=== PATIENT | male | born 1965 | race African-American/Black ===

== ENCOUNTER 2016-03-06 18:35 | Emergency (ER) | payer MEDICAID, OTHER ==
[~2016-03-06] VITALS: Ht 180.3 cm; Wt 122.0 kg
[~2016-03-06 18:35] MED LIST: FAMO40TA52 PO; HYDR-3498 PO; LOSA50TA6 PO; MAG355OR15 PO; MED4DP PO; NAPR-688 PO; ONDA4TAB8 PO
[2016-03-06 18:38] VITALS: Ht 180.3 cm; Wt 122.0 kg
--- NOTE | 2016-03-06 19:12 | EN ---
Date/Time of Note Date/Time of Note DATE: 03/06/16 TIME: 19:10 ER Progress Note This is a 50 year old male presenting to ER with CC of carpal tunnel syndrome of left wrist and alcohol abuse and wants a refill of metronidazole/Antabuse. Patient states he is following up with specialist on March 10. He usually takes Darling, I have already discussed that we will not be giving him a prescription but he would like something for pain at this moment. Patient will be sent to ER 1 for medication treatment and wrist brace. Do not give him prescription for Darling DINO FOSTER PA-C Mar 06, 2016 19:12
[2016-03-06] MEDS ORDERED: ULT50 PO (19:48)
[2016-03-06] MEDS ORDERED: ACET500C5 PO (19:48)
--- NOTE | 2016-03-06 20:02 | ERD ---
ER Documentation Chief Complaint Date/Time DATE: 03/06/16 TIME: 19:54 Chief Complaint left wrist pain hx of carpal tunnel HPI 50-year-old male presents here in emergency department for complaints of left wrist pain, patient has had this chronically, history of carpal tunnel syndrome. Patient had history of severe shots injections on affected area. Patient did not take any medications of symptoms. Patient denies any injury. Patient described the pain as throbbing pain, 6/10 scale, is worse upon movement. Patient denies any redness or swelling. Patient denies any deformity. Patient denies any limitation of movement of the joint. Patient has been requesting for Antabuse and wants to know resources where he can get it. ROS All systems reviewed and are negative except as per history of present illness. Medications Home Meds Active Scripts Acetaminophen* (Tylophen*) 500 Mg Capsule, 1 CAP PO Q6H Y for PAIN AND OR ELEVATED TEMP, #20 CAP Prov:DANNI RAMON BUSINESS ETHICS PROFESSOR 03/06/16 Tramadol HCl (Tramadol HCl) 50 Mg Tablet, 50 MG PO Q6 Y for SEVERE PAIN LEVEL 7- 10, #20 TAB Prov:DANNI RAMON BUSINESS ETHICS PROFESSOR 03/06/16 Methylprednisolone* (Medrol* DOSE PACK) 4 Mg/Dose-Pack Tab.ds.pk, 4 MG PO . DIRECTED, #1 PACKET Prov:DIMA WALTER PA-C 09/15/15 Hydrocodone Bit-Acetaminophen* ([place]*) 5-325 Mg Tab, 1 TAB PO Q6 Y for PAIN, # 7 TAB Prov:DIMA WALTER PA-C 09/15/15 Ondansetron Hcl* (Zofran*) 4 Mg Tablet, 4 MG PO Q8 for NAUSEA AND/OR VOMITING, # 12 TAB Prov:PAKO STOCK MD 08/22/15 Naproxen* (Naproxen*) 500 Mg Tablet, 500 MG PO BID Y for PAIN, #30 TAB Prov:PAKO STOCK MD 08/22/15 Famotidine* (Famotidine*) 40 Mg Tablet, 40 MG PO HS, #30 TAB Prov:PAKO STOCK MD 08/22/15 Mag Hydrox/Al Hydrox/Simeth (Maalox Ms Liquid) 360 Ml Oral.susp, 2 TSP PO TID for PAIN, #24 OZ Prov:PAKO STOCK MD 08/22/15 Reported Medications Losartan Potassium* (Losartan Potassium*) 50 Mg Tablet, 50 MG PO DAILY, TAB 09/12/13 Allergies Allergies: Coded Allergies: ibuprofen (Verified Allergy, Intermediate, 03/06/16) PMhx/Soc History of Surgery: Yes (APPENDECTOMY 20 YRS AGO) Anesthesia Reaction: No Hx Neurological Disorder: No Hx Respiratory Disorders: No Hx Cardiac Disorders: Yes (HTN) Hx Psychiatric Problems: No Hx Alcohol Use: Yes (OCCASIONAL) Hx Substance Use: No Hx Tobacco Use: Yes (1/2 PACK DAILY) Smoking Status: Current every day smoker FmHx Family History: No coronary disease, No diabetes, No other Physical Exam Vitals Vital Signs Date Time Temp Pulse Resp B/P Pulse Ox O2 Delivery O2 Flow Rate FiO2 03/06/16 18:38 98.5 89 20 142/103 96 Physical Exam GENERAL: The patient is well developed and appropriate for usual state of health, in no apparent distress. CHEST: Clear to auscultation bilaterally. There are no rales, wheezes or rhonchi. HEART: Regular rate and rhythm. No murmurs, clicks, rubs or gallops. No S3 or S4. ABDOMEN: Soft, nontender and nondistended. Good bowel sounds. No rebound or guarding. No gross peritonitis. No gross organomegaly or masses. No Dawson sign or McBurney point tenderness. BACK: No midline or flank tenderness. EXTREMITIES: Patient is able to do full range of motion of the left wrist without any restriction. Equal pulses bilaterally. Range of motion of the other joints of the body. Grossly neurovascularly intact. NEURO: Alert and oriented. Cranial nerves 2-12 intact. Motor strength in all 4 extremities with 5/5 strength. Sensation grossly intact. Normal speech and gait. SKIN: There is no apparent rash or petechia. The skin is warm and dry. HEMATOLOGIC AND LYMPHATIC: There is no evidence of excessive bruising or lymphedema. No gross cervical, axillary, or inguinal lymphadenopathy. Procedures/MDM Medical Decision Making: Patient's pain is most likely consistent with a left wrist pain possibly from carpal tunnel, chronic pain. There is no suspicion for neurovascular compromise. Patient has intact sensation and circulation of the affected extremity. There is low suspicion for septic arthritis. Patient does not have any fever. Radiology exam is not indicated at this time. Disposition: Home. Patient is given prescription for Tylenol for pain, Tylenol for severe pain. Patient was advised to elevate the affected area and apply ice on affected area. Patient was advised that if symptoms are worse, numbness, tingling, high fever, unable to move joint, worsening symptoms, to return to emergency department immediately. Otherwise, patient is advised to follow up with the primary care doctor in 5-7 days for reevaluation of symptoms. Departure Diagnosis: Primary Impression: Wrist pain, left Condition: Stable Patient Instructions: Wrist Sprain DANNI RAMON NP Mar 06, 2016 20:02
== END 2016-03-06 20:16 | disposition home or self-care (01) ==
LOC: E/R 18:35 → FTE 20:16
DX: M25.532 Pain in left wrist (principal); F17.210 Nicotine dependence, cigarettes, uncomplicated
CPT/HCPCS: 29105; Z7610

== ENCOUNTER 2016-05-01 06:00 | Day surgery (SDC) | payer OTHER ==
[~2016-05-01] VITALS: Ht 177.8 cm; Wt 116.9 kg
[2016-05-01] VITALS (13 sets, daily range): BP systolic 114–152; BP diastolic 71–116; PULSE 88–104; RESP 15–26; Ht 177.8 cm; Wt 116.9 kg
[~2016-05-01 06:00] MED LIST changes: +ACET500C5 PO; +TRAM50TA2 PO
[2016-05-01] MEDS ORDERED: OMEP40CA6 PO (07:11)
[2016-05-01] MEDS ORDERED: FURO40TA4 PO (07:11)
[2016-05-01] MEDS ORDERED: CARI350T29 PO (07:12)
[2016-05-01] MEDS ORDERED: CEFAZOLIN 1 GM INJ ONE (07:46)
[2016-05-01] MEDS ORDERED: PROPOFOL 20 ML ONE ×2 (07:46→08:55)
[2016-05-01] MEDS ORDERED: LIDOCAINE 2% (SDV) 5 ML INJ ONE (07:46)
[2016-05-01] MEDS ORDERED: FENTAnyl 50 MCG/ML VIAL ONE (07:47)
[2016-05-01] MEDS ORDERED: MIDAZOLAM 1 MG/ML 2 ML INJ ONE (07:47)
[2016-05-01] MEDS ORDERED: LIDOCAINE 1%/EPI 30 ML INJ ONE (08:13)
--- NOTE | 2016-05-01 08:15 | HPN ---
Date/Time of Note Date/Time of Note DATE: 05/01/16 TIME: 08:15 Interval H&P Admission Note Pt. seen H&P reviewed: No system changes MADELEINE GANDARA MD May 01, 2016 08:15
--- NOTE | 2016-05-01 08:18 | OPPN ---
Date/Time of Note Date/Time of Note DATE: 05/01/16 TIME: 08:16 Operative/Procedure Note Pre-Operative Diagnosis 1 left carpal tunnel syndrone 2 left dequervains Post-Operative Diagnosis same Procedure lleft caprl tunnel relase left dequervains release Surgeon: MADELEINE GANDARA MD Anesthesiologist: CESILIA KHANNA MD Implants/Grafts: Not applicable Estimated blood loss: none Drains: Not applicable Specimens: Not Applicable Anesthesia type: MADELEINE GIBSON MD May 01, 2016 08:18
[2016-05-01] MEDS ORDERED: ONDANSETRON 4 MG INJ ONE (08:39)
[2016-05-01] MEDS ORDERED: METOCLOPRAMIDE 10 MG INJ ONE (08:39)
[2016-05-01] MEDS ORDERED: PHENYLephrine (100 MCG/ML) 5ML SYG ONE (08:43)
[2016-05-01] MEDS ORDERED: HYDROmorphONE 2 MG/ML SYG ONE (08:51)
[2016-05-01] MEDS ORDERED: HYDROmorphONE (0.2 MG/ML) 10ML SYG IV PRN ×2 (09:00)
[2016-05-01] MEDS ORDERED: MEPERIDINE 25 MG INJ IV PRN (09:00)
[2016-05-01] MEDS ORDERED: OXYCODONE/ACETAMINOPHEN (5/325) TAB PO PRN ×2 (09:00)
[2016-05-01] MEDS ORDERED: ONDANSETRON 4 MG INJ IV PRN (09:00)
[2016-05-01] MEDS ORDERED: PROCHLORPERAZINE 10 MG INJ IV PRN (09:00)
[2016-05-01] MEDS ORDERED: DIPHENHYDRAMINE 50 MG INJ IV PRN (09:00)
[2016-05-01] MEDS ORDERED: FENTAnyl 50 MCG/ML VIAL IV PRN (09:00)
[2016-05-01] MEDS ORDERED: LABETALOL HCL 20MG INJ IV PRN (09:00)
[2016-05-01] MEDS ORDERED: hydrALAzine 20 MG INJ IV PRN (09:00)
[2016-05-01] MEDS ORDERED: VASOPRESSIN 20 UNITS INJ ONE (09:03)
[2016-05-01] MEDS ORDERED: EPHEDrine SULFATE 50 MG/5 ML SYG ONE (09:04)
[2016-05-01] MEDS ORDERED: PROVENTIL HFA 6.7GM INHALER ONE (09:23)
[2016-05-01] MEDS ORDERED: ALBUTEROL 0.5% (NEB) 2.5 MG/0.5 ML AMP ONE (09:40)
[2016-05-01] MEDS ORDERED: ALBUTEROL 0.5% (NEB) 2.5 MG/0.5 ML AMP INH ONE (10:00)
[2016-05-01] MEDS ORDERED: IPRATROPIUM (NEB) 0.5 MG/2.5 ML AMP HHN ONE (10:00)
--- NOTE | 2016-05-01 11:21 | OPR ---
DATE OF OPERATION: PREOPERATIVE DIAGNOSIS: 1. Left hand carpal tunnel syndrome. 2. Left wrist de Quervain's tenosynovitis. POSTOPERATIVE DIAGNOSIS: 1. Left hand carpal tunnel syndrome. 2. Left wrist de Quervain's tenosynovitis. OPERATION PERFORMED: 1. Left wrist carpal tunnel syndrome release. 2. Left wrist de Quervain's tenosynovitis release. SURGEON: Madeleine Hanks MD [employer] ATTENDANT: Staff. STAFF DEVELOPMENT COORDINATOR RN: Torie Camargo MD ANESTHESIA TECHNIQUE: Sedation by the anesthesiologist, local anesthetic by the surgeon. SURGICAL PAUSE: In the preop holding area we interviewed the patient. I confirmed the operative pr ocedure and plan. I augustina in the 2 surgical incisions, left palm, left first dorsal compartment. I showed the drawn surgical incision to the patient. I confirmed the operative procedure plan with th e patient awake. INFORMED CONSENT: At the time we scheduled the operative procedure in the office, we discussed with the patient the risks and hazards of surgery. I mentioned operative mortality, infection, nerve in jury, good results, bad result, potential for complications. At the end of that conversation, I had the patient sign a note documenting the informed consent conversation. DESCRIPTION OF PROCEDURE: The patient was taken to surgery, anesthetized as above, sterile prep and drape performed. An oblique incision made at the first dorsal compartment of the radius superficial radial nerve was identified in place behind retractors atraumatically. The first dorsal compartment was identified, incised and decompressed along its length. A flap of retinaculum was created, based proximally, ref lected over the dorsum of the first dorsal compartment and tacked to the far side as loose reconstru cted annular escobar. The skin was closed using subcuticular Vicryl. Part Two. We turned our attention to the left carpal canal. A 2 cm longitudinal incision made longitudinally over the proximal palm. carried down to the transverse carpal ligament. A arnulfo was made in i t. A mosquito passed through the arnulfo elevating the ligament away from the deep structures. I divi ded the transverse carpal ligament proximally and distally under direct observation. I did not touc h and manipulate the median nerve. We did a simple transverse carpal ligament release. The wound w as closed using interrupted Vicryl Rapide, a bulky cotton dressing was applied. The operative proce dure was around a half hour. DISCHARGE MEDICATIONS 1. Hydrocodone with acetaminophen. 2. Keflex. FOLLOWUP: Will be in my office in 1 week. In 1 week, the dressing will be discontinued and active range of motion will be started. Dictated By: MADELEINE HERNÁNDEZ/MANI Conf#: [id number] DID#: [id number]
== END 2016-05-01 11:15 | disposition home or self-care (01) ==
LOC: SDS 06:00
PROVIDERS: ATTEND Orthopaedic Surgery Hand Surgery
DX: G56.02 Carpal tunnel syndrome, left upper limb (principal); M65.4 Radial styloid tenosynovitis [de Quervain]; I10 Essential (primary) hypertension; E66.01 Morbid (severe) obesity due to excess calories; Z68.37 Body mass index [BMI] 37.0-37.9, adult
CPT/HCPCS: 25000; 64721; 94664; J0690; J1170; J2250; J2370; J2405; J2765; J3010; Z7512; Z7610

== ENCOUNTER 2016-05-25 05:22 | Emergency (ER) | payer OTHER ==
[~2016-05-25] VITALS: Ht 177.8 cm; Wt 119.0 kg
[~2016-05-25 05:22] MED LIST changes: -ACET500C5 PO; +CARI350T29 PO; -FAMO40TA52 PO; +FURO40TA4 PO; -MAG355OR15 PO; -MED4DP PO; -NAPR-688 PO; +OMEP40CA6 PO; -ONDA4TAB8 PO; -TRAM50TA2 PO
[2016-05-25 05:28] VITALS: Ht 177.8 cm; Wt 119.0 kg
--- NOTE | 2016-05-25 06:51 | ERD ---
ER Documentation Chief Complaint Date/Time DATE: 05/25/16 TIME: 06:49 Chief Complaint R hand and wrist pain 2 weeks hurts worse tonight, hx carpel tunnel HPI 50-year-old male history of carpal tunnel to his right wrist comes in with 2 weeks of worsening pain in the right wrist. It is on the radial aspect and radiates to his fingertips on the second and third digits. Patient describes as achy, moderate pain, worse with movement, and he is taking [place] but he states it does not seem to be helping. He states the tramadol has helped his wrist pain in the past. He denies trauma, fevers or chills. ROS All systems reviewed and are negative except as per history of present illness. Medications Home Meds Active Scripts Tramadol HCl (Tramadol HCl) 50 Mg Tablet, 50 MG PO Q4 Y for PAIN, #20 TAB Prov:KATI RAMIREZ PA-C 05/25/16 Hydrocodone Bit-Acetaminophen* ([place]*) 5-325 Mg Tab, 1 TAB PO Q6 Y for PAIN, # 7 TAB Prov:DIMA WALTER PA-C 09/15/15 Reported Medications Carisoprodol* (Carisoprodol*) 350 Mg Tablet, 350 MG PO Q8 Y for MUSCLE SPASMS, TAB 05/01/16 Furosemide* (Furosemide*) 40 Mg Tablet, PO DAILY, TAB 05/01/16 Omeprazole* (Omeprazole*) 40 Mg Capsule.dr, 40 MG PO DAILY, #30 CAP 05/01/16 Losartan Potassium* (Losartan Potassium*) 50 Mg Tablet, 50 MG PO DAILY, TAB 09/12/13 Allergies Allergies: Coded Allergies: ibuprofen (Verified Allergy, Intermediate, 03/06/16) PMhx/Soc History of Surgery: Yes (carpel tunnel L wrist) Anesthesia Reaction: No Hx Neurological Disorder: No Hx Respiratory Disorders: No Hx Cardiac Disorders: Yes (HTN) Hx Psychiatric Problems: No Hx Miscellaneous Medical Probl: Yes (GERD) Hx Alcohol Use: No Hx Substance Use: No Hx Tobacco Use: Yes (03/08 ppd) Smoking Status: Current every day smoker Physical Exam Vitals Vital Signs Date Time Temp Pulse Resp B/P Pulse Ox O2 Delivery O2 Flow Rate FiO2 05/25/16 05:28 98.3 103 20 174/120 97 Physical Exam General: Well-developed, well-nourished. The patient appears in no acute distress. HEENT: Head is normocephalic, atraumatic. No scleral icterus. Neck: Supple. Nontender. Lungs: Clear to auscultation. Normal air movement. Heart: Regular rate and rhythm. S1 and S2 are normal. No murmurs, gallops, or rubs. Abdomen: Nondistended. Extremities: Radian, ulnar, median nerve intact, diffuse tenderness at the radial aspect of the wrist, there are no bony deformities, no erythema, warmth, no overlying lacerations or openings. Capillary refill less than 2 seconds. Radial pulse 2+ bilaterally. Neurologic: Alert and oriented 3. No focal deficits. Normal speech and gait. Skin: Normal turgor. No rash or lesions. Results 24 hrs PROCEDURE: Right hand x-ray CLINICAL INDICATION: pain x 2 weeks TECHNIQUE: AP, lateral and oblique views of the hand and wrist were obtained. COMPARISON: None FINDINGS: Well corticated bony density adjacent to the ulnar styloid suggests prior trauma. No acute fracture or dislocation is seen. Bone mineralization appears within normal limits. No significant degenerative change is seen. IMPRESSION: Old ulnar styloid fracture fragment. No definite acute abnormality. RPTAT: HLBE Physician Christoph Date Time Electronically viewed and signed by Physician Christoph on 05/25/2016 07 :06 LE/ Procedures/MDM ED course: X-rays of the right wrist obtained, and right wrist was placed in a Velcro wrist splint. Splint Assessment: Neurovascularly intact post splint placement with good fit. MDM: 50-year-old male comes in with carpal tunnel exacerbation of the right wrist, with carpal tunnel syndrome. There is no acute fracture, signs of dislocation or infectious process. Patient was placed in a wrist splint, he will be given a short course of tramadol, advised him to follow-up with his primary care physician for further medication refills. He is supposed to get a surgical evaluation for carpal tunnel syndrome, there are no signs of neuropraxia, weakness associated. Departure Diagnosis: Primary Impression: Pain in wrist Condition: Good KATI RAMIREZ PA-C May 25, 2016 06:51
--- NOTE | 2016-05-25 07:07 | RADRPT ---
PROCEDURE: Right hand x-ray CLINICAL INDICATION: pain x 2 weeks TECHNIQUE: AP, lateral and oblique views of the hand and wrist were obtained. COMPARISON: None FINDINGS: Well corticated bony density adjacent to the ulnar styloid suggests prior trauma. No acute fracture or dislocation is seen. Bone mineralization appears within normal limits. No significant degenera tive change is seen. IMPRESSION: Old ulnar styloid fracture fragment. No definite acute abnormality. RPTAT: HLBE Physician Christoph Date Time Electronically viewed and signed by Anastasiia Mix Physician on 05/25/2016 07:06 LE/
[2016-05-25] MEDS ORDERED: TRAM50TA2 PO (07:24)
== END 2016-05-25 07:45 | disposition home or self-care (01) ==
LOC: FTE 05:22
DX: M25.531 Pain in right wrist (principal); I10 Essential (primary) hypertension; F17.210 Nicotine dependence, cigarettes, uncomplicated
CPT/HCPCS: 29125; 73110; Z7502

== ENCOUNTER 2016-07-30 20:47 | Emergency (ER) | payer OTHER ==
[~2016-07-30] VITALS: Ht 177.8 cm; Wt 121.0 kg
[~2016-07-30 20:47] MED LIST changes: +TRAM50TA2 PO
[2016-07-30 20:52] VITALS: Ht 177.8 cm; Wt 121.0 kg
[2016-07-30] MEDS ORDERED: SOD CHLORIDE 0.9% 1,000 ML IV ONE (22:30)
[2016-07-30] MEDS ORDERED: CEFTRIAXONE 1 GM/50 ML (PMX) 50 ML IVPB ONE (22:30)
[2016-07-30] MEDS ORDERED: HYDROCODONE/APAP (5/325) TAB PO ONE (22:30)
--- NOTE | 2016-07-30 22:38 | ERD ---
ER Documentation Chief Complaint Date/Time DATE: 07/30/16 TIME: 22:24 Chief Complaint bilateral lower extremity redness and swelling for past 3 weeks -cp - sob HPI This 50-year-old male presents to the emergency department today with bilateral lower extremity redness, pain, swelling and burning. Symptoms have progressively worsened over the past 3 weeks. Patient reports that his feet feel numb and tingly while ambulating. Denies any prior history of lower extremity edema, denies any renal insufficiency or coronary artery disease. Patient reports history of hypertension, sleep apnea, GERD, arthritis, and,. Patient reports smoking a pack or so a week. Denies chest pain, shortness of breath, or palpitations. ROS All systems reviewed and are negative except as per history of present illness. Medications Home Meds Active Scripts Tramadol HCl (Tramadol HCl) 50 Mg Tablet, 50 MG PO Q4 Y for PAIN, #20 TAB Prov:KATI RAMIREZ PA-C 05/25/16 Hydrocodone Bit-Acetaminophen* ([place]*) 5-325 Mg Tab, 1 TAB PO Q6 Y for PAIN, # 7 TAB Prov:DIMA WALTER PA-C 09/15/15 Reported Medications Carisoprodol* (Carisoprodol*) 350 Mg Tablet, 350 MG PO Q8 Y for MUSCLE SPASMS, TAB 05/01/16 Furosemide* (Furosemide*) 40 Mg Tablet, PO DAILY, TAB 05/01/16 Omeprazole* (Omeprazole*) 40 Mg Capsule.dr, 40 MG PO DAILY, #30 CAP 05/01/16 Losartan Potassium* (Losartan Potassium*) 50 Mg Tablet, 50 MG PO DAILY, TAB 09/12/13 Allergies Allergies: Coded Allergies: ibuprofen (Verified Allergy, Intermediate, 03/06/16) PMhx/Soc History of Surgery: Yes (carpel tunnel L wrist) Anesthesia Reaction: No Hx Neurological Disorder: No Hx Respiratory Disorders: No Hx Cardiac Disorders: Yes (HTN) Hx Psychiatric Problems: No Hx Miscellaneous Medical Probl: Yes (GERD) Hx Alcohol Use: No Hx Substance Use: No Hx Tobacco Use: Yes (03/08 ppd) Smoking Status: Current every day smoker Physical Exam Vitals Vital Signs Date Time Temp Pulse Resp B/P Pulse Ox O2 Delivery O2 Flow Rate FiO2 07/30/16 20:52 97.8 120 18 142/86 97 Patient is tachycardic with normal temperature and respirations. Physical Exam Const: No acute distress Head: Atraumatic Eyes: Normal Conjunctiva, PERRLA, EOMI ENT: Normal External Ears, Nose and Mouth. Mucous membranes moist Neck: Resp: Chest rises and falls symmetrically, clear to auscultation bilaterally no respiratory distress Cardio: Sinus tachycardia at a ventricular rate of 120 , S1-S2, no S3-S4 Abd: Soft, non tender, non distended. Normal bowel sounds Skin: Bilateral lower extremity presents with tight skin, red macular erythema and warmth. Left lower extremity presents with a small scabbed lesion. Back: Ext: Lower Extremity - bilateral: Skin: Bilateral lower extremity presents with tight skin, red macular erythema and warmth. Left lower extremity presents with a small scabbed lesion +1 pitting edema Compartments: Soft Motor: Decreased range of motion secondary to edema Sensation: Hypersensitivity to touch on bright red erythematous skin, decreased sensitivity on lateral aspect of bilateral feet. Bones: Nontender knee/proximal tibia/ malleoli/foot Joints: No effusion or laxity Pulses/Perfusion: Trace DP, Capillary refill < 2 seconds Neur: Awake and alert Psych: Normal Mood and Affect Result Diagram: 07/30/16220407/30/162204 Results 24 hrs Laboratory Tests Test 07/30/16 22:00 07/30/16 22:05 Lactic Acid Level 1.4mmol/L White Blood Count 9.210^3/ul Red Blood Count 4.0710^6/ul Hemoglobin 12.8g/dl Hematocrit 38.1% Mean Corpuscular Volume 93.6fl Mean Corpuscular Hemoglobin 31.4pg Mean Corpuscular Hemoglobin Concent 33.6g/dl Red Cell Distribution Width 13.2% Platelet Count 57097^3/UL Mean Platelet Volume 11.6fl Neutrophils % 68.4% Lymphocytes % 16.0% Monocytes % 10.2% Eosinophils % 4.6% Basophils % 0.4% Nucleated Red Blood Cells % 0.0/100WBC Neutrophils # 6.310^3/ul Lymphocytes # 1.510^3/ul Monocytes # 0.910^3/ul Eosinophils # 0.410^3/ul Basophils # 0.010^3/ul Nucleated Red Blood Cells # 0.010^3/ul Prothrombin Time 13.9Sec Prothrombin Time Ratio 1.1 INR International Normalized Ratio 1.07 Activated Partial Thromboplast Time 27.0Sec Sodium Level 140mmol/L Potassium Level 3.7mmol/L Chloride Level 107mmol/L Carbon Dioxide Level 22mmol/L Anion Gap 15 Blood Urea Nitrogen 21mg/dl Creatinine 1.50mg/dl Glucose Level 108mg/dl Calcium Level 8.5mg/dl Total Bilirubin 0.2mg/dl Direct Bilirubin 0.00mg/dl Indirect Bilirubin 0.2mg/dl Aspartate Amino Transf (AST/SGOT) 42IU/L Alanine Aminotransferase (ALT/SGPT) 45IU/L Alkaline Phosphatase 149IU/L Total Protein 7.9g/dl Albumin 3.3g/dl Globulin 4.60g/dl Albumin/Globulin Ratio 0.71 Current Medications Medications (Trade) Dose Ordered Sig/Debora Route PRN Reason Start Time Stop Time Status Last Admin Dose Admin Sodium Chloride 1,000 ml @ 1,000 mls/hr Q1H ONCE IV 07/30/16 22:30 07/30/16 23:29 DC 07/30/16 22:50 Ceftriaxone Sodium (Rocephin) 50 ml @ 100 mls/hr ONCE ONCE IVPB 07/30/16 22:30 07/30/16 22:59 DC 07/30/16 22:51 Acetaminophen/ Hydrocodone Bitart ([place] (5/325)) 1 tab ONCE ONCE PO 07/30/16 22:30 07/30/16 22:31 DC 07/30/16 22:51 Interpretation text CBC shows no evidence of hemorrhage or infection Chemistry shows no evidence of significant electrolyte abnormalities or renal insufficiency Liver function tests shows no evidence of acute biliary or hepatic dysfunction Coagulation study showed no concerning coagulpathy Lactic acid less than 2 Procedures/MDM EKG: Rate/Rhythm: Sinus tachycardia at a ventricular rate of 106 bpm QRS, ST, T-waves: No changes consistent w/ acute ischemia Impression: No evidence of ischemia or arrhythmia This 50-year-old male patient presents to the emergency department with tachycardia, painful lower extremities with erythema and pitting edema. Patient has no prior history of lower extremity edema, denies any injury to the lower extremities, denies history of diabetes or coronary artery disease. Skin is painful to touch, with redness warmth and swelling. DVT, PVD, low probability, venous Doppler ordered regardless to rule out clot. Bilateral lower extremities patent without evidence of decrease perfusion. Renal insufficiency,, CHF, sepsis unlikely, lactic acid less than 2, WBCs without elevation, hemoglobin and hematocrit normal and stable. Electrolytes without evidence of renal insufficiency. Patient treated in the emergency department for pain and lower extremity cellulitis with a liter of fluids, and 1 g of Rocephin intravenous, Fence, patient reports improvement in leg pain but states extremities feel tight. Teaching provided to keep extremities elevated, he will be discharged home with Keflex 1 tab p.o. 4 times daily 10 days, follow -up in emergency department for reevaluation in 48 hours, make outpatient follow -up appointment with primary care physician in 10 days. Return to emergency department for fever not responding to treatment, increased pain, swelling, shortness of breath. I feel the patient is stable for discharge at this time with 48 hour follow-up, and posttreatment evaluation with primary care physician. I have discussed results, examination findings, the treatment plan with the patient and family present prior to discharge. Indications for emergent reevaluation, side effects of medication were also discussed. All questions were answered. Patient verbalizes understanding and agrees with plan of care. Departure Diagnosis: Primary Impression: Cellulitis Site of cellulitis: extremity Site of cellulitis of extremity: lower extremity Laterality: unspecified laterality Qualified Code: L03.119 - Cellulitis of lower extremity, unspecified laterality Condition: Good Patient Instructions: Cellulitis Additional Instructions: Thank you for for coming to [facility] for your care today. Please ask your nurse or provider if you have questions about your care today and do not leave until all your questions have been answered. Please use any medications given as directed and follow-up with your doctor (or the doctor you were referred to) in the next 2-3 days. If you do not have a primary care doctor you [place] [facility] [place] You may also use motrin and tylenol as needed for fever and/or pain unless instructed otherwise by your provider or nurse. Indications for more urgent follow-up have been discussed, but you may return to the Emergency Department at ANY time for any worrisome or worsening symptoms. If you have abdominal pain, please know that no test or exam you received is perfect and you should follow up within 8 hours for continued pain. If you had any imaging studies today, such as an X-Ray or CT Scan, these studies will be reviewed later by a radiologist. You will be called if there are important findings that were not identified today, so make sure the contact information you provided at registration is correct. If you received any narcotic pain control medicine today, such as Vicodin, Morphine or Dilaudid, your coordination and judgment may be affected for a number of hours. Please do not drive or operate heavy machinery, and you may want someone to assist you at home. If you were given a prescription for narcotic medication, be aware that it is very addictive- use sparingly and only if necessary. LAYLA GOODE July 30, 2016 22:36
[2016-07-30 22:52] LABS: ADD SCAN DIFF NO
[2016-07-30 22:54] LABS: BASOPHILS % 0.4 % (0.0-2.0); EOSINOPHILS # 0.4 10^3/ul (0.0-0.5); EOSINOPHILS % 4.6 % (0.0-7.0); HEMATOCRIT 38.1 % (42.0-52.0); HEMOGLOBIN 12.8 g/dl (14.0-18.0); LYMPHOCYTES # 1.5 10^3/ul (0.8-2.9); MEAN CORPUSCULAR HEMOGLOBIN 31.4 pg (29.0-33.0); MEAN CORPUSCULAR HGB CONC 33.6 g/dl (32.0-37.0); MEAN CORPUSCULAR VOLUME 93.6 fl (82.0-101.0); MEAN PLATELET VOLUME 11.6 fl (7.4-10.4); MONOCYTE # 0.9 10^3/ul (0.3-0.9); MONOCYTES % 10.2 % (0.0-11.0); NEUTROPHIL # 6.3 10^3/ul (1.6-7.5); NEUTROPHILS % 68.4 % (39.0-77.0); PLATELET COUNT 245 10^3/UL (140-415); RED BLOOD COUNT 4.07 10^6/ul (4.70-6.10); RED CELL DISTRIBUTION WIDTH 13.2 % (11.5-14.5); WHITE BLOOD COUNT 9.2 10^3/ul (4.8-10.8)
[2016-07-30 23:07] LABS: INR 1.07; PROTIME 13.9 Sec (12.2-14.2); PT RATIO 1.1
[2016-07-30 23:13] LABS: ALBUMIN 3.3 g/dl (3.3-4.9); ALBUMIN/GLOBULIN RATIO 0.71; BILIRUBIN,INDIRECT 0.2 mg/dl (0-1.1); BILIRUBIN,TOTAL 0.2 mg/dl (0.2-1.3); CALCIUM 8.5 mg/dl (8.4-10.2); CREATININE 1.5 mg/dl (0.61-1.24); POTASSIUM 3.7 mmol/L (3.5-5.1); TOTAL PROTEIN 7.9 g/dl (6.1-8.1)
--- NOTE | 2016-07-31 00:59 | RADRPT ---
PROCEDURE: Ultrasound of the bilateral lower extremity venous system. CLINICAL INDICATION: Bilateral leg pain and swelling, deep venous thrombosis TECHNIQUE: Adkins scale with and without compression, color doppler, spectral doppler of the venous system of the bilateral lower extremities was performed. Venous augmentation maneuvers were utilized . COMPARISON: 09/03/2013 FINDINGS: RIGHT: Common femoral vein: Patent. Femoral vein: Patent. Popliteal vein: Patent. Calf veins: Patent. No soft tissue abnormalities are identified. LEFT: Common femoral vein: Patent. Femoral vein: Patent. Popliteal vein: Patent. Calf veins: Patent. No soft tissue abnormalities are identified. IMPRESSION: No evidence of a deep vein thrombosis within the bilateral lower extremities. RPTAT: AADD .Ash Cantor MD, MD Date Time Electronically viewed and signed by .Ash Cantor MD, on 07/31/2016 00:58 .B/
[2016-07-31] MEDS ORDERED: HYDR-906 PO (01:55)
[2016-07-31] MEDS ORDERED: CEPH-443 PO (01:55)
[2016-07-31 01:58] LABS: ADD UMIC YES; URINE BILIRUBIN (Dip) NEGATIVE (NEGATIVE); URINE BLOOD (Dip) 3+ (NEGATIVE); URINE COLOR LT. YELLOW (YELLOW); URINE GLUCOSE (Dip) NEGATIVE (NEGATIVE); URINE KETONES (Dip) NEGATIVE (NEGATIVE); URINE LEUKOCYTE ESTERASE (Dip) 1+ (NEGATIVE); URINE NITRITE (Dip) NEGATIVE (NEGATIVE); URINE TOTAL PROTEIN (Dip) 2+ (NEGATIVE); URINE UROBILINOGEN (Dip) 0.2 E.U./dL (0.1-1.0)
[2016-07-31 02:12] LABS: SQUAMOUS EPITHELIAL CELL,UR MODERATE; URINE RBCS 25-50 /HPF (0)
[2016-07-31 02:13] LABS: BACTERIA,URINE OCCASIONAL
[2016-07-31 02:28] VITALS: BP 148/99; PULSE 98; RESP 16
== END 2016-07-31 02:29 | disposition home or self-care (01) ==
LOC: FTE 20:47
DX: L03.116 Cellulitis of left lower limb (principal); I10 Essential (primary) hypertension; F17.210 Nicotine dependence, cigarettes, uncomplicated; R07.9 Chest pain, unspecified
CPT/HCPCS: 80053; 81001; 83605; 85025; 85610; 85730; 87040; 87086; 93970; J0696; J7030; Z7610; 36415; 93005; 96374

== ENCOUNTER 2016-09-15 20:54 | Inpatient (IN) | payer OTHER ==
[~2016-09-15] VITALS: Ht 177.8 cm; Wt 123.5 kg
[~2016-09-15 20:54] MED LIST changes: +CEPH-443 PO; +HYDR-906 PO
--- NOTE | 2016-09-15 22:24 | ERA ---
ER Documentation Chief Complaint Date/Time DATE: 09/15/16 TIME: 22:24 Chief Complaint Bilateral LE cellulitis for 3 months abx not effective HPI The patient is a 51-year-old male, presenting to the ER because of persistent infection of bilateral lower extremity for more than 3 months. He already took 2 regimen of antibiotics without relief. He denies fever, chills, neck pain, chest pain, dyspnea, abdominal pain, vomiting, dysuria, diarrhea. He does not smoke nor drink Past medical history: Hypertension, GERD, rheumatoid arthritis, glaucoma Past surgical history: Left carpal tunnel's surgery ROS All systems reviewed and are negative except as per history of present illness. Medications Home Meds Active Scripts Tramadol HCl (Tramadol HCl) 50 Mg Tablet, 50 MG PO Q4 Y for PAIN, #20 TAB Prov:KATI RAMIREZ PA-C 05/25/16 Reported Medications Albuterol Sulfate* (Ventolin HFA*) 18 Gm Hfa.aer.ad, 2 PUFF INHALATION Q4H, #1 INHALER 09/15/16 Brimonidine Tartrate* (Brimonidine Tartrate*) 0.2%-15ML Drop Opht, 1 DROP BOTH EYES Q8, #1 EA 09/15/16 Latanoprost (Latanoprost) 2.5 Ml Drops, 1 DROP BOTH EYES QHS, #1 BOTTLE 09/15/16 Timolol Maleate* (Timolol Maleate* Ophth) 0.25%-15ml Opht, 1 DROP BOTH EYES BID , #1 EA 09/15/16 Cephalexin* (Cephalexin*) 500 Mg Capsule, 500 MG PO Q6, #28 CAP 09/15/16 Hydrochlorothiazide* (Hydrochlorothiazide*) 25 Mg Tab, 25 MG PO DAILY, #30 TAB 09/15/16 Atenolol* (Atenolol*) 100 Mg Tablet, 100 MG PO DAILY, #30 TAB 09/15/16 Alprazolam* (Alprazolam*) 0.25 Mg Tablet, 0.25 MG PO TID Y for ANXIETY, TAB 09/15/16 Hydrocodone/Acetaminophen ([place] 10-325 Tablet) 1 Each Tablet, 1 EACH PO, TAB 09/15/16 Carisoprodol* (Carisoprodol*) 350 Mg Tablet, 350 MG PO Q8 Y for MUSCLE SPASMS, TAB 05/01/16 Furosemide* (Furosemide*) 40 Mg Tablet, PO DAILY, TAB 05/01/16 Omeprazole* (Omeprazole*) 40 Mg Capsule.dr, 40 MG PO DAILY, #30 CAP 05/01/16 Losartan Potassium* (Losartan Potassium*) 50 Mg Tablet, 50 MG PO DAILY, TAB 09/12/13 Discontinued Reported Medications Hydrocodone/Acetaminophen ([place] 10-325 Tablet) 1 Each Tablet, 1 EACH PO, TAB 09/15/16 Discontinued Scripts Hydrocodone/Acetaminophen ([place] 5-325 Tablet) 1 Each Tablet, 1 TAB PO Q6H Y for PAIN, #7 TAB Prov:RUPA,LAYLA 07/31/16 Cephalexin* (Keflex*) 500 Mg Capsule, 500 MG PO QID for 10 Days, CAP Prov:RUPA,LAYLA 07/31/16 Hydrocodone Bit-Acetaminophen* ([place]*) 5-325 Mg Tab, 1 TAB PO Q6 Y for PAIN, # 7 TAB Prov:DIMA WALTER PA-C 09/15/15 Allergies Allergies: Coded Allergies: ibuprofen (Unverified Allergy, Intermediate, 09/15/16) PMhx/Soc History of Surgery: Yes (carpel tunnel L wrist) Anesthesia Reaction: No Hx Neurological Disorder: No Hx Respiratory Disorders: No Hx Cardiac Disorders: Yes (HTN) Hx Psychiatric Problems: No Hx Miscellaneous Medical Probl: Yes (GERD) Hx Alcohol Use: No Hx Substance Use: No Hx Tobacco Use: Yes (03/08 ppd) Physical Exam Vitals Vital Signs Date Time Temp Pulse Resp B/P Pulse Ox O2 Delivery O2 Flow Rate FiO2 09/15/16 21:16 99.2 102 18 181/97 99 Physical Exam Const: No acute distress. Head: Atraumatic. Eyes: Normal Conjunctiva. ENT: Normal External Ears, Nose and Mouth. Neck: Full range of motion. No meningismus. Resp: Clear to auscultation bilaterally. Cardio: Regular rate and rhythm. Abd: Soft, non distended, normal bowel sounds, non tender. Skin: No petechiae or rashes. Back: No midline or flank tenderness. Ext: Bilateral lower extremity edema with mild calf tenderness, warm to touch Neur: Awake and alert. No focal deficit Psych: Normal Mood and Affect. Result Diagram: 09/15/16224909/15/162249 Results 24 hrs Laboratory Tests Test 09/15/16 22:50 09/15/16 23:35 White Blood Count 9.510^3/ul Red Blood Count 3.8910^6/ul Hemoglobin 12.2g/dl Hematocrit 35.9% Mean Corpuscular Volume 92.3fl Mean Corpuscular Hemoglobin 31.4pg Mean Corpuscular Hemoglobin Concent 34.0g/dl Red Cell Distribution Width 14.0% Platelet Count 70927^3/UL Mean Platelet Volume 12.0fl Neutrophils % 60.4% Lymphocytes % 22.0% Monocytes % 12.5% Eosinophils % 4.1% Basophils % 0.5% Nucleated Red Blood Cells % 0.0/100WBC Neutrophils # 5.810^3/ul Lymphocytes # 2.110^3/ul Monocytes # 1.210^3/ul Eosinophils # 0.410^3/ul Basophils # 0.110^3/ul Nucleated Red Blood Cells # 0.010^3/ul Prothrombin Time 12.8Sec Prothrombin Time Ratio 1.0 INR International Normalized Ratio 0.96 Activated Partial Thromboplast Time 28.1Sec Sodium Level 141mmol/L Potassium Level 3.6mmol/L Chloride Level 106mmol/L Carbon Dioxide Level 21mmol/L Anion Gap 18 Blood Urea Nitrogen 19mg/dl Creatinine 2.09mg/dl Glucose Level 105mg/dl Calcium Level 8.5mg/dl Total Bilirubin 0.0mg/dl Direct Bilirubin 0.00mg/dl Indirect Bilirubin 0.0mg/dl Aspartate Amino Transf (AST/SGOT) 40IU/L Alanine Aminotransferase (ALT/SGPT) 40IU/L Alkaline Phosphatase 122IU/L Total Protein 7.8g/dl Albumin 4.0g/dl Globulin 3.80g/dl Albumin/Globulin Ratio 1.05 Lactic Acid Level 1.0mmol/L Current Medications Medications (Trade) Dose Ordered Sig/Debora Route PRN Reason Start Time Stop Time Status Last Admin Dose Admin Vancomycin HCl 250 ml @ 125 mls/hr ONCE IVPB 09/15/16 23:30 09/16/16 01:29 DC 09/16/16 01:37 Levofloxacin/ Dextrose 150 ml @ 100 mls/hr ONCE ONCE IVPB 09/15/16 23:30 09/16/16 00:59 DC 09/15/16 23:45 Sodium Chloride (NS) 1,000 ml @ 80 mls/hr [id number] IV 09/16/16 00:45 Procedures/MDM EKG: Read by emergency physician Rate/Rhythm: Normal Sinus Rhythm 95 beats/min QRS, ST, T-waves: No ST elevation, no T inversion, prolonged QT Impression: Abnormal EKG [place] [id number] Radiology Main Line: [phone] DIAGNOSTIC IMAGING REPORT Patient: MAREK HENDRICKSON : 1965 Age: 51 Sex: M MR #: [id number] DOS: 09/16/16 0022 Ordering MD: NATALY MCKEON MD Location: E/R Room/Bed: PROCEDURE: US bilateral lower extremity venous Doppler CLINICAL INDICATION: Bilateral swelling TECHNIQUE: Multiple sonographic images of the bilateral lower extremity deep venous system was obtained utilizing grayscale, color-flow, compressive sonography and Doppler imaging with augmentation. COMPARISON: There are no similar studies submitted for comparison. FINDINGS: There is normal compressibility and flow within the left common femoral, superficial femoral, popliteal, and calf veins. There is normal compressibility and flow within the right common femoral, superficial femoral, popliteal, and calf veins. IMPRESSION: No evidence of DVT within the lower extremities. RPTAT: HIKT .Kevon Mccarty MD, MD Date Time Electronically viewed and signed by .Kevon Mccarty MD, MD on 09/16/2016 01:32 .T/ CC: NATALY MCKEON MD [place] [id number] Radiology Main Line: [phone] DIAGNOSTIC IMAGING REPORT Patient: MAREK HENDRICKSON : 1965 Age: 51 Sex: M MR #: [id number] DOS: 09/15/16 2320 Ordering MD: NATALY MCKEON MD Location: E/R Room/Bed: PROCEDURE: Portable chest x-ray. CLINICAL INDICATION: Chest pain. TECHNIQUE: Portable AP view of the chest. COMPARISON: 08/22/2015. FINDINGS: There are low lung volumes, limiting evaluation of the pulmonary vessels and the heart size. No pulmonary edema or conolidation is identified. The cardiac silhouette is magnified. No pleural effusion is seen. There is no pneumothorax. IMPRESSION: 1. Low lung volumes. RPTAT: HTAR .Fuad Triplett MD, MD Date Time Electronically viewed and signed by .Fuad Triplett MD, MD on 09/16/2016 00:10 .R/ CC: NATALY MCKEON MD MEDICAL MAKING DECISION: The patient is a 51-year-old male, presenting with acute bilateral leg cellulitis, failed outpatient therapy. He was treated with Levaquin IV and vancomycin IV The differential diagnoses considered include but are not limited to cellulitis , DVT, necrotizing fasciitis Departure Diagnosis: Primary Impression: Bilateral lower leg cellulitis Condition: Stable Comments I discussed the findings with the patient. I discussed the patient with the on- call hospitalist Dr. Miller who was made aware of the lab, the treatment, the patient condition. The patient is admitted to medical surgery bed at 12:40 AM NATALY MCKEON MD Sep 15, 2016 22:24
[2016-09-15] MEDS ORDERED: CEPH500C PO (23:27)
[2016-09-15] MEDS ORDERED: BRIM15DR7 BOTH EYES (23:27)
[2016-09-15] MEDS ORDERED: LATA2.5D2 BOTH EYES (23:27)
[2016-09-15] MEDS ORDERED: TIMO15DR15 BOTH EYES (23:27)
[2016-09-15] MEDS ORDERED: HYDR-902 PO ×2 (23:27→23:28)
[2016-09-15] MEDS ORDERED: HYD25 PO (23:27)
[2016-09-15] MEDS ORDERED: ALBU18HF INHALATION (23:27)
[2016-09-15] MEDS ORDERED: ATEN100T PO (23:27)
[2016-09-15] MEDS ORDERED: ALPR0.254 PO (23:27)
[2016-09-15] MEDS ORDERED: VANCOMYCIN 1 GM (PMX) 250 ML IVPB SCH (23:30)
[2016-09-15] MEDS ORDERED: LEVOFLOXACIN 750MG/D5W (PMX) 150 ML IVPB ONE (23:30)
--- NOTE | 2016-09-16 00:10 | RADRPT ---
PROCEDURE: Portable chest x-ray. CLINICAL INDICATION: Chest pain. TECHNIQUE: Portable AP view of the chest. COMPARISON: 08/22/2015. FINDINGS: There are low lung volumes, limiting evaluation of the pulmonary vessels and the heart size. No pulm onary edema or conolidation is identified. The cardiac silhouette is magnified. No pleural effusio n is seen. There is no pneumothorax. IMPRESSION: 1. Low lung volumes. RPTAT: HTAR .Fuad Triplett MD, Date Time Electronically viewed and signed by .Fuad Triplett MD, on 09/16/2016 00:10 .R/
[2016-09-16 00:17] LABS: ADD SCAN DIFF NO
[2016-09-16 00:19] LABS: BASOPHIL # 0.1 10^3/ul (0.0-0.1); BASOPHILS % 0.5 % (0.0-2.0); EOSINOPHILS # 0.4 10^3/ul (0.0-0.5); EOSINOPHILS % 4.1 % (0.0-7.0); HEMATOCRIT 35.9 % (42.0-52.0); HEMOGLOBIN 12.2 g/dl (14.0-18.0); LYMPHOCYTES # 2.1 10^3/ul (0.8-2.9); MEAN CORPUSCULAR HEMOGLOBIN 31.4 pg (29.0-33.0); MEAN CORPUSCULAR VOLUME 92.3 fl (82.0-101.0); MONOCYTE # 1.2 10^3/ul (0.3-0.9); MONOCYTES % 12.5 % (0.0-11.0); NEUTROPHIL # 5.8 10^3/ul (1.6-7.5); NEUTROPHILS % 60.4 % (39.0-77.0); PLATELET COUNT 293 10^3/UL (140-415); RED BLOOD COUNT 3.89 10^6/ul (4.70-6.10); WHITE BLOOD COUNT 9.5 10^3/ul (4.8-10.8)
[2016-09-16 00:23] LABS: PARTIAL THROMBOPLASTIN TIME 28.1 Sec (25.0-35.0)
[2016-09-16 00:27] LABS: ALBUMIN/GLOBULIN RATIO 1.05; CALCIUM 8.5 mg/dl (8.4-10.2); CREATININE 2.09 mg/dl (0.61-1.24); POTASSIUM 3.6 mmol/L (3.5-5.1); TOTAL PROTEIN 7.8 g/dl (6.1-8.1)
[2016-09-16 00:39] LABS: INR 0.96; PROTIME 12.8 Sec (12.2-14.2)
[2016-09-16] MEDS ORDERED: ALPRAZOLAM 0.25 MG TAB PO PRN (01:00)
[2016-09-16] MEDS ORDERED: DOCUSATE SODIUM 100 MG CAP PO PRN (01:00)
[2016-09-16] MEDS ORDERED: CARISOPRODOL 350 MG TAB PO PRN (01:00)
[2016-09-16] MEDS ORDERED: BISACODYL (EC) 5 MG TAB PO PRN (01:00)
[2016-09-16] MEDS ORDERED: ACETAMINOPHEN 325 MG TAB PO PRN (01:00)
[2016-09-16] MEDS ORDERED: ALBUTEROL 18 GM INHALER INH PRN (01:00)
[2016-09-16] MEDS ORDERED: ONDANSETRON 4 MG INJ IV PRN (01:00)
[2016-09-16] MEDS ORDERED: NACL 0.9% 3 ML SYG IV SCH (01:00)
--- NOTE | 2016-09-16 01:32 | RADRPT ---
PROCEDURE: US bilateral lower extremity venous Doppler CLINICAL INDICATION: Bilateral swelling TECHNIQUE: Multiple sonographic images of the bilateral lower extremity deep venous system was obt ained utilizing grayscale, color-flow, compressive sonography and Doppler imaging with augmentation. COMPARISON: There are no similar studies submitted for comparison. FINDINGS: There is normal compressibility and flow within the left common femoral, superficial femoral, poplit eal, and calf veins. There is normal compressibility and flow within the right common femoral, superficial femoral, popli teal, and calf veins. IMPRESSION: No evidence of DVT within the lower extremities. RPTAT: HIKT .Kevon Mccarty MD, MD Date Time Electronically viewed and signed by .Kevon Mccarty MD, MD on 09/16/2016 01:32 .T/
[2016-09-16 01:38] VITALS: PULSE 95; TEMP 98.6
[2016-09-16 02:19] VITALS: Ht 177.8 cm; Wt 123.5 kg
[2016-09-16] MEDS: morphine 2 MG INJ IV PRN ×2 (02:57→09:39)
[2016-09-16] MEDS ORDERED: VANCOMYCIN IV PER PHARMACY XX SCH (03:30)
[2016-09-16] MEDS: SOD CHLORIDE 0.9% 1,000 ML IV SCH ×3 (04:05→20:09)
[2016-09-16] MEDS ORDERED: VANCOMYCIN 1 GM in NS 250 ML IVPB ONE (04:30)
[2016-09-16] MEDS: BRIMONIDINE 0.2% 5 ML BTL BOTH EYES SCH ×3 (05:49→21:10)
[2016-09-16] MEDS: PANTOPRAZOLE 40 MG INJ IV SCH (05:49)
--- NOTE | 2016-09-16 06:12 | HP ---
Date/Time of Note Date/Time of Note DATE: 09/16/16 TIME: 06:05 Assessment/Plan VTE Prophylaxis VTE Prophylaxis Intervention: heparin Lines/Catheters IV [facility]from [facility] Peripheral IV Urinary Cath still in place: No Assessment/Plan Chief Complaint/Hosp Course This is a 51-year-old male being admitted to the [facility] floor for: #1 bilateral lower extremity cellulitis: Patient failed multiple outpatient courses of antibiotics. At the current time we will continue patient on vancomycin IV. Patient was also given a dose of Levaquin in the ER, will DC Levaquin at this time. Discontinue the vancomycin. Consider infectious disease consultation if no improvement. Bilateral lower extremity Dopplers were negative for DVT. #2 Acute on chronic kidney disease: Patient's previous creatinine was 1.5 and July. This is likely secondary to patient's hypertension as well as possible rheumatoid arthritis. At the current time will order bilateral renal ultrasound , urine microscopic, and urine sodium. Renally dose antibiotics. Avoid NSAIDs. Will consult nephrology. #3: Rheumatoid arthritis: Hold any NSAIDs at this time secondary to #2 #4 hypertension: At the current time will hold home antihypertensive secondary to #2. Will put as needed hydralazine. Will consult nephrology. #5 hyperlipidemia: We will check cholesterol labs. #6 Morbid obesity: We will also check hemoglobin A1c #7 DVT and GI prophylaxis: Heparin subcu, Protonix Further treatment strategy will be implemented for the clinical course Problems: HPI/ROS Admit Date/Time Admit Date/Time Sep 16, 2016 at 00:45 Hx of Present Illness Chief complaint: Bilateral cellulitis This is a 51-year-old male, presenting to the ER because of persistent infection of bilateral lower extremites for more than 3 months. He already took 2 regimen of antibiotics without relief. He denies fever, chills, neck pain, chest pain, dyspnea, abdominal pain, vomiting, dysuria, diarrhea. He states that he has noticed his lower extremities being swollen. He denies any shortness of breath or chest pain. He does notice that his lower extremities are warm to touch. Allergies: Ibuprofen Medications: See BHARATI NASH Const: As per HPI Eyes : No pain discharge or redness or change in visual acuity ENT: No pain, sore throat, congestion, congestion, dysphagia or discharge Respiratory: No shortness of breath, cough, sputum, wheezing, or pleuritic pain Cardiovascular: No chest pain, palpitation, PND, or edema GI : no change in appetite, abdominal pain, nausea, vomiting, diarrhea, constipation, or change in the color his stool Genitourinary: No dysuria, hematuria, flank pain , discharge or CVA tenderness Musculoskeletal: As per HPI Skin: As per HPI Neuro: No headache, dizziness, syncope, seizure, focal weakness Endocrine: No polyuria, polydipsia, temperature intolerance Psych: No hallucination, depression, anxiety or suicidal ideation PMH/Family/Social Past Medical History Hypertension, GERD, rheumatoid arthritis, glaucoma, hyperlipidemia Past Surgical History Appendectomy, left carpal tunnel's surgery Family History Significant Family History: diabetes (Mom) Social History Alcohol Use: occasionally Smoking Status: Current every day smoker (Half pack per day 30 years) Drug Use: none Exam/Review of Systems Vital Signs Vitals Vital Signs Date Time Temp Pulse Resp B/P Pulse Ox O2 Delivery O2 Flow Rate FiO2 09/16/16 01:38 98.6 95 16 153/95 98 Room Air Intake and Output 09/15/16 09/15/16 09/16/16 15:00 23:00 07:00 Intake Total 450 ml Balance 450 ml Exam Exam General: Patient is a obese male lying in bed in no acute distress. HEENT: Atraumatic, normocephalic. The pupils are equal, round and reactive. Extraocular motor are intact Neck: Supple with full range of motion. No rigidity or meningismus Chest: Nontender Lungs: Clear to auscultation bilaterally no crackles rales or wheezing Heart: Normal S1-S2, Regular rhythm and rate. No murmur, S3, or S4 Abdomen: Soft , nontender, nondistended , bowel sounds are present. No guarding no rebound tenderness , No masses or organomegaly. No costovertebral temporal angle mass Extremities: Swelling noted of the bilateral lower extremities at the foot and ankle level, normal pulses Neurologic: Normal mental status, speech normal, cranial nerves II through XII are intact, motor and sensory are intact, no focal weakness Skin: Warm and mild redness noted bilateral lower extremities of the feet up to the midshin, mild swelling noted of the ankles, Additional Comments PROCEDURE: US bilateral lower extremity venous Doppler CLINICAL INDICATION: Bilateral swelling TECHNIQUE: Multiple sonographic images of the bilateral lower extremity deep venous system was obtained utilizing grayscale, color-flow, compressive sonography and Doppler imaging with augmentation. COMPARISON: There are no similar studies submitted for comparison. FINDINGS: There is normal compressibility and flow within the left common femoral, superficial femoral, popliteal, and calf veins. There is normal compressibility and flow within the right common femoral, superficial femoral, popliteal, and calf veins. IMPRESSION: No evidence of DVT within the lower extremities. RPTAT: HIKT .Kevon Mccarty MD, Date Time Electronically viewed and signed by .Kevon Mccarty MD, on 09/16/2016 01:32 PROCEDURE: Portable chest x-ray. CLINICAL INDICATION: Chest pain. TECHNIQUE: Portable AP view of the chest. COMPARISON: 08/22/2015. FINDINGS: There are low lung volumes, limiting evaluation of the pulmonary vessels and the heart size. No pulmonary edema or conolidation is identified. The cardiac silhouette is magnified. No pleural effusion is seen. There is no pneumothorax. IMPRESSION: 1. Low lung volumes. RPTAT: HTAR .Fuad Triplett MD, Date Time Electronically viewed and signed by .Fuad Triplett MD, MD on 09/16/2016 00:10 Labs Result Diagram: 09/15/16 22509/15/16 225 Medications Medications Current Medications Sodium Chloride (NS) 1,000 ml @ 80 mls/hr [id number] IV Last administered on 09/16t 04:05; Admin Dose 80 MLS/HR; Start 09/16/16 at 00:45 Ondansetron HCl (Zofran Inj) 4 mg Q6H PRN IV NAUSEA AND/OR VOMITING; Start at 01:00 Acetaminophen (Tylenol Tab) 650 mg Q6H PRN PO PAIN LEVEL 1-3 OR FEVER; Start at 01:00 Morphine Sulfate (morphine) 2 mg Q4H PRN IV SEVERE PAIN LEVEL 7-10 Last administered on 09/16/16 02:57; Admin Dose 2 MG; Start 09/16/16 at 01:00 Docusate Sodium (Colace) 100 mg Q12H PRN PO CONSTIPATION; Start 09/16/16 at 01: 00 Bisacodyl (Dulcolax) 5 mg DAILY PRN PO CONSTIPATION; Start 09/16/16 at 01:00 Pantoprazole (Protonix Iv) 40 mg DAILY@06 IV Last administered on 09/16/16 05: 49; Admin Dose 40 MG; Start 09/16/16 at 06:00 Alprazolam (Xanax) 0.25 mg TID PRN PO ANXIETY; Start 09/16/16 at 01:00 Atenolol (Tenormin) 100 mg DAILY PO ; Start 09/16/16 at 09:00 Brimonidine Tartrate (Alphagan 0.2%) 1 drop Q8 BOTH EYES Last administered on 05:49; Admin Dose 1 DROP; Start 09/16/16 at 06:00 Carisoprodol (Soma) 350 mg Q8H PRN PO MUSCLE SPASMS; Start 09/16/16 at 01:00 Latanoprost (Xalatan) 1 drop QHS BOTH EYES ; Start 09/16/16 at 21:00 Timolol Maleate 1 drop 1 drop BID BOTH EYES ; Start 09/16/16 at 09:00 Vancomycin HCl 250 ml @ 125 mls/hr ONCE ONCE IVPB Last administered on 04:39; Admin Dose 125 MLS/HR; Start 09/16/16 at 04:30; Stop 09/16/16 at 06: 29 Vancomycin HCl/ Sodium Chloride (Vancocin/NS) 250 ml @ 83.333 mls/ hr Q24H IVPB ; Start 09/17/16 at 01:30 GABRIEL DOMINGUEZ Sep 16, 2016 06:12
[2016-09-16] MEDS: HEPARIN 5,000 UNIT/0.5 ML VIAL SC SCH ×3 (06:41→21:10)
[2016-09-16 07:30] VITALS: BP 141/87; RESP 18
[2016-09-16] MEDS: ATENOLOL 100 MG TAB PO SCH (09:34)
[2016-09-16] MEDS: TIMOLOL 0.25% 5 ML OPH BOTH EYES SCH ×2 (09:34→20:10)
--- NOTE | 2016-09-16 10:30 | PN ---
Date/Time of Note Date/Time of Note DATE: 09/16/16 TIME: 10:22 Assessment/Plan Lines/Catheters IV Catheter Type (from Nrsg): Peripheral IV Urinary Cath still in place: No Assessment/Plan Assessment/Plan cELLULITIS PERIPHERAL NEUROPATHY OBESITY TOBACCO ABUSE cassandra + LIKELY UNDERLYING ckd Subjective 24 Hr Interval Summary Free Text/Dictation shooting pain in leg and feet, with crawling sensation under the skin. Also feels some squeezing in arevalo Exam/Review of Systems Vital Signs Vitals Vital Signs Date Time Temp Pulse Resp B/P Pulse Ox O2 Delivery O2 Flow Rate FiO2 09/16/16 07:30 98.6 82 18 141/87 98 09/16/16 01:38 Room Air Intake and Output 09/15/16 09/15/16 09/16/16 15:00 23:00 07:00 Intake Total 530 ml Balance 530 ml Results Result Diagram: 09/15/16 2250 09/15/16 2250 Results 24 hrs Laboratory Tests Test 09/15/16 22:50 09/15/16 23:35 09/16/16 07:22 White Blood Count 9.5 Red Blood Count 3.89 L Hemoglobin 12.2 L Hematocrit 35.9 L Mean Corpuscular Volume 92.3 Mean Corpuscular Hemoglobin 31.4 Mean Corpuscular Hemoglobin Concent 34.0 Red Cell Distribution Width 14.0 Platelet Count 293 Mean Platelet Volume 12.0 H Neutrophils % 60.4 Lymphocytes % 22.0 Monocytes % 12.5 H Eosinophils % 4.1 Basophils % 0.5 Nucleated Red Blood Cells % 0.0 Neutrophils # 5.8 Lymphocytes # 2.1 Monocytes # 1.2 H Eosinophils # 0.4 Basophils # 0.1 Nucleated Red Blood Cells # 0.0 Prothrombin Time 12.8 Prothrombin Time Ratio 1.0 INR International Normalized Ratio 0.96 Activated Partial Thromboplast Time 28.1 Sodium Level 141 Potassium Level 3.6 Chloride Level 106 Carbon Dioxide Level 21 Anion Gap 18 H Blood Urea Nitrogen 19 Creatinine 2.09 H Glucose Level 105 Calcium Level 8.5 Total Bilirubin 0.0 L Direct Bilirubin 0.00 Indirect Bilirubin 0.0 Aspartate Amino Transf (AST/SGOT) 40 Alanine Aminotransferase (ALT/SGPT) 40 Alkaline Phosphatase 122 H Total Protein 7.8 Albumin 4.0 Globulin 3.80 H Albumin/Globulin Ratio 1.05 Lactic Acid Level 1.0 1.1 Medications Medications Current Medications Sodium Chloride (NS) 1,000 ml @ 80 mls/hr [id number] IV Last administered on 09/16 04:05; Admin Dose 80 MLS/HR; Start 09/16/16 at 00:45 Ondansetron HCl (Zofran Inj) 4 mg Q6H PRN IV NAUSEA AND/OR VOMITING; Start at 01:00 Acetaminophen (Tylenol Tab) 650 mg Q6H PRN PO PAIN LEVEL 1-3 OR FEVER; Start at 01:00 Morphine Sulfate (morphine) 2 mg Q4H PRN IV SEVERE PAIN LEVEL 7-10 Last administered on 09/16/16 09:39; Admin Dose 2 MG; Start 09/16/16 at 01:00 Docusate Sodium (Colace) 100 mg Q12H PRN PO CONSTIPATION; Start 09/16/16 at 01: 00 Bisacodyl (Dulcolax) 5 mg DAILY PRN PO CONSTIPATION; Start 09/16/16 at 01:00 Pantoprazole (Protonix Iv) 40 mg DAILY@06 IV Last administered on 09/16/16 05: 49; Admin Dose 40 MG; Start 09/16/16 at 06:00 Alprazolam (Xanax) 0.25 mg TID PRN PO ANXIETY; Start 09/16/16 at 01:00 Atenolol (Tenormin) 100 mg DAILY PO Last administered on 09/16/16 09:34; Admin Dose 100 MG; Start 09/16/16 at 09:00 Brimonidine Tartrate (Alphagan 0.2%) 1 drop Q8 BOTH EYES Last administered on 05:49; Admin Dose 1 DROP; Start 09/16/16 at 06:00 Carisoprodol (Soma) 350 mg Q8H PRN PO MUSCLE SPASMS; Start 09/16/16 at 01:00 Latanoprost (Xalatan) 1 drop QHS BOTH EYES ; Start 09/16/16 at 21:00 Timolol Maleate (Timoptic 0.25%) 1 drop BID BOTH EYES Last administered on 09/16 09:34; Admin Dose 1 DROP; Start 09/16/16 at 09:00 Heparin Sodium (Porcine) (Heparin (5000 Units/0.5 ml)) 5,000 unit Q8 SC Last administered on 09/16/16t 06:41; Admin Dose 5,000 UNIT; Start 09/16/16 at 06:30 Hydralazine HCl 25 mg 25 mg TID PRN PO ELEVATED BLOOD PRESSURE; Start 09/16/16 at 06:30 Vancomycin HCl 1.5 gm/Sodium Chloride 250 ml @ 83.333 mls/ hr Q36H IVPB ; Start 09/17/16 at 16:00 Levofloxacin/ Dextrose (Levaquin 750 Mg/ D5W 150 ml (Pmx)) 150 ml @ 100 mls/hr Q48H IVPB ; Start 09/17/16 at 23:00 SHELIA MONTEJO Sep 16, 2016 10:30
[2016-09-16] MEDS: FAMOTIDINE 20 MG TAB PO SCH (11:33)
[2016-09-16] MEDS: PREGABALIN 75 MG CAP PO SCH ×2 (11:33→20:10)
--- NOTE | 2016-09-16 12:36 | CONS ---
Date/Time of Note Date/Time of Note DATE: 09/16/16 TIME: 12:28 Assessment/Plan Assessment/Plan Chief Complaint/Hosp Course #1 Acute on chronic kidney disease: Patient's previous creatinine was 1.5 and July. Probable underlying nephrosclerosis. nonoliguric. 2+ proteinuria but complicated by pyuria so difficult to interpret High spec grav suggestive of renal hypoperfusion. acute component likely vasomotor nephropath/prerenal azotemia. At the current time will order bilateral renal ultrasound, urine microscopic, and urine sodium. Renally dose antibiotics. Avoid NSAIDs and other nephrotoxins. no indication for hd. #2 bilateral lower extremity cellulitis: Patient failed multiple outpatient courses of antibiotics. At the current time we will continue patient on vancomycin IV. Patient was also given a dose of Levaquin in the ER. Bilateral lower extremity Dopplers were negative for DVT. #3: Rheumatoid arthritis: Hold any NSAIDs at this time secondary to ibuprofen allergy and ckd. #4 hypertension: At the current time will hold home antihypertensive secondary to #2. Will put as needed hydralazine. Will consult nephrology. #5 hyperlipidemia: We will check cholesterol labs. #6 Morbid obesity: We will also check hemoglobin A1c #7 DVT and GI prophylaxis: Heparin subcu, Protonix #8 pyuria- fu cultures. Problems: Consultation Date/Type/Reason Admit Date/Time Sep 16, 2016 at 00:45 Hx of Present Illness Chief complaint: Bilateral cellulitis This is a 51-year-old male, presenting to the ER because of persistent infection of bilateral lower extremites for more than 3 months. He already took 2 regimen of antibiotics without relief. He denies fever, chills, neck pain, chest pain, dyspnea, abdominal pain, vomiting, dysuria, diarrhea. He states that he has noticed his lower extremities being swollen. He denies any shortness of breath or chest pain. He does notice that his lower extremities are warm to touch. noted to have acute on chronic renal failure. denies nsaid use. Allergies: Ibuprofen Medications: See MAR ROS Const: As per HPI Eyes : No pain discharge or redness or change in visual acuity ENT: No pain, sore throat, congestion, congestion, dysphagia or discharge Respiratory: No shortness of breath, cough, sputum, wheezing, or pleuritic pain Cardiovascular: No chest pain, palpitation, PND, or edema GI : no change in appetite, abdominal pain, nausea, vomiting, diarrhea, constipation, or change in the color his stool Genitourinary: No dysuria, hematuria, flank pain , discharge or CVA tenderness Musculoskeletal: As per HPI Skin: As per HPI Neuro: No headache, dizziness, syncope, seizure, focal weakness Endocrine: No polyuria, polydipsia, temperature intolerance Psych: No hallucination, depression, anxiety or suicidal ideation PMH/Family/Social Past Medical History Hypertension, GERD, rheumatoid arthritis, glaucoma, hyperlipidemia Past Surgical History Appendectomy, left carpal tunnel's surgery Family History Significant Family History: diabetes (Mom) Social History Alcohol Use: occasionally Smoking Status: Current every day smoker (Half pack per day 30 years) Drug Use: none Social History Alcohol Use: occasionally Smoking Status: Current every day smoker (Half pack per day 30 years) Drug Use: none Exam/Review of Systems Vital Signs Vitals Vital Signs Date Time Temp Pulse Resp B/P Pulse Ox O2 Delivery O2 Flow Rate FiO2 09/16/16 07:30 98.6 82 18 141/87 98 09/16/16 01:38 Room Air Intake and Output 09/15/16 09/15/16 09/16/16 15:00 23:00 07:00 Intake Total 530 ml Balance 530 ml Exam General: Patient is a obese male lying in bed in no acute distress. HEENT: Atraumatic, normocephalic. The pupils are equal, round and reactive. Extraocular motor are intact Neck: Supple with full range of motion. No rigidity or meningismus Chest: Nontender Lungs: Clear to auscultation bilaterally no crackles rales or wheezing Heart: Normal S1-S2, Regular rhythm and rate. No murmur, S3, or S4 Abdomen: Soft , nontender, nondistended , bowel sounds are present. No guarding no rebound tenderness , No masses or organomegaly. No costovertebral temporal angle mass Extremities: Swelling noted of the bilateral lower extremities at the foot and ankle level, normal pulses Neurologic: Normal mental status, speech normal, cranial nerves II through XII are intact, motor and sensory are intact, no focal weakness Skin: Warm and mild redness noted bilateral lower extremities of the feet up to the midshin, mild swelling noted of the ankles, Results Result Diagram: 09/15/16224909/15/16 225 Results 24 hrs Laboratory Tests Test 09/15/16 22:50 09/15/16 23:35 09/16/16 07:22 White Blood Count 9.5 Red Blood Count 3.89 L Hemoglobin 12.2 L Hematocrit 35.9 L Mean Corpuscular Volume 92.3 Mean Corpuscular Hemoglobin 31.4 Mean Corpuscular Hemoglobin Concent 34.0 Red Cell Distribution Width 14.0 Platelet Count 293 Mean Platelet Volume 12.0 H Neutrophils % 60.4 Lymphocytes % 22.0 Monocytes % 12.5 H Eosinophils % 4.1 Basophils % 0.5 Nucleated Red Blood Cells % 0.0 Neutrophils # 5.8 Lymphocytes # 2.1 Monocytes # 1.2 H Eosinophils # 0.4 Basophils # 0.1 Nucleated Red Blood Cells # 0.0 Prothrombin Time 12.8 Prothrombin Time Ratio 1.0 INR International Normalized Ratio 0.96 Activated Partial Thromboplast Time 28.1 Sodium Level 141 Potassium Level 3.6 Chloride Level 106 Carbon Dioxide Level 21 Anion Gap 18 H Blood Urea Nitrogen 19 Creatinine 2.09 H Glucose Level 105 Calcium Level 8.5 Total Bilirubin 0.0 L Direct Bilirubin 0.00 Indirect Bilirubin 0.0 Aspartate Amino Transf (AST/SGOT) 40 Alanine Aminotransferase (ALT/SGPT) 40 Alkaline Phosphatase 122 H Total Protein 7.8 Albumin 4.0 Globulin 3.80 H Albumin/Globulin Ratio 1.05 Lactic Acid Level 1.0 1.1 Medications Medications Current Medications Sodium Chloride (NS) 1,000 ml @ 80 mls/hr [id number] IV Last administered on 09/16 04:05; Admin Dose 80 MLS/HR; Start 09/16/16 at 00:45 Ondansetron HCl (Zofran Inj) 4 mg Q6H PRN IV NAUSEA AND/OR VOMITING; Start at 01:00 Acetaminophen (Tylenol Tab) 650 mg Q6H PRN PO PAIN LEVEL 1-3 OR FEVER; Start at 01:00 Morphine Sulfate (morphine) 2 mg Q4H PRN IV SEVERE PAIN LEVEL 7-10 Last administered on 09/16/16 09:39; Admin Dose 2 MG; Start 09/16/16 at 01:00 Docusate Sodium (Colace) 100 mg Q12H PRN PO CONSTIPATION; Start 09/16/16 at 01: 00 Bisacodyl (Dulcolax) 5 mg DAILY PRN PO CONSTIPATION; Start 09/16/16 at 01:00 Pantoprazole (Protonix Iv) 40 mg DAILY@06 IV Last administered on 09/16/16 05: 49; Admin Dose 40 MG; Start 09/16/16 at 06:00 Alprazolam (Xanax) 0.25 mg TID PRN PO ANXIETY; Start 09/16/16 at 01:00 Atenolol (Tenormin) 100 mg DAILY PO Last administered on 09/16/16 09:34; Admin Dose 100 MG; Start 09/16/16 at 09:00 Brimonidine Tartrate (Alphagan 0.2%) 1 drop Q8 BOTH EYES Last administered on 05:49; Admin Dose 1 DROP; Start 09/16/16 at 06:00 Carisoprodol (Soma) 350 mg Q8H PRN PO MUSCLE SPASMS; Start 09/16/16 at 01:00 Latanoprost (Xalatan) 1 drop QHS BOTH EYES ; Start 09/16/16 at 21:00 Timolol Maleate (Timoptic 0.25%) 1 drop BID BOTH EYES Last administered on 09/16 09:34; Admin Dose 1 DROP; Start 09/16/16 at 09:00 Heparin Sodium (Porcine) (Heparin (5000 Units/0.5 ml)) 5,000 unit Q8 SC Last administered on 09/16/16 06:41; Admin Dose 5,000 UNIT; Start 09/16/16 at 06:30 Hydralazine HCl 25 mg 25 mg TID PRN PO ELEVATED BLOOD PRESSURE; Start 09/16/16 at 06:30 Vancomycin HCl 1.5 gm/Sodium Chloride 250 ml @ 83.333 mls/ hr Q36H IVPB ; Start 09/17/16 at 16:00 Levofloxacin/ Dextrose (Levaquin 750 Mg/ D5W 150 ml (Pmx)) 150 ml @ 100 mls/hr Q48H IVPB ; Start 09/17/16 at 23:00 Pregabalin (Lyrica) 75 mg BID PO Last administered on 09/16/16 11:33; Admin Dose 75 MG; Start 09/16/16 at 10:30 Famotidine (Pepcid) 20 mg DAILY PO Last administered on 7/15/17at 11:33; Admin Dose 20 MG; Start 09/16/16 at 11:00 JASSI SIMS MD Sep 16, 2016 12:35
[2016-09-16 14:30] VITALS: BP 136/69; RESP 18
--- NOTE | 2016-09-16 19:14 | RADRPT ---
PROCEDURE: Renal US. CLINICAL INDICATION: Renal dysfunction. TECHNIQUE: Multiple sonographic images of the kidneys and urinary bladder were obtained. The imag es were reviewed on a PACS workstation. COMPARISON: No prior studies are available for comparison. FINDINGS: The right kidney measures 11.7 x 6.0 x 6.9 cm. The left kidney measures 11.3 x 6.4 x 6.5 cm. There is no renal mass. There is no hydronephrosis. There is no renal calculus. Renal parenchymal thickness is normal bilaterally. Echogenicity is normal bilaterally. The perirenal regions are normal with no fluid collection or mass. The urinary bladder is unremarkable. IMPRESSION: 1. Unremarkable renal ultrasound. RPTAT: QQ .Luis Antonio Mathis MD, Date Time Electronically viewed and signed by .Luis Antonio Mathis MD, MD on 09/16/2016 19:14 .R/
--- NOTE | 2016-09-16 19:20 | RADRPT ---
PROCEDURE: US bilateral lower extremity arteries. CLINICAL INDICATION: Bilateral leg pain and swelling. TECHNIQUE: Multiple longitudinal and transverse images of the bilateral lower extremity arteries w ere obtained with adamson scale, pulsed Doppler, and color Doppler imaging. COMPARISON: No prior studies are available for comparison. FINDINGS: Right CLAIM INSPECTOR:83 cm/sec PSFA:86 cm/sec MSFA:99 cm/sec DSFA:80 cm/sec POP:76 cm/sec TROUBLE SHOOTER:91 cm/sec DPA:106 cm/sec Left CLAIM INSPECTOR:101 cm/sec PSFA:78 cm/sec MSFA:101 cm/sec DSFA:98 cm/sec POP:64 cm/sec TROUBLE SHOOTER:99 cm/sec DPA:73 cm/sec The ankle brachial indices could not be obtained due to patient pain with cuff inflation. There is normal triphasic flow throughout bilaterally. There is no plaque, stenosis, or occlusion. IMPRESSION: 1. Normal bilateral lower extremity arterial Doppler. RPTAT: QQ .Luis Antonio Mathis MD, MD Date Time Electronically viewed and signed by .Luis Antonio Mathis MD, on 09/16/2016 19:19 .R/
[2016-09-16 20:47] VITALS: BP 145/93; RESP 20
[2016-09-16] MEDS ORDERED: LATANOPROST 0.005% 2.5 ML OPH BOTH EYES SCH (21:00)
[2016-09-17] MEDS ORDERED: VANCOMYCIN 1.5 GM in SOD CHLORIDE 0.9% 250 ML IVPB SCH ×2 (01:30→16:00)
[2016-09-17 02:00] VITALS: BP 127/66; RESP 20
[2016-09-17] MEDS: BRIMONIDINE 0.2% 5 ML BTL BOTH EYES SCH ×2 (05:28→15:20)
[2016-09-17] MEDS: HEPARIN 5,000 UNIT/0.5 ML VIAL SC SCH ×2 (05:29→14:00)
[2016-09-17] MEDS: PANTOPRAZOLE 40 MG INJ IV SCH (05:29)
[2016-09-17 06:24] LABS: ADD SCAN DIFF NO
[2016-09-17 06:30] LABS: BASOPHIL # 0.1 10^3/ul (0.0-0.1); BASOPHILS % 0.8 % (0.0-2.0); EOSINOPHILS # 0.4 10^3/ul (0.0-0.5); EOSINOPHILS % 4.8 % (0.0-7.0); HEMATOCRIT 35.5 % (42.0-52.0); HEMOGLOBIN 11.6 g/dl (14.0-18.0); LYMPHOCYTES # 1.9 10^3/ul (0.8-2.9); MEAN CORPUSCULAR HEMOGLOBIN 30.7 pg (29.0-33.0); MEAN CORPUSCULAR HGB CONC 32.7 g/dl (32.0-37.0); MEAN CORPUSCULAR VOLUME 93.9 fl (82.0-101.0); MEAN PLATELET VOLUME 11.6 fl (7.4-10.4); MONOCYTES % 11.4 % (0.0-11.0); NEUTROPHIL # 5.3 10^3/ul (1.6-7.5); NEUTROPHILS % 60.7 % (39.0-77.0); PLATELET COUNT 261 10^3/UL (140-415); RED BLOOD COUNT 3.78 10^6/ul (4.70-6.10); RED CELL DISTRIBUTION WIDTH 14.2 % (11.5-14.5); WHITE BLOOD COUNT 8.8 10^3/ul (4.8-10.8)
[2016-09-17 06:33] LABS: ALBUMIN 3.4 g/dl (3.3-4.9); ALBUMIN/GLOBULIN RATIO 0.91; BILIRUBIN,INDIRECT 0.1 mg/dl (0-1.1); BILIRUBIN,TOTAL 0.1 mg/dl (0.2-1.3); CALCIUM 8.6 mg/dl (8.4-10.2); CHOL/HDL RATIO 4.2 RATIO; CREATININE 1.97 mg/dl (0.61-1.24); MAGNESIUM 1.7 mg/dl (1.7-2.5); POTASSIUM 4.1 mmol/L (3.5-5.1); TOTAL PROTEIN 7.1 g/dl (6.1-8.1)
[2016-09-17 07:02] LABS: THYROID STIMULATING HORMONE 1.82 MIU/L (0.465-4.680)
[2016-09-17 08:22] VITALS: BP 151/91; RESP 20
[2016-09-17] MEDS: TIMOLOL 0.25% 5 ML OPH BOTH EYES SCH (08:56)
[2016-09-17] MEDS: ATENOLOL 100 MG TAB PO SCH (08:56)
[2016-09-17] MEDS: FAMOTIDINE 20 MG TAB PO SCH (08:56)
[2016-09-17] MEDS: PREGABALIN 75 MG CAP PO SCH (08:56)
[2016-09-17] MEDS: morphine 2 MG INJ IV PRN (08:59)
[2016-09-17] MEDS: SOD CHLORIDE 0.9% 1,000 ML IV SCH (09:00)
--- NOTE | 2016-09-17 10:08 | CONS ---
Date/Time of Note Date/Time of Note DATE: 09/17/16 TIME: 09:56 Consult Date/Type/Reason Admit Date/Time Sep 16, 2016 at 00:45 Initial Consult Date Subjective This is a 51-year-old male, presenting to the ER because of persistent infection of bilateral lower extremites for more than 3 months. He already took 2 regimen of antibiotics without relief. He denies fever, chills, neck pain, chest pain, dyspnea, abdominal pain, vomiting, dysuria, diarrhea. He states that he has noticed his lower extremities being swollen. He denies any shortness of breath or chest pain. He does notice that his lower extremities are warm to touch. noted to have acute on chronic renal failure. denies nsaid use. Medications: reviewed ROS Const: As per HPI Eyes : No pain discharge or redness or change in visual acuity ENT: No pain, sore throat, congestion, congestion, dysphagia or discharge Respiratory: No shortness of breath, cough, sputum, wheezing, or pleuritic pain Cardiovascular: No chest pain, palpitation, PND, or edema GI : no change in appetite, abdominal pain, nausea, vomiting, diarrhea, constipation, or change in the color his stool Genitourinary: No dysuria, hematuria, flank pain , discharge or CVA tenderness Musculoskeletal: As per HPI Skin: As per HPI Neuro: No headache, dizziness, syncope, seizure, focal weakness Endocrine: No polyuria, polydipsia, temperature intolerance Psych: No hallucination, depression, anxiety or suicidal ideation Exam General: Patient is a obese male lying in bed in no acute distress. HEENT: Atraumatic, normocephalic. The pupils are equal, round and reactive. Extraocular motor are intact Neck: Supple with full range of motion. No rigidity or meningismus Chest: Nontender Lungs: Clear to auscultation bilaterally no crackles rales or wheezing Heart: Normal S1-S2, Regular rhythm and rate. No murmur, S3, or S4 Abdomen: Soft , nontender, nondistended , bowel sounds are present. No guarding no rebound tenderness , No masses or organomegaly. No costovertebral temporal angle mass Extremities: Swelling noted of the bilateral lower extremities at the foot and ankle level, normal pulses Neurologic: Normal mental status, speech normal, cranial nerves II through XII are intact, motor and sensory are intact, no focal weakness Skin: Warm and mild redness noted bilateral lower extremities of the feet up to the midshin, mild swelling noted of the ankles, Objective Vital Signs Date Time Temp Pulse Resp B/P Pulse Ox O2 Delivery O2 Flow Rate FiO2 09/17/16 08:22 98.5 74 20 151/91 92 09/16/16 01:38 Room Air Intake and Output 09/16/16 09/16/16 09/17/16 15:00 23:00 07:00 Intake Total 2020 ml 1560 ml Output Total 1350 ml 1300 ml Balance 670 ml 260 ml Results/Medications Result Diagram: 09/17/16 0556 09/17/16 0554 Results 24 hrs Laboratory Tests Test 09/17/16 05:54 09/17/16 05:56 Sodium Level 141 Potassium Level 4.1 Chloride Level 106 Carbon Dioxide Level 24 Anion Gap 15 Blood Urea Nitrogen 19 Creatinine 1.97 H Glucose Level 124 Calcium Level 8.6 Magnesium Level 1.7 Total Bilirubin 0.1 L Direct Bilirubin 0.00 Indirect Bilirubin 0.1 Aspartate Amino Transf (AST/SGOT) 37 Alanine Aminotransferase (ALT/SGPT) 33 Alkaline Phosphatase 134 H Total Protein 7.1 Albumin 3.4 Globulin 3.70 H Albumin/Globulin Ratio 0.91 Triglycerides Level 265 H Cholesterol Level 162 LDL Cholesterol, Calculated 71 HDL Cholesterol 38 Cholesterol/HDL Ratio 4.2 Thyroid Stimulating Hormone (TSH) 1.820 White Blood Count 8.8 Red Blood Count 3.78 L Hemoglobin 11.6 L Hematocrit 35.5 L Mean Corpuscular Volume 93.9 Mean Corpuscular Hemoglobin 30.7 Mean Corpuscular Hemoglobin Concent 32.7 Red Cell Distribution Width 14.2 Platelet Count 261 Mean Platelet Volume 11.6 H Neutrophils % 60.7 Lymphocytes % 22.0 Monocytes % 11.4 H Eosinophils % 4.8 Basophils % 0.8 Nucleated Red Blood Cells % 0.0 Neutrophils # 5.3 Lymphocytes # 1.9 Monocytes # 1.0 H Eosinophils # 0.4 Basophils # 0.1 Nucleated Red Blood Cells # 0.0 Hemoglobin A1c 6.4 H Medications Current Medications Sodium Chloride (NS) 1,000 ml @ 80 mls/hr [id number] IV Last administered on 09/17t 09:00; Admin Dose 80 MLS/HR; Start 09/16/16 at 00:45 Ondansetron HCl (Zofran Inj) 4 mg Q6H PRN IV NAUSEA AND/OR VOMITING; Start at 01:00 Acetaminophen (Tylenol Tab) 650 mg Q6H PRN PO PAIN LEVEL 1-3 OR FEVER; Start at 01:00 Morphine Sulfate (morphine) 2 mg Q4H PRN IV SEVERE PAIN LEVEL 7-10 Last administered on 09/17/16 08:59; Admin Dose 2 MG; Start 09/16/16 at 01:00 Docusate Sodium (Colace) 100 mg Q12H PRN PO CONSTIPATION; Start 09/16/16 at 01: 00 Bisacodyl (Dulcolax) 5 mg DAILY PRN PO CONSTIPATION; Start 09/16/16 at 01:00 Pantoprazole (Protonix Iv) 40 mg DAILY@06 IV Last administered on 09/17/16 05: 29; Admin Dose 40 MG; Start 09/16/16 at 06:00 Alprazolam (Xanax) 0.25 mg TID PRN PO ANXIETY; Start 09/16/16 at 01:00 Atenolol (Tenormin) 100 mg DAILY PO Last administered on 09/17/16 08:56; Admin Dose 100 MG; Start 09/16/16 at 09:00 Brimonidine Tartrate (Alphagan 0.2%) 1 drop Q8 BOTH EYES Last administered on 05:28; Admin Dose 1 DROP; Start 09/16/16 at 06:00 Carisoprodol (Soma) 350 mg Q8H PRN PO MUSCLE SPASMS; Start 09/16/16 at 01:00 Latanoprost (Xalatan) 1 drop QHS BOTH EYES Last administered on 09/16/16 20:10 ; Admin Dose 1 DROP; Start 09/16/16 at 21:00 Timolol Maleate (Timoptic 0.25%) 1 drop BID BOTH EYES Last administered on 09/17 08:56; Admin Dose 1 DROP; Start 09/16/16 at 09:00 Heparin Sodium (Porcine) (Heparin (5000 Units/0.5 ml)) 5,000 unit Q8 SC Last administered on 09/17/16 05:29; Admin Dose 5,000 UNIT; Start 09/16/16 at 06:30 Hydralazine HCl 25 mg 25 mg TID PRN PO ELEVATED BLOOD PRESSURE; Start 09/16/16 at 06:30 Vancomycin HCl 1.5 gm/Sodium Chloride 250 ml @ 83.333 mls/ hr Q36H IVPB ; Start 09/17/16 at 16:00 Levofloxacin/ Dextrose (Levaquin 750 Mg/ D5W 150 ml (Pmx)) 150 ml @ 100 mls/hr Q48H IVPB ; Start 09/17/16 at 23:00 Pregabalin (Lyrica) 75 mg BID PO Last administered on 09/17/16 08:56; Admin Dose 75 MG; Start 09/16/16 at 10:30 Famotidine (Pepcid) 20 mg DAILY PO Last administered on 09/17/16 08:56; Admin Dose 20 MG; Start 09/16/16 at 11:00 Assessment/Plan Chief Complaint/Hosp Course #1 Acute on chronic kidney disease: Patient's previous creatinine was 1.5 and May. Probable underlying nephrosclerosis. nonoliguric. 2+ proteinuria but complicated by pyuria so difficult to interpret High spec grav suggestive of renal hypoperfusion. acute component likely vasomotor nephropath/prerenal azotemia. normal renal ultrasound. Renally dose antibiotics. Avoid NSAIDs and other nephrotoxins. no indication for hd. #2 bilateral lower extremity cellulitis: Patient failed multiple outpatient courses of antibiotics. At the current time we will continue patient on vancomycin IV. Patient was also given a dose of Levaquin in the ER. Bilateral lower extremity Dopplers were negative for DVT. #3: Rheumatoid arthritis: Hold any NSAIDs at this time secondary to ibuprofen allergy and ckd. #4 hypertension: At the current time will hold home antihypertensive secondary to #2. Will put as needed hydralazine. Will consult nephrology. #5 hyperlipidemia: We will check cholesterol labs. #6 Morbid obesity: We will also check hemoglobin A1c #7 DVT and GI prophylaxis: Heparin subcu, Protonix #8 pyuria- fu cultures. Problems: JASSI SIMS MD Sep 17, 2016 10:07
[2016-09-17] MEDS ORDERED: DOCU-216 PO (13:30)
[2016-09-17] MEDS ORDERED: NIFEdipine (XL) 30 MG TAB PO SCH (13:30)
[2016-09-17] MEDS ORDERED: NIFE30TA60 PO (13:30)
[2016-09-17] MEDS ORDERED: LYR75 PO (13:30)
[2016-09-17] MEDS ORDERED: LOSA50TA6 PO (13:30)
--- NOTE | 2016-09-17 13:33 | PDOCDIS ---
Discharge Instructions DIAGNOSIS Discharge Diagnosis L lower extremity cellulitis and peripheral neuropathy chronic kidney disease CONDITION Patient Condition: Stable HOME CARE INSTRUCTIONS: Special Diet: carb controlled ACTIVITY: Activity Restrictions: No Restrictions Slowly Increase Activity OTHER ORDERS: Other Orders: AVOID NSAIDS Followup with your primary doctor within the next 1-2 wks to ensure continued resolution of symptoms. If you don't have one please let someone know, we can give you resources that may help you pick one. You may call Dr Bj Mcmillan's office. he's accepting new patients Name, Degree: Bj Mcmillan MD Specialty: Internal Medicine Comments: Office Address: [address] [facility] [address] [place] [id number] Office Office You may also call your insurance company to assign one to you. Review your medication list with your nurse before leaving and if you need new prescriptions please let your nurse know. I may have made changes to your home medications or given you new prescriptions, please let your primary doctor know as well. Stay compliant with your medications and report any side effects to your PCP or pharmacist. Return to the ER if you have any concerns and cannot reach your doctors or call your insurance company, they usually have a nurse that can help you. Keep extremities elevated for most of the day. SHELIA MONTEJO Sep 17, 2016 13:33
[2016-09-17] MEDS ORDERED: AMOX1TAB10 PO (13:35)
[2016-09-17] MEDS ORDERED: LACT1TAB11 PO (13:35)
[2016-09-17] MEDS ORDERED: LEVO750T8 PO (13:35)
[2016-09-17 14:33] VITALS: BP 156/92; RESP 18
--- NOTE | 2016-09-17 15:54 | DS ---
Date/Time of Note Date/Time of Note DATE: 09/17/16 TIME: 15:46 Discharge Summary Admission/Discharge Info Admit Date/Time Sep 16, 2016 at 00:45 Discharge Date/Time September 17, 2016 Discharge Diagnosis L lower extremity cellulitis and peripheral neuropathy Acute on chronic kidney disease Prediabetes with hemoglobin A1c of 6.5 Dyslipidemia Normocytic normochromic anemia likely secondary to chronic kidney disease Obesity Tobacco abuse status post cessation counseling History of rheumatoid arthritis recently started on methotrexate therapy . Patient Condition: Stable Consults Nephrology: Mary Procedures See hospital course . Hx of Present Illness Chief complaint: Bilateral cellulitis This is a 51-year-old male, presenting to the ER because of persistent infection of bilateral lower extremites for more than 3 months. He already took 2 regimen of antibiotics without relief. He denies fever, chills, neck pain, chest pain, dyspnea, abdominal pain, vomiting, dysuria, diarrhea. He states that he has noticed his lower extremities being swollen. He denies any shortness of breath or chest pain. He does notice that his lower extremities are warm to touch. Allergies: Ibuprofen Medications: See [facility] Hospital Course 51-year-old male who had come into the emergency room with left lower extremity pain and swelling and was found to have a mild cellulitis for which she has been taking antibiotics outpatient without significant improvement. However the main indication for his admission was an acute renal failure on his previous chronic kidney disease, and this has improved with nephrology assistance in house. The patient was diagnosed with severe peripheral neuropathy per his description of sharp shooting pain, intermittent crawling sensation. The cellulitis improved in-house with heme reporting less swelling as well as less tightness in his extremities. At this time he has done quite well and is stable for discharge and continued outpatient follow-up. Hemoglobin A1c came back mildly elevated at 6.5, was placed on carb controlled diet and underwent serial insulin monitoring while in- house. He was counseled extensively on the need to quit smoking tobacco or marijuana and the dangers that these could pose for him. He underwent lower extremity arterial as well as venous assessment and no significant abnormalities were found. No further inpatient intervention is required at this time patient is stable for discharge for continued follow-up with his primary care physician and his outpatient crude oil driver. Of note is that patient told me on the day of discharge that he was recently started on methotrexate for his rheumatoid arthritis. He was being counseled about the need to stay away from nephrotoxic drugs like NSAIDs. Hence he was not given his methotrexate well in the hospital but he is encouraged to resume it as and as he gets home. . Home Meds Active Scripts Lactobacillus Acidophilus (ACIDOPHILUS) 1 Each Tablet, 1 EACH PO BID WITH MEALS , #14 TAB Prov:SHELIA MONTEJO . 09/17/16 Levofloxacin* (Levofloxacin*) 750 Mg Tablet, 750 MG PO Q48H, #3 TAB [facility]. 09/17/16 Amoxicillin/Potassium Clav (Amox-Clav 875-125 mg Tablet) 875-125 mg Tab, 1 TAB PO BID, #14 TAB Prov:[facility]. 09/17/16 Nifedipine* (Nifedipine ER*) 30 Mg Tablet.sa, 30 MG PO BID, #60 TAB.SA Prov:SHELIA MONTEJO . 09/17/16 Docusate Sodium (Dok) 100 Mg Capsule, 250 MG PO DAILY, #30 CAP Prov[facility]. 09/17/16 Pregabalin* (Lyrica*) 75 Mg Capsule, 75 MG PO BID for 30 Days, CAP 2 Refills Prov:SHELIA MONTEJO . 09/17/16 Losartan Potassium* (Losartan Potassium*) 50 Mg Tablet, 50 MG PO DAILY for 30 Days, TAB resume 09/22/16 Prov:SHELIA MONTEJO. 09/17/16 Tramadol HCl (Tramadol HCl) 50 Mg Tablet, 50 MG PO Q4 Y for PAIN, #20 TAB Prov:KATI RAMIREZ PA-C 05/25/16 Reported Medications Albuterol Sulfate* (Ventolin HFA*) 18 Gm Hfa.aer.ad, 2 PUFF INHALATION Q4H, #1 INHALER 09/15/16 Brimonidine Tartrate* (Brimonidine Tartrate*) 0.2%-15ML Drop Opht, 1 DROP BOTH EYES Q8, #1 EA 09/15/16 Latanoprost (Latanoprost) 2.5 Ml Drops, 1 DROP BOTH EYES QHS, #1 BOTTLE 09/15/16 Timolol Maleate* (Timolol Maleate* Ophth) 0.25%-15ml Opht, 1 DROP BOTH EYES BID , #1 EA 09/15/16 Cephalexin* (Cephalexin*) 500 Mg Capsule, 500 MG PO Q6, #28 CAP 09/15/16 Hydrochlorothiazide* (Hydrochlorothiazide*) 25 Mg Tab, 25 MG PO DAILY, #30 TAB 09/15/16 Atenolol* (Atenolol*) 100 Mg Tablet, 100 MG PO DAILY, #30 TAB 09/15/16 Alprazolam* (Alprazolam*) 0.25 Mg Tablet, 0.25 MG PO TID Y for ANXIETY, TAB 09/15/16 Hydrocodone/Acetaminophen ([place] 10-325 Tablet) 1 Each Tablet, 1 EACH PO, TAB 09/15/16 Carisoprodol* (Carisoprodol*) 350 Mg Tablet, 350 MG PO Q8 Y for MUSCLE SPASMS, TAB 05/01/16 Furosemide* (Furosemide*) 40 Mg Tablet, PO DAILY, TAB 05/01/16 Omeprazole* (Omeprazole*) 40 Mg Capsule.dr, 40 MG PO DAILY, #30 CAP 05/01/16 Discontinued Reported Medications Hydrocodone/Acetaminophen ([place] 10-325 Tablet) 1 Each Tablet, 1 EACH PO, TAB 09/15/16 Discontinued Scripts Hydrocodone/Acetaminophen ([place] 5-325 Tablet) 1 Each Tablet, 1 TAB PO Q6H Y for PAIN, #7 TAB Prov:RUPA,LAYLA 07/31/16 Cephalexin* (Keflex*) 500 Mg Capsule, 500 MG PO QID for 10 Days, CAP Prov:RUPA,LAYLA 07/31/16 Hydrocodone Bit-Acetaminophen* ([place]*) 5-325 Mg Tab, 1 TAB PO Q6 Y for PAIN, # 7 TAB Prov:DIMA WALTER PA-C 09/15/15 Follow-up Plan See hospital course . Primary Care Provider Robert Diamond Time spent on discharge: > 30 minutes Pending Labs Laboratory Tests Test 09/17/16 05:54 09/17/16 05:56 Sodium Level 141mmol/L (135-144) Potassium Level 4.1mmol/L (3.5-5.1) Chloride Level 106mmol/L (97-110) Carbon Dioxide Level 24mmol/L (21-31) Anion Gap 15 (8-16) Blood Urea Nitrogen 19mg/dl (7-20) Creatinine 1.97mg/dl (0.61-1.24) Glucose Level 124mg/dl (70-220) Calcium Level 8.6mg/dl (8.4-10.2) Magnesium Level 1.7mg/dl (1.7-2.5) Total Bilirubin 0.1mg/dl (0.2-1.3) Direct Bilirubin 0.00mg/dl (0.00-0.20) Indirect Bilirubin 0.1mg/dl (0-1.1) Aspartate Amino Transf (AST/SGOT) 37IU/L (15-46) Alanine Aminotransferase (ALT/SGPT) 33IU/L (13-69) Alkaline Phosphatase 134IU/L (42-121) Total Protein 7.1g/dl (6.1-8.1) Albumin 3.4g/dl (3.3-4.9) Globulin 3.70g/dl (1.3-3.2) Albumin/Globulin Ratio 0.91 Triglycerides Level 265mg/dl (0-149) Cholesterol Level 162mg/dl (100-200) LDL Cholesterol, Calculated 71mg/dl HDL Cholesterol 38mg/dl (28-71) Cholesterol/HDL Ratio 4.2RATIO Thyroid Stimulating Hormone (TSH) 1.820MIU/L (0.465-4.680) White Blood Count 8.810^3/ul (4.8-10.8) Red Blood Count 3.7810^6/ul (4.70-6.10) Hemoglobin 11.6g/dl (14.0-18.0) Hematocrit 35.5% (42.0-52.0) Mean Corpuscular Volume 93.9fl (82.0-101.0) Mean Corpuscular Hemoglobin 30.7pg (29.0-33.0) Mean Corpuscular Hemoglobin Concent 32.7g/dl (32.0-37.0) Red Cell Distribution Width 14.2% (11.5-14.5) Platelet Count 85549^3/UL (140-415) Mean Platelet Volume 11.6fl (7.4-10.4) Neutrophils % 60.7% (39.0-77.0) Lymphocytes % 22.0% (15.0-51.0) Monocytes % 11.4% (0.0-11.0) Eosinophils % 4.8% (0.0-7.0) Basophils % 0.8% (0.0-2.0) Nucleated Red Blood Cells % 0.0/100WBC (0.0-0.0) Neutrophils # 5.310^3/ul (1.6-7.5) Lymphocytes # 1.910^3/ul (0.8-2.9) Monocytes # 1.010^3/ul (0.3-0.9) Eosinophils # 0.410^3/ul (0.0-0.5) Basophils # 0.110^3/ul (0.0-0.1) Nucleated Red Blood Cells # 0.010^3/ul (0.0-0.0) Hemoglobin A1c 6.4% (0-5.9) SHELIA MONTEJO. Sep 17, 2016 15:54
[2016-09-17] MEDS ORDERED: LEVOFLOXACIN 750MG/D5W (PMX) 150 ML IVPB SCH (23:00)
== END 2016-09-17 18:21 | disposition home or self-care (01) | DRG 603 ==
LOC: E/R 20:54 → PP2 09-16 00:45
PROVIDERS: ADMIT Family Medicine; ATTEND Family Medicine
DX: L03.116 Cellulitis of left lower limb (principal); N17.9 Acute kidney failure, unspecified; G62.9 Polyneuropathy, unspecified; E66.01 Morbid (severe) obesity due to excess calories; E78.5 Hyperlipidemia, unspecified; F17.200 Nicotine dependence, unspecified, uncomplicated; K21.9 Gastro-esophageal reflux disease without esophagitis; L03.115 Cellulitis of right lower limb; I12.9 Hypertensive chronic kidney disease with stage 1 through stage 4 chronic kidney disease, or unspecified chronic kidney disease; N18.9 Chronic kidney disease, unspecified; M06.9 Rheumatoid arthritis, unspecified; D63.1 Anemia in chronic kidney disease; R73.03 Prediabetes; Z68.39 Body mass index [BMI] 39.0-39.9, adult; Z79.1 Long term (current) use of non-steroidal anti-inflammatories (NSAID); Z88.6 Allergy status to analgesic agent
CPT/HCPCS: 36415; 71010; 76775; 80053; 80061; 83036; 83605; 83735; 84443; 85025; 85610; 85730; 87040; 87045; 93005; 93922; 93970; 96374; 96375; C9113; J1644; J1956; J2270; J3370; J7030; J7050

== ENCOUNTER 2016-10-23 22:49 | Emergency (ER) | payer OTHER ==
[~2016-10-23] VITALS: Ht 180.3 cm; Wt 119.1 kg
[~2016-10-23 22:49] MED LIST changes: +ALBU18HF INHALATION; +ALPR0.254 PO; +AMOX1TAB10 PO; +ATEN100T PO; +BRIM15DR7 BOTH EYES; -CEPH-443 PO; +DOCU-216 PO; -FURO40TA4 PO; -HYDR-3498 PO; +HYDR-902 PO; -HYDR-906 PO; +LACT1TAB11 PO; +LATA2.5D2 BOTH EYES; +LEVO750T8 PO; +LYR75 PO; +NIFE30TA60 PO; +TIMO15DR15 BOTH EYES; -TRAM50TA2 PO
[2016-10-23 22:56] VITALS: Ht 180.3 cm; Wt 119.1 kg
[2016-10-23] MEDS ORDERED: OXYCODONE/ACETAMINOPHEN (10/325) TAB PO ONE (23:30)
[2016-10-23 23:59] LABS: BASOPHIL # 0.1 10^3/ul (0.0-0.1); BASOPHILS % 0.7 % (0.0-2.0); EOSINOPHILS # 0.5 10^3/ul (0.0-0.5); EOSINOPHILS % 5.5 % (0.0-7.0); HEMATOCRIT 35.6 % (42.0-52.0); HEMOGLOBIN 11.6 g/dl (14.0-18.0); MEAN CORPUSCULAR HEMOGLOBIN 29.6 pg (29.0-33.0); MEAN CORPUSCULAR HGB CONC 32.6 g/dl (32.0-37.0); MEAN CORPUSCULAR VOLUME 90.8 fl (82.0-101.0); MEAN PLATELET VOLUME 11.2 fl (7.4-10.4); MONOCYTES % 11.7 % (0.0-11.0); NEUTROPHILS % 59.8 % (39.0-77.0); PLATELET COUNT 262 10^3/UL (140-415); RED BLOOD COUNT 3.92 10^6/ul (4.70-6.10); RED CELL DISTRIBUTION WIDTH 13.9 % (11.5-14.5); WHITE BLOOD COUNT 8.9 10^3/ul (4.8-10.8)
--- NOTE | 2016-10-24 00:09 | ERD ---
ER Documentation Chief Complaint Date/Time DATE: 10/24/16 TIME: 00:05 Chief Complaint EV LEG/FOOT SWELLING INCREASED LAST FEW DAYS. HPI 51-year-old male presents here in emergency department for complaints of bilateral lower leg swelling for the last 2 days. Patient was recently diagnosed to have renal disease, has been treated before for cellulitis, the swelling and the redness has definitely improved. Patient denies any trauma in the lower extremities. Patient denies any fever or chills. Patient complains of some pain, throbbing pain, 6/10 scale, not better or worse with anything. Patient is complaining of bilateral leg pressure type of pain because of the swelling. ROS All systems reviewed and are negative except as per history of present illness. Medications Home Meds Active Scripts Lactobacillus Acidophilus (ACIDOPHILUS) 1 Each Tablet, 1 EACH PO BID WITH MEALS , #14 TAB Prov:SCOTTY MONTEJOEmma . 09/17/16 Levofloxacin* (Levofloxacin*) 750 Mg Tablet, 750 MG PO Q48H, #3 TAB Prov:GUSTABOSCOTTYEmma . 09/17/16 Amoxicillin/Potassium Clav (Amox-Clav 875-125 mg Tablet) 875-125 mg Tab, 1 TAB PO BID, #14 TAB Prov:[facility]. 09/17/16 Nifedipine* (Nifedipine ER*) 30 Mg Tablet.sa, 30 MG PO BID, #60 TAB.SA Prov:SCOTTY MONTEJOEmma . 09/17/16 Docusate Sodium (Dok) 100 Mg Capsule, 250 MG PO DAILY, #30 CAP Prov:SCOTTY MONTEJOEmma . 09/17/16 Pregabalin* (Lyrica*) 75 Mg Capsule, 75 MG PO BID for 30 Days, CAP 2 Refills Prov:SCOTTY MONTEJOEmma . 09/17/16 Losartan Potassium* (Losartan Potassium*) 50 Mg Tablet, 50 MG PO DAILY for 30 Days, TAB resume 09/22/16 Prov:SCOTTY MONTEJOEmma Candy 09/17/16 Reported Medications Albuterol Sulfate* (Ventolin HFA*) 18 Gm Hfa.aer.ad, 2 PUFF INHALATION Q4H, #1 INHALER 09/15/16 Brimonidine Tartrate* (Brimonidine Tartrate*) 0.2%-15ML Drop Opht, 1 DROP BOTH EYES Q8, #1 EA 09/15/16 Latanoprost (Latanoprost) 2.5 Ml Drops, 1 DROP BOTH EYES QHS, #1 BOTTLE 09/15/16 Timolol Maleate* (Timolol Maleate* Ophth) 0.25%-15ml Opht, 1 DROP BOTH EYES BID , #1 EA 09/15/16 Atenolol* (Atenolol*) 100 Mg Tablet, 100 MG PO DAILY, #30 TAB 09/15/16 Alprazolam* (Alprazolam*) 0.25 Mg Tablet, 0.25 MG PO TID Y for ANXIETY, TAB 09/15/16 Hydrocodone/Acetaminophen ([place] 10-325 Tablet) 1 Each Tablet, 1 EACH PO, TAB 09/15/16 Carisoprodol* (Carisoprodol*) 350 Mg Tablet, 350 MG PO Q8 Y for MUSCLE SPASMS, TAB 05/01/16 Omeprazole* (Omeprazole*) 40 Mg Capsule.dr, 40 MG PO DAILY, #30 CAP 05/01/16 Allergies Allergies: Coded Allergies: ibuprofen (Unverified Allergy, Intermediate, 10/23/16) PMhx/Soc History of Surgery: Yes (left carpal tunnel sx) Anesthesia Reaction: No Hx Neurological Disorder: No Hx Respiratory Disorders: No Hx Cardiac Disorders: Yes (HTN) Hx Psychiatric Problems: No Hx Alcohol Use: No Hx Substance Use: No Hx Tobacco Use: Yes Smoking Status: Current every day smoker FmHx Family History: No coronary disease, No diabetes, No other Physical Exam Vitals Vital Signs Date Time Temp Pulse Resp B/P Pulse Ox O2 Delivery O2 Flow Rate FiO2 10/23/16 22:56 98.2 96 18 141/98 97 Physical Exam GENERAL: The patient is well developed and appropriate for usual state of health, in no apparent distress. CHEST: Clear to auscultation bilaterally. There are no rales, wheezes or rhonchi. HEART: Regular rate and rhythm. No murmurs, clicks, rubs or gallops. No S3 or S4. ABDOMEN: Soft, nontender and nondistended. Good bowel sounds. No rebound or guarding. No gross peritonitis. No gross organomegaly or masses. No Dawson sign or McBurney point tenderness. BACK: No midline or flank tenderness. EXTREMITIES: Noted bilateral lower leg swelling, +1 edema. No redness noted. Negative Homans sign. Equal pulses bilaterally. Full range of motion of other drugs. Grossly neurovascularly intact. NEURO: Alert and oriented. Cranial nerves 2-12 intact. Motor strength in all 4 extremities with 5/5 strength. Sensation grossly intact. Normal speech and gait. SKIN: There is no apparent rash or petechia. The skin is warm and dry. HEMATOLOGIC AND LYMPHATIC: There is no evidence of excessive bruising or lymphedema. No gross cervical, axillary, or inguinal lymphadenopathy. Result Diagram: 10/23/16233610/23/162336 Results 24 hrs Laboratory Tests Test 10/23/16 23:37 10/24/16 00:10 White Blood Count 8.910^3/ul Red Blood Count 3.9210^6/ul Hemoglobin 11.6g/dl Hematocrit 35.6% Mean Corpuscular Volume 90.8fl Mean Corpuscular Hemoglobin 29.6pg Mean Corpuscular Hemoglobin Concent 32.6g/dl Red Cell Distribution Width 13.9% Platelet Count 36662^3/UL Mean Platelet Volume 11.2fl Neutrophils % 59.8% Lymphocytes % 22.0% Monocytes % 11.7% Eosinophils % 5.5% Basophils % 0.7% Nucleated Red Blood Cells % 0.0/100WBC Neutrophils # (Manual) 510^3/ul Lymphocytes # 2.010^3/ul Monocytes # 1.010^3/ul Eosinophils # 0.510^3/ul Basophils # 0.110^3/ul Nucleated Red Blood Cells # 0.010^3/ul Sodium Level 140mmol/L Potassium Level 3.9mmol/L Chloride Level 99mmol/L Carbon Dioxide Level 21mmol/L Anion Gap 24 Blood Urea Nitrogen 48mg/dl Creatinine 4.40mg/dl Glucose Level 122mg/dl Calcium Level 8.9mg/dl Total Bilirubin 0.0mg/dl Direct Bilirubin 0.00mg/dl Indirect Bilirubin 0.0mg/dl Aspartate Amino Transf (AST/SGOT) 35IU/L Alanine Aminotransferase (ALT/SGPT) 29IU/L Alkaline Phosphatase 170IU/L Total Protein 8.1g/dl Albumin 3.8g/dl Globulin 4.30g/dl Albumin/Globulin Ratio 0.88 Lactic Acid Level 1.0mmol/L Current Medications Medications (Trade) Dose Ordered Sig/Debora Route PRN Reason Start Time Stop Time Status Last Admin Dose Admin Oxycodone/ Acetaminophen (Endocet (10)) 1 tab ONCE ONCE PO 10/23/16 23:30 10/23/16 23:31 DC 10/23/16 23:40 Patient was given medication for pain here in emergency department, after treatment, patient verbalized feeling much better. Patient's pain is improved. PROCEDURE: ULTRASOUND OF THE BILATERAL LOWER EXTREMITY VENOUS SYSTEMS WITH DOPPLER CLINICAL INDICATION: 51 years of age, male. Evaluate for DVT. COMPARISON: None available. TECHNIQUE: Real-time longitudinal and transverse sonographic adamson scale imaging with and without compression, as well as color and duplex Doppler imaging before and after augmentation, was obtained of the deep system of the bilateral lower extremities, including the common femoral, femoral, popliteal, posterior tibial, and peroneal veins. FINDINGS: Right common femoral vein: No evidence of thrombus. Right femoral vein: No evidence of thrombus. Right popliteal vein: No evidence of thrombus. Right calf veins: Patent where visualized. Left common femoral vein: No evidence of thrombus. Left femoral vein: No evidence of thrombus. Left popliteal vein: No evidence of thrombus. Left calf veins: Patent where visualized. Additional comment: None. IMPRESSION: Negative for ultrasound evidence of deep venous thrombosis in the right or left lower extremity. RPTAT: HCTS Physician Serjio Date Time Electronically viewed and signed by Physician Serjio on 10/24/2016 00: 19 CS/ Procedures/MDM Medical Decision Making: Patient's swelling in the bilateral lower extremities most likely is from the high globulin in the blood, most likely is causing some third spacing. At this time, patient's creatinine is elevated but patient is being followed by a renal specialist, was already diagnosed with acute renal failure, patient potassium is stable at this time. I discussed this case with my attending physician, Dr. Swann, at this time he states that patient needs to follow up with the outpatient renal specialist. Admission not necessary at this time. No symptoms of respiratory distress. No symptoms of any fluid overload.. There is no suspicion for neurovascular compromise. Patient has intact sensation and circulation of the affected extremity. There is low suspicion for septic arthritis. Patient does not have any fever. Ultrasound does not show any DVT. Low suspicion for any cellulitis, no redness noted. Is likely dependent edema or third spacing. No ascites noted. Lungs are clear, no symptoms of any CHF.. Disposition: Home. Patient is given prescription for Percocet for severe pain. Patient was advised to elevate the affected area, see renal specialist for further management of his kidney failure. Patient was advised that if symptoms are worse, numbness, tingling, high fever, unable to move joint, worsening symptoms, to return to emergency department immediately. Otherwise, patient is advised to follow up with the primary care doctor in 5-7 days for reevaluation of symptoms. Departure Diagnosis: Primary Impression: Leg swelling Additional Impression: Renal disease Condition: Stable Patient Instructions: Peripheral Edema, Bilateral Additional Instructions: Patient is given prescription for [place] for severe pain. Patient was advised to elevate the affected area, see renal specialist for further management of his kidney failure. Patient was advised that if symptoms are worse, numbness, tingling, high fever, unable to move joint, worsening symptoms, to return to emergency department immediately. Otherwise, patient is advised to follow up with the primary care doctor in 5-7 days for reevaluation of symptoms. DANNI RAMON NP Oct 24, 2016 00:08
--- NOTE | 2016-10-24 00:19 | RADRPT ---
PROCEDURE: ULTRASOUND OF THE BILATERAL LOWER EXTREMITY VENOUS SYSTEMS WITH DOPPLER CLINICAL INDICATION: 51 years of age, male. Evaluate for DVT. COMPARISON: None available. TECHNIQUE: Real-time longitudinal and transverse sonographic adamsno scale imaging with and without com pression, as well as color and duplex Doppler imaging before and after augmentation, was obtained of the deep system of the bilateral lower extremities, including the common femoral, femoral, poplitea l, posterior tibial, and peroneal veins. FINDINGS: Right common femoral vein: No evidence of thrombus. Right femoral vein: No evidence of thrombus. Right popliteal vein: No evidence of thrombus. Right calf veins: Patent where visualized. Left common femoral vein: No evidence of thrombus. Left femoral vein: No evidence of thrombus. Left popliteal vein: No evidence of thrombus. Left calf veins: Patent where visualized. Additional comment: None. IMPRESSION: Negative for ultrasound evidence of deep venous thrombosis in the right or left lower extremity. RPTAT: HCTS Physician Serjio Date Time Electronically viewed and signed by Physician Serjio on 10/24/2016 00:19 /
[2016-10-24 00:46] LABS: ALBUMIN 3.8 g/dl (3.3-4.9); ALBUMIN/GLOBULIN RATIO 0.88; CALCIUM 8.9 mg/dl (8.4-10.2); CREATININE 4.4 mg/dl (0.61-1.24); POTASSIUM 3.9 mmol/L (3.5-5.1); TOTAL PROTEIN 8.1 g/dl (6.1-8.1)
[2016-10-24] MEDS ORDERED: OXYC-209 PO (01:41)
== END 2016-10-24 01:55 | disposition home or self-care (01) ==
LOC: FTE 22:49
DX: M79.89 Other specified soft tissue disorders (principal); N28.9 Disorder of kidney and ureter, unspecified; I10 Essential (primary) hypertension; F17.210 Nicotine dependence, cigarettes, uncomplicated
CPT/HCPCS: 80053; 83605; 85025; 93970; Z7502; Z7610

== ENCOUNTER 2016-11-02 18:53 | Inpatient (IN) | payer OTHER ==
[~2016-11-02] VITALS: Ht 177.8 cm; Wt 117.0 kg
[~2016-11-02 18:53] MED LIST changes: -AMOX1TAB10 PO; -LEVO750T8 PO
[2016-11-02] MEDS ORDERED: FAMOTIDINE 20 MG TAB PO STA (20:43)
[2016-11-02] MEDS ORDERED: SOD CHLORIDE 0.9% 1,000 ML IV STA (20:43)
[2016-11-02] MEDS ORDERED: SOD CHLORIDE 0.9% 1,000 ML IV ONE (21:00)
[2016-11-02 21:07] LABS: BASOPHIL # 0.1 10^3/ul (0.0-0.1); BASOPHILS % 0.5 % (0.0-2.0); EOSINOPHILS # 0.4 10^3/ul (0.0-0.5); EOSINOPHILS % 4.4 % (0.0-7.0); HEMOGLOBIN 13.5 g/dl (14.0-18.0); LYMPHOCYTES # 1.8 10^3/ul (0.8-2.9); LYMPHOCYTES % 17.4 % (15.0-51.0); MEAN CORPUSCULAR HEMOGLOBIN 30.7 pg (29.0-33.0); MEAN CORPUSCULAR HGB CONC 33.8 g/dl (32.0-37.0); MEAN CORPUSCULAR VOLUME 90.9 fl (82.0-101.0); MEAN PLATELET VOLUME 10.7 fl (7.4-10.4); MONOCYTE # 0.8 10^3/ul (0.3-0.9); MONOCYTES % 8.1 % (0.0-11.0); NEUTROPHILS % 69.1 % (39.0-77.0); PLATELET COUNT 401 10^3/UL (140-415); RED CELL DISTRIBUTION WIDTH 13.6 % (11.5-14.5); WHITE BLOOD COUNT 10.1 10^3/ul (4.8-10.8)
--- NOTE | 2016-11-02 21:14 | ERA ---
ER Documentation Chief Complaint Date/Time DATE: 11/02/16 TIME: 21:04 Chief Complaint sent by PMD for abnormal labs HPI This 51-year-old male presents emergency room for admission as his primary Head injury care doctor was alarmed that his renal function had gone from normal to very poor in a short period of time. Patient has rheumatoid arthritis and therefore rheumatologic workup was performed elevated CRP. However the patient had a creatinine of 3.7 with a previously normal creatinine. Recently was diagnosed with lupus as well. He denies any pain for substernal burning pain that he says is acid reflux. He has no shortness of breath. ROS All systems reviewed and are negative except as per history of present illness. Medications Home Meds Active Scripts Losartan Potassium* (Losartan Potassium*) 50 Mg Tablet, 50 MG PO DAILY for 30 Days, TAB resume 09/22/16 Prov:GUSTABOSHELIA Russell 09/17/16 Reported Medications Hydrochlorothiazide* (Hydrochlorothiazide*) 25 Mg Tab, 25 MG PO DAILY, #30 TAB 11/02/16 Methylprednisolone* (Medrol*) 4 Mg Tab, 4 MG PO TID, TAB 11/02/16 Albuterol Sulfate* (Ventolin HFA*) 18 Gm Hfa.aer.ad, 2 PUFF INHALATION Q4H, #1 INHALER 09/15/16 Brimonidine Tartrate* (Brimonidine Tartrate*) 0.2%-15ML Drop Opht, 1 DROP BOTH EYES Q8, #1 EA 09/15/16 Latanoprost (Latanoprost) 2.5 Ml Drops, 1 DROP BOTH EYES QHS, #1 BOTTLE 09/15/16 Timolol Maleate* (Timolol Maleate* Ophth) 0.25%-15ml Opht, 1 DROP BOTH EYES BID , #1 EA 09/15/16 Atenolol* (Atenolol*) 100 Mg Tablet, 100 MG PO DAILY, #30 TAB 09/15/16 Alprazolam* (Alprazolam*) 0.25 Mg Tablet, 0.25 MG PO TID Y for ANXIETY, TAB 09/15/16 Hydrocodone/Acetaminophen ([place] 10-325 Tablet) 1 Each Tablet, 1 EACH PO, TAB 09/15/16 Carisoprodol* (Carisoprodol*) 350 Mg Tablet, 350 MG PO Q8 Y for MUSCLE SPASMS, TAB 05/01/16 Omeprazole* (Omeprazole*) 40 Mg Capsule.dr, 40 MG PO DAILY, #30 CAP 05/01/16 Discontinued Scripts Lactobacillus Acidophilus (ACIDOPHILUS) 1 Each Tablet, 1 EACH PO BID WITH MEALS , #14 TAB Prov:SHELIA MONTEJO M. 09/17/16 Nifedipine* (Nifedipine ER*) 30 Mg Tablet.sa, 30 MG PO BID, #60 TAB.SA Prov:SHELIA MONTEJO M. 09/17/16 Docusate Sodium (Dok) 100 Mg Capsule, 250 MG PO DAILY, #30 CAP Prov:SCOTTY MONTEJOO M. 09/17/16 Pregabalin* (Lyrica*) 75 Mg Capsule, 75 MG PO BID for 30 Days, CAP 2 Refills Prov:SHELIA MONTEJO. 09/17/16 Allergies Allergies: Coded Allergies: ibuprofen (Unverified Allergy, Intermediate, 11/02/16) PMhx/Soc History of Surgery: Yes (left carpal tunnel sx) Anesthesia Reaction: No Hx Neurological Disorder: No Hx Respiratory Disorders: No Hx Cardiac Disorders: Yes (HTN) Hx Psychiatric Problems: No Hx Alcohol Use: No Hx Substance Use: No Hx Tobacco Use: Yes Physical Exam Vitals Vital Signs Date Time Temp Pulse Resp B/P Pulse Ox O2 Delivery O2 Flow Rate FiO2 11/02/16 20:35 98.3 108 20 144/107 98 Room Air 11/02/16 19:03 98.2 119 20 171/104 97 Physical Exam Const: [] No distress Head: Atraumatic Eyes: Normal Conjunctiva ENT: Normal External Ears, Nose and Mouth. Neck: Full range of motion..~ No meningismus. Resp: Clear to auscultation bilaterally Cardio: Regular rate and rhythm, no murmurs Abd: Soft, non tender, non distended. Normal bowel sounds Skin: No petechiae or rashes Back: No midline or flank tenderness Ext: No cyanosis, or edema Neur: Awake and alertAnd oriented 3, no focal deficits Psych: Normal Mood and Affect Result Diagram: 11/02/16 2100 11/02/16 2100 Results 24 hrs Laboratory Tests Test 11/02/16 20:55 11/02/16 21:00 Lactic Acid Level 2.5mmol/L White Blood Count 10.110^3/ul Red Blood Count 4.4010^6/ul Hemoglobin 13.5g/dl Hematocrit 40.0% Mean Corpuscular Volume 90.9fl Mean Corpuscular Hemoglobin 30.7pg Mean Corpuscular Hemoglobin Concent 33.8g/dl Red Cell Distribution Width 13.6% Platelet Count 91541^3/UL Mean Platelet Volume 10.7fl Neutrophils % 69.1% Lymphocytes % 17.4% Monocytes % 8.1% Eosinophils % 4.4% Basophils % 0.5% Nucleated Red Blood Cells % 0.0/100WBC Neutrophils # (Manual) 7.010^3/ul Lymphocytes # 1.810^3/ul Monocytes # 0.810^3/ul Eosinophils # 0.410^3/ul Basophils # 0.110^3/ul Nucleated Red Blood Cells # 0.010^3/ul Sodium Level 144mmol/L Potassium Level 4.2mmol/L Chloride Level 103mmol/L Carbon Dioxide Level 26mmol/L Anion Gap 19 Blood Urea Nitrogen 32mg/dl Creatinine 3.61mg/dl Glucose Level 150mg/dl Calcium Level 9.0mg/dl Total Bilirubin 0.0mg/dl Direct Bilirubin 0.00mg/dl Indirect Bilirubin 0.0mg/dl Aspartate Amino Transf (AST/SGOT) 35IU/L Alanine Aminotransferase (ALT/SGPT) 33IU/L Alkaline Phosphatase 142IU/L Troponin I Pending Total Protein 8.7g/dl Albumin 3.6g/dl Globulin 5.10g/dl Albumin/Globulin Ratio 0.70 Lipase 223U/L Current Medications Medications (Trade) Dose Ordered Sig/Debora Route PRN Reason Start Time Stop Time Status Last Admin Dose Admin Sodium Chloride (NS) 1,000 ml @ 1,000 mls/hr Q1H STAT IV 11/02/16 20:43 11/02/16 21:42 DC 11/02/16 21:03 Famotidine 20 mg 20 mg ONCE STAT PO 11/02/16 20:43 11/02/16 20:45 DC 11/02/16 21:04 Sodium Chloride (NS) 1,000 ml @ 1,000 mls/hr Q1H ONCE IV 11/02/16 21:00 11/02/16 21:59 DC 11/02/16 21:03 Procedures/MDM Acute renal dysfunction. He was hydrated 2 L of normal saline emergency room. Also had elevated lactic acid. Lupus hypertension and possible etiologies patient did have high blood pressure initially but it decreased with no specific treatment making it too low for reduction with IV medication. Patient be admitted for further renal workup in attempts to prevent further damage to his kidneys and progression to dialysis. Patient had chest discomfort compatible with his acid reflux. He was given Pepcid. Cardiac workup was performed which shows no acute ischemia. Dr. Knight is admitting. EKG interpretation:: Sinus tachycardia rate 106, normal axis, no ST or T-wave changes concerning for acute ischemia, normal intervals, nonspecific T-wave normality Departure Diagnosis: Primary Impression: Acute kidney injury Additional Impression: Elevated lactic acid level Condition: Serious SARAHMAGALY Nov 02, 2016 21:13
[2016-11-02] MEDS ORDERED: METH4TAB PO (21:22)
[2016-11-02] MEDS ORDERED: HYD25 PO (21:23)
[2016-11-02 22:05] LABS: ALBUMIN 3.6 g/dl (3.3-4.9); ALBUMIN/GLOBULIN RATIO 0.7; CREATININE 3.61 mg/dl (0.61-1.24); POTASSIUM 4.2 mmol/L (3.5-5.1); TOTAL PROTEIN 8.7 g/dl (6.1-8.1)
[2016-11-02 22:38] LABS: TROPONIN-I 0.012 ng/ml (0.00-0.12)
[2016-11-02] MEDS ORDERED: ACETAMINOPHEN 325 MG TAB PO PRN (23:00)
[2016-11-02] MEDS ORDERED: ONDANSETRON 4 MG INJ IV PRN (23:00)
--- NOTE | 2016-11-02 23:16 | RADRPT ---
PROCEDURE: Renal US. CLINICAL INDICATION: Acute kidney insufficiency TECHNIQUE: Multiple sonographic images of the kidneys were obtained. The images were reviewed on a PACS workstation. COMPARISON: 09/16/2016 FINDINGS: Right kidney: Normal in size, contour and echogenicity. No mass, calculus or hydronephrosis is pre sent. Renal length is estimated at 11 cm. Left kidney: Normal in size, contour and echogenicity. No mass, calculus or hydronephrosis is pres ent. Renal length is estimated at 11.3 cm. Urinary bladder: No abnormality is demonstrated. RPTAT:HJJR IMPRESSION: 1. Unremarkable renal and urinary bladder ultrasound without interval change from 09/16/2016. Physician Joshua Date Time Electronically viewed and signed by Physician Joshua on 11/02/2016 23:16 /
[2016-11-02 23:30] VITALS: TEMP 98.8
[2016-11-03 01:00] VITALS: BP 163/107; PULSE 107; RESP 20
[2016-11-03 01:01] VITALS: Ht 177.8 cm; Wt 117.0 kg
[2016-11-03] MEDS ORDERED: ALPRAZOLAM 0.25 MG TAB PO PRN (01:30)
[2016-11-03] MEDS ORDERED: ACETAMINOPHEN 325 MG TAB PO PRN (01:30)
[2016-11-03] MEDS ORDERED: CARISOPRODOL 350 MG TAB PO PRN (01:30)
[2016-11-03] MEDS: BRIMONIDINE 0.2% 5 ML BTL BOTH EYES SCH ×4 (01:30→21:43)
[2016-11-03] MEDS ORDERED: HYDROCODONE/APAP (10/325) TAB PO PRN (01:30)
[2016-11-03] MEDS ORDERED: ALBUTEROL 18 GM INHALER INH PRN (01:30)
[2016-11-03 01:34] LABS: ADD UMIC YES; UR ASCORBIC ACID NEGATIVE (NEGATIVE); UR BILIRUBIN (Dip) NEGATIVE (NEGATIVE); UR BLOOD (Dip) 3+ mg/dL (NEGATIVE); UR CLARITY SLIGHTLY CLOUDY (CLEAR); UR COLOR YELLOW (YELLOW); UR GLUCOSE (Dip) NEGATIVE (NEGATIVE); UR KETONES (Dip) NEGATIVE (NEGATIVE); UR LEUKOCYTE ESTERASE (Dip) 2+ Leu/ul (NEGATIVE); UR NITRITE (Dip) NEGATIVE (NEGATIVE); UR RBC 81 /HPF (0-5); UR SPECIFIC GRAVITY (Dip) 1.013 (1.003-1.030); UR SQUAMOUS EPITHELIAL CELL FEW /HPF (FEW); UR TOTAL PROTEIN (Dip) 3+ mg/dl (NEGATIVE); UR UROBILINOGEN (Dip) NEGATIVE (NEGATIVE)
[2016-11-03] MEDS: LATANOPROST 0.005% 2.5 ML OPH BOTH EYES SCH ×2 (02:03→21:43)
[2016-11-03] MEDS: TIMOLOL 0.25% 5 ML OPH BOTH EYES SCH ×3 (02:04→21:43)
[2016-11-03] MEDS: FAMOTIDINE 20 MG TAB PO SCH ×2 (02:04→08:40)
[2016-11-03 03:00] VITALS: BP 148/79; PULSE 86; RESP 20
--- NOTE | 2016-11-03 05:24 | HP ---
Date/Time of Note Date/Time of Note DATE: 11/03/16 TIME: 05:14 Assessment/Plan VTE Prophylaxis VTE Prophylaxis Intervention: heparin Lines/Catheters [facility] Saline Lock Assessment/Plan Assessment/Plan 1. Acute on chronic kidney disease -Renal ultrasound is unremarkable -will check urine electrolytes -Nephrology consult -Patient reported recently diagnosed lupus lupus nephritis is a possible etiology of his kidney disease. Will check MYRNA and dsDNA 2. Hypertension: BP not at goal -Adjust antihypertensives as needed 3. History of rheumatoid arthritis -We will provide pain medication as needed 4. Probable lupus -Patient reported recent diagnosis of lupus and that he is being worked-up as outpatient -We will check MYRNA and dsDNA 5. UTI -Antibiotic -Follow-up culture results HPI/ROS Admit Date/Time Admit Date/Time Nov 02, 2016 at 22:42 Hx of Present Illness This is a 51-year-old male with a history of hypertension, GERD, rheumatoid arthritis and a probable lupus who presented to the emergency department after he was told by PCP about worsening kidney function. Patient was admitted here about 10 days ago for lower extremity edema but unfortunately he eloped after a day of hospitalization. He complains of still having lower extremity swelling. Denied any difficulty with urination. He said that he was recently diagnosed with lupus. When he presented to the ER blood pressure was 171/104 with a heart rate of 119. His creatinine is 3.61. During his recent hospitalization about 10 days ago, his creatinine was 4.4 but at the time that he eloped he was 3.2. 3 months ago his creatinine here was 1.5. Renal ultrasound in the ER today was unremarkable. . PMH/Family/Social Past Medical History Medical History: GERD, hypertension, other (Rheumatoid arthritis, lower extremity cellulitis and probable lupus) Social History Alcohol Use: none Smoking Status: Unknown if ever smoked Drug Use: none Exam/Review of Systems Vital Signs Vitals Vital Signs Date Time Temp Pulse Resp B/P Pulse Ox O2 Delivery O2 Flow Rate FiO2 11/03/16 03:00 98.2 86 20 148/79 98 Room Air Exam Constitutional: alert, oriented, well developed Head: atraumatic, normocephalic Eyes: EOMI, PERRL Respiratory: clear to auscultation, normal air movement Cardiovascular: other (Tachycardic with regular rhythm) Gastrointestinal: non-tender, soft Extremities: edema Labs Result Diagram: 11/02/16 2100 11/02/16 2100 Medications Medications Current Medications Alprazolam (Xanax) 0.25 mg TID PRN PO ANXIETY; Start 11/03/16 at 01:30 Atenolol (Tenormin) 100 mg DAILY PO ; Start 11/03/16 at 09:00 Brimonidine Tartrate (Alphagan 0.2%) 1 drop Q8 BOTH EYES ; Start 11/03/16 at 01: 30 Carisoprodol (Soma) 350 mg Q8H PRN PO MUSCLE SPASMS Last administered on 02:04; Admin Dose 350 MG; Start 11/03/16 at 01:30 Latanoprost (Xalatan) 1 drop QHS BOTH EYES Last administered on 11/03/16 02:03 ; Admin Dose 1 DROP; Start 11/03/16 at 02:00 Timolol Maleate (Timoptic 0.25%) 1 drop BID BOTH EYES Last administered on 02:04; Admin Dose 1 DROP; Start 11/03/16 at 01:30 Amlodipine Besylate (Norvasc) 10 mg DAILY PO ; Start 11/03/16 at 09:00 Clonidine (Catapres) 0.1 mg Q6H PRN PO SBP > 160 Last administered on 11/03/16 02:04; Admin Dose 0.1 MG; Start 11/03/16 at 01:30 Acetaminophen (Tylenol Tab) 650 mg Q6H PRN PO PAIN AND OR ELEVATED TEMP; Start 11/03/16 at 01:30 Famotidine 20 mg 20 mg DAILY PO Last administered on 11/03/16 02:04; Admin Dose 20 MG; Start 11/03/16 at 02:00 Ceftriaxone Sodium (Rocephin) 50 ml @ 100 mls/hr Q24H IVPB ; Start 11/03/16 at 05:30 MACKENZIE LAYTON MD Nov 03, 2016 05:24
[2016-11-03] MEDS: CEFTRIAXONE 1 GM/50 ML (PMX) 50 ML IVPB SCH (05:46)
[2016-11-03 07:22] LABS: BASOPHIL # 0.1 10^3/ul (0.0-0.1); BASOPHILS % 0.8 % (0.0-2.0); EOSINOPHILS # 0.4 10^3/ul (0.0-0.5); EOSINOPHILS % 5.5 % (0.0-7.0); HEMATOCRIT 33.1 % (42.0-52.0); HEMOGLOBIN 11.2 g/dl (14.0-18.0); LYMPHOCYTES # 1.9 10^3/ul (0.8-2.9); LYMPHOCYTES % 24.4 % (15.0-51.0); MEAN CORPUSCULAR HEMOGLOBIN 31.2 pg (29.0-33.0); MEAN CORPUSCULAR HGB CONC 33.8 g/dl (32.0-37.0); MEAN CORPUSCULAR VOLUME 92.2 fl (82.0-101.0); MONOCYTE # 0.8 10^3/ul (0.3-0.9); MONOCYTES % 10.5 % (0.0-11.0); NEUTROPHILS % 58.4 % (39.0-77.0); PLATELET COUNT 356 10^3/UL (140-415); RED BLOOD COUNT 3.59 10^6/ul (4.70-6.10); RED CELL DISTRIBUTION WIDTH 13.7 % (11.5-14.5); WHITE BLOOD COUNT 7.9 10^3/ul (4.8-10.8)
[2016-11-03 07:25] VITALS: BP 131/84; RESP 18
[2016-11-03 07:36] LABS: CREATININE 3.21 mg/dl (0.61-1.24); MAGNESIUM 1.7 mg/dl (1.7-2.5); PHOSPHORUS 4.2 mg/dl (2.5-4.9); POTASSIUM 4.2 mmol/L (3.5-5.1)
[2016-11-03] MEDS: AMLODIPINE 10 MG TAB PO SCH (08:40)
[2016-11-03] MEDS: ATENOLOL 100 MG TAB PO SCH (08:40)
--- NOTE | 2016-11-03 12:38 | PN ---
Date/Time of Note Date/Time of Note DATE: 11/03/16 TIME: 12:32 Assessment/Plan VTE Prophylaxis VTE Prophylaxis Intervention: SCD's Lines/Catheters IV Catheter Type (from Nrs): Saline Lock Assessment/Plan Chief Complaint/Hosp Course 1. Acute kidney injury on likely chronic kidney disease -Nephrology consult with was called -Monitor renal fxn closley, void nephrotoxins 2. Hypertension -Continue current antihypertensives 3. History of rheumatoid arthritis -Continue pain meds 4. Probable lupus per patient report -f/u lupus panel ordered 5. Presumptive UTI -Continue Antibiotic -Follow-up culture results 6.Lactic acidosis, likely concurrent vs infectious etiology -F/u culture.Repeat level. 7.Obesity -Weight reduction advised PLAN:F/u with nephrology recs. F/u cultures.Watch renal fxn closely. Case discussed with Problems: Subjective 24 Hr Interval Summary Free Text/Dictation No dysuria.hematuria,fever,chills Exam/Review of Systems Vital Signs Vitals Vital Signs Date Time Temp Pulse Resp B/P Pulse Ox O2 Delivery O2 Flow Rate FiO2 11/03/16 07:25 98.4 92 18 131/84 99 11/03/16 03:00 Room Air Intake and Output 11/02/16 11/02/16 11/03/16 15:00 23:00 07:00 Intake Total 290 ml Balance 290 ml Exam General: Obese AA male, not in any acute distress . HEENT: Normocephalic, Atraumatic, No laceration or hematoma; Eyes: PEERL, Conjunctiva clear, Anicteric sclera Neck: Supple without any lymphadenopathy, nontender, no JVD, no carotid bruits, trachea midline, no thyromegaly Cardiac: S1, S2 auscultated, regular rhythm and rate, no mumurs or gallop Pulmonary: Normal respiratory effort. Chest clear to auscultation bilaterally, no adventitious breath sounds GI: Abdomen obese to inspection. Soft, non- distended, no masses, no rebound tenderness or guarding. Bowel sounds active on all four quadrants Genitourinary: Deferred Extremities: No cyanosis, clubbing, or edema. Pulses [2+] bilaterally. Full ROM on all four extremities. No focal weakness appreciated. Neurologic: Alert to person, place, time, and situation. Affect appropriate, intact sensation. Skin: Clean,dry, and intact. No ecchymosis, no rashes, or lesions Results Result Diagram: 11/03/16 0607 11/03/16 0607 Results 24 hrs Laboratory Tests Test 11/02/16 20:55 11/02/16 21:00 11/03/16 00:30 11/03/16 06:07 Lactic Acid Level 2.5 *H White Blood Count 10.1 7.9 # Red Blood Count 4.40 L 3.59 L Hemoglobin 13.5 L 11.2 L Hematocrit 40.0 L 33.1 L Mean Corpuscular Volume 90.9 92.2 Mean Corpuscular Hemoglobin 30.7 31.2 Mean Corpuscular Hemoglobin Concent 33.8 33.8 Red Cell Distribution Width 13.6 13.7 Platelet Count 401 # 356 Mean Platelet Volume 10.7 H 11.0 H Neutrophils % 69.1 58.4 Lymphocytes % 17.4 24.4 Monocytes % 8.1 10.5 Eosinophils % 4.4 5.5 Basophils % 0.5 0.8 Nucleated Red Blood Cells % 0.0 0.0 Neutrophils # (Manual) 7.0 4.6 Lymphocytes # 1.8 1.9 Monocytes # 0.8 0.8 Eosinophils # 0.4 0.4 Basophils # 0.1 0.1 Nucleated Red Blood Cells # 0.0 0.0 Sodium Level 144 139 Potassium Level 4.2 4.2 Chloride Level 103 106 Carbon Dioxide Level 26 26 Anion Gap 19 H 11 # Blood Urea Nitrogen 32 H 31 H Creatinine 3.61 H 3.21 H Glucose Level 150 113 Calcium Level 9.0 8.0 L Total Bilirubin 0.0 L Direct Bilirubin 0.00 Indirect Bilirubin 0.0 Aspartate Amino Transf (AST/SGOT) 35 Alanine Aminotransferase (ALT/SGPT) 33 Alkaline Phosphatase 142 H Troponin I 0.012 Total Protein 8.7 H Albumin 3.6 Globulin 5.10 H Albumin/Globulin Ratio 0.70 Lipase 223 Urine Color YELLOW Urine Clarity SLIGHTLY CLOUDY A Urine pH 5.0 Urine Specific Brandon 1.013 Urine Ketones NEGATIVE Urine Nitrite NEGATIVE Urine Bilirubin NEGATIVE Urine Urobilinogen NEGATIVE Urine Leukocyte Esterase 2+ H Urine Microscopic RBC 81 H Urine Microscopic WBC 41 H Urine Squamous Epithelial Cells FEW Urine Hyaline Casts FEW A Urine Hemoglobin 3+ H Urine Glucose NEGATIVE Urine Total Protein 3+ H Phosphorus Level 4.2 Magnesium Level 1.7 Medications Medications Current Medications Alprazolam (Xanax) 0.25 mg TID PRN PO ANXIETY; Start 11/03/16 at 01:30 Atenolol (Tenormin) 100 mg DAILY PO Last administered on 11/03/16 08:40; Admin Dose 100 MG; Start 11/03/16 at 09:00 Brimonidine Tartrate (Alphagan 0.2%) 1 drop Q8 BOTH EYES ; Start 11/03/16 at 01: 30 Carisoprodol (Soma) 350 mg Q8H PRN PO MUSCLE SPASMS Last administered on 02:04; Admin Dose 350 MG; Start 11/03/16 at 01:30 Latanoprost (Xalatan) 1 drop QHS BOTH EYES Last administered on 11/03/16 02:03 ; Admin Dose 1 DROP; Start 11/03/16 at 02:00 Timolol Maleate (Timoptic 0.25%) 1 drop BID BOTH EYES Last administered on 08:41; Admin Dose 1 DROP; Start 11/03/16 at 01:30 Amlodipine Besylate (Norvasc) 10 mg DAILY PO Last administered on 11/03/16 08: 40; Admin Dose 10 MG; Start 11/03/16 at 09:00 Clonidine (Catapres) 0.1 mg Q6H PRN PO SBP > 160 Last administered on 11/03/16 02:04; Admin Dose 0.1 MG; Start 11/03/16 at 01:30 Acetaminophen (Tylenol Tab) 650 mg Q6H PRN PO PAIN AND OR ELEVATED TEMP; Start 11/03/16 at 01:30 Famotidine 20 mg 20 mg DAILY PO Last administered on 11/03/16 08:40; Admin Dose 20 MG; Start 11/03/16 at 02:00 Ceftriaxone Sodium (Rocephin) 50 ml @ 100 mls/hr Q24H IVPB Last administered on 11/03/16 05:46; Admin Dose 100 MLS/HR; Start 11/03/16 at 05:30 MARY JO BUNCH NP Nov 03, 2016 12:38
[2016-11-03 12:40] LABS: POTASSIUM,URINE RANDOM 17.8 mmol/L (25-125)
[2016-11-03 14:08] VITALS: BP 118/60; RESP 16
[2016-11-03 20:05] VITALS: BP 148/79; RESP 18
[2016-11-03] MEDS ORDERED: FAMOTIDINE 20 MG TAB ONE (22:09)
[2016-11-03] MEDS ORDERED: FAMOTIDINE 20 MG TAB PO SCH (22:10)
[2016-11-04 02:13] VITALS: BP 129/84; RESP 16
[2016-11-04] MEDS: CEFTRIAXONE 1 GM/50 ML (PMX) 50 ML IVPB SCH (05:30)
[2016-11-04] MEDS: BRIMONIDINE 0.2% 5 ML BTL BOTH EYES SCH ×3 (05:44→21:23)
[2016-11-04 06:54] LABS: BASOPHILS % 0.5 % (0.0-2.0); EOSINOPHILS # 0.4 10^3/ul (0.0-0.5); EOSINOPHILS % 5.1 % (0.0-7.0); HEMATOCRIT 32.9 % (42.0-52.0); HEMOGLOBIN 10.7 g/dl (14.0-18.0); LYMPHOCYTES # 2.2 10^3/ul (0.8-2.9); LYMPHOCYTES % 28.9 % (15.0-51.0); MEAN CORPUSCULAR HEMOGLOBIN 29.7 pg (29.0-33.0); MEAN CORPUSCULAR HGB CONC 32.5 g/dl (32.0-37.0); MEAN CORPUSCULAR VOLUME 91.4 fl (82.0-101.0); MEAN PLATELET VOLUME 11.1 fl (7.4-10.4); MONOCYTE # 0.9 10^3/ul (0.3-0.9); MONOCYTES % 11.4 % (0.0-11.0); NEUTROPHILS % 53.4 % (39.0-77.0); PLATELET COUNT 349 10^3/UL (140-415); RED CELL DISTRIBUTION WIDTH 13.8 % (11.5-14.5); WHITE BLOOD COUNT 7.7 10^3/ul (4.8-10.8)
[2016-11-04 07:12] LABS: CALCIUM 8.4 mg/dl (8.4-10.2); CREATININE 2.65 mg/dl (0.61-1.24); POTASSIUM 4.6 mmol/L (3.5-5.1)
[2016-11-04 08:07] VITALS: BP 124/73; RESP 19
[2016-11-04] MEDS: TIMOLOL 0.25% 5 ML OPH BOTH EYES SCH ×2 (09:20→21:23)
[2016-11-04] MEDS: ATENOLOL 100 MG TAB PO SCH (09:20)
[2016-11-04] MEDS: AMLODIPINE 10 MG TAB PO SCH (09:20)
[2016-11-04 09:25] VITALS: BP 142/87; PULSE 61
[2016-11-04] MEDS ORDERED: LACTINEX PO (12:34)
[2016-11-04] MEDS ORDERED: DOCU-159 PO (12:34)
[2016-11-04] MEDS ORDERED: LYR75 PO (12:34)
[2016-11-04] MEDS ORDERED: OMEP40CA6 PO (12:34)
[2016-11-04 13:00] LABS: ANA SCREEN NEGATIVE (NEGATIVE)
--- NOTE | 2016-11-04 13:03 | PN ---
Date/Time of Note Date/Time of Note DATE: 11/04/16 TIME: 13:00 Assessment/Plan VTE Prophylaxis VTE Prophylaxis Intervention: heparin Lines/Catheters IV [facility] (from [facility] Saline Lock Assessment/Plan Problems: (1) SLE (systemic lupus erythematosus) Status: Chronic Comment: His armored car guard is Dr. Aiken who noted the rise in serum creatinine from his baseline in the high ones. He has been admitted to the hospital. Notably he has been on vancomycin for cellulitis in September of this year. Qualifiers: Systemic lupus erythematosus type: unspecified Systemic lupus erythematosus organ involvement: unspecified Qualified Code: M32.9 - Systemic lupus erythematosus, unspecified SLE type, unspecified organ involvement status (2) Acute kidney injury Status: Acute Comment: Pending nephrology consultation. As above note that he had recently had vancomycin September of this year. I am not certain that the vancomycin was the culprit as he had relatively okay blood tests in between that timeframe and this admission. (3) Hypertension Status: Acute Comment: Adequate control Qualifiers: Hypertension type: essential hypertension Qualified Code: I10 - Essential hypertension (4) GERD (gastroesophageal reflux disease) Status: Acute Comment: Continue with prophylactic therapy Qualifiers: Esophagitis presence: with esophagitis Qualified Code: K21.0 - Gastroesophageal reflux disease with esophagitis Subjective 24 Hr Interval Summary Free Text/Dictation Pleasant and animated gentleman who wants to know more details about the status of his kidneys Constitutional: no complaints (Eyes fever chills or sweats) Respiratory: no complaints Cardiovascular: no complaints Gastrointestinal: no complaints Exam/Review of Systems Vital Signs Vitals Vital Signs Date Time Temp Pulse Resp B/P Pulse Ox O2 Delivery O2 Flow Rate FiO2 11/04/16 09:25 61 142/87 11/04/16 08:07 98.1 19 98 11/03/16 03:00 Room Air Intake and Output 11/03/16 11/03/16 11/04/16 15:00 23:00 07:00 Intake Total 800 ml 1230 ml Balance 800 ml 1230 ml Exam Constitutional: alert, oriented Respiratory: clear to auscultation, normal air movement Cardiovascular: nl pulses, regular rate and rhythm Results Result Diagram: 11/04/16 0538 11/04/16 0538 Results 24 hrs Laboratory Tests Test 11/03/16 13:24 11/04/16 05:38 Lactic Acid Level 1.7 1.1 White Blood Count 7.7 Red Blood Count 3.60 L Hemoglobin 10.7 L Hematocrit 32.9 L Mean Corpuscular Volume 91.4 Mean Corpuscular Hemoglobin 29.7 Mean Corpuscular Hemoglobin Concent 32.5 Red Cell Distribution Width 13.8 Platelet Count 349 Mean Platelet Volume 11.1 H Neutrophils % 53.4 Lymphocytes % 28.9 Monocytes % 11.4 H Eosinophils % 5.1 Basophils % 0.5 Nucleated Red Blood Cells % 0.0 Neutrophils # (Manual) 4.1 Lymphocytes # 2.2 Monocytes # 0.9 Eosinophils # 0.4 Basophils # 0.0 Nucleated Red Blood Cells # 0.0 Sodium Level 141 Potassium Level 4.6 Chloride Level 108 Carbon Dioxide Level 24 Anion Gap 14 Blood Urea Nitrogen 31 H Creatinine 2.65 H Glucose Level 99 Calcium Level 8.4 Medications Medications Current Medications Alprazolam (Xanax) 0.25 mg TID PRN PO ANXIETY; Start 11/03/16 at 01:30 Atenolol (Tenormin) 100 mg DAILY PO Last administered on 11/04/16 09:20; Admin Dose 100 MG; Start 11/03/16 at 09:00 Brimonidine Tartrate (Alphagan 0.2%) 1 drop Q8 BOTH EYES Last administered on 21:43; Admin Dose 1 DROP; Start 11/03/16 at 01:30 Carisoprodol (Soma) 350 mg Q8H PRN PO MUSCLE SPASMS Last administered on 02:04; Admin Dose 350 MG; Start 11/03/16 at 01:30 Latanoprost (Xalatan) 1 drop QHS BOTH EYES Last administered on 11/03/16 21:43 ; Admin Dose 1 DROP; Start 11/03/16 at 02:00 Timolol Maleate (Timoptic 0.25%) 1 drop BID BOTH EYES Last administered on 09:20; Admin Dose 1 DROP; Start 11/03/16 at 01:30 Amlodipine Besylate (Norvasc) 10 mg DAILY PO Last administered on 11/04/16 09: 20; Admin Dose 10 MG; Start 11/03/16 at 09:00 Clonidine (Catapres) 0.1 mg Q6H PRN PO SBP > 160 Last administered on 11/03/16 02:04; Admin Dose 0.1 MG; Start 11/03/16 at 01:30 Acetaminophen 650 mg 650 mg Q6H PRN PO PAIN AND OR ELEVATED TEMP; Start at 01:30 Ceftriaxone Sodium (Rocephin) 50 ml @ 100 mls/hr Q24H IVPB Last administered on 11/04/16 05:30; Admin Dose 100 MLS/HR; Start 11/03/16 at 05:30 Famotidine (Pepcid) 40 mg BID PO ; Start 11/04/16 at 21:00; Status UNV Pregabalin (Lyrica) 75 mg BID PO ; Start 11/04/16 at 13:00; Status UNV Lactobacillus Acidophilus/ Rhamnosus (Culturelle) 1 cap BID PO ; Start 11/04/16 at 21:00; Status UNV MAGALY SMITH MD Nov 04, 2016 13:03
[2016-11-04] MEDS: PREGABALIN 75 MG CAP PO SCH ×2 (13:15→21:21)
--- NOTE | 2016-11-04 13:57 | CONS ---
Date/Time of Note Date/Time of Note DATE: 11/04/16 TIME: 13:51 Consultation Date/Type/Reason Admit Date/Time Nov 02, 2016 at 22:42 Type of Consultation: nephrology Hx of Present Illness This is a 51-year-old male with a history of hypertension, GERD, rheumatoid arthritis and a probable lupus who presented to the emergency department after he was told by PCP about worsening kidney function. Patient was admitted here about 10 days ago for lower extremity edema but unfortunately he eloped after a day of hospitalization. He complains of still having lower extremity swelling. Denied any difficulty with urination. He said that he was recently diagnosed with lupus. When he presented to the ER blood pressure was 171/104 with a heart rate of 119. His creatinine is 3.61. During his recent hospitalization about 10 days ago, his creatinine was 4.4 but at the time that he eloped he was 3.2. 3 months ago his creatinine here was 1.5. R fortunately his renal function is improving He states that he was recently diagnosed with Lupus and has not been on any treatment yet He was on keflex for a while . PMH/Family/Social Past Medical History Medical History: GERD, hypertension, other (Rheumatoid arthritis, lower extremity cellulitis and probable lupus) Social History Alcohol Use: none Smoking Status: Unknown if ever smoked Drug Use: none Exam/Review of Systems Exam Constitutional: alert, oriented, well developed Head: atraumatic, normocephalic Eyes: EOMI, PERRL Respiratory: clear to auscultation, normal air movement Cardiovascular: other (Tachycardic with regular rhythm) Gastrointestinal: non-tender, soft Extremities: edema 1. Acute on chronic kidney disease. baseline creatinine is between 1.5-1.85. Etiology of acute failue is unknown however AIN and ATN due to abx use is among differential diagnosis. will check urine studies. will check complements. no indication for HD. 2. Hypertension: meds were reviewed 3. History of rheumatoid arthritis -We will provide pain medication as needed 4. Probable lupus -Patient reported recent diagnosis of lupus and that he is being worked-up as outpatient MYRNA and dsDNA are pending 5. UTI -Antibiotic -Follow-up culture results Constitutional: no complaints (Eyes fever chills or sweats) Respiratory: no complaints Cardiovascular: no complaints Gastrointestinal: no complaints Past Medical History Medical History: GERD, hypertension, other (Rheumatoid arthritis, lower extremity cellulitis and probable lupus) Social History Alcohol Use: none Smoking Status: Unknown if ever smoked Drug Use: none Exam/Review of Systems Vital Signs Vitals Vital Signs Date Time Temp Pulse Resp B/P Pulse Ox O2 Delivery O2 Flow Rate FiO2 11/04/16 09:25 61 142/87 11/04/16 08:07 98.1 19 98 11/03/16 03:00 Room Air Intake and Output 11/03/16 11/03/16 11/04/16 15:00 23:00 07:00 Intake Total 800 ml 1230 ml Balance 800 ml 1230 ml Results Result Diagram: 11/04/16 0538 11/04/16 0538 Results 24 hrs Laboratory Tests Test 11/04/16 05:38 White Blood Count 7.7 Red Blood Count 3.60 L Hemoglobin 10.7 L Hematocrit 32.9 L Mean Corpuscular Volume 91.4 Mean Corpuscular Hemoglobin 29.7 Mean Corpuscular Hemoglobin Concent 32.5 Red Cell Distribution Width 13.8 Platelet Count 349 Mean Platelet Volume 11.1 H Neutrophils % 53.4 Lymphocytes % 28.9 Monocytes % 11.4 H Eosinophils % 5.1 Basophils % 0.5 Nucleated Red Blood Cells % 0.0 Neutrophils # (Manual) 4.1 Lymphocytes # 2.2 Monocytes # 0.9 Eosinophils # 0.4 Basophils # 0.0 Nucleated Red Blood Cells # 0.0 Sodium Level 141 Potassium Level 4.6 Chloride Level 108 Carbon Dioxide Level 24 Anion Gap 14 Blood Urea Nitrogen 31 H Creatinine 2.65 H Glucose Level 99 Lactic Acid Level 1.1 Calcium Level 8.4 Medications Medications Current Medications Alprazolam (Xanax) 0.25 mg TID PRN PO ANXIETY; Start 11/03/16 at 01:30 Atenolol (Tenormin) 100 mg DAILY PO Last administered on 11/04/16 09:20; Admin Dose 100 MG; Start 11/03/16 at 09:00 Brimonidine Tartrate (Alphagan 0.2%) 1 drop Q8 BOTH EYES Last administered on 13:15; Admin Dose 1 DROP; Start 11/03/16 at 01:30 Carisoprodol (Soma) 350 mg Q8H PRN PO MUSCLE SPASMS Last administered on 02:04; Admin Dose 350 MG; Start 11/03/16 at 01:30 Latanoprost (Xalatan) 1 drop QHS BOTH EYES Last administered on 11/03/16 21:43 ; Admin Dose 1 DROP; Start 11/03/16 at 02:00 Timolol Maleate (Timoptic 0.25%) 1 drop BID BOTH EYES Last administered on 09:20; Admin Dose 1 DROP; Start 11/03/16 at 01:30 Amlodipine Besylate (Norvasc) 10 mg DAILY PO Last administered on 11/04/16 09: 20; Admin Dose 10 MG; Start 11/03/16 at 09:00 Clonidine (Catapres) 0.1 mg Q6H PRN PO SBP > 160 Last administered on 11/03/16 02:04; Admin Dose 0.1 MG; Start 11/03/16 at 01:30 Acetaminophen 650 mg 650 mg Q6H PRN PO PAIN AND OR ELEVATED TEMP; Start at 01:30 Ceftriaxone Sodium (Rocephin) 50 ml @ 100 mls/hr Q24H IVPB Last administered on 11/04/16 05:30; Admin Dose 100 MLS/HR; Start 11/03/16 at 05:30 Famotidine (Pepcid) 40 mg BID PO ; Start 11/04/16 at 21:00 Pregabalin (Lyrica) 75 mg BID PO Last administered on 11/04/16 13:15; Admin Dose 75 MG; Start 11/04/16 at 13:00 Lactobacillus Acidophilus/ Rhamnosus (Culturelle) 1 cap BID PO ; Start 11/04/16 at 21:00 ELIU PAREDES DO Nov 04, 2016 13:57
[2016-11-04 14:43] VITALS: BP 134/85; RESP 18
[2016-11-04 21:04] VITALS: BP 132/87; RESP 19
[2016-11-04] MEDS: LACTOBACILLUS RHAMNOSUS CAP PO SCH (21:21)
[2016-11-04] MEDS: FAMOTIDINE 20 MG TAB PO SCH (21:21)
[2016-11-04] MEDS: LATANOPROST 0.005% 2.5 ML OPH BOTH EYES SCH (21:23)
[2016-11-05 02:42] VITALS: BP 148/76; RESP 19
[2016-11-05] MEDS: BRIMONIDINE 0.2% 5 ML BTL BOTH EYES SCH ×2 (05:14→14:42)
[2016-11-05] MEDS: CEFTRIAXONE 1 GM/50 ML (PMX) 50 ML IVPB SCH (05:14)
[2016-11-05 07:13] LABS: COMPLEMENT C3 132 mg/dl (88-165); COMPLEMENT C4 42 mg/dl (14-44)
[2016-11-05 07:35] VITALS: BP 125/86; RESP 16
[2016-11-05] MEDS: AMLODIPINE 10 MG TAB PO SCH (08:37)
[2016-11-05] MEDS: FAMOTIDINE 20 MG TAB PO SCH (08:37)
[2016-11-05] MEDS: ATENOLOL 100 MG TAB PO SCH (08:38)
[2016-11-05] MEDS: LACTOBACILLUS RHAMNOSUS CAP PO SCH (08:38)
[2016-11-05] MEDS: TIMOLOL 0.25% 5 ML OPH BOTH EYES SCH (08:38)
[2016-11-05] MEDS: PREGABALIN 75 MG CAP PO SCH (08:38)
[2016-11-05] MEDS ORDERED: ERGOCALCIFEROL 50,000 UNIT CAP PO SCH (11:30)
[2016-11-05 11:41] LABS: CALCIUM 8.6 mg/dl (8.4-10.2); CREATININE 2.69 mg/dl (0.61-1.24); POTASSIUM 4.3 mmol/L (3.5-5.1)
[2016-11-05 14:06] VITALS: BP 122/64; RESP 16
--- NOTE | 2016-11-05 15:40 | DS ---
Date/Time of Note Date/Time of Note DATE: 11/05/16 TIME: 15:36 Discharge Summary Admission/Discharge Info Admit Date/Time Nov 02, 2016 at 22:42 Discharge Date/Time November 05, 2016 Discharge Diagnosis Acute kidney injury on chronic kidney disease with proteinuria; rheumatoid arthritis; possible SLE; hypertension; obesity gastroesophageal reflux disease Patient Condition: Fair Consults Nephrology-Dr. Dalton Kelley Procedures Renal ultrasound Hx of Present Illness This is a 51-year-old male with a history of hypertension, GERD, rheumatoid arthritis and a probable lupus who presented to the emergency department after he was told by PCP about worsening kidney function. Patient was admitted here about 10 days ago for lower extremity edema but unfortunately he eloped after a day of hospitalization. He complains of still having lower extremity swelling. Denied any difficulty with urination. He said that he was recently diagnosed with lupus. When he presented to the ER blood pressure was 171/104 with a heart rate of 119. His creatinine is 3.61. During his recent hospitalization about 10 days ago, his creatinine was 4.4 but at the time that he eloped he was 3.2. 3 months ago his creatinine here was 1.5. Renal ultrasound in the ER today was unremarkable. . Hospital Course This is a 51-year-old male with a history of hypertension, GERD, rheumatoid arthritis and a probable lupus who presented to the emergency department after he was told by PCP about worsening kidney function. Patient was admitted here about 10 days ago for lower extremity edema but unfortunately he eloped after a day of hospitalization. He complains of still having lower extremity swelling. Denied any difficulty with urination. He said that he was recently diagnosed with lupus. When he presented to the ER blood pressure was 171/104 with a heart rate of 119. His creatinine is 3.61. During his recent hospitalization about 10 days ago, his creatinine was 4.4 but at the time that he eloped he was 3.2. 3 months ago his creatinine here was 1.5. R fortunately his renal function is improving He states that he was recently diagnosed with Lupus and has not been on any treatment yet He was on keflex for a while . PMH/Family/Social Past Medical History Medical History: GERD, hypertension, other (Rheumatoid arthritis, lower extremity cellulitis and probable lupus) Social History Alcohol Use: none Smoking Status: Unknown if ever smoked Drug Use: none Exam/Review of Systems Exam Constitutional: alert, oriented, well developed Head: atraumatic, normocephalic Eyes: EOMI, PERRL Respiratory: clear to auscultation, normal air movement Cardiovascular: other (Tachycardic with regular rhythm) Gastrointestinal: non-tender, soft Extremities: edema 1. Acute on chronic kidney disease. baseline creatinine is between 1.5-1.85. Etiology of acute failue is unknown however AIN and ATN due to abx use is among differential diagnosis. will check urine studies. will check complements. no indication for HD. 2. Hypertension: meds were reviewed 3. History of rheumatoid arthritis -We will provide pain medication as needed 4. Probable lupus -Patient reported recent diagnosis of lupus and that he is being worked-up as outpatient MYRNA and dsDNA are pending 5. UTI -Antibiotic -Follow-up culture results 51-year-old -[place] gentleman sent in by his nonprofit director Dr. Aiken for abrupt rise in serum creatinine. He had serum creatinine of 1-1/2 early in the year and 2.0 roughly a month ago. He had been treated with a brief course of vancomycin for cellulitis. His creatinine lindsay and he has proteinuria on the UA. Is been seen in renal consultation and his serum creatinine has improved. The consulting contingents supervisor Dr. Babita Kelley has advised that the patient should be followed up as an outpatient. He will need to see a contingents supervisor and has an appointment with Dr. Terrence Jason, is in the group with Dr. Elie Jules. He may end up needing a renal biopsy but that is to be determined. The meantime we will follow-up with his primary physician Dr. Eym Diamond, and nonprofit director Dr. Aiken Home Meds Active Scripts Losartan Potassium* (Losartan Potassium*) 50 Mg Tablet, 50 MG PO DAILY for 30 Days, TAB resume 09/22/16 Prov:GUSTABOSHELIA 09/17/16 Reported Medications Omeprazole* (Omeprazole*) 40 Mg Capsule., 40 MG PO BID WITH MEALS, #30 CAP 11/04/16 Pregabalin* (Lyrica*) 75 Mg Capsule, 75 MG PO BID, CAP 11/04/16 Docusate Sodium* (Docusate Sodium*) 100 Mg Capsule, 100 MG PO DAILY, #60 CAP 11/04/16 Lactobacillus Acidophilus* (Lactinex*) 1 Tab Chew, 1 TAB PO BID, TAB 11/04/16 Hydrochlorothiazide* (Hydrochlorothiazide*) 25 Mg Tab, 25 MG PO DAILY, #30 TAB 11/02/16 Methylprednisolone* (Medrol*) 4 Mg Tab, 4 MG PO TID, TAB 11/02/16 Albuterol Sulfate* (Ventolin HFA*) 18 Gm Hfa.aer.ad, 2 PUFF INHALATION Q4H Y for SHORTNESS OF BREATH, #1 INHALER 09/15/16 Brimonidine Tartrate* (Brimonidine Tartrate*) 0.2%-15ML Drop Opht, 1 DROP BOTH EYES Q8, #1 EA 09/15/16 Latanoprost (Latanoprost) 2.5 Ml Drops, 1 DROP BOTH EYES QHS, #1 BOTTLE 09/15/16 Timolol Maleate* (Timolol Maleate* Ophth) 0.25%-15ml Opht, 1 DROP BOTH EYES BID , #1 EA 09/15/16 Atenolol* (Atenolol*) 100 Mg Tablet, 100 MG PO DAILY, #30 TAB 09/15/16 Alprazolam* (Alprazolam*) 0.25 Mg Tablet, 0.25 MG PO TID Y for ANXIETY, TAB 09/15/16 Hydrocodone/Acetaminophen ([place] 10-325 Tablet) 1 Each Tablet, 1 EACH PO Q4H WHILE AWAKE Y for PAIN, TAB 09/15/16 Carisoprodol* (Carisoprodol*) 350 Mg Tablet, 350 MG PO Q8 Y for MUSCLE SPASMS, TAB 05/01/16 Omeprazole* (Omeprazole*) 40 Mg Capsule.dr, 40 MG PO DAILY, #30 CAP 05/01/16 Discontinued Scripts Lactobacillus Acidophilus (ACIDOPHILUS) 1 Each Tablet, 1 EACH PO BID WITH MEALS , #14 TAB Prov:SHELIA MONTEJO. 09/17/16 Nifedipine* (Nifedipine ER*) 30 Mg Tablet.sa, 30 MG PO BID, #60 TAB.SA Prov:SHELIA MONTEJO. 09/17/16 Docusate Sodium (Dok) 100 Mg Capsule, 250 MG PO DAILY, #30 CAP Prov:GUSTABOSHELIA M. 09/17/16 Pregabalin* (Lyrica*) 75 Mg Capsule, 75 MG PO BID for 30 Days, CAP 2 Refills Prov:SHELIA MONTEJO. 09/17/16 Follow-up Plan Primary care physician Dr.Tuan Diamond, Dr. Aiken, and Dr. Jason Primary Care Provider Robert Diamond Time spent on discharge: > 30 minutes Pending Labs Laboratory Tests Test 11/05/16 05:26 11/05/16 05:27 Sodium Level 140mmol/L (135-144) Potassium Level 4.3mmol/L (3.5-5.1) Chloride Level 108mmol/L (97-110) Carbon Dioxide Level 25mmol/L (21-31) Anion Gap 11 (8-16) Blood Urea Nitrogen 30mg/dl (7-20) Creatinine 2.69mg/dl (0.61-1.24) Glucose Level 110mg/dl (70-220) Calcium Level 8.6mg/dl (8.4-10.2) Parathyroid Hormone (Intact) pg/ml (7.5-53.5) Complement C3 132mg/dl (88-165) Complement C4 42mg/dl (14-44) Vitamin D 1,25-Dihydroxy < 12.8ng/ml (30-100) MAGALY SMITH MD Nov 05, 2016 15:40
--- NOTE | 2016-11-05 15:41 | PDOCDIS ---
Discharge Instructions DIAGNOSIS Discharge Diagnosis Acute kidney injury on chronic kidney disease with proteinuria; rheumatoid arthritis; possible SLE; hypertension; obesity gastroesophageal reflux disease CONDITION Patient Condition: Fair HOME CARE INSTRUCTIONS: Diet Instructions: Reduced Calorie ACTIVITY: Activity Restrictions: Avoid heavy lifting FOLLOW UP/APPOINTMENTS Follow-up Plan Community Health Counselor, Dr. Meade, primary care physician Dr. Diamond, and MAGALY Washington MD Nov 05, 2016 15:41
[2016-11-05] MEDS ORDERED: AMLO-147 PO (15:42)
[2016-11-05 15:48] VITALS: BP 159/74; PULSE 84
[2016-11-07 14:26] LABS: CREATININE, RANDOM URINE 84 mg/dL (20-370); PROTEIN/CREATININE RATIO 2179 mg/g creat (22-128)
== END 2016-11-05 16:11 | disposition home or self-care (01) | DRG 683 ==
LOC: E/R 18:53 → PP2 22:42
PROVIDERS: ADMIT Internal Medicine; ATTEND Internal Medicine
DX: N17.9 Acute kidney failure, unspecified (principal); N39.0 Urinary tract infection, site not specified; E87.2 Acidosis; M32.9 Systemic lupus erythematosus, unspecified; I12.9 Hypertensive chronic kidney disease with stage 1 through stage 4 chronic kidney disease, or unspecified chronic kidney disease; N18.9 Chronic kidney disease, unspecified; M06.9 Rheumatoid arthritis, unspecified; E66.9 Obesity, unspecified; Z68.37 Body mass index [BMI] 37.0-37.9, adult; K21.0 Gastro-esophageal reflux disease with esophagitis
CPT/HCPCS: 36415; 76775; 80048; 80053; 81001; 81003; 82306; 82436; 82570; 82652; 83605; 83690; 83735; 83970; 84100; 84133; 84155; 84156; 84166; 84300; 84484; 85025; 86038; 86160; 86226; 87086; 89190; 93005; J0696; J7030

== ENCOUNTER 2016-12-13 07:06 | Day surgery (SDC) | payer OTHER ==
[2016-12-13] VITALS (9 sets, daily range): BP systolic 118–178; BP diastolic 58–99; PULSE 60–88; RESP 18–25; Ht 177.8 cm; Wt 121.0 kg
[~2016-12-13] VITALS: Ht 177.8 cm; Wt 121.0 kg
[~2016-12-13 07:06] MED LIST changes: +AMLO-147 PO; +DOCU-159 PO; -DOCU-216 PO; -LACT1TAB11 PO; +LACTINEX PO; -LOSA50TA6 PO; +METH4TAB PO; -NIFE30TA60 PO
[2016-12-13] MEDS ORDERED: HYDR200T39 PO (07:48)
[2016-12-13] MEDS ORDERED: SOD CHLORIDE 0.9% 1,000 ML IV SCH (08:00)
[2016-12-13] MEDS ORDERED: AMLO-147 PO (08:01)
[2016-12-13] MEDS ORDERED: LIDOCAINE 1% (MDV) 20 ML INJ ONE (10:22)
[2016-12-13] MEDS ORDERED: FENTAnyl 50 MCG/ML VIAL ONE (10:22)
[2016-12-13] MEDS ORDERED: GELATIN 12MM X 7 MM SPONGE ONE (10:22)
[2016-12-13] MEDS ORDERED: DIPHENHYDRAMINE 50 MG INJ ONE (10:23)
--- NOTE | 2016-12-13 12:12 | RADRPT ---
PROCEDURE: CT guided left renal biopsy. CLINICAL INDICATION: Medical renal disease. TECHNIQUE: Informed consent was obtained. The procedure, risks, benefits, complications and alternatives were explained to the patient. Risks including bleeding and infection were explained. The patient unders tood and was willing to proceed. A procedural pause was performed. The patient's name, date of juan jose h, and procedure to be performed were verified. One or more of the following dose reduction techni ques were used: Automated exposure control, adjustment of the mA and/or kV according to patient size , use of iterative reconstruction technique. Using local anesthetic, sterile technique and CT guidance, an 18-gauge automated core biopsy needle was used to biopsy the lower pole of the left kidney. Multiple passes were made. Adequate tissue w as obtained according to the pathologist present during the procedure. Multiple Gelfoam pledgets mi xed with normal saline were then embolized through the outer cannula of the biopsy needle into the b iopsy tract while the needle was removed. A postprocedural scan was performed. A dressing was applied. The patient tolerated procedure well. COMPARISON: None. FINDINGS: Initial images demonstrate the tip of the needle at the posterior margin of the lower pole of the le ft kidney. Post biopsy images demonstrate no immediate complication. The Gelfoam is noted in the biopsy tract. IMPRESSION: 1. Successful CT guided biopsy of the left kidney for medical renal disease. RPTAT: QQ .Luis Antonio Mathis MD, MD Date Time Electronically viewed and signed by .Luis Antonio Mathis MD, on 12/13/2016 12:11 .R/
== END 2016-12-13 14:00 | disposition home or self-care (01) ==
LOC: SDS 07:06
PROVIDERS: ATTEND Internal Medicine Nephrology
DX: N03.9 Chronic nephritic syndrome with unspecified morphologic changes (principal); R31.9 Hematuria, unspecified
CPT/HCPCS: 50200; 77012; 88305; 88313; 88346; 88348; 88350; J3010; Z7610; C1785; C1898; J1200

== ENCOUNTER 2016-12-18 13:28 | Inpatient (IN) | payer OTHER ==
[~2016-12-18] VITALS: Ht 177.8 cm; Wt 121.2 kg
[~2016-12-18 13:28] MED LIST changes: -ALBU18HF INHALATION; -ALPR0.254 PO; -CARI350T29 PO; -DOCU-159 PO; -HYDR-902 PO; +HYDR200T39 PO; -LACTINEX PO; -LYR75 PO; -METH4TAB PO
--- NOTE | 2016-12-18 15:36 | ERA ---
ER Documentation Chief Complaint Date/Time DATE: 12/18/16 TIME: 15:36 Chief Complaint send by pmd due renal failure? HPI The patient is a 51-year-old male, presenting to the ER because of abnormal renal biopsy. She was sent to the ER by her clinical quality assurance specialist Dr. Hagan because the left renal biopsy show glomerulonephritis. He denies any symptoms, denies headache, neck pain, chest pain, abdominal pain, vomiting, dysuria, hematuria. He smokes and drinks Past medical history: Systemic lupus erythematosus, hypertension, chronic kidney disease, rheumatoid arthritis, GERD, glaucoma, chronic neck pain Past Surgical history: Appendectomy, back surgery ROS All systems reviewed and are negative except as per history of present illness. Medications Home Meds Reported Medications Tramadol Hcl* (Ultram*) 50 Mg Tablet, 50 MG PO BID Y for PAIN, TAB 12/18/16 Carisoprodol* (Carisoprodol*) 350 Mg Tablet, 350 MG PO BID Y for MUSCLE SPASMS, TAB 12/18/16 Alprazolam* (Alprazolam*) 0.5 Mg Tablet, 0.5 MG PO BID Y for ANXIETY, TAB 12/18/16 Triamcinolone Acetonide* (Kenalog*) 0.1%-15GM Cr, 1 APPLIC TOP BID, #1 TUB 12/18/16 Amlodipine Besylate* (Amlodipine Besylate*) 10 Mg Tablet, 10 MG PO DAILY, #30 TAB 12/13/16 Hydroxychloroquine Sulfate* (Hydroxychloroquine Sulfate*) 200 Mg Tablet, 200 MG PO DAILY, TAB 12/13/16 Omeprazole* (Omeprazole*) 40 Mg Capsule.dr, 40 MG PO BID WITH MEALS, #30 CAP 11/04/16 Brimonidine Tartrate* (Brimonidine Tartrate*) 0.2%-15ML Drop Opht, 1 DROP BOTH EYES Q8, #1 EA 09/15/16 Latanoprost (Latanoprost) 2.5 Ml Drops, 1 DROP BOTH EYES QHS, #1 BOTTLE 09/15/16 Timolol Maleate* (Timolol Maleate* Ophth) 0.25%-15ml Opht, 1 DROP BOTH EYES BID , #1 EA 09/15/16 Atenolol* (Atenolol*) 100 Mg Tablet, 100 MG PO DAILY, #30 TAB 7/14/17 Discontinued Reported Medications Pregabalin* (Lyrica*) 75 Mg Capsule, 75 MG PO BID, CAP 11/04/16 Docusate Sodium* (Docusate Sodium*) 100 Mg Capsule, 100 MG PO DAILY, #60 CAP 11/04/16 Lactobacillus Acidophilus* (Lactinex*) 1 Tab Chew, 1 TAB PO BID, TAB 11/04/16 Methylprednisolone* (Medrol*) 4 Mg Tab, 4 MG PO TID, TAB 11/02/16 Albuterol Sulfate* (Ventolin HFA*) 18 Gm Hfa.aer.ad, 2 PUFF INHALATION Q4H Y for SHORTNESS OF BREATH, #1 INHALER 09/15/16 Alprazolam* (Alprazolam*) 0.25 Mg Tablet, 0.25 MG PO TID Y for ANXIETY, TAB 09/15/16 Hydrocodone/Acetaminophen ([place] 10-325 Tablet) 1 Each Tablet, 1 EACH PO Q4H WHILE AWAKE Y for PAIN, TAB 09/15/16 Carisoprodol* (Carisoprodol*) 350 Mg Tablet, 350 MG PO Q8 Y for MUSCLE SPASMS, TAB 05/01/16 Discontinued Scripts Amlodipine Besylate* (Amlodipine Besylate*) 10 Mg Tablet, 10 MG PO DAILY for 30 Days, TAB Prov:MAGALY SMITH MD 11/05/16 Allergies Allergies: Coded Allergies: ibuprofen (Unverified Allergy, Intermediate, 12/18/16) PMhx/Soc History of Surgery: Yes (CARPAL TUNNEL L HAND, APPENDECTOMY) Anesthesia Reaction: No Hx Neurological Disorder: No Hx Respiratory Disorders: No Hx Cardiac Disorders: Yes (HTN) Hx Psychiatric Problems: No Hx Miscellaneous Medical Probl: Yes (LUPUS) Hx Alcohol Use: No Hx Substance Use: No Hx Tobacco Use: Yes (12/13 0600) Physical Exam Vitals Vital Signs Date Time Temp Pulse Resp B/P Pulse Ox O2 Delivery O2 Flow Rate FiO2 12/18/16 15:47 Nasal Cannula 2 12/18/16 13:33 98.2 78 18 131/67 99 Physical Exam Const: No acute distress. Head: Atraumatic. Eyes: Normal Conjunctiva. ENT: Normal External Ears, Nose and Mouth. Neck: Full range of motion. No meningismus. Resp: Clear to auscultation bilaterally. Cardio: Regular rate and rhythm. Abd: Soft, non distended, normal bowel sounds, non tender. Skin: No petechiae or rashes. Back: No midline or flank tenderness. Ext: No cyanosis, or edema. Neur: Awake and alert. No focal deficit Psych: Normal Mood and Affect. Result Diagram: 12/18/16 1540 12/18/16 1540 Results 24 hrs Laboratory Tests Test 12/18/16 15:40 White Blood Count 11.210^3/ul Red Blood Count 3.9010^6/ul Hemoglobin 12.1g/dl Hematocrit 36.7% Mean Corpuscular Volume 94.1fl Mean Corpuscular Hemoglobin 31.0pg Mean Corpuscular Hemoglobin Concent 33.0g/dl Red Cell Distribution Width 13.7% Platelet Count 73585^3/UL Mean Platelet Volume 10.9fl Neutrophils % 66.5% Lymphocytes % 19.3% Monocytes % 9.7% Eosinophils % 3.2% Basophils % 1.0% Nucleated Red Blood Cells % 0.0/100WBC Neutrophils # 7.410^3/ul Lymphocytes # 2.210^3/ul Monocytes # 1.110^3/ul Eosinophils # 0.410^3/ul Basophils # 0.110^3/ul Nucleated Red Blood Cells # 0.010^3/ul Prothrombin Time 13.7Sec Prothrombin Time Ratio 1.1 INR International Normalized Ratio 1.05 Activated Partial Thromboplast Time 29.1Sec Sodium Level 140mmol/L Potassium Level 4.4mmol/L Chloride Level 106mmol/L Carbon Dioxide Level 20mmol/L Anion Gap 18 Blood Urea Nitrogen 36mg/dl Creatinine 5.47mg/dl Glucose Level 115mg/dl Lactic Acid Level 1.6mmol/L Calcium Level 8.9mg/dl Total Bilirubin 0.3mg/dl Direct Bilirubin 0.00mg/dl Indirect Bilirubin 0.3mg/dl Aspartate Amino Transf (AST/SGOT) 33IU/L Alanine Aminotransferase (ALT/SGPT) 35IU/L Alkaline Phosphatase 109IU/L Troponin I < 0.012ng/ml Total Protein 8.5g/dl Albumin 3.8g/dl Globulin 4.70g/dl Albumin/Globulin Ratio 0.80 [facility] [place] [address] Radiology Main Line: [phone] DIAGNOSTIC IMAGING REPORT Patient: MAREK HENDRICKSON : 1965 Age: 51 Sex: M MR #: [id number] DOS: 12/18/16 1536 Ordering MD: NATALY MCKEON MD Location: E/R Room/Bed: PROCEDURE: Chest x-ray CLINICAL INDICATION: Shortness of breath TECHNIQUE: Chest single view COMPARISON: 10/25/2016 FINDINGS: The heart is normal in size. The pulmonary vessels are normal in caliber. The lungs are clear. The costophrenic angles are sharp. The visualized bony thorax is unremarkable. IMPRESSION: No acute cardiopulmonary disease. RPTAT: HH .Gomez Fuentes MD, MD Date Time Electronically viewed and signed by .Gomez Fuentes MD, on 12/18/2016 16:18 .W/ CC: NATALY MCKEON MD UA is pending EKG: Read by emergency physician Rate/Rhythm: Normal Sinus Rhythm 69 beats/min QRS, ST, T-waves: No ST elevation, no T inversion Impression: Normal EKG .MEDICAL MAKING DECISION: The patient is a 51-year-old male, presenting with acute glomerulonephritis, acute on chronic kidney disease He will require admission for further evaluation Departure Diagnosis: Primary Impression: Glomerulonephritis Additional Impressions: Acute kidney injury superimposed on chronic kidney disease Anemia Condition: Stable Comments I discussed the findings with the patient. I discussed the patient with the on- call hospitalist Dr. Wayne who was made aware of the lab, the treatment, the patient condition. The patient is admitted to NATALY MCKEON MD Dec 18, 2016 15:36
[2016-12-18 15:55] LABS: BASOPHIL # 0.1 10^3/ul (0.0-0.1); EOSINOPHILS # 0.4 10^3/ul (0.0-0.5); EOSINOPHILS % 3.2 % (0.0-7.0); HEMATOCRIT 36.7 % (42.0-52.0); HEMOGLOBIN 12.1 g/dl (14.0-18.0); LYMPHOCYTES # 2.2 10^3/ul (0.8-2.9); LYMPHOCYTES % 19.3 % (15.0-51.0); MEAN CORPUSCULAR VOLUME 94.1 fl (82.0-101.0); MEAN PLATELET VOLUME 10.9 fl (7.4-10.4); MONOCYTE # 1.1 10^3/ul (0.3-0.9); MONOCYTES % 9.7 % (0.0-11.0); NEUTROPHIL # 7.4 10^3/ul (1.6-7.5); NEUTROPHILS % 66.5 % (39.0-77.0); PLATELET COUNT 322 10^3/UL (140-415); RED CELL DISTRIBUTION WIDTH 13.7 % (11.5-14.5); WHITE BLOOD COUNT 11.2 10^3/ul (4.8-10.8)
[2016-12-18 16:11] LABS: INR 1.05; PROTIME 13.7 Sec (12.2-14.2); PT RATIO 1.1
[2016-12-18 16:12] LABS: PARTIAL THROMBOPLASTIN TIME 29.1 Sec (25.0-35.0)
[2016-12-18 16:16] LABS: ALANINE AMINOTRANSFERASE 35 IU/L (13-69); ALBUMIN 3.8 g/dl (3.3-4.9); ALKALINE PHOSPHATASE 109 IU/L (42-121); ANION GAP 18 (8-16); ASPARTATE AMINO TRANSFERASE 33 IU/L (15-46); BILIRUBIN,INDIRECT 0.3 mg/dl (0-1.1); BILIRUBIN,TOTAL 0.3 mg/dl (0.2-1.3); BLOOD UREA NITROGEN 36 mg/dl (7-20); CALCIUM 8.9 mg/dl (8.4-10.2); CARBON DIOXIDE 20 mmol/L (21-31); CHLORIDE 106 mmol/L (97-110); CREATININE 5.47 mg/dl (0.61-1.24); GLUCOSE 115 mg/dl (70-220); POTASSIUM 4.4 mmol/L (3.5-5.1); SODIUM 140 mmol/L (135-144); TOTAL PROTEIN 8.5 g/dl (6.1-8.1)
--- NOTE | 2016-12-18 16:19 | RADRPT ---
PROCEDURE: Chest x-ray CLINICAL INDICATION: Shortness of breath TECHNIQUE: Chest single view COMPARISON: 10/25/2016 FINDINGS: The heart is normal in size. The pulmonary vessels are normal in caliber. The lungs are clear. Th e costophrenic angles are sharp. The visualized bony thorax is unremarkable. IMPRESSION: No acute cardiopulmonary disease. RPTAT: HH .Gomez Fuentes MD, Date Time Electronically viewed and signed by .Gomez Fuentes MD, MD on 12/18/2016 16:18 .W/
[2016-12-18 16:28] LABS: TROPONIN-I < 0.012 ng/ml (0.00-0.12)
[2016-12-18] MEDS ORDERED: TRIA15CR55 TOP (16:36)
[2016-12-18] MEDS ORDERED: ALPR0.5T6 PO (16:36)
[2016-12-18] MEDS ORDERED: TRAM-40 PO (16:40)
[2016-12-18] MEDS ORDERED: CARI350T29 PO (16:40)
[2016-12-18 18:09] VITALS: BP 124/76; RESP 22
[2016-12-18 18:30] VITALS: BMI 45.4
[2016-12-18] MEDS ORDERED: DOCUSATE SODIUM 100 MG CAP PO PRN (20:30)
[2016-12-18] MEDS ORDERED: BISACODYL (EC) 5 MG TAB PO PRN (20:30)
[2016-12-18] MEDS ORDERED: ONDANSETRON 4 MG INJ IV PRN (20:30)
[2016-12-18] MEDS ORDERED: ACETAMINOPHEN 325 MG TAB PO PRN (20:30)
[2016-12-18 20:36] VITALS: BP 100/59; RESP 18
[2016-12-18] MEDS ORDERED: morphine 2 MG INJ IV ONE (21:00)
[2016-12-18] MEDS ORDERED: METHYLPRED. NA SUCC 1,000 MG in DEXTROSE 5% 50 ML IVPB SCH (21:00)
[2016-12-18] MEDS ORDERED: FAMOTIDINE 20 MG TAB PO SCH (21:00)
[2016-12-18] MEDS ORDERED: NICO1PAT6 TD (22:38)
[2016-12-19 00:45] LABS: ADD UMIC YES; UR ASCORBIC ACID NEGATIVE (NEGATIVE); UR BACTERIA FEW /HPF (NONE SEEN); UR BILIRUBIN (Dip) NEGATIVE (NEGATIVE); UR BLOOD (Dip) 3+ mg/dL (NEGATIVE); UR CLARITY SLIGHTLY CLOUDY (CLEAR); UR COLOR YELLOW (YELLOW); UR GLUCOSE (Dip) NEGATIVE (NEGATIVE); UR KETONES (Dip) NEGATIVE (NEGATIVE); UR LEUKOCYTE ESTERASE (Dip) 1+ Leu/ul (NEGATIVE); UR NITRITE (Dip) NEGATIVE (NEGATIVE); UR RBC 94 /HPF (0-5); UR SPECIFIC GRAVITY (Dip) 1.013 (1.003-1.030); UR SQUAMOUS EPITHELIAL CELL FEW /HPF (FEW); UR TOTAL PROTEIN (Dip) 2+ mg/dl (NEGATIVE); UR UROBILINOGEN (Dip) NEGATIVE (NEGATIVE)
--- NOTE | 2016-12-19 00:47 | HP ---
Date/Time of Note Date/Time of Note DATE: 12/19/16 TIME: 00:34 Assessment/Plan VTE Prophylaxis VTE Prophylaxis Intervention: SCD's Lines/Catheters IV [facility]ter [facility]from [facility] Urinary Cath still in place: No Assessment/Plan Chief Complaint/Hosp Course This is a 51-year-old male being admitted to the [facility] floor for: #1 glomerulonephritis: Creatinine today is 5.47 with a previous one of 2.67 from approximately 1 month ago. Patient has history of lupus with recent positive double-stranded DNA. The MYRNA titer was negative. Will check a ANCA level. Will check complement levels. Will treat at the current time with 1 g Solu-Medrol every 24 hours 3 days. Will consult nephrology for further assistance. Patient also likely will benefit from rheumatology, we will see if one can be made available as we do not have one on panel. Patient does have an outpatient research epidemiologist as well. Patient states he also has an outpatient director trade Dr. Jules, his phone number is [phone]. 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 -- Mild IgM mesangial glomerulonephritis. -- Secondary focal and segmental glomerulosclerosis. -- Acute tubular injury and interstitial nephritis, related to #1. -- Arterial and arteriolar nephrosclerosis. #2 acute on chronic kidney disease: Again patient's creatinine is significantly elevated at a level of 5.47 from her previous one approximately 1 month ago of 2.67. Patient remains nonoliguric. Again will consult nephrology. Please see #1 for further details. Will avoid nephrotoxic agents. #3 hypertension: Resume home medications. #4 history of rheumatoid arthritis: We will resume home medications. Patient would likely benefit from rheumatologic evaluation as well however we will see if this is possible since we do not have a research epidemiologist on panel. #5. Lupus: Patient was positive for double-stranded DNA. Patient again is following up with rheumatology as an outpatient. Continue home medications. Again patient may benefit from a rheumatologic evaluation as well we will see if this can be possible. #6 glaucoma: We will continue patient's home medications #7 DVT GI prophylaxis: SCDs, acid moise Further treatment strategy will be implemented as per the clinical course Problems: HPI/ROS Admit Date/Time Admit Date/Time Dec 18, 2016 at 17:10 Hx of Present Illness The patient is a 51-year-old male, presenting to the ER because of an abnormal renal biopsy. She was sent to the ER by his director trade Dr. Jules because the left renal biopsy showed glomerulonephritis. He denies any symptoms, denies headache, neck pain, chest pain, abdominal pain, vomiting, dysuria, hematuria. He states that he still urinates without any difficulty. Does not report any lower extremity edema at this time. Allergies: Ibuprofen Medications: See MAR ROS Const: Negative for fever, chills, weight gain or weight loss, fatigue, or diaphoresis Eyes : No pain discharge or redness or change in visual acuity ENT: No pain, sore throat, congestion, congestion, dysphagia or discharge Respiratory: No shortness of breath, cough, sputum, wheezing, or pleuritic pain Cardiovascular: No chest pain, palpitation, PND, or edema GI : no change in appetite, abdominal pain, nausea, vomiting, diarrhea, constipation, or change in the color his stool Genitourinary: No dysuria, hematuria, flank pain , discharge or CVA tenderness Musculoskeletal: No joint pain, back pain, neck pain, restricted range of motion in neck or joints Skin: No rash, bruising or hives Neuro: No headache, dizziness, syncope, seizure, focal weakness Endocrine: No polyuria, polydipsia, temperature intolerance Psych: No hallucination, depression, anxiety or suicidal ideation PMH/Family/Social Past Medical History Systemic lupus erythematosus, hypertension, chronic kidney disease, rheumatoid arthritis, GERD, glaucoma, chronic neck pain Past Surgical History Appendectomy, back surgery Family History Significant Family History: no pertinent family hx Social History Alcohol Use: none Smoking Status: Current every day smoker Drug Use: none Exam/Review of Systems Vital Signs Vitals Vital Signs Date Time Temp Pulse Resp B/P Pulse Ox O2 Delivery O2 Flow Rate FiO2 12/18/16 20:36 98.1 74 18 100/59 97 12/18/16 15:47 Nasal Cannula 2 Exam Exam General: This is a morbidly obese male lying in bed in no acute distress HEENT: Atraumatic, normocephalic. The pupils are equal, round and reactive. Extraocular motor are intact Neck: Supple with full range of motion. No rigidity or meningismus Chest: Nontender Lungs: Clear to auscultation bilaterally no crackles rales or wheezing Heart: Normal S1-S2, Regular rhythm and rate. Abdomen: Soft , nontender, nondistended , bowel sounds are present. No guarding no rebound tenderness , No masses or organomegaly. No costovertebral temporal angle mass Extremities: Normal to inspection, no edema no cyanosis Neurologic: Normal mental status, speech normal, cranial nerves II through XII are intact, motor and sensory are intact, no focal weakness Additional Comments PROCEDURE: Chest x-ray CLINICAL INDICATION: Shortness of breath TECHNIQUE: Chest single view COMPARISON: 10/25/2016 FINDINGS: The heart is normal in size. The pulmonary vessels are normal in caliber. The lungs are clear. The costophrenic angles are sharp. The visualized bony thorax is unremarkable. IMPRESSION: No acute cardiopulmonary disease. RPTAT: HH .Gomez Fuentes MD, Date Time Electronically viewed and signed by .Gomez Fuentes MD, on 12/18/2016 16:18 .W/ CC: NATALY MCKEON MD [facility] [place] [address] ; Lab No: [id number] Date: 12/13/2016 INTRAOPERATIVE GROSS EXAMINATION: - Adequate specimen/CH (12/13/16; 11:50 a.m.) SPECIMEN: Left renal biopsy CLINICAL: Hematuria GROSS EXAMINATION: Received are four cores of renal tissue ranging from 0.6 cm to 1.3 cm in length with a diameter of 0.1 cm. The specimen is into alcoholic Bouin's, Glutaraldehyde and Connor fixatives and was forwarded to [facility] for a renal pathology consultation. 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 -- Mild IgM mesangial glomerulonephritis. -- Secondary focal and segmental glomerulosclerosis. -- Acute tubular injury and interstitial nephritis, related to #1. -- Arterial and arteriolar nephrosclerosis. COMMENT: There are approximately 30% active (necrotizing/cellular) crescents, 5 % subacute (fibrocellular) crescents, and 10% remote (fibrous) crescents. Taken together with the clinical history, this is consistent with a c-ANCA associated glomerulonephritis. This is a concomitant mild IgM mesangial glomerulonephritis which most likely reflects an extra- articular manifestation of rheumatoid arthritis (Ref. [place] Journal of Rheumatology 1997;36:1189). There are no diagnostic features of lupus nephritis. There are approximately 20% global glomerulosclerosis, 10% segmental glomerulosclerosis, and moderate tubulointerstitial scarring. Clinical correlation is recommended. This case was forwarded to [facility] for a renal pathology consultation. The diagnosis and the above comment reflects their opinion. CH/tm Date of Service/Date Received: 12/15/16; Dictated/Transcribed/Sent by Fax: Marco Gaming M.D. Pathologist Electronically Signed 12/18/2016 KVNG CASTRO M.D. [facility] Result Diagram: 12/18/16 1540 12/18/16 1540 Medications Medications Current Medications Influenza Virus Vaccine (Fluzone) 0.5 ml ONCE ONCE IM* ; Start 12/20/16 at 09: 00; Stop 12/20/16 at 09:01 Ondansetron HCl (Zofran Inj) 4 mg Q6H PRN IV NAUSEA AND/OR VOMITING; Start at 20:30 Acetaminophen (Tylenol Tab) 650 mg Q6H PRN PO PAIN LEVEL 1-3 OR FEVER; Start 12/18/16 at 20:30 Docusate Sodium (Colace) 100 mg Q12H PRN PO CONSTIPATION; Start 12/18/16 at 20 :30 Bisacodyl (Dulcolax) 5 mg DAILY PRN PO CONSTIPATION; Start 12/18/16 at 20:30 Famotidine 10 mg 10 mg Q24H PO Last administered on 12/18/16t 21:30; Admin Dose 10 MG; Start 12/18/16 at 21:00 Methylprednisolone Sodium Succinate/ Dextrose (Solu-Medrol/D5W) 50 ml @ 100 mls /hr DAILY IVPB Last administered on 12/18/16 21:30; Admin Dose 100 MLS/HR; Start 12/18/16 at 21:00; Stop 12/21/16 at 20:59 Nicotine (Nicoderm 21 Mg/ 24hr) 1 patch DAILY TRANSDERM ; Start 12/19/16 at 09: 00 Morphine Sulfate (morphine) 2 mg Q4H PRN IV PAIN LEVEL 6-10; Start 12/19/16 at 00:00 GABRIEL DOMINGUEZ Dec 19, 2016 00:47
[2016-12-19] MEDS ORDERED: CARISOPRODOL 350 MG TAB PO PRN (01:00)
[2016-12-19] MEDS ORDERED: traMADol 50 MG TAB PO PRN (01:00)
[2016-12-19 02:17] VITALS: BP 149/70; RESP 16
[2016-12-19] MEDS ORDERED: BRIMONIDINE 0.2% 5 ML BTL BOTH EYES SCH (06:00)
[2016-12-19 06:40] LABS: BASOPHILS % 0.3 % (0.0-2.0); HEMATOCRIT 36.7 % (42.0-52.0); LYMPHOCYTES # 0.8 10^3/ul (0.8-2.9); LYMPHOCYTES % 11.7 % (15.0-51.0); MEAN CORPUSCULAR HEMOGLOBIN 30.5 pg (29.0-33.0); MEAN CORPUSCULAR HGB CONC 32.7 g/dl (32.0-37.0); MEAN CORPUSCULAR VOLUME 93.1 fl (82.0-101.0); MEAN PLATELET VOLUME 11.2 fl (7.4-10.4); MONOCYTE # 0.1 10^3/ul (0.3-0.9); MONOCYTES % 1.2 % (0.0-11.0); NEUTROPHIL # 5.7 10^3/ul (1.6-7.5); NEUTROPHILS % 86.2 % (39.0-77.0); PLATELET COUNT 318 10^3/UL (140-415); RED BLOOD COUNT 3.94 10^6/ul (4.70-6.10); RED CELL DISTRIBUTION WIDTH 13.4 % (11.5-14.5); WHITE BLOOD COUNT 6.6 10^3/ul (4.8-10.8)
[2016-12-19 07:09] LABS: ALBUMIN 3.6 g/dl (3.3-4.9); ALBUMIN/GLOBULIN RATIO 0.7; BILIRUBIN,INDIRECT 0.2 mg/dl (0-1.1); BILIRUBIN,TOTAL 0.2 mg/dl (0.2-1.3); CALCIUM 8.9 mg/dl (8.4-10.2); CREATININE 5.09 mg/dl (0.61-1.24); MAGNESIUM 1.9 mg/dl (1.7-2.5); POTASSIUM 4.6 mmol/L (3.5-5.1); TOTAL PROTEIN 8.7 g/dl (6.1-8.1)
[2016-12-19 07:14] LABS: C-REACTIVE PROTEIN 2.1 mg/dl (0.0-0.9)
[2016-12-19 07:35] LABS: THYROID STIMULATING HORMONE 0.825 MIU/L (0.465-4.680)
[2016-12-19 07:46] VITALS: BP 129/83; RESP 18
[2016-12-19] MEDS: TIMOLOL 0.25% 5 ML OPH BOTH EYES SCH ×2 (09:45→20:28)
[2016-12-19] MEDS: BRIMONIDINE 0.2% 5 ML BTL BOTH EYES SCH ×2 (09:45→20:28)
[2016-12-19] MEDS: LATANOPROST 0.005% 2.5 ML OPH BOTH EYES SCH ×2 (09:45→20:28)
[2016-12-19] MEDS: TRIAMCINOLONE ACET 0.1% 15 GM CR TOP SCH ×2 (09:46→20:28)
[2016-12-19] MEDS: AMLODIPINE 10 MG TAB PO SCH (09:47)
[2016-12-19] MEDS: HYDROXYCHLOROQUINE 200 MG TAB PO SCH (09:47)
[2016-12-19] MEDS: ATENOLOL 100 MG TAB PO SCH (09:48)
[2016-12-19] MEDS: NICOTINE (21 MG/24 HR) PATCH TRANSDERM SCH (09:49)
[2016-12-19] MEDS: ALPRAZOLAM 0.5 MG TAB PO PRN (09:57)
[2016-12-19 11:15] VITALS: Ht 177.8 cm; Wt 121.2 kg
[2016-12-19 12:45] LABS: HAAIG REFLEX REFLEX FILED
[2016-12-19 14:05] VITALS: BP 116/61; RESP 22
[2016-12-19] MEDS ORDERED: PANTOPRAZOLE (EC) 40 MG TAB PO ONE (14:30)
[2016-12-19 14:53] LABS: HEPATITIS B CORE ANTIBODY NEGATIVE (NEGATIVE)
--- NOTE | 2016-12-19 14:58 | CONS ---
DATE OF ADMISSION: 12/18/2016 DATE OF CONSULTATION: RHEUMATOLOGY CONSULTATION HISTORY OF PRESENT ILLNESS: The patient is a 51-year-old -[place]ian man with renal insufficie ncy. The patient has had chronic renal insufficiency, but earlier this year was noted to have a cre atinine of around 3 and in October it had increased to 3.6. The patient was diagnosed earlier this y ear with rheumatoid arthritis when he developed multiple arthralgias and joint swellings and was noe efly on methotrexate for about a month and then he was told that he may have lupus. Unclear what me dication he was given at that point. He was also noted in November to have a positive C-ANCA and n ormal C3 and C4 complement. He had 3+ hematuria and 3+ proteinuria as well as increased edema. At one point, he was told he had cellulitis in the legs with significant edema. The patient underwent a kidney biopsy 12/13/2016, which is consistent with C-ANCA associated vasculi tis with 30% active crescents, 5% subacute, 10% remote, fibrous crescents, 20% glomerulosclerosis, 1 0% segmental sclerosis, felt not to have features of lupus nephritis. He did have mild IgM mesangia l glomerulonephritis, which may be associated with rheumatoid arthritis. In regard to these symptom s, he describes fatigue and arthralgias. He had a transient rash at the chin about 6 months ago. Dalton steward may have some photosensitivity leading to fatigue but denies other rashes. He also has about 9 mo nths of decreased sensation of the feet, although unclear if this was due to edema. He has had occa sional fevers. He denies Raynaud's phenomenon. He denies prominent headaches. Has had intermitten t shortness of breath with question of congestive heart failure. Denies much cough. Denies palpita tions. Denies abdominal pain or nausea or vomiting. PAST MEDICAL HISTORY: Positive for possible rheumatoid arthritis, unclear if lupus, positive for hy pertension, the renal insufficiency, there is a history of alcohol use in the past, a history of non steroidal anti-inflammatory agent use a history of glaucoma. MEDICATIONS: See chart. Patient unclear as to what medications he had prior to admission. ALLERGIES: QUESTIONABLE ALLERGY TO IBUPROFEN. PAST SURGICAL HISTORY: Back surgery and appendectomy. FAMILY HISTORY: Negative for lupus or other connective tissue disease as per patient. SOCIAL HISTORY: Alcohol use none at present, although has history. Smoking history, the patient is a current smoker. Denies illicit drug use. PHYSICAL EXAMINATION: GENERAL: Morbidly obese -[place]ian man, in no acute distress, alert, oriented x3. SKIN: With mild hypopigmented area in the chin. No acute rashes. HEENT: No evidence of sclerodactyly or telangiectasias. NECK: Supple. No thyromegaly noted or lymphadenopathy. CHEST: Clear to auscultation. HEART: Regular rate and rhythm without gallops or murmurs noted. ABDOMEN: Soft without masses or tenderness. EXTREMITIES: No edema or cyanosis or clubbing. MUSCULOSKELETAL: Mild tenderness in multiple joints but no evidence of synovitis at present. Chart reviewed. ASSESSMENT: 1. Renal insufficiency, creatinine has gone up to 5. Kidney biopsy noted. 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 Per biopsy, there is no clear evidence of lupus nephritis and C3 and C4 have been normal and double stranded DNA may have borderline at one point, although appar ently MYRNA has been negative. 2. Rheumatoid arthritis, possibly. 3. Hypertension. 4. Glaucoma. PLAN: 1. The patient has been started on Solu-Medrol boluses of 1 gram for 3 consecutive days. This was started yesterday. 2. I will discuss further with nephrology regarding advisability of adding Cytoxan versus Rituxan. 3. There is a question of adding plasmapheresis and I am unclear at this point of the etiology, but will discuss further with nephrology. Thank you for having me see the patient rheumatologically. Dictated By: MAREK FUENTES/MANI Conf#: [id number] DID#: [id number]
[2016-12-19 19:02] LABS: ADD UMIC YES; UR ASCORBIC ACID NEGATIVE (NEGATIVE); UR BILIRUBIN (Dip) NEGATIVE (NEGATIVE); UR BLOOD (Dip) 2+ mg/dL (NEGATIVE); UR CLARITY SLIGHTLY CLOUDY (CLEAR); UR COLOR YELLOW (YELLOW); UR GLUCOSE (Dip) NEGATIVE (NEGATIVE); UR KETONES (Dip) NEGATIVE (NEGATIVE); UR LEUKOCYTE ESTERASE (Dip) NEGATIVE Leu/ul (NEGATIVE); UR NITRITE (Dip) NEGATIVE (NEGATIVE); UR RBC 44 /HPF (0-5); UR SPECIFIC GRAVITY (Dip) 1.012 (1.003-1.030); UR TOTAL PROTEIN (Dip) 2+ mg/dl (NEGATIVE); UR UROBILINOGEN (Dip) NEGATIVE (NEGATIVE)
[2016-12-19] MEDS ORDERED: AL HYDROX/MG HYDROX/SIMETH 30 ML CUP PO ONE (20:30)
--- NOTE | 2016-12-19 20:37 | QN ---
Documentation Comment pt was seen in [facility]ILLY Mcdonald MD Dec 19, 2016 20:37
[2016-12-19 20:52] VITALS: BP 133/89; RESP 16
[2016-12-19] MEDS ORDERED: LATANOPROST 0.005% 2.5 ML OPH BOTH EYES SCH (21:00)
[2016-12-19] MEDS: METHYLPRED. NA SUCC 1,000 MG in DEXTROSE 5% 50 ML IVPB SCH (21:25)
[2016-12-19] MEDS: FAMOTIDINE 20 MG TAB PO SCH (23:17)
[2016-12-20 02:41] VITALS: BP 119/68; RESP 16
--- NOTE | 2016-12-20 06:10 | CONS ---
DATE OF ADMISSION: 12/18/2016 DATE OF CONSULTATION: 12/19/2016 REASON FOR ADMISSION: Glomerulonephritis. HISTORY OF PRESENT ILLNESS: This is a 51-year-old male, past medical history of hypertension, rheum atoid arthritis, questionable SLE, CHF, YAEL, subdural hematoma, polyarthropathy, EtOH, gastritis, pr ediabetes and custodial NSAID use, was being referred to us by Dr. Elie Jules for glomerulonephritis . On 11/02/2016, the patient was sent to the ER with the help of primary care physician for increas ing creatinine level of 3.61 and elevated CRP of 61. The patient's baseline creatinine level per [facility] raised; was from 1.5 to 1.8, on 04/25 the patient's creatinine level wa s 3.08. EGFR was 26 at that time. Also has 1+ hematuria, 2+ proteinuria. On 10/29, the patient wa s again sent to [place] with lower extremity edema. At that time, his creatinine increased to 3.79, EGFR of 20. The patient left AMA with a final creatinine of 3.2. During his most recent hospitaliz ation on 11/02, the patient's creatinine improved to 3.61 to 2.69. However, the patient was found d uring the hospitalization to be positive for C-ANCA normal C3 and C4 levels. As the patient's creat inine had been increasing from 1.5 to 1.85 to 3.61 again to 2.69 with hematuria and positive ANCA an d was requested renal consultation with Dr. Elie Jules. The patient was seen in consultation on 04/2016. At that time, the patient had worsening hematuria, proteinuria. Given the decreasing robert l function with the hematuria, proteinuria, positive ANCA and the patient was referred for renal bio psy. The patient had a renal biopsy done on 12/13/2016 on left kidney that showed an acute on chron ic necrotizing crescentic glomerulonephritis, mild IgA and mesangial glomerulonephritis nephritis se condary to focal and segmental glomerulosclerosis, ATN and interstitial nephritis, arteriosclerosis and nephrosclerosis. The patient was sent in to the hospital for further treatment. According to t he patient, was sent initially to [facility], but according to the patient, he was in the E R for a long time. He could not wait. He left AMA and came to the [facility]. Ryan Stahl, who does not come to [facility], requested us to see the patient. On admission, patient was found to have a creatinine of 5.09, BUN of 47. Patient complains of recur rent nosebleeds, joint pains. According to the patient, he has been urinating a lot at night. The patient also complained of bilateral tingling, numbness of the lower extremities for past few months . PAST MEDICAL HISTORY: 1. Hypertension. 2. Rheumatoid arthritis. 3. Probable lupus. 4. Congestive heart failure. 5. YAEL. 6. Subdural hematoma. 7. Polyarthropathy. 8. EtOH. 9. Gastritis. 10. GERD. 11. Hyperlipidemia. 12. Prediabetic. 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 MEDICATIONS: Taking at home: 1. Amlodipine 10. 2. Albuterol. 3. Alprax. 4. Atenolol 100. 5. Hydrocodone. 6. According to the records, he is taking methylprednisolone 4 mg 3 times a day, but currently elidia ent is not taking. 7. Prilosec 40. On 11/02, hydrochlorothiazide, losartan, nifedipine, , Prilosec were all discontinued. ALLERGIES: IBUPROFEN. FAMILY HISTORY: Significant for coronary artery disease in the mother. Breast cancer in mother. T he patient denied family history of any lupus, kidney failure. SOCIAL HISTORY: The patient has a -year tobacco smoking history. However, he is currently on nicotine patch. He also has history of cocaine use. No history of IV drug use. REVIEW OF SYSTEMS: The patient denies any chest pain, any shortness of breath, no hemoptysis. Occa sional epistaxis. No anorexia, nausea, vomiting, unintentional weight loss. The patient complained of generalized weakness, fatigue. No frequency, no dysuria or hematuria. According to him, he uri nates a lot. No current NSAID use. The patient also has noticed some changes on the face and some photosensitivity. PHYSICAL EXAMINATION: VITAL SIGNS: Temperature 98.4, heart rate 71, respirations 18, blood pressure 129/83. GENERAL: Patient is awake, alert, middle-aged [place] male, no acute distress. HEENT: Normocephalic, atraumatic. No pallor. No scleral icterus. NECK: Supple, no JVD. HEART: Regular rate and rhythm. LUNGS: Clear to auscultate bilaterally. ABDOMEN: Soft, nontender, nondistended, positive normoactive bowel sounds. EXTREMITIES: Trace edema. SKIN: The patient has some changes on the cheek. NEUROLOGIC: Awake, alert, oriented x3. The patient has decreased sensation on bilateral lower extr emities. The patient also has some synovitis of the bilateral wrist joints. LABORATORY DATA: Sodium 140, potassium 4.6, chloride 107, bicarbonate 23, BUN of 47, creatinine 5.0 9. LFTs within normal limit except alkaline phosphatase 150, total protein 8.7, albumin 3.6. Total cholesterol 210, LDL 139. White count 6.6, hemoglobin 12.0, platelet count 318. ESR 89. UA showe d 1+ leukocyte esterase, 94 RBCs, 23 WBCs, 3+ hemoglobin, 2+ protein. C3 is 143, C4 is 48. Patient had MYRNA that was negative 11/03/2016, double stranded positive 558. Creatinine trend was 04/25 to 3.08, October was 4.4, 10/24 it was 3.79 then 3.32. On 11/02 was 3.61, then 11/03 at 1.75 and 11/05 is 2.69, 3+ hematuria at that time and 3+ proteinuria. IMAGING: The patient on had 11/02 a renal ultrasound, right kidney 11 cm, left kidney 11.3 cm. ASSESSMENT AND PLAN: This is a 51-year-old -[place] male, presented with past medical histo ry for acute kidney injury, hypertension, rheumatoid arthritis, possible lupus, congestive heart peter lure, subdural hematoma, polyarthropathy, EtOH, prediabetes, rat exterminator NSAID use. 1. Acute on chronic renal failure plus the patient has 3+ hematuria and proteinuria. His baseline creatinine is 1.5 to 1.85 range. At last hospitalization, creatinine was 3.61 and upon discharge wa s 2.69, however, currently is 5.09. Patient is positive for C-ANCA. CRP was 61. Status post renal biopsy that showed acute on chronic necrotizing crescentic glomerulonephritis, mild IgM mesangial gl omerulonephritis secondary to focal and segmental glomerulosclerosis, acute tubular necrosis and int erstitial nephritis and renal arterial nephrosclerosis. 2. Hematuria secondary to #1. 3. Proteinuria secondary to #1. 4. Hypertension. 5. Rheumatoid arthritis. 6. Possible lupus. 7. Prediabetes. 8. 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 9. Possible lupus. PLAN: At this period of time, the patient is admitted to med/surg unit. The patient has already be en started on Solu-Medrol 1 gram for 3 days. We will check for hepatitis panel, HIV, QuantiFERON Go ld since patient was also incarcerated. Chest x-ray was done that was negative. I spoke to the pat raymond in great detail about the diagnosis. 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 This patient will get high-dose steroids for 3 days. The patient will also require IV Cytoxan/Rituxan. We will repeat MYRNA, C-ANCA and anti-double stranded antibodies. Rheumatology c onsultation with ____ has already been requested. I also called the patient's recreation teacher Daphne Aiken DO, and unable to reach him by phone. Since the creatinine is less than 5.61, we will hold off on plasmapheresis. At this point, the rest of the treatment will depend on the patient's h ospitalization course. Dictated By: LILLY LIEBERMAN/MANI Conf#: [id number] DID#: [id number]
[2016-12-20] MEDS ORDERED: INFLUENZA VIRUS VACCINE 0.5 ML (DISPENSING) IM* ONE (09:00)
[2016-12-20] MEDS: TIMOLOL 0.25% 5 ML OPH BOTH EYES SCH ×2 (09:26→21:51)
[2016-12-20 09:28] VITALS: BP 154/92; RESP 18
[2016-12-20] MEDS: BRIMONIDINE 0.2% 5 ML BTL BOTH EYES SCH ×2 (09:28→21:51)
[2016-12-20] MEDS: TRIAMCINOLONE ACET 0.1% 15 GM CR TOP SCH ×2 (09:28→21:53)
[2016-12-20] MEDS: LATANOPROST 0.005% 2.5 ML OPH BOTH EYES SCH ×2 (09:30→21:54)
[2016-12-20] MEDS: HYDROXYCHLOROQUINE 200 MG TAB PO SCH (09:32)
[2016-12-20] MEDS: AMLODIPINE 10 MG TAB PO SCH (09:33)
[2016-12-20] MEDS: ATENOLOL 100 MG TAB PO SCH (09:33)
[2016-12-20] MEDS: NICOTINE (21 MG/24 HR) PATCH TRANSDERM SCH (09:34)
[2016-12-20] MEDS: AL HYDROX/MG HYDROX/SIMETH 30 ML CUP PO SCH (09:47)
[2016-12-20] MEDS ORDERED: BISMUTH SUBSALICYLATE 120 ML BTL PO PRN (11:00)
--- NOTE | 2016-12-20 13:19 | CONS ---
Date/Time of Note Date/Time of Note DATE: 12/20/16 TIME: 13:09 Consult Date/Type/Reason Admit Date/Time Dec 18, 2016 at 17:10 Initial Consult Date Type of Consultation: Rheum Subjective Feels well. No new complaints. Patient refused labs earlier today so at present no lab results from today available. Objective Vital Signs Date Time Temp Pulse Resp B/P Pulse Ox O2 Delivery O2 Flow Rate FiO2 12/20/16 09:28 98.0 69 18 154/92 94 12/18/16 15:47 Nasal Cannula 2 Intake and Output 12/19/16 12/19/16 12/20/16 15:00 23:00 07:00 Intake Total 2700 ml 930 ml Balance 2700 ml 930 ml Exam GENERAL: N acute distress, alert, oriented x3. SKIN: With mild hypopigmented area in the chin. No acute rashes. HEENT: No evidence of sclerodactyly or telangiectasias. NECK: Supple. No thyromegaly noted or lymphadenopathy. CHEST: Clear to auscultation. HEART: Regular rate and rhythm without gallops or murmurs noted. ABDOMEN: Soft without masses or tenderness. EXTREMITIES: No edema or cyanosis. MUSCULOSKELETAL: No joint tenderness. No synovitis. Results/Medications Result Diagram: 12/19/16 0554 12/19/16 0554 Results 24 hrs Laboratory Tests Test 12/19/16 18:30 Urine Color YELLOW Urine Clarity SLIGHTLY CLOUDY A Urine pH 5.0 Urine Specific [place] 1.012 Urine Ketones NEGATIVE Urine Nitrite NEGATIVE Urine Bilirubin NEGATIVE Urine Urobilinogen NEGATIVE Urine Leukocyte Esterase NEGATIVE Urine Microscopic RBC 44 H Urine Microscopic WBC 7 H Urine Hemoglobin 2+ H Urine Glucose NEGATIVE Urine Total Protein 2+ H Medications Current Medications Ondansetron HCl (Zofran Inj) 4 mg Q6H PRN IV NAUSEA AND/OR VOMITING; Start at 20:30 Acetaminophen (Tylenol Tab) 650 mg Q6H PRN PO PAIN LEVEL 1-3 OR FEVER; Start 12/18/16 at 20:30 Docusate Sodium (Colace) 100 mg Q12H PRN PO CONSTIPATION; Start 12/18/16 at 20 :30 Bisacodyl (Dulcolax) 5 mg DAILY PRN PO CONSTIPATION; Start 12/18/16 at 20:30 Nicotine (Nicoderm 21 Mg/ 24hr) 1 patch DAILY TRANSDERM Last administered on 09:34; Admin Dose 1 PATCH; Start 12/19/16 at 09:00 Morphine Sulfate (morphine) 2 mg Q4H PRN IV PAIN LEVEL 6-10; Start 12/19/16 at 00:00 Alprazolam (Xanax) 0.5 mg BID PRN PO ANXIETY Last administered on 12/19/16 09 :57; Admin Dose 0.5 MG; Start 12/19/16 at 01:00 Amlodipine Besylate (Norvasc) 10 mg DAILY PO Last administered on 12/20/16 09 :33; Admin Dose 10 MG; Start 12/19/16 at 09:00 Atenolol (Tenormin) 100 mg DAILY PO Last administered on 12/20/16 09:33; Admin Dose 100 MG; Start 12/19/16 at 09:00 Carisoprodol (Soma) 350 mg BID PRN PO MUSCLE SPASMS; Start 12/19/16 at 01:00 Hydroxychloroquine Sulfate (Plaquenil) 200 mg DAILY PO Last administered on 09:32; Admin Dose 200 MG; Start 12/19/16 at 09:00 Timolol Maleate (Timoptic 0.25%) 1 drop BID BOTH EYES Last administered on 09:26; Admin Dose 1 DROP; Start 12/19/16 at 09:00 Tramadol HCl (Ultram) 50 mg BID PRN PO PAIN; Start 12/19/16 at 01:00 Triamcinolone Acetonide (Kenalog 0.1% Cr) 1 applic BID TOP Last administered on 12/20/16 09:28; Admin Dose 1 APPLIC; Start 12/19/16 at 09:00 Brimonidine Tartrate (Alphagan 0.2%) 1 drop BID BOTH EYES Last administered on 12/20/16 09:28; Admin Dose 1 DROP; Start 12/19/16 at 09:00 Latanoprost 1 drop 1 drop BID BOTH EYES Last administered on 12/20/16 09:30; Admin Dose 1 DROP; Start 12/19/16 at 09:00 Methylprednisolone Sodium Succinate/ Dextrose (Solu-Medrol/D5W) 50 ml @ 100 mls /hr DAILY@21 IVPB Last administered on 10/17/17at 21:25; Admin Dose 100 MLS/HR ; Start 12/19/16 at 21:00; Stop 12/21/16 at 20:59 Famotidine (Pepcid) 20 mg Q24H PO ; Start 12/19/16 at 21:00 Bismuth Subsalicylate (Pepto-Bismol) 15 ml Q3H PRN PO GASTROINTESTINAL UPSET; Start 12/20/16 at 11:00 Mupirocin (Bactroban) 1 applic BID TOP ; Start 12/20/16 at 21:00 Influenza Virus Vaccine (Fluzone) 0.5 ml ONCE ONCE IM* ; Start 12/21/16 at 12: 00; Stop 12/21/16 at 12:01 Assessment/Plan Chief Complaint/Hosp Course ASSESSMENT: 1. Renal insufficiency, creatinine has gone up to 5. Kidney biopsy noted. 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 Per biopsy, there is no clear evidence of lupus nephritis and C3 and C4 have been normal and double stranded DNA is likely artifact as MYRNA has been negative. 2. Hepatitis C. Unclear how active. 3. Rheumatoid arthritis, possibly. Rheumatoid factor positivity may be due to Hepatitis C 4. Glaucoma. 5, Hypertension. PLAN: 1. The patient has been started on Solu-Medrol boluses of 1 gram for 3 consecutive days. 2. I would prefer Rituxan for C-ANCA vasculitis/ GN. It is not fully clear at this point if Cytoxan is safer than Rituxan in the presence of Hepatitis C. 3. Will check viral load and cryoglobulins. 4. Would hold off starting Rituxan or Cytoxan today. Awaiting various lab results. Problems: MAREK DENNEY MD Dec 20, 2016 13:19
[2016-12-20 14:06] LABS: MYELOPEROXIDASE ANTIBODY 1.4 AI; PROTEINASE-3 ANTIBODY <1.0 AI
[2016-12-20 14:31] VITALS: BP 131/77; RESP 18
[2016-12-20 14:51] LABS: ANA SCREEN NEGATIVE (NEGATIVE)
[2016-12-20 15:09] LABS: BASOPHILS % 0.1 % (0.0-2.0); HEMATOCRIT 33.6 % (42.0-52.0); HEMOGLOBIN 11.1 g/dl (14.0-18.0); LYMPHOCYTES # 0.7 10^3/ul (0.8-2.9); LYMPHOCYTES % 4.1 % (15.0-51.0); MEAN CORPUSCULAR HEMOGLOBIN 30.9 pg (29.0-33.0); MEAN CORPUSCULAR VOLUME 93.6 fl (82.0-101.0); MEAN PLATELET VOLUME 11.6 fl (7.4-10.4); MONOCYTE # 0.8 10^3/ul (0.3-0.9); MONOCYTES % 4.8 % (0.0-11.0); NEUTROPHIL # 14.5 10^3/ul (1.6-7.5); NEUTROPHILS % 90.3 % (39.0-77.0); PLATELET COUNT 319 10^3/UL (140-415); RED BLOOD COUNT 3.59 10^6/ul (4.70-6.10); RED CELL DISTRIBUTION WIDTH 13.6 % (11.5-14.5)
--- NOTE | 2016-12-20 15:26 | CONS ---
Date/Time of Note Date/Time of Note DATE: 12/20/16 TIME: 15:04 Assessment/Plan Assessment/Plan Chief Complaint/Hosp Course : Assessment: Hep C antibody reactive Glomerulonephritis. Plan: We will check HCV RNA quantitative for further evaluation of Hep c Continue current treatment plan Patient seen in collaboration with Dr. 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 HCV RNA quantitative lab has been ordered for further evaluation. LFTs are within normal limits bilirubin normal limits, patient denies any abdominal pain, nausea, vomiting, change in bowel habits or rectal bleeding. There is no family history of colon cancer and he has never had an endoscopy. In view of current findings further workup needs to be completed for diagnosis of active hepatitis C. From GI point of view the treatment for vasculitis/glomerulonephritis should take precedence and very likely would not altered by positive active hepatitis infection Past Medical History: Hypertension. Rheumatoid arthritis. Probable lupus. Congestive heart failure. YAEL. Subdural hematoma. Polyarthropathy. Gastritis. GERD Hyperlipidemia. Prediabetic. History of NSAID use. Allergies: Ibuprofen Family History: Breast ca i.e. mother Dm i.e. mother Social History: Denies current EtOH use Denies current or past IV drug use Currently smokes Problems: Consultation Date/Type/Reason Admit Date/Time Dec 18, 2016 at 17:10 Date of Consultation: Dec 20, 2016 Type of Consultation: GI Reason for Consultation Hep C antibody reactive Constitutional: no complaints Eyes: no complaints ENT: no complaints Respiratory: no complaints Cardiovascular: no complaints Gastrointestinal: no complaints Musculoskeletal: no complaints Skin: no complaints Endocrine: no complaints Psychological: no complaints Social History Alcohol Use: none Smoking Status: Current every day smoker Drug Use: none Exam/Review of Systems Vital Signs Vitals Vital Signs Date Time Temp Pulse Resp B/P Pulse Ox O2 Delivery O2 Flow Rate FiO2 12/20/16 14:31 98.0 71 18 131/77 96 12/18/16 15:47 Nasal Cannula 2 Intake and Output 12/19/16 12/19/16 12/20/16 15:00 23:00 07:00 Intake Total 2700 ml 930 ml Balance 2700 ml 930 ml Exam Constitutional: alert, obese, oriented Psych: no complaints Head: atraumatic, normocephalic ENMT: nl external ears & nose Neck: supple Respiratory: clear to auscultation Cardiovascular: regular rate and rhythm Gastrointestinal: bowel sounds, nl liver, spleen, non-tender, soft, surgical scars, No ascites, No distended, No firm, No hepatomegaly, No mass, No rebound or guarding, No splenomegaly, No tender Genitourinary - Male: nl penis Musculoskeletal: nl extremities to inspection Extremities: normal pulses Skin: nl turgor Results Result Diagram: 12/19/1655312/19/1654 Results 24 hrs Laboratory Tests Test 12/19/16 18:30 Urine Color YELLOW Urine Clarity SLIGHTLY CLOUDY A Urine pH 5.0 Urine Specific [place] 1.012 Urine Ketones NEGATIVE Urine Nitrite NEGATIVE Urine Bilirubin NEGATIVE Urine Urobilinogen NEGATIVE Urine Leukocyte Esterase NEGATIVE Urine Microscopic RBC 44 H Urine Microscopic WBC 7 H Urine Hemoglobin 2+ H Urine Glucose NEGATIVE Urine Total Protein 2+ H Medications Medications Current Medications Ondansetron HCl (Zofran Inj) 4 mg Q6H PRN IV NAUSEA AND/OR VOMITING; Start at 20:30 Acetaminophen (Tylenol Tab) 650 mg Q6H PRN PO PAIN LEVEL 1-3 OR FEVER; Start 12/18/16 at 20:30 Docusate Sodium (Colace) 100 mg Q12H PRN PO CONSTIPATION; Start 12/18/16 at 20 :30 Bisacodyl (Dulcolax) 5 mg DAILY PRN PO CONSTIPATION; Start 12/18/16 at 20:30 Nicotine (Nicoderm 21 Mg/ 24hr) 1 patch DAILY TRANSDERM Last administered on 09:34; Admin Dose 1 PATCH; Start 12/19/16 at 09:00 Morphine Sulfate (morphine) 2 mg Q4H PRN IV PAIN LEVEL 6-10; Start 12/19/16 at 00:00 Alprazolam (Xanax) 0.5 mg BID PRN PO ANXIETY Last administered on 12/19/16 09 :57; Admin Dose 0.5 MG; Start 12/19/16 at 01:00 Amlodipine Besylate (Norvasc) 10 mg DAILY PO Last administered on 12/20/16 09 :33; Admin Dose 10 MG; Start 12/19/16 at 09:00 Atenolol (Tenormin) 100 mg DAILY PO Last administered on 12/20/16 09:33; Admin Dose 100 MG; Start 12/19/16 at 09:00 Carisoprodol (Soma) 350 mg BID PRN PO MUSCLE SPASMS; Start 12/19/16 at 01:00 Hydroxychloroquine Sulfate (Plaquenil) 200 mg DAILY PO Last administered on 09:32; Admin Dose 200 MG; Start 12/19/16 at 09:00 Timolol Maleate (Timoptic 0.25%) 1 drop BID BOTH EYES Last administered on 09:26; Admin Dose 1 DROP; Start 12/19/16 at 09:00 Tramadol HCl (Ultram) 50 mg BID PRN PO PAIN; Start 12/19/16 at 01:00 Triamcinolone Acetonide (Kenalog 0.1% Cr) 1 applic BID TOP Last administered on 12/20/16 09:28; Admin Dose 1 APPLIC; Start 12/19/16 at 09:00 Brimonidine Tartrate (Alphagan 0.2%) 1 drop BID BOTH EYES Last administered on 12/20/16 09:28; Admin Dose 1 DROP; Start 12/19/16 at 09:00 Latanoprost 1 drop 1 drop BID BOTH EYES Last administered on 12/20/16 09:30; Admin Dose 1 DROP; Start 12/19/16 at 09:00 Methylprednisolone Sodium Succinate/ Dextrose (Solu-Medrol/D5W) 50 ml @ 100 mls /hr DAILY@21 IVPB Last administered on 12/19/16 21:25; Admin Dose 100 MLS/HR ; Start 12/19/16 at 21:00; Stop 12/21/16 at 20:59 Famotidine (Pepcid) 20 mg Q24H PO ; Start 12/19/16 at 21:00 Bismuth Subsalicylate (Pepto-Bismol) 15 ml Q3H PRN PO GASTROINTESTINAL UPSET; Start 12/20/16 at 11:00 Mupirocin (Bactroban) 1 applic BID TOP ; Start 12/20/16 at 21:00 Influenza Virus Vaccine (Fluzone) 0.5 ml ONCE ONCE IM* ; Start 12/21/16 at 12: 00; Stop 12/21/16 at 12:01 Copies To: CC: JO POTTS MD, VICTORIA Dec 20, 2016 15:17
[2016-12-20 15:32] LABS: ALBUMIN 3.3 g/dl (3.3-4.9); ALBUMIN/GLOBULIN RATIO 0.68; BILIRUBIN,INDIRECT 0.1 mg/dl (0-1.1); BILIRUBIN,TOTAL 0.1 mg/dl (0.2-1.3); CALCIUM 8.8 mg/dl (8.4-10.2); CREATININE 4.64 mg/dl (0.61-1.24); POTASSIUM 4.7 mmol/L (3.5-5.1); TOTAL PROTEIN 8.1 g/dl (6.1-8.1)
--- NOTE | 2016-12-20 16:36 | PN ---
Date/Time of Note Date/Time of Note DATE: 12/20/16 TIME: 16:33 Assessment/Plan VTE Prophylaxis VTE Prophylaxis Intervention: heparin Lines/Catheters IV [facility]ter [facility]from [facility] Urinary Cath still in place: No Assessment/Plan Chief Complaint/Hosp Course 51 yo male wiht newly diagnosed c-ANCA vasculitis/glomerulonephritis c-ANCA vasculitis - Solumedrol pulse dose x 3 days - Cytoxan vs rituxan per renal YAEL on CKD III: - Management per renal, creatinine improving w steroids HCV Ab+ - Send PCR/genotype Hypertension: - Amlodipine, atenolol Problems: Subjective 24 Hr Interval Summary Free Text/Dictation A bit ornery today, but seems to feel well physically, no complaints Exam/Review of Systems Vital Signs Vitals Vital Signs Date Time Temp Pulse Resp B/P Pulse Ox O2 Delivery O2 Flow Rate FiO2 12/20/16 14:31 98.0 71 18 131/77 96 12/18/16 15:47 Nasal Cannula 2 Intake and Output 12/19/16 12/19/16 12/20/16 15:00 23:00 07:00 Intake Total 2700 ml 930 ml Balance 2700 ml 930 ml Exam Constitutional: alert, oriented, well developed Psych: nl mood/affect, no complaints Head: atraumatic, normocephalic Eyes: EOMI, PERRL, nl conjunctiva, nl lids, nl sclera ENMT: nl external ears & nose, nl lips & teeth, nl nasal mucosa & septum Neck: non-tender, supple Respiratory: clear to auscultation, normal air movement Cardiovascular: nl pulses, regular rate and rhythm Gastrointestinal: nl liver, spleen, non-tender, soft Musculoskeletal: nl extremities to inspection, nl gait and stance Extremities: normal pulses Neurological: [employer] AD[employer] II-XII intact, nl mental status, nl speech, nl strength Skin: nl turgor, No rash or lesions Lymph: nl lymph nodes Results Result Diagram: 12/20/16 1447 12/20/16 1447 Results 24 hrs Laboratory Tests Test 12/19/16 18:30 12/20/16 14:47 Urine Color YELLOW Urine Clarity SLIGHTLY CLOUDY A Urine pH 5.0 Urine Specific [place] 1.012 Urine Ketones NEGATIVE Urine Nitrite NEGATIVE Urine Bilirubin NEGATIVE Urine Urobilinogen NEGATIVE Urine Leukocyte Esterase NEGATIVE Urine Microscopic RBC 44 H Urine Microscopic WBC 7 H Urine Hemoglobin 2+ H Urine Glucose NEGATIVE Urine Total Protein 2+ H White Blood Count 16.0 #H Red Blood Count 3.59 L Hemoglobin 11.1 L Hematocrit 33.6 L Mean Corpuscular Volume 93.6 Mean Corpuscular Hemoglobin 30.9 Mean Corpuscular Hemoglobin Concent 33.0 Red Cell Distribution Width 13.6 Platelet Count 319 Mean Platelet Volume 11.6 H Neutrophils % 90.3 H Lymphocytes % 4.1 L Monocytes % 4.8 Eosinophils % 0.0 Basophils % 0.1 Nucleated Red Blood Cells % 0.0 Neutrophils # 14.5 H Lymphocytes # 0.7 L Monocytes # 0.8 Eosinophils # 0.0 Basophils # 0.0 Nucleated Red Blood Cells # 0.0 Sodium Level 138 Potassium Level 4.7 Chloride Level 108 Carbon Dioxide Level 20 L Anion Gap 15 Blood Urea Nitrogen 61 H Creatinine 4.64 H Glucose Level 204 Calcium Level 8.8 Total Bilirubin 0.1 L Direct Bilirubin 0.00 Indirect Bilirubin 0.1 Aspartate Amino Transf (AST/SGOT) 20 Alanine Aminotransferase (ALT/SGPT) 25 Alkaline Phosphatase 135 H Total Protein 8.1 Albumin 3.3 Globulin 4.80 H Albumin/Globulin Ratio 0.68 Medications Medications Current Medications Ondansetron HCl (Zofran Inj) 4 mg Q6H PRN IV NAUSEA AND/OR VOMITING; Start at 20:30 Acetaminophen (Tylenol Tab) 650 mg Q6H PRN PO PAIN LEVEL 1-3 OR FEVER; Start 12/18/16 at 20:30 Docusate Sodium (Colace) 100 mg Q12H PRN PO CONSTIPATION; Start 12/18/16 at 20 :30 Bisacodyl (Dulcolax) 5 mg DAILY PRN PO CONSTIPATION; Start 12/18/16 at 20:30 Nicotine (Nicoderm 21 Mg/ 24hr) 1 patch DAILY TRANSDERM Last administered on 09:34; Admin Dose 1 PATCH; Start 12/19/16 at 09:00 Morphine Sulfate (morphine) 2 mg Q4H PRN IV PAIN LEVEL 6-10; Start 12/19/16 at 00:00 Alprazolam (Xanax) 0.5 mg BID PRN PO ANXIETY Last administered on 12/19/16 09 :57; Admin Dose 0.5 MG; Start 12/19/16 at 01:00 Amlodipine Besylate (Norvasc) 10 mg DAILY PO Last administered on 12/20/16 09 :33; Admin Dose 10 MG; Start 12/19/16 at 09:00 Atenolol (Tenormin) 100 mg DAILY PO Last administered on 12/20/16 09:33; Admin Dose 100 MG; Start 12/19/16 at 09:00 Carisoprodol (Soma) 350 mg BID PRN PO MUSCLE SPASMS; Start 12/19/16 at 01:00 Hydroxychloroquine Sulfate (Plaquenil) 200 mg DAILY PO Last administered on 09:32; Admin Dose 200 MG; Start 12/19/16 at 09:00 Timolol Maleate (Timoptic 0.25%) 1 drop BID BOTH EYES Last administered on 09:26; Admin Dose 1 DROP; Start 12/19/16 at 09:00 Tramadol HCl (Ultram) 50 mg BID PRN PO PAIN; Start 12/19/16 at 01:00 Triamcinolone Acetonide (Kenalog 0.1% Cr) 1 applic BID TOP Last administered on 12/20/16 09:28; Admin Dose 1 APPLIC; Start 12/19/16 at 09:00 Brimonidine Tartrate (Alphagan 0.2%) 1 drop BID BOTH EYES Last administered on 12/20/16 09:28; Admin Dose 1 DROP; Start 12/19/16 at 09:00 Latanoprost 1 drop 1 drop BID BOTH EYES Last administered on 12/20/16 09:30; Admin Dose 1 DROP; Start 12/19/16 at 09:00 Methylprednisolone Sodium Succinate/ Dextrose (Solu-Medrol/D5W) 50 ml @ 100 mls /hr DAILY@21 IVPB Last administered on 12/19/16 21:25; Admin Dose 100 MLS/HR ; Start 12/19/16 at 21:00; Stop 12/21/16 at 20:59 Famotidine (Pepcid) 20 mg Q24H PO ; Start 12/19/16 at 21:00 Bismuth Subsalicylate (Pepto-Bismol) 15 ml Q3H PRN PO GASTROINTESTINAL UPSET; Start 12/20/16 at 11:00 Mupirocin (Bactroban) 1 applic BID TOP ; Start 12/20/16 at 21:00 Influenza Virus Vaccine (Fluzone) 0.5 ml ONCE ONCE IM* ; Start 12/21/16 at 12: 00; Stop 12/21/16 at 12:01 TRINITY DICKENS MD Dec 20, 2016 16:36
--- NOTE | 2016-12-20 17:57 | CONS ---
Date/Time of Note Date/Time of Note DATE: 12/20/16 TIME: 17:49 Assessment/Plan Assessment/Plan Chief Complaint/Hosp Course 1. Acute on chronic renal failure plus the patient has 3+ hematuria and proteinuria. His baseline creatinine is 1.5 to 1.85 range. At last hospitalization, creatinine was 3.61 and upon discharge was 2.69, however, currently is 5.09. Patient is positive for C-ANCA. CRP was 61. 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 Cr improved to 4.64 today s/p solumedrol dose #1 yesterday 2. Hematuria secondary to #1. 3. Proteinuria secondary to #1. 4. Hypertension. 5. Rheumatoid arthritis. 6. Possible lupus. 7. Prediabetes. 8. 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 9. Possible lupus. however unlikely per Rheuamtology and no evidence of lupus nephritis on renal biopsy Recs - Pending HCV viral load, Cryo - Pending Qunatiferon gold TB tests - Spoke to rheumatology, will decide abt cytoxan or rituxan based on lab results - c/w solumedrol 1 g day 2 today - PPI and Insulin sliding scale while on PPI - Strict I and O - C/W Amlodipine and Atenolol Problems: Consultation Date/Type/Reason Admit Date/Time Dec 18, 2016 at 17:10 Initial Consult Date 12/20/16 Type of Consultation: GI 24 HR Interval Summary Free Text/Dictation Denies any complains today Hep C + Quantiferon gold pending Exam/Review of Systems Vital Signs Vitals Vital Signs Date Time Temp Pulse Resp B/P Pulse Ox O2 Delivery O2 Flow Rate FiO2 12/20/16 14:31 98.0 71 18 131/77 96 12/18/16 15:47 Nasal Cannula 2 Intake and Output 12/19/16 12/19/16 12/20/16 15:00 23:00 07:00 Intake Total 2700 ml 930 ml Balance 2700 ml 930 ml Exam GENERAL: Patient is awake, alert, middle-aged [place]ian male, no acute distress. HEENT: Normocephalic, atraumatic. No pallor. No scleral icterus. NECK: Supple, no JVD. HEART: Regular rate and rhythm. LUNGS: Clear to auscultate bilaterally. ABDOMEN: Soft, nontender, nondistended, positive normoactive bowel sounds. EXTREMITIES: Trace edema. SKIN: The patient has some changes on the cheek. NEUROLOGIC: Awake, alert, oriented x3. The patient has decreased sensation on bilateral lower extremities. Results Result Diagram: 12/20/16 1447 12/20/16 1447 Results 24 hrs Laboratory Tests Test 12/19/16 18:30 12/20/16 14:47 Urine Color YELLOW Urine Clarity SLIGHTLY CLOUDY A Urine pH 5.0 Urine Specific [place] 1.012 Urine Ketones NEGATIVE Urine Nitrite NEGATIVE Urine Bilirubin NEGATIVE Urine Urobilinogen NEGATIVE Urine Leukocyte Esterase NEGATIVE Urine Microscopic RBC 44 H Urine Microscopic WBC 7 H Urine Hemoglobin 2+ H Urine Glucose NEGATIVE Urine Total Protein 2+ H White Blood Count 16.0 #H Red Blood Count 3.59 L Hemoglobin 11.1 L Hematocrit 33.6 L Mean Corpuscular Volume 93.6 Mean Corpuscular Hemoglobin 30.9 Mean Corpuscular Hemoglobin Concent 33.0 Red Cell Distribution Width 13.6 Platelet Count 319 Mean Platelet Volume 11.6 H Neutrophils % 90.3 H Lymphocytes % 4.1 L Monocytes % 4.8 Eosinophils % 0.0 Basophils % 0.1 Nucleated Red Blood Cells % 0.0 Neutrophils # 14.5 H Lymphocytes # 0.7 L Monocytes # 0.8 Eosinophils # 0.0 Basophils # 0.0 Nucleated Red Blood Cells # 0.0 Sodium Level 138 Potassium Level 4.7 Chloride Level 108 Carbon Dioxide Level 20 L Anion Gap 15 Blood Urea Nitrogen 61 H Creatinine 4.64 H Glucose Level 204 Calcium Level 8.8 Total Bilirubin 0.1 L Direct Bilirubin 0.00 Indirect Bilirubin 0.1 Aspartate Amino Transf (AST/SGOT) 20 Alanine Aminotransferase (ALT/SGPT) 25 Alkaline Phosphatase 135 H Total Protein 8.1 Albumin 3.3 Globulin 4.80 H Albumin/Globulin Ratio 0.68 Medications Medications Current Medications Ondansetron HCl (Zofran Inj) 4 mg Q6H PRN IV NAUSEA AND/OR VOMITING; Start at 20:30 Acetaminophen (Tylenol Tab) 650 mg Q6H PRN PO PAIN LEVEL 1-3 OR FEVER; Start 12/18/16 at 20:30 Docusate Sodium (Colace) 100 mg Q12H PRN PO CONSTIPATION; Start 12/18/16 at 20 :30 Bisacodyl (Dulcolax) 5 mg DAILY PRN PO CONSTIPATION; Start 12/18/16 at 20:30 Nicotine (Nicoderm 21 Mg/ 24hr) 1 patch DAILY TRANSDERM Last administered on 09:34; Admin Dose 1 PATCH; Start 12/19/16 at 09:00 Morphine Sulfate (morphine) 2 mg Q4H PRN IV PAIN LEVEL 6-10; Start 12/19/16 at 00:00 Alprazolam (Xanax) 0.5 mg BID PRN PO ANXIETY Last administered on 12/19/16 09 :57; Admin Dose 0.5 MG; Start 12/19/16 at 01:00 Amlodipine Besylate (Norvasc) 10 mg DAILY PO Last administered on 12/20/16 09 :33; Admin Dose 10 MG; Start 12/19/16 at 09:00 Atenolol (Tenormin) 100 mg DAILY PO Last administered on 12/20/16 09:33; Admin Dose 100 MG; Start 12/19/16 at 09:00 Carisoprodol (Soma) 350 mg BID PRN PO MUSCLE SPASMS; Start 12/19/16 at 01:00 Hydroxychloroquine Sulfate (Plaquenil) 200 mg DAILY PO Last administered on 09:32; Admin Dose 200 MG; Start 12/19/16 at 09:00 Timolol Maleate (Timoptic 0.25%) 1 drop BID BOTH EYES Last administered on 09:26; Admin Dose 1 DROP; Start 12/19/16 at 09:00 Tramadol HCl (Ultram) 50 mg BID PRN PO PAIN; Start 12/19/16 at 01:00 Triamcinolone Acetonide (Kenalog 0.1% Cr) 1 applic BID TOP Last administered on 12/20/16 09:28; Admin Dose 1 APPLIC; Start 12/19/16 at 09:00 Brimonidine Tartrate (Alphagan 0.2%) 1 drop BID BOTH EYES Last administered on 12/20/16 09:28; Admin Dose 1 DROP; Start 12/19/16 at 09:00 Latanoprost 1 drop 1 drop BID BOTH EYES Last administered on 12/20/16 09:30; Admin Dose 1 DROP; Start 12/19/16 at 09:00 Methylprednisolone Sodium Succinate/ Dextrose (Solu-Medrol/D5W) 50 ml @ 100 mls /hr DAILY@21 IVPB Last administered on 12/19/16 21:25; Admin Dose 100 MLS/HR ; Start 12/19/16 at 21:00; Stop 12/21/16 at 20:59 Famotidine (Pepcid) 20 mg Q24H PO ; Start 12/19/16 at 21:00 Bismuth Subsalicylate (Pepto-Bismol) 15 ml Q3H PRN PO GASTROINTESTINAL UPSET; Start 12/20/16 at 11:00 Mupirocin (Bactroban) 1 applic BID TOP ; Start 12/20/16 at 21:00 Influenza Virus Vaccine (Fluzone) 0.5 ml ONCE ONCE IM* ; Start 12/21/16 at 12: 00; Stop 12/21/16 at 12:01 LILLY MACDONALD MD Dec 20, 2016 17:57
[2016-12-20 20:13] VITALS: BP 125/61; RESP 16
[2016-12-20] MEDS: METHYLPRED. NA SUCC 1,000 MG in DEXTROSE 5% 50 ML IVPB SCH (21:00)
[2016-12-20] MEDS: FAMOTIDINE 20 MG TAB PO SCH (21:51)
[2016-12-20] MEDS: MUPIROCIN 2% 22 GM OINT TOP SCH (21:54)
[2016-12-21 03:00] VITALS: BP 119/59; PULSE 77; RESP 18
[2016-12-21 03:01] VITALS: BP 119/59; RESP 18
[2016-12-21] MEDS: MUPIROCIN 2% 22 GM OINT TOP SCH ×2 (08:45→21:04)
[2016-12-21] MEDS: TIMOLOL 0.25% 5 ML OPH BOTH EYES SCH ×2 (08:48→21:04)
[2016-12-21] MEDS: BRIMONIDINE 0.2% 5 ML BTL BOTH EYES SCH ×2 (08:48→21:04)
[2016-12-21] MEDS: AL HYDROX/MG HYDROX/SIMETH 30 ML CUP PO SCH (08:48)
[2016-12-21] MEDS: HYDROXYCHLOROQUINE 200 MG TAB PO SCH (08:48)
[2016-12-21] MEDS: TRIAMCINOLONE ACET 0.1% 15 GM CR TOP SCH ×2 (08:49→21:04)
[2016-12-21] MEDS: AMLODIPINE 10 MG TAB PO SCH (08:49)
[2016-12-21] MEDS: ATENOLOL 100 MG TAB PO SCH (08:49)
[2016-12-21] MEDS: LATANOPROST 0.005% 2.5 ML OPH BOTH EYES SCH ×3 (08:49→21:03)
[2016-12-21] MEDS: NICOTINE (21 MG/24 HR) PATCH TRANSDERM SCH (08:50)
[2016-12-21 08:59] VITALS: BP 149/92; PULSE 69; RESP 18
[2016-12-21 10:03] LABS: CALCIUM 8.3 mg/dl (8.4-10.2); CREATININE 3.77 mg/dl (0.61-1.24); POTASSIUM 4.8 mmol/L (3.5-5.1)
[2016-12-21] MEDS ORDERED: INFLUENZA VIRUS VACCINE 0.5 ML SYG IM* ONE (12:00)
--- NOTE | 2016-12-21 13:23 | CONS ---
Date/Time of Note Date/Time of Note DATE: 12/21/16 TIME: 13:00 Consult Date/Type/Reason Admit Date/Time Dec 18, 2016 at 17:10 Type of Consultation: Rheum Subjective No complaints. Apparently , for unclear reason, did not receive Solu-medrol yesterday, possibly due to patient refusing IV, although rani says it was a misunderstanding. Objective Vital Signs Date Time Temp Pulse Resp B/P Pulse Ox O2 Delivery O2 Flow Rate FiO2 12/21/16 08:59 97.9 69 18 149/92 100 Room Air 12/18/16 15:47 2 Intake and Output 12/20/16 12/20/16 12/21/16 15:00 23:00 07:00 Intake Total 2860 ml 1000 ml Balance 2860 ml 1000 ml Exam GENERAL: N acute distress, alert, oriented x3. SKIN: With mild hypopigmented area in the chin. No acute rashes. HEENT: No evidence of sclerodactyly or telangiectasias. NECK: Supple. No thyromegaly noted or lymphadenopathy. CHEST: Clear to auscultation. HEART: Regular rate and rhythm without gallops or murmurs noted. ABDOMEN: Soft without masses or tenderness. EXTREMITIES: No edema or cyanosis. MUSCULOSKELETAL: No joint tenderness. No synovitis. Results/Medications Result Diagram: 12/20/16 1447 12/21/16 0927 Results 24 hrs Laboratory Tests Test 12/20/16 14:47 12/21/16 09:27 White Blood Count 16.0 #H Red Blood Count 3.59 L Hemoglobin 11.1 L Hematocrit 33.6 L Mean Corpuscular Volume 93.6 Mean Corpuscular Hemoglobin 30.9 Mean Corpuscular Hemoglobin Concent 33.0 Red Cell Distribution Width 13.6 Platelet Count 319 Mean Platelet Volume 11.6 H Neutrophils % 90.3 H Lymphocytes % 4.1 L Monocytes % 4.8 Eosinophils % 0.0 Basophils % 0.1 Nucleated Red Blood Cells % 0.0 Neutrophils # 14.5 H Lymphocytes # 0.7 L Monocytes # 0.8 Eosinophils # 0.0 Basophils # 0.0 Nucleated Red Blood Cells # 0.0 Sodium Level 138 143 Potassium Level 4.7 4.8 Chloride Level 108 112 H Carbon Dioxide Level 20 L 20 L Anion Gap 15 16 Blood Urea Nitrogen 61 H 59 H Creatinine 4.64 H 3.77 H Glucose Level 204 267 H Calcium Level 8.8 8.3 L Total Bilirubin 0.1 L Direct Bilirubin 0.00 Indirect Bilirubin 0.1 Aspartate Amino Transf (AST/SGOT) 20 Alanine Aminotransferase (ALT/SGPT) 25 Alkaline Phosphatase 135 H Total Protein 8.1 Albumin 3.3 Globulin 4.80 H Albumin/Globulin Ratio 0.68 Medications Current Medications Ondansetron HCl (Zofran Inj) 4 mg Q6H PRN IV NAUSEA AND/OR VOMITING; Start at 20:30 Acetaminophen (Tylenol Tab) 650 mg Q6H PRN PO PAIN LEVEL 1-3 OR FEVER; Start 12/18/16 at 20:30 Docusate Sodium (Colace) 100 mg Q12H PRN PO CONSTIPATION; Start 12/18/16 at 20 :30 Bisacodyl (Dulcolax) 5 mg DAILY PRN PO CONSTIPATION; Start 12/18/16 at 20:30 Nicotine (Nicoderm 21 Mg/ 24hr) 1 patch DAILY TRANSDERM Last administered on 08:50; Admin Dose 1 PATCH; Start 12/19/16 at 09:00 Morphine Sulfate (morphine) 2 mg Q4H PRN IV PAIN LEVEL 6-10; Start 12/19/16 at 00:00 Alprazolam (Xanax) 0.5 mg BID PRN PO ANXIETY Last administered on 12/19/16 09 :57; Admin Dose 0.5 MG; Start 12/19/16 at 01:00 Amlodipine Besylate (Norvasc) 10 mg DAILY PO Last administered on 12/21/16 08 :49; Admin Dose 10 MG; Start 12/19/16 at 09:00 Atenolol (Tenormin) 100 mg DAILY PO Last administered on 12/21/16 08:49; Admin Dose 100 MG; Start 12/19/16 at 09:00 Carisoprodol (Soma) 350 mg BID PRN PO MUSCLE SPASMS; Start 12/19/16 at 01:00 Hydroxychloroquine Sulfate (Plaquenil) 200 mg DAILY PO Last administered on 08:48; Admin Dose 200 MG; Start 12/19/16 at 09:00 Timolol Maleate (Timoptic 0.25%) 1 drop BID BOTH EYES Last administered on 08:48; Admin Dose 1 DROP; Start 12/19/16 at 09:00 Tramadol HCl (Ultram) 50 mg BID PRN PO PAIN; Start 12/19/16 at 01:00 Triamcinolone Acetonide (Kenalog 0.1% Cr) 1 applic BID TOP Last administered on 12/21/16 08:49; Admin Dose 1 APPLIC; Start 12/19/16 at 09:00 Brimonidine Tartrate (Alphagan 0.2%) 1 drop BID BOTH EYES Last administered on 12/21/16 08:48; Admin Dose 1 DROP; Start 12/19/16 at 09:00 Latanoprost 1 drop 1 drop BID BOTH EYES Last administered on 12/21/16 09:58; Admin Dose 1 DROP; Start 12/19/16 at 09:00 Methylprednisolone Sodium Succinate/ Dextrose (Solu-Medrol/D5W) 50 ml @ 100 mls /hr DAILY@21 IVPB Last administered on 12/19/16 21:25; Admin Dose 100 MLS/HR ; Start 12/19/16 at 21:00; Stop 12/21/16 at 20:59 Famotidine (Pepcid) 20 mg Q24H PO Last administered on 12/20/16 21:51; Admin Dose 20 MG; Start 12/19/16 at 21:00 Bismuth Subsalicylate (Pepto-Bismol) 15 ml Q3H PRN PO GASTROINTESTINAL UPSET; Start 12/20/16 at 11:00 Mupirocin (Bactroban) 1 applic BID TOP Last administered on 12/21/16 08:45; Admin Dose 1 APPLIC; Start 12/20/16 at 21:00 Assessment/Plan Chief Complaint/Hosp Course ASSESSMENT: 1. Renal insufficiency, creatinine improving. Kidney biopsy noted. 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 Per biopsy, there is no clear evidence of lupus nephritis and C3 and C4 have been normal and double stranded DNA is likely artifact as MYRNA has been, and is, negative. 2. Hepatitis C. Unclear how active. 3. Rheumatoid arthritis, possibly. Rheumatoid factor positivity may be due to Hepatitis C 4. Glaucoma. 5, Hypertension. PLAN: 1. The patient has been started on Solu-Medrol boluses of 1 gram for 3 consecutive days. Last dose was not administered, Will give 1 gram today. 2. Will decrease Solumedrol to 125 mg tid for next several days and consider changing to prednisone. 3. Awaiting viral load results and cryoglobulins. 4. I would prefer Rituxan for C-ANCA vasculitis/ GN. It is not fully clear at this point if Cytoxan is safer than Rituxan in the presence of Hepatitis C. Problems: MAREK DENNEY MD Dec 21, 2016 13:10
[2016-12-21] MEDS ORDERED: METHYLPRED. NA SUCC 1,000 MG in DEXTROSE 5% 50 ML IVPB ONE (13:30)
--- NOTE | 2016-12-21 13:35 | PN ---
Date/Time of Note Date/Time of Note DATE: 12/21/16 TIME: 13:32 Assessment/Plan VTE Prophylaxis VTE Prophylaxis Intervention: ambulation Lines/Catheters IV C[facility]ter Type (from [facility]): NO IV ACCESS Urinary Cath still in place: No Assessment/Plan Chief Complaint/Hosp Course Assessment: Hep C antibody reactive Glomerulonephritis. Plan: HCV viral load pending Continue current treatment plan Patient seen in collaboration with Dr. Potts Subjective: Course reviewed with nursing staff Patient interviewed and examined All labs, imaging and other results reviewed The patient feeling well No complaints at this time Discussed with patient need for colonoscopy as an outpatient : Problems: Exam/Review of Systems Vital Signs Vitals Vital Signs Date Time Temp Pulse Resp B/P Pulse Ox O2 Delivery O2 Flow Rate FiO2 12/21/16 08:59 97.9 69 18 149/92 100 Room Air 12/18/16 15:47 2 Intake and Output 12/20/16 12/20/16 12/21/16 15:00 23:00 07:00 Intake Total 2860 ml 1000 ml Balance 2860 ml 1000 ml Exam Constitutional: alert, obese, oriented Head: atraumatic, normocephalic Eyes: nl conjunctiva Neck: supple Respiratory: clear to auscultation Cardiovascular: regular rate and rhythm Gastrointestinal: bowel sounds, non-tender, other (scars ), soft, No distended, No firm, No mass, No rebound or guarding, No splenomegaly, No tender Results Result Diagram: 12/20/16 1447 12/21/16 0927 Results 24 hrs Laboratory Tests Test 12/20/16 14:47 12/21/16 09:27 White Blood Count 16.0 #H Red Blood Count 3.59 L Hemoglobin 11.1 L Hematocrit 33.6 L Mean Corpuscular Volume 93.6 Mean Corpuscular Hemoglobin 30.9 Mean Corpuscular Hemoglobin Concent 33.0 Red Cell Distribution Width 13.6 Platelet Count 319 Mean Platelet Volume 11.6 H Neutrophils % 90.3 H Lymphocytes % 4.1 L Monocytes % 4.8 Eosinophils % 0.0 Basophils % 0.1 Nucleated Red Blood Cells % 0.0 Neutrophils # 14.5 H Lymphocytes # 0.7 L Monocytes # 0.8 Eosinophils # 0.0 Basophils # 0.0 Nucleated Red Blood Cells # 0.0 Sodium Level 138 143 Potassium Level 4.7 4.8 Chloride Level 108 112 H Carbon Dioxide Level 20 L 20 L Anion Gap 15 16 Blood Urea Nitrogen 61 H 59 H Creatinine 4.64 H 3.77 H Glucose Level 204 267 H Calcium Level 8.8 8.3 L Total Bilirubin 0.1 L Direct Bilirubin 0.00 Indirect Bilirubin 0.1 Aspartate Amino Transf (AST/SGOT) 20 Alanine Aminotransferase (ALT/SGPT) 25 Alkaline Phosphatase 135 H Total Protein 8.1 Albumin 3.3 Globulin 4.80 H Albumin/Globulin Ratio 0.68 Medications Medications Current Medications Ondansetron HCl (Zofran Inj) 4 mg Q6H PRN IV NAUSEA AND/OR VOMITING; Start at 20:30 Acetaminophen (Tylenol Tab) 650 mg Q6H PRN PO PAIN LEVEL 1-3 OR FEVER; Start 12/18/16 at 20:30 Docusate Sodium (Colace) 100 mg Q12H PRN PO CONSTIPATION; Start 12/18/16 at 20 :30 Bisacodyl (Dulcolax) 5 mg DAILY PRN PO CONSTIPATION; Start 12/18/16 at 20:30 Nicotine (Nicoderm 21 Mg/ 24hr) 1 patch DAILY TRANSDERM Last administered on 08:50; Admin Dose 1 PATCH; Start 12/19/16 at 09:00 Morphine Sulfate (morphine) 2 mg Q4H PRN IV PAIN LEVEL 6-10; Start 12/19/16 at 00:00 Alprazolam (Xanax) 0.5 mg BID PRN PO ANXIETY Last administered on 12/19/16 09 :57; Admin Dose 0.5 MG; Start 12/19/16 at 01:00 Amlodipine Besylate (Norvasc) 10 mg DAILY PO Last administered on 12/21/16 08 :49; Admin Dose 10 MG; Start 12/19/16 at 09:00 Atenolol (Tenormin) 100 mg DAILY PO Last administered on 12/21/16 08:49; Admin Dose 100 MG; Start 12/19/16 at 09:00 Carisoprodol (Soma) 350 mg BID PRN PO MUSCLE SPASMS; Start 12/19/16 at 01:00 Hydroxychloroquine Sulfate (Plaquenil) 200 mg DAILY PO Last administered on 08:48; Admin Dose 200 MG; Start 12/19/16 at 09:00 Timolol Maleate (Timoptic 0.25%) 1 drop BID BOTH EYES Last administered on 08:48; Admin Dose 1 DROP; Start 12/19/16 at 09:00 Tramadol HCl (Ultram) 50 mg BID PRN PO PAIN; Start 12/19/16 at 01:00 Triamcinolone Acetonide (Kenalog 0.1% Cr) 1 applic BID TOP Last administered on 12/21/16 08:49; Admin Dose 1 APPLIC; Start 12/19/16 at 09:00 Brimonidine Tartrate (Alphagan 0.2%) 1 drop BID BOTH EYES Last administered on 12/21/16 08:48; Admin Dose 1 DROP; Start 12/19/16 at 09:00 Latanoprost 1 drop 1 drop BID BOTH EYES Last administered on 12/21/16 09:58; Admin Dose 1 DROP; Start 12/19/16 at 09:00 Methylprednisolone Sodium Succinate/ Dextrose (Solu-Medrol/D5W) 50 ml @ 100 mls /hr DAILY@21 IVPB Last administered on 12/19/16 21:25; Admin Dose 100 MLS/HR ; Start 12/19/16 at 21:00; Stop 12/21/16 at 20:59 Famotidine (Pepcid) 20 mg Q24H PO Last administered on 12/20/16 21:51; Admin Dose 20 MG; Start 12/19/16 at 21:00 Bismuth Subsalicylate (Pepto-Bismol) 15 ml Q3H PRN PO GASTROINTESTINAL UPSET; Start 12/20/16 at 11:00 Mupirocin 1 applic 1 applic BID TOP Last administered on 12/21/16 08:45; Admin Dose 1 APPLIC; Start 12/20/16 at 21:00 Methylprednisolone Sodium Succinate/ Dextrose (Solu-Medrol/D5W) 50 ml @ 100 mls /hr ONCE ONCE IVPB ; Start 12/21/16 at 13:30; Stop 12/21/16 at 13:59; Status UNV Methylprednisolone Sodium Succinate (Solu-Medrol) 125 mg Q8 IV ; Start at 14:00; Status UNV TOM SORTO Dec 21, 2016 13:35
[2016-12-21 14:00] VITALS: BP 136/68; RESP 18
--- NOTE | 2016-12-21 14:09 | PN ---
Date/Time of Note Date/Time of Note DATE: 12/21/16 TIME: 14:05 Assessment/Plan VTE Prophylaxis VTE Prophylaxis Intervention: LMWH Lines/Catheters IV C[facility]ter Type (from [facility]): NO IV ACCESS Urinary Cath still in place: No Assessment/Plan Chief Complaint/Hosp Course 1. Acute on chronic renal failure plus the patient has 3+ hematuria and proteinuria. His baseline creatinine is 1.5 to 1.85 range. At last hospitalization, creatinine was 3.61 and upon discharge was 2.69, however, currently is 5.09. Patient is positive for C-ANCA. CRP was 61. 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 Cr improved to 4.64 > 3.77 today s /p solumedrol dose #1 on 12/19/09, dose missed on 12/20/16. Now on labs P ANCA + 2. Hematuria secondary to #1. 3. Proteinuria secondary to #1. 4. Hypertension. 5. Rheumatoid arthritis? with Hep c positvity 6. Possible lupus. unlikely 7. Prediabetes. 8. 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 9. Possible lupus. however unlikely per Rheuamtology and no evidence of lupus nephritis on renal biopsy Recs - Pending HCV viral load, Cryo - Pending Qunatiferon gold TB tests spoke to lab can take 1 week as it is send out - Will get PPD skin test - Spoke to rheumatology, will give Rituaxan likely tmw if TB test negative - c/w solumedrol 1 g day extra dose +3rd dose today - PPI and Insulin sliding scale while on PPI - Strict I and O - Add bictra - C/W Amlodipine and Atenolol Problems: Subjective 24 Hr Interval Summary Free Text/Dictation Apparently patient iv access came out and solumedrol was not given Pt denies any complains Exam/Review of Systems Vital Signs Vitals Vital Signs Date Time Temp Pulse Resp B/P Pulse Ox O2 Delivery O2 Flow Rate FiO2 12/21/16 08:59 97.9 69 18 149/92 100 Room Air 12/18/16 15:47 2 Intake and Output 12/20/16 12/20/16 12/21/16 15:00 23:00 07:00 Intake Total 2860 ml 1000 ml Balance 2860 ml 1000 ml Exam GENERAL: Patient is awake, alert, middle-aged [place] male, no acute distress. HEENT: Normocephalic, atraumatic. No pallor. No scleral icterus. NECK: Supple, no JVD. HEART: Regular rate and rhythm. LUNGS: Clear to auscultate bilaterally. ABDOMEN: Soft, nontender, nondistended, positive normoactive bowel sounds. EXTREMITIES: Trace edema. SKIN: The patient has some changes on the cheek. NEUROLOGIC: Awake, alert, oriented x3. The patient has decreased sensation on bilateral lower extremities. Results Result Diagram: 12/20/16 1447 12/21/16 0927 Results 24 hrs Laboratory Tests Test 12/20/16 14:47 12/21/16 09:27 White Blood Count 16.0 #H Red Blood Count 3.59 L Hemoglobin 11.1 L Hematocrit 33.6 L Mean Corpuscular Volume 93.6 Mean Corpuscular Hemoglobin 30.9 Mean Corpuscular Hemoglobin Concent 33.0 Red Cell Distribution Width 13.6 Platelet Count 319 Mean Platelet Volume 11.6 H Neutrophils % 90.3 H Lymphocytes % 4.1 L Monocytes % 4.8 Eosinophils % 0.0 Basophils % 0.1 Nucleated Red Blood Cells % 0.0 Neutrophils # 14.5 H Lymphocytes # 0.7 L Monocytes # 0.8 Eosinophils # 0.0 Basophils # 0.0 Nucleated Red Blood Cells # 0.0 Sodium Level 138 143 Potassium Level 4.7 4.8 Chloride Level 108 112 H Carbon Dioxide Level 20 L 20 L Anion Gap 15 16 Blood Urea Nitrogen 61 H 59 H Creatinine 4.64 H 3.77 H Glucose Level 204 267 H Calcium Level 8.8 8.3 L Total Bilirubin 0.1 L Direct Bilirubin 0.00 Indirect Bilirubin 0.1 Aspartate Amino Transf (AST/SGOT) 20 Alanine Aminotransferase (ALT/SGPT) 25 Alkaline Phosphatase 135 H Total Protein 8.1 Albumin 3.3 Globulin 4.80 H Albumin/Globulin Ratio 0.68 Medications Medications Current Medications Ondansetron HCl (Zofran Inj) 4 mg Q6H PRN IV NAUSEA AND/OR VOMITING; Start at 20:30 Acetaminophen (Tylenol Tab) 650 mg Q6H PRN PO PAIN LEVEL 1-3 OR FEVER; Start 12/18/16 at 20:30 Docusate Sodium (Colace) 100 mg Q12H PRN PO CONSTIPATION; Start 12/18/16 at 20 :30 Bisacodyl (Dulcolax) 5 mg DAILY PRN PO CONSTIPATION; Start 12/18/16 at 20:30 Nicotine (Nicoderm 21 Mg/ 24hr) 1 patch DAILY TRANSDERM Last administered on 08:50; Admin Dose 1 PATCH; Start 12/19/16 at 09:00 Morphine Sulfate (morphine) 2 mg Q4H PRN IV PAIN LEVEL 6-10; Start 12/19/16 at 00:00 Alprazolam (Xanax) 0.5 mg BID PRN PO ANXIETY Last administered on 12/19/16 09 :57; Admin Dose 0.5 MG; Start 12/19/16 at 01:00 Amlodipine Besylate (Norvasc) 10 mg DAILY PO Last administered on 12/21/16 08 :49; Admin Dose 10 MG; Start 12/19/16 at 09:00 Atenolol (Tenormin) 100 mg DAILY PO Last administered on 12/21/16 08:49; Admin Dose 100 MG; Start 12/19/16 at 09:00 Carisoprodol (Soma) 350 mg BID PRN PO MUSCLE SPASMS; Start 12/19/16 at 01:00 Hydroxychloroquine Sulfate (Plaquenil) 200 mg DAILY PO Last administered on 08:48; Admin Dose 200 MG; Start 12/19/16 at 09:00 Timolol Maleate (Timoptic 0.25%) 1 drop BID BOTH EYES Last administered on 08:48; Admin Dose 1 DROP; Start 12/19/16 at 09:00 Tramadol HCl (Ultram) 50 mg BID PRN PO PAIN; Start 12/19/16 at 01:00 Triamcinolone Acetonide (Kenalog 0.1% Cr) 1 applic BID TOP Last administered on 12/21/16 08:49; Admin Dose 1 APPLIC; Start 12/19/16 at 09:00 Brimonidine Tartrate (Alphagan 0.2%) 1 drop BID BOTH EYES Last administered on 12/21/16 08:48; Admin Dose 1 DROP; Start 12/19/16 at 09:00 Latanoprost 1 drop 1 drop BID BOTH EYES Last administered on 12/21/16 09:58; Admin Dose 1 DROP; Start 12/19/16 at 09:00 Methylprednisolone Sodium Succinate/ Dextrose (Solu-Medrol/D5W) 50 ml @ 100 mls /hr DAILY@21 IVPB Last administered on 12/19/16 21:25; Admin Dose 100 MLS/HR ; Start 12/19/16 at 21:00; Stop 12/21/16 at 20:59 Famotidine (Pepcid) 20 mg Q24H PO Last administered on 12/20/16 21:51; Admin Dose 20 MG; Start 12/19/16 at 21:00 Bismuth Subsalicylate (Pepto-Bismol) 15 ml Q3H PRN PO GASTROINTESTINAL UPSET; Start 12/20/16 at 11:00 Mupirocin (Bactroban) 1 applic BID TOP Last administered on 12/21/16 08:45; Admin Dose 1 APPLIC; Start 12/20/16 at 21:00 Methylprednisolone Sodium Succinate (Solu-Medrol) 125 mg Q8 IV ; Start at 14:00 LILLY MACDONALD MD Dec 21, 2016 14:09
[2016-12-21] MEDS: CITRIC ACID/NA CITRATE 30 ML CUP PO SCH ×2 (15:03→21:03)
--- NOTE | 2016-12-21 15:15 | PN ---
Date/Time of Note Date/Time of Note DATE: 12/21/16 TIME: 15:13 Assessment/Plan VTE Prophylaxis VTE Prophylaxis Intervention: heparin Lines/Catheters IV [facility] [place] Urinary Cath still in place: No Assessment/Plan Chief Complaint/Hosp Course 51 yo male with CKD III and hematuria with workup showing newly diagnosed c- ANCA vasculitis/glomerulonephritis, HCV who was admitted for management of c- ANCA vasculitis c-ANCA vasculitis - Solumedrol pulse dose x 3 days - Cytoxan vs rituxan per renal - Plaquenil daily - HCV Ab+ so await cryoglobulins YAEL on CKD III: - Management per renal, creatinine improving w steroids HCV Ab+ - Await PCR/genotype Hypertension: - Continue amlodipine, atenolol Discharge home when stable Problems: Subjective 24 Hr Interval Summary Free Text/Dictation No compliants Creatinine comign down nicely Exam/Review of Systems Vital Signs Vitals Vital Signs Date Time Temp Pulse Resp B/P Pulse Ox O2 Delivery O2 Flow Rate FiO2 12/21/16 14:00 97.6 75 18 136/68 97 12/21/16 08:59 Room Air 12/18/16 15:47 2 Intake and Output 12/20/16 12/20/16 12/21/16 15:00 23:00 07:00 Intake Total 2860 ml 1000 ml Balance 2860 ml 1000 ml Exam Constitutional: alert, oriented, well developed Psych: nl mood/affect, no complaints Head: atraumatic, normocephalic Eyes: EOMI, PERRL, nl conjunctiva, nl lids, nl sclera ENMT: nl external ears & nose, nl lips & teeth, nl nasal mucosa & septum Neck: non-tender, supple Respiratory: clear to auscultation, normal air movement Cardiovascular: nl pulses, regular rate and rhythm Gastrointestinal: nl liver, spleen, non-tender, soft Musculoskeletal: nl extremities to inspection, nl gait and stance Extremities: normal pulses 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, nl mental status, nl speech, nl strength Skin: nl turgor, No rash or lesions Lymph: nl lymph nodes Results Result Diagram: 12/20/16 1447 12/21/16 0927 Results 24 hrs Laboratory Tests Test 12/21/16 09:27 Sodium Level 143 Potassium Level 4.8 Chloride Level 112 H Carbon Dioxide Level 20 L Anion Gap 16 Blood Urea Nitrogen 59 H Creatinine 3.77 H Glucose Level 267 H Calcium Level 8.3 L Medications Medications Current Medications Ondansetron HCl (Zofran Inj) 4 mg Q6H PRN IV NAUSEA AND/OR VOMITING; Start at 20:30 Acetaminophen (Tylenol Tab) 650 mg Q6H PRN PO PAIN LEVEL 1-3 OR FEVER; Start 12/18/16 at 20:30 Docusate Sodium (Colace) 100 mg Q12H PRN PO CONSTIPATION; Start 12/18/16 at 20 :30 Bisacodyl (Dulcolax) 5 mg DAILY PRN PO CONSTIPATION; Start 12/18/16 at 20:30 Nicotine (Nicoderm 21 Mg/ 24hr) 1 patch DAILY TRANSDERM Last administered on 08:50; Admin Dose 1 PATCH; Start 12/19/16 at 09:00 Morphine Sulfate (morphine) 2 mg Q4H PRN IV PAIN LEVEL 6-10; Start 12/19/16 at 00:00 Alprazolam (Xanax) 0.5 mg BID PRN PO ANXIETY Last administered on 12/19/16 09 :57; Admin Dose 0.5 MG; Start 12/19/16 at 01:00 Amlodipine Besylate (Norvasc) 10 mg DAILY PO Last administered on 12/21/16 08 :49; Admin Dose 10 MG; Start 12/19/16 at 09:00 Atenolol (Tenormin) 100 mg DAILY PO Last administered on 12/21/16 08:49; Admin Dose 100 MG; Start 12/19/16 at 09:00 Carisoprodol (Soma) 350 mg BID PRN PO MUSCLE SPASMS; Start 12/19/16 at 01:00 Hydroxychloroquine Sulfate (Plaquenil) 200 mg DAILY PO Last administered on 08:48; Admin Dose 200 MG; Start 12/19/16 at 09:00 Timolol Maleate (Timoptic 0.25%) 1 drop BID BOTH EYES Last administered on 08:48; Admin Dose 1 DROP; Start 12/19/16 at 09:00 Tramadol HCl (Ultram) 50 mg BID PRN PO PAIN; Start 12/19/16 at 01:00 Triamcinolone Acetonide (Kenalog 0.1% Cr) 1 applic BID TOP Last administered on 12/21/16 08:49; Admin Dose 1 APPLIC; Start 12/19/16 at 09:00 Brimonidine Tartrate (Alphagan 0.2%) 1 drop BID BOTH EYES Last administered on 12/21/16 08:48; Admin Dose 1 DROP; Start 12/19/16 at 09:00 Latanoprost 1 drop 1 drop BID BOTH EYES Last administered on 12/21/16 09:58; Admin Dose 1 DROP; Start 12/19/16 at 09:00 Methylprednisolone Sodium Succinate/ Dextrose (Solu-Medrol/D5W) 50 ml @ 100 mls /hr DAILY@21 IVPB Last administered on 12/19/16 21:25; Admin Dose 100 MLS/HR ; Start 12/19/16 at 21:00; Stop 12/21/16 at 20:59 Famotidine (Pepcid) 20 mg Q24H PO Last administered on 12/20/16 21:51; Admin Dose 20 MG; Start 12/19/16 at 21:00 Bismuth Subsalicylate (Pepto-Bismol) 15 ml Q3H PRN PO GASTROINTESTINAL UPSET; Start 12/20/16 at 11:00 Mupirocin (Bactroban) 1 applic BID TOP Last administered on 12/21/16 08:45; Admin Dose 1 APPLIC; Start 12/20/16 at 21:00 Methylprednisolone Sodium Succinate (Solu-Medrol) 125 mg Q8 IV ; Start at 14:00 Citric Acid/ Sodium Citrate (Bicitra) 30 ml BID PO Last administered on 15:03; Admin Dose 30 ML; Start 12/21/16 at 14:30 TRINITY DICKENS MD Dec 21, 2016 15:15
[2016-12-21 20:23] VITALS: BP 112/79; RESP 20
[2016-12-21 20:46] LABS: TIME 2035
[2016-12-21] MEDS ORDERED: FAMOTIDINE 20 MG TAB PO SCH (21:00)
[2016-12-21] MEDS: morphine 2 MG INJ IV PRN (22:08)
[2016-12-22 03:04] VITALS: BP 164/86; RESP 19
[2016-12-22 04:30] VITALS: BP 140/78
[2016-12-22 06:23] LABS: BASOPHILS % 0.1 % (0.0-2.0); HEMATOCRIT 33.3 % (42.0-52.0); HEMOGLOBIN 10.8 g/dl (14.0-18.0); LYMPHOCYTES # 0.6 10^3/ul (0.8-2.9); LYMPHOCYTES % 4.5 % (15.0-51.0); MEAN CORPUSCULAR HEMOGLOBIN 29.9 pg (29.0-33.0); MEAN CORPUSCULAR HGB CONC 32.4 g/dl (32.0-37.0); MEAN CORPUSCULAR VOLUME 92.2 fl (82.0-101.0); MEAN PLATELET VOLUME 11.9 fl (7.4-10.4); MONOCYTE # 0.5 10^3/ul (0.3-0.9); MONOCYTES % 3.3 % (0.0-11.0); NEUTROPHIL # 12.4 10^3/ul (1.6-7.5); NEUTROPHILS % 90.6 % (39.0-77.0); PLATELET COUNT 323 10^3/UL (140-415); RED BLOOD COUNT 3.61 10^6/ul (4.70-6.10); RED CELL DISTRIBUTION WIDTH 13.9 % (11.5-14.5); WHITE BLOOD COUNT 13.7 10^3/ul (4.8-10.8)
[2016-12-22 07:21] LABS: ALBUMIN 3.2 g/dl (3.3-4.9); ALBUMIN/GLOBULIN RATIO 0.84; CALCIUM 8.2 mg/dl (8.4-10.2); CREATININE 3.46 mg/dl (0.61-1.24); POTASSIUM 5.1 mmol/L (3.5-5.1)
--- NOTE | 2016-12-22 07:44 | CONS ---
Date/Time of Note Date/Time of Note DATE: 12/22/16 TIME: 07:40 Consult Date/Type/Reason Admit Date/Time Dec 18, 2016 at 17:10 Type of Consultation: Rheum Reason for Consultation No new complaints Objective Vital Signs Date Time Temp Pulse Resp B/P Pulse Ox O2 Delivery O2 Flow Rate FiO2 12/22/16 04:30 140/78 12/22/16 03:04 97.4 66 19 97 12/21/16 08:59 Room Air 12/18/16 15:47 2 Intake and Output 12/21/16 12/21/16 12/22/16 15:00 23:00 07:00 Intake Total 1830 ml 1640 ml Balance 1830 ml 1640 ml Exam GENERAL: No acute distress, alert, oriented x3. SKIN: With mild hypopigmented area in the chin. No acute rashes. HEENT: No evidence of sclerodactyly or telangiectasias. NECK: Supple. No thyromegaly noted or lymphadenopathy. CHEST: Clear to auscultation. HEART: Regular rate and rhythm without gallops or murmurs noted. ABDOMEN: Soft without masses or tenderness. EXTREMITIES: No edema or cyanosis. MUSCULOSKELETAL: No joint tenderness. No synovitis. Results/Medications Result Diagram: 12/22/16 0552 12/22/16 0552 Results 24 hrs Laboratory Tests Test 12/21/16 09:27 12/21/16 14:22 12/22/16 05:52 Sodium Level 143 137 Potassium Level 4.8 5.1 Chloride Level 112 H 106 Carbon Dioxide Level 20 L 23 Anion Gap 16 13 Blood Urea Nitrogen 59 H 59 H Creatinine 3.77 H 3.46 H Glucose Level 267 H 516 #*H Calcium Level 8.3 L 8.2 L TB Skin Test Induration Pending TB Skin Test Administer Date 10180311 TB Skin Test Administer Time 2034 TB Skin Test Injection Site Right Upper Forearm White Blood Count 13.7 H Red Blood Count 3.61 L Hemoglobin 10.8 L Hematocrit 33.3 L Mean Corpuscular Volume 92.2 Mean Corpuscular Hemoglobin 29.9 Mean Corpuscular Hemoglobin Concent 32.4 Red Cell Distribution Width 13.9 Platelet Count 323 Mean Platelet Volume 11.9 H Neutrophils % 90.6 H Lymphocytes % 4.5 L Monocytes % 3.3 Eosinophils % 0.0 Basophils % 0.1 Nucleated Red Blood Cells % 0.0 Neutrophils # 12.4 H Lymphocytes # 0.6 L Monocytes # 0.5 Eosinophils # 0.0 Basophils # 0.0 Nucleated Red Blood Cells # 0.0 Total Bilirubin 0.0 L Direct Bilirubin 0.00 Indirect Bilirubin 0.0 Aspartate Amino Transf (AST/SGOT) 17 Alanine Aminotransferase (ALT/SGPT) 32 Alkaline Phosphatase 205 #H Total Protein 7.0 # Albumin 3.2 L Globulin 3.80 H Albumin/Globulin Ratio 0.84 Medications Current Medications Ondansetron HCl (Zofran Inj) 4 mg Q6H PRN IV NAUSEA AND/OR VOMITING; Start at 20:30 Acetaminophen (Tylenol Tab) 650 mg Q6H PRN PO PAIN LEVEL 1-3 OR FEVER; Start 12/18/16 at 20:30 Docusate Sodium (Colace) 100 mg Q12H PRN PO CONSTIPATION; Start 12/18/16 at 20 :30 Bisacodyl (Dulcolax) 5 mg DAILY PRN PO CONSTIPATION; Start 12/18/16 at 20:30 Nicotine (Nicoderm 21 Mg/ 24hr) 1 patch DAILY TRANSDERM Last administered on 08:50; Admin Dose 1 PATCH; Start 12/19/16 at 09:00 Morphine Sulfate (morphine) 2 mg Q4H PRN IV PAIN LEVEL 6-10 Last administered on 12/21/16 22:08; Admin Dose 2 MG; Start 12/19/16 at 00:00 Alprazolam (Xanax) 0.5 mg BID PRN PO ANXIETY Last administered on 12/19/16 09 :57; Admin Dose 0.5 MG; Start 12/19/16 at 01:00 Amlodipine Besylate (Norvasc) 10 mg DAILY PO Last administered on 12/21/16 08 :49; Admin Dose 10 MG; Start 12/19/16 at 09:00 Atenolol (Tenormin) 100 mg DAILY PO Last administered on 12/21/16 08:49; Admin Dose 100 MG; Start 12/19/16 at 09:00 Carisoprodol (Soma) 350 mg BID PRN PO MUSCLE SPASMS; Start 12/19/16 at 01:00 Hydroxychloroquine Sulfate (Plaquenil) 200 mg DAILY PO Last administered on 08:48; Admin Dose 200 MG; Start 12/19/16 at 09:00 Timolol Maleate (Timoptic 0.25%) 1 drop BID BOTH EYES Last administered on 21:04; Admin Dose 1 DROP; Start 12/19/16 at 09:00 Tramadol HCl (Ultram) 50 mg BID PRN PO PAIN; Start 12/19/16 at 01:00 Triamcinolone Acetonide (Kenalog 0.1% Cr) 1 applic BID TOP Last administered on 12/21/16 21:04; Admin Dose 1 APPLIC; Start 12/19/16 at 09:00 Brimonidine Tartrate (Alphagan 0.2%) 1 drop BID BOTH EYES Last administered on 12/21/16 21:04; Admin Dose 1 DROP; Start 12/19/16 at 09:00 Latanoprost (Xalatan) 1 drop BID BOTH EYES Last administered on 12/21/16 21: 03; Admin Dose 1 DROP; Start 12/19/16 at 09:00 Bismuth Subsalicylate (Pepto-Bismol) 15 ml Q3H PRN PO GASTROINTESTINAL UPSET; Start 12/20/16 at 11:00 Mupirocin (Bactroban) 1 applic BID TOP Last administered on 12/21/16 21:04; Admin Dose 1 APPLIC; Start 12/20/16 at 21:00 Methylprednisolone Sodium Succinate (Solu-Medrol) 125 mg Q8 IV ; Start at 14:00 Citric Acid/ Sodium Citrate (Bicitra) 30 ml BID PO Last administered on 21:03; Admin Dose 30 ML; Start 12/21/16 at 14:30 Famotidine (Pepcid) 20 mg Q24H PO Last administered on 12/21/16 21:26; Admin Dose 20 MG; Start 12/21/16 at 21:00 Assessment/Plan Chief Complaint/Hosp Course ASSESSMENT: 1. Renal insufficiency, creatinine improving. Kidney biopsy noted. 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 Per biopsy, there is no clear evidence of lupus nephritis and C3 and C4 have been normal and double stranded DNA is likely artifact as MYRNA has been, and is, negative. Renal insuff. improving on steroids. 2. Hepatitis C. Unclear how active. 3. Rheumatoid arthritis, possibly. Rheumatoid factor positivity may be due to Hepatitis C 4. Glaucoma. 5, Hypertension. 6. Leukocytosis due to steroids 7. Hyperglycemia due to steroids 8. MRSA Nares PLAN: 1. Patient has received a total of three 1 gram Solumedrol IV boluses. Now on 125 mg q 8 hour. Will plan on adding Rituximab once results of Quantiferon Gold or PPD is back and negative. Rituximab to be administered at 375 mg/m2 ( 940 mg according to my calculation) once, to be subsequently infused three additional times once a week. 2. I discussed in detail with patient steroids and Rituxan. 3. Awaiting viral load results and cryoglobulins Problems: MAREK DENNEY MD Dec 22, 2016 07:44
[2016-12-22 07:56] VITALS: BP 146/70; RESP 20
[2016-12-22] MEDS: NICOTINE (21 MG/24 HR) PATCH TRANSDERM SCH (08:29)
[2016-12-22] MEDS: CITRIC ACID/NA CITRATE 30 ML CUP PO SCH ×2 (08:30→20:36)
[2016-12-22] MEDS: ATENOLOL 100 MG TAB PO SCH (08:30)
[2016-12-22] MEDS: BRIMONIDINE 0.2% 5 ML BTL BOTH EYES SCH ×2 (08:31→20:37)
[2016-12-22] MEDS: HYDROXYCHLOROQUINE 200 MG TAB PO SCH (08:31)
[2016-12-22] MEDS: AL HYDROX/MG HYDROX/SIMETH 30 ML CUP PO SCH (08:31)
[2016-12-22] MEDS: MUPIROCIN 2% 22 GM OINT TOP SCH ×2 (08:31→20:37)
[2016-12-22] MEDS: TIMOLOL 0.25% 5 ML OPH BOTH EYES SCH ×2 (08:31→20:36)
[2016-12-22] MEDS: TRIAMCINOLONE ACET 0.1% 15 GM CR TOP SCH ×2 (08:31→20:37)
[2016-12-22] MEDS: AMLODIPINE 10 MG TAB PO SCH (08:32)
[2016-12-22] MEDS: LATANOPROST 0.005% 2.5 ML OPH BOTH EYES SCH ×2 (08:34→20:37)
[2016-12-22] MEDS ORDERED: FAMOTIDINE 20 MG TAB PO SCH (09:00)
[2016-12-22 09:19] LABS: MYELOPEROXIDASE ANTIBODY 1.2 AI; PROTEINASE-3 ANTIBODY <1.0 AI; TB-NIL <0.00 IU/mL
[2016-12-22] MEDS: FAMOTIDINE 20 MG TAB PO SCH (09:40)
[2016-12-22] MEDS ORDERED: INFLUENZA VIRUS VACCINE 0.5 ML SYG IM* ONE (10:00)
--- NOTE | 2016-12-22 13:22 | PN ---
Date/Time of Note Date/Time of Note DATE: 12/22/16 TIME: 13:19 Assessment/Plan VTE Prophylaxis VTE Prophylaxis Intervention: heparin Lines/Catheters IV Catheter Type (from [facility]): [facility] Urinary Cath still in place: No Assessment/Plan Chief Complaint/Hosp Course 51 yo male with CKD III and hematuria with workup showing newly diagnosed ANCA vasculitis/glomerulonephritis who was admitted for management of ANCA vasculitis ANCA vasculitis - Solumedrol pulse dose x 3 days - rituxan per rheumatology - Plaquenil daily - HCV Ab+ so await cryoglobulins, HCV PCR negative DMII w hyperglycemia: - Significant steroid induced hyperglycemia, start insulin YAEL on CKD III: - Management per renal, creatinine improving w steroids Hypertension: - Continue amlodipine, atenolol Discharge home when stable Problems: Subjective 24 Hr Interval Summary Free Text/Dictation HCV PCR is negative, clinically does not have chronic hepatitits C Patient very ornery, requetign pepcid QAC Not wanting to talk to me much more Exam/Review of Systems Vital Signs Vitals Vital Signs Date Time Temp Pulse Resp B/P Pulse Ox O2 Delivery O2 Flow Rate FiO2 12/22/16 07:56 98.5 66 20 146/70 96 12/21/16 08:59 Room Air 12/18/16 15:47 2 Intake and Output 12/21/16 12/21/16 12/22/16 15:00 23:00 07:00 Intake Total 1830 ml 1640 ml Balance 1830 ml 1640 ml Exam Constitutional: alert, oriented, well developed Psych: nl mood/affect, no complaints Head: atraumatic, normocephalic Eyes: EOMI, PERRL, nl conjunctiva, nl lids, nl sclera ENMT: nl external ears & nose, nl lips & teeth, nl nasal mucosa & septum Neck: non-tender, supple Respiratory: clear to auscultation, normal air movement Cardiovascular: nl pulses, regular rate and rhythm Gastrointestinal: nl liver, spleen, non-tender, soft Musculoskeletal: nl extremities to inspection, nl gait and stance Extremities: normal pulses Neurological: CASUALTY UNDERWRITER II-XII intact, nl mental status, nl speech, nl strength Skin: nl turgor, No rash or lesions Lymph: nl lymph nodes Results Result Diagram: 12/22/16 0552 12/22/16 0552 Results 24 hrs Laboratory Tests Test 12/21/16 14:22 12/22/16 05:52 12/22/16 07:47 TB Skin Test Induration Pending TB Skin Test Administer Date [id number] TB Skin Test Administer Time 2034 TB Skin Test Injection Site Right Upper Forearm White Blood Count 13.7 H Red Blood Count 3.61 L Hemoglobin 10.8 L Hematocrit 33.3 L Mean Corpuscular Volume 92.2 Mean Corpuscular Hemoglobin 29.9 Mean Corpuscular Hemoglobin Concent 32.4 Red Cell Distribution Width 13.9 Platelet Count 323 Mean Platelet Volume 11.9 H Neutrophils % 90.6 H Lymphocytes % 4.5 L Monocytes % 3.3 Eosinophils % 0.0 Basophils % 0.1 Nucleated Red Blood Cells % 0.0 Neutrophils # 12.4 H Lymphocytes # 0.6 L Monocytes # 0.5 Eosinophils # 0.0 Basophils # 0.0 Nucleated Red Blood Cells # 0.0 Sodium Level 137 Potassium Level 5.1 Chloride Level 106 Carbon Dioxide Level 23 Anion Gap 13 Blood Urea Nitrogen 59 H Creatinine 3.46 H Glucose Level 516 #*H Calcium Level 8.2 L Total Bilirubin 0.0 L Direct Bilirubin 0.00 Indirect Bilirubin 0.0 Aspartate Amino Transf (AST/SGOT) 17 Alanine Aminotransferase (ALT/SGPT) 32 Alkaline Phosphatase 205 #H Total Protein 7.0 # Albumin 3.2 L Globulin 3.80 H Albumin/Globulin Ratio 0.84 Bedside Glucose 420 *H Medications Medications Current Medications Ondansetron HCl (Zofran Inj) 4 mg Q6H PRN IV NAUSEA AND/OR VOMITING; Start at 20:30 Acetaminophen (Tylenol Tab) 650 mg Q6H PRN PO PAIN LEVEL 1-3 OR FEVER; Start 12/18/16 at 20:30 Docusate Sodium (Colace) 100 mg Q12H PRN PO CONSTIPATION; Start 12/18/16 at 20 :30 Bisacodyl (Dulcolax) 5 mg DAILY PRN PO CONSTIPATION; Start 12/18/16 at 20:30 Nicotine (Nicoderm 21 Mg/ 24hr) 1 patch DAILY TRANSDERM Last administered on 08:29; Admin Dose 1 PATCH; Start 12/19/16 at 09:00 Morphine Sulfate (morphine) 2 mg Q4H PRN IV PAIN LEVEL 6-10 Last administered on 12/21/16 22:08; Admin Dose 2 MG; Start 12/19/16 at 00:00 Alprazolam (Xanax) 0.5 mg BID PRN PO ANXIETY Last administered on 12/19/16 09 :57; Admin Dose 0.5 MG; Start 12/19/16 at 01:00 Amlodipine Besylate (Norvasc) 10 mg DAILY PO Last administered on 12/22/16 08 :32; Admin Dose 10 MG; Start 12/19/16 at 09:00 Atenolol (Tenormin) 100 mg DAILY PO Last administered on 12/22/16 08:30; Admin Dose 100 MG; Start 12/19/16 at 09:00 Carisoprodol (Soma) 350 mg BID PRN PO MUSCLE SPASMS; Start 12/19/16 at 01:00 Hydroxychloroquine Sulfate (Plaquenil) 200 mg DAILY PO Last administered on 08:31; Admin Dose 200 MG; Start 12/19/16 at 09:00 Timolol Maleate (Timoptic 0.25%) 1 drop BID BOTH EYES Last administered on 08:31; Admin Dose 1 DROP; Start 12/19/16 at 09:00 Tramadol HCl (Ultram) 50 mg BID PRN PO PAIN; Start 12/19/16 at 01:00 Triamcinolone Acetonide (Kenalog 0.1% Cr) 1 applic BID TOP Last administered on 12/22/16 08:31; Admin Dose 1 APPLIC; Start 12/19/16 at 09:00 Brimonidine Tartrate (Alphagan 0.2%) 1 drop BID BOTH EYES Last administered on 12/22/16 08:31; Admin Dose 1 DROP; Start 12/19/16 at 09:00 Latanoprost (Xalatan) 1 drop BID BOTH EYES Last administered on 12/22/16 08: 34; Admin Dose 1 DROP; Start 12/19/16 at 09:00 Bismuth Subsalicylate (Pepto-Bismol) 15 ml Q3H PRN PO GASTROINTESTINAL UPSET; Start 12/20/16 at 11:00 Mupirocin (Bactroban) 1 applic BID TOP Last administered on 12/22/16 08:31; Admin Dose 1 APPLIC; Start 12/20/16 at 21:00 Methylprednisolone Sodium Succinate (Solu-Medrol) 125 mg Q8 IV ; Start at 14:00 Citric Acid/ Sodium Citrate (Bicitra) 30 ml BID PO Last administered on 08:30; Admin Dose 30 ML; Start 12/21/16 at 14:30 Famotidine (Pepcid) 20 mg DAILY PO Last administered on 12/22/16 09:40; Admin Dose 20 MG; Start 12/22/16 at 09:00 TRINITY DICKENS MD Dec 22, 2016 13:22
[2016-12-22] MEDS ORDERED: GLUCOSE GEL 15 GRAM TUBE PO PRN ×2 (13:30)
[2016-12-22] MEDS ORDERED: GLUCOSE GEL 15 GRAM TUBE BUCCAL PRN (13:30)
[2016-12-22] MEDS ORDERED: DEXTROSE 50% 50 ML SYRINGE IV PRN ×2 (13:30)
[2016-12-22] MEDS ORDERED: GLUCAGON 1 MG INJ IM PRN (13:30)
[2016-12-22] MEDS ORDERED: INSULIN GLARGINE [LANtus] 3 ML PEN SC ONE (14:00)
[2016-12-22 14:13] VITALS: BP 134/91; RESP 20
[2016-12-22] MEDS: METHYLPREDNISOLONE 125 MG INJ IV SCH ×2 (14:27→23:55)
--- NOTE | 2016-12-22 15:11 | CONS ---
Date/Time of Note Date/Time of Note DATE: 12/22/16 TIME: 15:09 Assessment/Plan Assessment/Plan Chief Complaint/Hosp Course Assessment: Hep C antibody reactive but PCR negative, likely cleared HCV so no active HCV and no need for treatment Glomerulonephritis. ANCA vasculitis Plan: await cryoglobulin but likely also negative as HCV pcr negative and pt cleared HCV further management per primary and other consultants. Problems: Consultation Date/Type/Reason Admit Date/Time Dec 18, 2016 at 17:10 Initial Consult Date 12/20/16 Type of Consultation: GI 24 HR Interval Summary Free Text/Dictation no abdominal pain, no n/v, tolerates po Exam/Review of Systems Vital Signs Vitals Vital Signs Date Time Temp Pulse Resp B/P Pulse Ox O2 Delivery O2 Flow Rate FiO2 12/22/16 14:13 98.0 76 20 134/91 94 12/21/16 08:59 Room Air 12/18/16 15:47 2 Intake and Output 12/21/16 12/21/16 12/22/16 15:00 23:00 07:00 Intake Total 1830 ml 1640 ml Balance 1830 ml 1640 ml Exam Constitutional: alert, oriented, well developed Psych: nl mood/affect, no complaints Head: atraumatic, normocephalic Eyes: EOMI, nl conjunctiva, nl lids, nl sclera ENMT: mucosa pink and moist, nl external ears & nose, nl lips & teeth, nl nasal mucosa & septum Neck: non-tender, supple Respiratory: clear to auscultation, normal air movement Cardiovascular: nl pulses, regular rate and rhythm Gastrointestinal: bowel sounds, non-tender, soft Results Result Diagram: 12/22/16 0552 12/22/16 0552 Results 24 hrs Laboratory Tests Test 12/22/16 05:52 12/22/16 07:47 White Blood Count 13.7 H Red Blood Count 3.61 L Hemoglobin 10.8 L Hematocrit 33.3 L Mean Corpuscular Volume 92.2 Mean Corpuscular Hemoglobin 29.9 Mean Corpuscular Hemoglobin Concent 32.4 Red Cell Distribution Width 13.9 Platelet Count 323 Mean Platelet Volume 11.9 H Neutrophils % 90.6 H Lymphocytes % 4.5 L Monocytes % 3.3 Eosinophils % 0.0 Basophils % 0.1 Nucleated Red Blood Cells % 0.0 Neutrophils # 12.4 H Lymphocytes # 0.6 L Monocytes # 0.5 Eosinophils # 0.0 Basophils # 0.0 Nucleated Red Blood Cells # 0.0 Sodium Level 137 Potassium Level 5.1 Chloride Level 106 Carbon Dioxide Level 23 Anion Gap 13 Blood Urea Nitrogen 59 H Creatinine 3.46 H Glucose Level 516 #*H Calcium Level 8.2 L Total Bilirubin 0.0 L Direct Bilirubin 0.00 Indirect Bilirubin 0.0 Aspartate Amino Transf (AST/SGOT) 17 Alanine Aminotransferase (ALT/SGPT) 32 Alkaline Phosphatase 205 #H Total Protein 7.0 # Albumin 3.2 L Globulin 3.80 H Albumin/Globulin Ratio 0.84 Bedside Glucose 420 *H Medications Medications Current Medications Ondansetron HCl (Zofran Inj) 4 mg Q6H PRN IV NAUSEA AND/OR VOMITING; Start at 20:30 Acetaminophen (Tylenol Tab) 650 mg Q6H PRN PO PAIN LEVEL 1-3 OR FEVER; Start 12/18/16 at 20:30 Docusate Sodium (Colace) 100 mg Q12H PRN PO CONSTIPATION; Start 12/18/16 at 20 :30 Bisacodyl (Dulcolax) 5 mg DAILY PRN PO CONSTIPATION; Start 12/18/16 at 20:30 Nicotine (Nicoderm 21 Mg/ 24hr) 1 patch DAILY TRANSDERM Last administered on 08:29; Admin Dose 1 PATCH; Start 12/19/16 at 09:00 Morphine Sulfate (morphine) 2 mg Q4H PRN IV PAIN LEVEL 6-10 Last administered on 12/21/16 22:08; Admin Dose 2 MG; Start 12/19/16 at 00:00 Alprazolam (Xanax) 0.5 mg BID PRN PO ANXIETY Last administered on 12/19/16 09 :57; Admin Dose 0.5 MG; Start 12/19/16 at 01:00 Amlodipine Besylate (Norvasc) 10 mg DAILY PO Last administered on 12/22/16 08 :32; Admin Dose 10 MG; Start 12/19/16 at 09:00 Atenolol (Tenormin) 100 mg DAILY PO Last administered on 12/22/16 08:30; Admin Dose 100 MG; Start 12/19/16 at 09:00 Carisoprodol (Soma) 350 mg BID PRN PO MUSCLE SPASMS; Start 12/19/16 at 01:00 Hydroxychloroquine Sulfate (Plaquenil) 200 mg DAILY PO Last administered on 08:31; Admin Dose 200 MG; Start 12/19/16 at 09:00 Timolol Maleate (Timoptic 0.25%) 1 drop BID BOTH EYES Last administered on 08:31; Admin Dose 1 DROP; Start 12/19/16 at 09:00 Tramadol HCl (Ultram) 50 mg BID PRN PO PAIN; Start 12/19/16 at 01:00 Triamcinolone Acetonide (Kenalog 0.1% Cr) 1 applic BID TOP Last administered on 12/22/16 08:31; Admin Dose 1 APPLIC; Start 12/19/16 at 09:00 Brimonidine Tartrate (Alphagan 0.2%) 1 drop BID BOTH EYES Last administered on 12/22/16 08:31; Admin Dose 1 DROP; Start 12/19/16 at 09:00 Latanoprost (Xalatan) 1 drop BID BOTH EYES Last administered on 12/22/16 08: 34; Admin Dose 1 DROP; Start 12/19/16 at 09:00 Bismuth Subsalicylate (Pepto-Bismol) 15 ml Q3H PRN PO GASTROINTESTINAL UPSET; Start 12/20/16 at 11:00 Mupirocin (Bactroban) 1 applic BID TOP Last administered on 12/22/16 08:31; Admin Dose 1 APPLIC; Start 12/20/16 at 21:00 Methylprednisolone Sodium Succinate (Solu-Medrol) 125 mg Q8 IV Last administered on 12/22/16 14:27; Admin Dose 125 MG; Start 12/22/16 at 14:00 Citric Acid/ Sodium Citrate (Bicitra) 30 ml BID PO Last administered on 08:30; Admin Dose 30 ML; Start 12/21/16 at 14:30 Famotidine (Pepcid) 20 mg DAILY PO Last administered on 12/22/16 09:40; Admin Dose 20 MG; Start 12/22/16 at 09:00 Diagnostic Test (Pha) (Accu-Chek) 1 ea 02 XX ; Start 12/23/16 at 02:00 Insulin Glargine (Lantus) 18 unit DAILY@08 SC ; Start 12/23/16 at 08:00 Diagnostic Test (Pha) (Accu-Chek) 1 ea 02 XX ; Start 12/23/16 at 02:00 Miscellaneous Information 1 ea NOTE XX ; Start 12/22/16 at 13:30 Glucose (Glutose) 15 gm Q15M PRN PO DECREASED GLUCOSE; Start 12/22/16 at 13:30 Glucose (Glutose) 22.5 gm Q15M PRN PO DECREASED GLUCOSE; Start 12/22/16 at 13: 30 Dextrose (D50w Syringe) 25 ml Q15M PRN IV DECREASED GLUCOSE; Start 12/22/16 at 13:30 Dextrose (D50w Syringe) 50 ml Q15M PRN IV DECREASED GLUCOSE; Start 12/22/16 at 13:30 Glucagon (Glucagen) 1 mg Q15M PRN IM DECREASED GLUCOSE; Start 12/22/16 at 13: 30 Glucose (Glutose) 15 gm Q15M PRN BUCCAL DECREASED GLUCOSE; Start 12/22/16 at 13:30 PAKO NELSON MD Dec 22, 2016 15:11
[2016-12-22] MEDS: INSULIN ASPART [NOVOLOG] 3 ML PEN SC SCH ×2 (17:36→20:39)
--- NOTE | 2016-12-22 18:17 | CONS ---
Date/Time of Note Date/Time of Note DATE: 12/22/16 TIME: 18:12 Assessment/Plan Assessment/Plan Chief Complaint/Hosp Course 1. Acute on chronic renal failure plus the patient has 3+ hematuria and proteinuria. His baseline creatinine is 1.5 to 1.85 range. At last hospitalization, creatinine was 3.61 and upon discharge was 2.69, however, currently is 5.09. Patient is positive for C-ANCA. CRP was 61. 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 Cr improved to 4.64 > 3.77>3.46 today s/p solumedrol dose #1 on 12/19/09, and 2 doses on 12/21 . Now on labs P ANCA + 2. Hematuria secondary to #1. 3. Proteinuria secondary to #1. 4. Hypertension. 5. Rheumatoid arthritis? with Hep c positvity 6. Possible lupus. unlikely 7. Uncontrolled sugars due to steroids 8. 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 9. Possible lupus. however unlikely per Rheumtology and no evidence of lupus nephritis on renal biopsy Recs - Pending HCV viral load, Cryo - Qunatiferon gold TB tests interdeterminate, PPD pendong, read tmw - Spoke to rheumatology, will give Rituxan likely tmw if TB test negative( not sure if possible over weekend) - Decrease solumedrol to 125 q8 per Rheumatology - Lantus and Insulin , might need Insulin gtt - Strict I and O - C/W Amlodipine and Atenolol Problems: Consultation Date/Type/Reason Admit Date/Time Dec 18, 2016 at 17:10 Initial Consult Date 12/20/16 Type of Consultation: Renal 24 HR Interval Summary Free Text/Dictation Sugars uncontrolled due to solumedrol Pt feels better Exam/Review of Systems Vital Signs Vitals Vital Signs Date Time Temp Pulse Resp B/P Pulse Ox O2 Delivery O2 Flow Rate FiO2 12/22/16 14:13 98.0 76 20 134/91 94 12/21/16 08:59 Room Air 12/18/16 15:47 2 Intake and Output 12/21/16 12/21/16 12/22/16 15:00 23:00 07:00 Intake Total 1830 ml 1640 ml Balance 1830 ml 1640 ml Exam GENERAL: Patient is awake, alert, middle-aged [place] male, no acute distress. HEENT: Normocephalic, atraumatic. No pallor. No scleral icterus. NECK: Supple, no JVD. HEART: Regular rate and rhythm. LUNGS: Clear to auscultate bilaterally. ABDOMEN: Soft, nontender, nondistended, positive normoactive bowel sounds. EXTREMITIES: Trace edema. SKIN: The patient has some changes on the cheek. NEUROLOGIC: Awake, alert, oriented x3. The patient has decreased sensation on bilateral lower extremities. Results Result Diagram: 12/22/16 0552 12/22/16 0552 Results 24 hrs Laboratory Tests Test 12/22/16 05:52 12/22/16 07:47 12/22/16 17:19 White Blood Count 13.7 H Red Blood Count 3.61 L Hemoglobin 10.8 L Hematocrit 33.3 L Mean Corpuscular Volume 92.2 Mean Corpuscular Hemoglobin 29.9 Mean Corpuscular Hemoglobin Concent 32.4 Red Cell Distribution Width 13.9 Platelet Count 323 Mean Platelet Volume 11.9 H Neutrophils % 90.6 H Lymphocytes % 4.5 L Monocytes % 3.3 Eosinophils % 0.0 Basophils % 0.1 Nucleated Red Blood Cells % 0.0 Neutrophils # 12.4 H Lymphocytes # 0.6 L Monocytes # 0.5 Eosinophils # 0.0 Basophils # 0.0 Nucleated Red Blood Cells # 0.0 Sodium Level 137 Potassium Level 5.1 Chloride Level 106 Carbon Dioxide Level 23 Anion Gap 13 Blood Urea Nitrogen 59 H Creatinine 3.46 H Glucose Level 516 #*H Calcium Level 8.2 L Total Bilirubin 0.0 L Direct Bilirubin 0.00 Indirect Bilirubin 0.0 Aspartate Amino Transf (AST/SGOT) 17 Alanine Aminotransferase (ALT/SGPT) 32 Alkaline Phosphatase 205 #H Total Protein 7.0 # Albumin 3.2 L Globulin 3.80 H Albumin/Globulin Ratio 0.84 Bedside Glucose 420 *H 518 *H Medications Medications Current Medications Ondansetron HCl (Zofran Inj) 4 mg Q6H PRN IV NAUSEA AND/OR VOMITING; Start at 20:30 Acetaminophen (Tylenol Tab) 650 mg Q6H PRN PO PAIN LEVEL 1-3 OR FEVER; Start 12/18/16 at 20:30 Docusate Sodium (Colace) 100 mg Q12H PRN PO CONSTIPATION; Start 12/18/16 at 20 :30 Bisacodyl (Dulcolax) 5 mg DAILY PRN PO CONSTIPATION; Start 12/18/16 at 20:30 Nicotine (Nicoderm 21 Mg/ 24hr) 1 patch DAILY TRANSDERM Last administered on 08:29; Admin Dose 1 PATCH; Start 12/19/16 at 09:00 Morphine Sulfate (morphine) 2 mg Q4H PRN IV PAIN LEVEL 6-10 Last administered on 12/21/16 22:08; Admin Dose 2 MG; Start 12/19/16 at 00:00 Alprazolam (Xanax) 0.5 mg BID PRN PO ANXIETY Last administered on 12/19/16 09 :57; Admin Dose 0.5 MG; Start 12/19/16 at 01:00 Amlodipine Besylate (Norvasc) 10 mg DAILY PO Last administered on 12/22/16 08 :32; Admin Dose 10 MG; Start 12/19/16 at 09:00 Atenolol (Tenormin) 100 mg DAILY PO Last administered on 12/22/16 08:30; Admin Dose 100 MG; Start 12/19/16 at 09:00 Carisoprodol (Soma) 350 mg BID PRN PO MUSCLE SPASMS; Start 12/19/16 at 01:00 Hydroxychloroquine Sulfate (Plaquenil) 200 mg DAILY PO Last administered on 08:31; Admin Dose 200 MG; Start 12/19/16 at 09:00 Timolol Maleate (Timoptic 0.25%) 1 drop BID BOTH EYES Last administered on 08:31; Admin Dose 1 DROP; Start 12/19/16 at 09:00 Tramadol HCl (Ultram) 50 mg BID PRN PO PAIN; Start 12/19/16 at 01:00 Triamcinolone Acetonide (Kenalog 0.1% Cr) 1 applic BID TOP Last administered on 12/22/16 08:31; Admin Dose 1 APPLIC; Start 12/19/16 at 09:00 Brimonidine Tartrate (Alphagan 0.2%) 1 drop BID BOTH EYES Last administered on 12/22/16 08:31; Admin Dose 1 DROP; Start 12/19/16 at 09:00 Latanoprost (Xalatan) 1 drop BID BOTH EYES Last administered on 12/22/16 08: 34; Admin Dose 1 DROP; Start 12/19/16 at 09:00 Bismuth Subsalicylate (Pepto-Bismol) 15 ml Q3H PRN PO GASTROINTESTINAL UPSET; Start 12/20/16 at 11:00 Mupirocin (Bactroban) 1 applic BID TOP Last administered on 12/22/16 08:31; Admin Dose 1 APPLIC; Start 12/20/16 at 21:00 Methylprednisolone Sodium Succinate (Solu-Medrol) 125 mg Q8 IV Last administered on 12/22/16 14:27; Admin Dose 125 MG; Start 12/22/16 at 14:00 Citric Acid/ Sodium Citrate (Bicitra) 30 ml BID PO Last administered on 08:30; Admin Dose 30 ML; Start 12/21/16 at 14:30 Famotidine (Pepcid) 20 mg DAILY PO Last administered on 12/22/16 09:40; Admin Dose 20 MG; Start 12/22/16 at 09:00 Diagnostic Test (Pha) (Accu-Chek) 1 ea 02 XX ; Start 12/23/16 at 02:00 Insulin Glargine (Lantus) 18 unit DAILY@08 SC ; Start 12/23/16 at 08:00 Diagnostic Test (Pha) (Accu-Chek) 1 ea 02 XX ; Start 12/23/16 at 02:00 Miscellaneous Information 1 ea NOTE XX ; Start 12/22/16 at 13:30 Glucose (Glutose) 15 gm Q15M PRN PO DECREASED GLUCOSE; Start 12/22/16 at 13:30 Glucose (Glutose) 22.5 gm Q15M PRN PO DECREASED GLUCOSE; Start 12/22/16 at 13: 30 Dextrose (D50w Syringe) 25 ml Q15M PRN IV DECREASED GLUCOSE; Start 12/22/16 at 13:30 Dextrose (D50w Syringe) 50 ml Q15M PRN IV DECREASED GLUCOSE; Start 12/22/16 at 13:30 Glucagon (Glucagen) 1 mg Q15M PRN IM DECREASED GLUCOSE; Start 12/22/16 at 13: 30 Glucose (Glutose) 15 gm Q15M PRN BUCCAL DECREASED GLUCOSE; Start 12/22/16 at 13:30 LILLY MACDONALD MD Dec 22, 2016 18:17
[2016-12-22] MEDS ORDERED: INSULIN ASPART [NOVOLOG] 3 ML PEN SC ONE (20:30)
[2016-12-22] MEDS: SOD CHLORIDE 0.9% 1,000 ML IV SCH (20:36)
[2016-12-22] MEDS: morphine 2 MG INJ IV PRN (20:37)
[2016-12-22 21:20] LABS: CALCIUM 8.3 mg/dl (8.4-10.2); CREATININE 3.4 mg/dl (0.61-1.24); POTASSIUM 4.9 mmol/L (3.5-5.1)
[2016-12-22 21:29] VITALS: BP 140/85; RESP 20
[2016-12-23 02:00] VITALS: BP 141/91; RESP 18
[2016-12-23] MEDS ORDERED: ACCU-CHEK XX SCH (02:00)
[2016-12-23] MEDS: ACCU-CHEK XX SCH (02:08)
[2016-12-23] MEDS ORDERED: INSULIN ASPART [NOVOLOG] 3 ML PEN SC ONE ×4 (02:30→23:30)
[2016-12-23] MEDS: SOD CHLORIDE 0.9% 1,000 ML IV SCH ×4 (05:00→20:29)
[2016-12-23] MEDS: METHYLPREDNISOLONE 125 MG INJ IV SCH ×3 (06:07→23:10)
[2016-12-23 08:00] VITALS: BP 140/88; RESP 19
[2016-12-23] MEDS: INSULIN GLARGINE [LANtus] 3 ML PEN SC SCH (08:01)
[2016-12-23] MEDS: INSULIN ASPART [NOVOLOG] 3 ML PEN SC SCH ×4 (08:03→20:53)
[2016-12-23] MEDS: NICOTINE (21 MG/24 HR) PATCH TRANSDERM SCH (08:04)
[2016-12-23] MEDS: TIMOLOL 0.25% 5 ML OPH BOTH EYES SCH ×2 (08:04→20:29)
[2016-12-23] MEDS: AMLODIPINE 10 MG TAB PO SCH (08:05)
[2016-12-23] MEDS: TRIAMCINOLONE ACET 0.1% 15 GM CR TOP SCH ×2 (08:05→20:28)
[2016-12-23] MEDS: HYDROXYCHLOROQUINE 200 MG TAB PO SCH (08:05)
[2016-12-23] MEDS: AL HYDROX/MG HYDROX/SIMETH 30 ML CUP PO SCH (08:05)
[2016-12-23] MEDS: ALPRAZOLAM 0.5 MG TAB PO PRN (08:06)
[2016-12-23] MEDS: CITRIC ACID/NA CITRATE 30 ML CUP PO SCH ×2 (08:06→20:30)
[2016-12-23] MEDS: BRIMONIDINE 0.2% 5 ML BTL BOTH EYES SCH ×2 (08:06→20:31)
[2016-12-23] MEDS: FAMOTIDINE 20 MG TAB PO SCH (08:06)
[2016-12-23] MEDS: MUPIROCIN 2% 22 GM OINT TOP SCH ×2 (08:07→20:28)
[2016-12-23] MEDS: LATANOPROST 0.005% 2.5 ML OPH BOTH EYES SCH ×2 (08:27→20:31)
[2016-12-23] MEDS: NACL 0.9% 3 ML SYG IV SCH ×2 (08:27→14:49)
[2016-12-23] MEDS: ATENOLOL 100 MG TAB PO SCH (08:27)
[2016-12-23 14:19] VITALS: BP 149/96; RESP 20
[2016-12-23] MEDS: morphine 2 MG INJ IV PRN (14:49)
--- NOTE | 2016-12-23 16:57 | CONS ---
Date/Time of Note Date/Time of Note DATE: 12/23/16 TIME: 16:56 Assessment/Plan Assessment/Plan Chief Complaint/Hosp Course Assessment: Hep C antibody reactive but PCR negative, likely cleared HCV so no active HCV and no need for treatment Glomerulonephritis. ANCA vasculitis Plan: await cryoglobulin but likely also negative as HCV pcr negative and pt cleared HCV further management per primary and other consultants. Problems: Consultation Date/Type/Reason Admit Date/Time Dec 18, 2016 at 17:10 Initial Consult Date 12/20/16 Type of Consultation: GI 24 HR Interval Summary Free Text/Dictation no abdominal pain, no n/v, tolerates po Exam/Review of Systems Vital Signs Vitals Vital Signs Date Time Temp Pulse Resp B/P Pulse Ox O2 Delivery O2 Flow Rate FiO2 12/23/16 14:19 97.9 78 20 149/96 94 12/21/16 08:59 Room Air Intake and Output 12/22/16 12/22/16 12/23/16 15:00 23:00 07:00 Intake Total 1440 ml 2000 ml Output Total 2150 ml Balance 1440 ml -150 ml Exam Constitutional: alert, oriented, well developed Psych: nl mood/affect, no complaints Head: atraumatic, normocephalic Eyes: EOMI, nl conjunctiva, nl lids ENMT: nl external ears & nose, nl lips & teeth, nl nasal mucosa & septum Neck: non-tender, supple Respiratory: clear to auscultation, normal air movement Cardiovascular: nl pulses, regular rate and rhythm Gastrointestinal: bowel sounds, non-tender, soft Results Result Diagram: 12/22/16 0552 12/22/162039 Results 24 hrs Laboratory Tests Test 12/22/16 17:19 12/22/16 17:21 12/22/16 20:07 12/22/16 20:40 Bedside Glucose 518 *H > 595 *H Glucose Level 560 *H 651 *H Sodium Level 135 Potassium Level 4.9 Chloride Level 104 Carbon Dioxide Level 23 Anion Gap 13 Blood Urea Nitrogen 59 H Creatinine 3.40 H Calcium Level 8.3 L Test 12/22/16 22:09 12/23/16 02:02 12/23/16 05:51 12/23/16 06:02 Bedside Glucose 586 *H 558 *H 416 *H Hemoglobin A1c 6.3 H Test 12/23/16 07:59 12/23/16 11:16 12/23/16 11:21 12/23/16 12:18 Bedside Glucose 310 H 381 H Lab Scanned Report REFERENCE LAB REFERENCE LAB Medications Medications Current Medications Ondansetron HCl (Zofran Inj) 4 mg Q6H PRN IV NAUSEA AND/OR VOMITING; Start at 20:30 Acetaminophen (Tylenol Tab) 650 mg Q6H PRN PO PAIN LEVEL 1-3 OR FEVER; Start 12/18/16 at 20:30 Docusate Sodium (Colace) 100 mg Q12H PRN PO CONSTIPATION; Start 12/18/16 at 20 :30 Bisacodyl (Dulcolax) 5 mg DAILY PRN PO CONSTIPATION; Start 12/18/16 at 20:30 Nicotine (Nicoderm 21 Mg/ 24hr) 1 patch DAILY TRANSDERM Last administered on 08:04; Admin Dose 1 PATCH; Start 12/19/16 at 09:00 Morphine Sulfate (morphine) 2 mg Q4H PRN IV PAIN LEVEL 6-10 Last administered on 12/23/16 14:49; Admin Dose 2 MG; Start 12/19/16 at 00:00 Alprazolam (Xanax) 0.5 mg BID PRN PO ANXIETY Last administered on 12/23/16 08 :06; Admin Dose 0.5 MG; Start 12/19/16 at 01:00 Amlodipine Besylate (Norvasc) 10 mg DAILY PO Last administered on 12/23/16 08 :05; Admin Dose 10 MG; Start 12/19/16 at 09:00 Atenolol (Tenormin) 100 mg DAILY PO Last administered on 12/23/16 08:27; Admin Dose 100 MG; Start 12/19/16 at 09:00 Carisoprodol (Soma) 350 mg BID PRN PO MUSCLE SPASMS; Start 12/19/16 at 01:00 Hydroxychloroquine Sulfate (Plaquenil) 200 mg DAILY PO Last administered on 08:05; Admin Dose 200 MG; Start 12/19/16 at 09:00 Timolol Maleate (Timoptic 0.25%) 1 drop BID BOTH EYES Last administered on 08:04; Admin Dose 1 DROP; Start 12/19/16 at 09:00 Tramadol HCl (Ultram) 50 mg BID PRN PO PAIN; Start 12/19/16 at 01:00 Triamcinolone Acetonide (Kenalog 0.1% Cr) 1 applic BID TOP Last administered on 12/23/16 08:05; Admin Dose 1 APPLIC; Start 12/19/16 at 09:00 Brimonidine Tartrate (Alphagan 0.2%) 1 drop BID BOTH EYES Last administered on 12/23/16 08:06; Admin Dose 1 DROP; Start 12/19/16 at 09:00 Latanoprost (Xalatan) 1 drop BID BOTH EYES Last administered on 12/23/16 08: 27; Admin Dose 1 DROP; Start 12/19/16 at 09:00 Bismuth Subsalicylate (Pepto-Bismol) 15 ml Q3H PRN PO GASTROINTESTINAL UPSET; Start 12/20/16 at 11:00 Mupirocin (Bactroban) 1 applic BID TOP Last administered on 12/23/16 08:07; Admin Dose 1 APPLIC; Start 12/20/16 at 21:00 Methylprednisolone Sodium Succinate (Solu-Medrol) 125 mg Q8 IV Last administered on 12/23/16 14:49; Admin Dose 125 MG; Start 12/22/16 at 14:00 Citric Acid/ Sodium Citrate (Bicitra) 30 ml BID PO Last administered on 08:06; Admin Dose 30 ML; Start 12/21/16 at 14:30 Famotidine (Pepcid) 20 mg DAILY PO Last administered on 12/23/16 08:06; Admin Dose 20 MG; Start 12/22/16 at 09:00 Insulin Glargine (Lantus) 18 unit DAILY@08 SC Last administered on 12/23/16 08:01; Admin Dose 18 UNIT; Start 12/23/16 at 08:00 Diagnostic Test (Pha) (Accu-Chek) 1 ea 02 XX Last administered on 12/23/16 02 :08; Admin Dose 1 EA; Start 12/23/16 at 02:00 Miscellaneous Information 1 ea NOTE XX ; Start 12/22/16 at 13:30 Glucose (Glutose) 15 gm Q15M PRN PO DECREASED GLUCOSE; Start 12/22/16 at 13:30 Glucose (Glutose) 22.5 gm Q15M PRN PO DECREASED GLUCOSE; Start 12/22/16 at 13: 30 Dextrose (D50w Syringe) 25 ml Q15M PRN IV DECREASED GLUCOSE; Start 12/22/16 at 13:30 Dextrose (D50w Syringe) 50 ml Q15M PRN IV DECREASED GLUCOSE; Start 12/22/16 at 13:30 Glucagon (Glucagen) 1 mg Q15M PRN IM DECREASED GLUCOSE; Start 12/22/16 at 13: 30 Glucose 15 gm 15 gm Q15M PRN BUCCAL DECREASED GLUCOSE; Start 12/22/16 at 13:30 Sodium Chloride (NS) 1,000 ml @ 150 mls/hr Q6H40M IV Last administered on t 12:22; Admin Dose 150 MLS/HR; Start 12/22/16 at 20:30 PAKO NELSON MD Dec 23, 2016 16:57
--- NOTE | 2016-12-23 18:24 | CONS ---
Date/Time of Note Date/Time of Note DATE: 12/23/16 TIME: 18:21 Assessment/Plan Assessment/Plan Chief Complaint/Hosp Course Chief Complaint/Hosp Course 1. Acute on chronic renal failure plus the patient has 3+ hematuria and proteinuria. . Patient is positive for C-ANCA. CRP was 61. 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 2. Hematuria secondary A GN 3. Proteinuria to agn 4. Hypertension. 5. Rheumatoid arthritis? with Hep c positvity 6. Possible lupus. unlikely 7. Uncontrolled sugars due to steroids 8. 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 9. Possible lupus. however unlikely per Rheumtology and no evidence of lupus nephritis on renal biopsy plan retuxan soon ck labs Problems: Consultation Date/Type/Reason Admit Date/Time Dec 18, 2016 at 17:10 Initial Consult Date 12/20/16 Type of Consultation: renal 24 HR Interval Summary Constitutional: other (no sob,no simon,waiting retuxan) Exam/Review of Systems Vital Signs Vitals Vital Signs Date Time Temp Pulse Resp B/P Pulse Ox O2 Delivery O2 Flow Rate FiO2 12/23/16 14:19 97.9 78 20 149/96 94 12/21/16 08:59 Room Air Intake and Output 12/22/16 12/22/16 12/23/16 15:00 23:00 07:00 Intake Total 1440 ml 2000 ml Output Total 2150 ml Balance 1440 ml -150 ml Exam Neck: supple Respiratory: clear to auscultation Cardiovascular: regular rate and rhythm Gastrointestinal: nl liver, spleen, non-tender, soft Musculoskeletal: nl extremities to inspection Extremities: edema (+), normal pulses Results Result Diagram: 12/22/16 0552 12/22/162039 Results 24 hrs Laboratory Tests Test 12/22/16 20:07 12/22/16 20:40 12/22/16 22:09 12/23/16 02:02 Bedside Glucose > 595 *H 586 *H 558 *H Sodium Level 135 Potassium Level 4.9 Chloride Level 104 Carbon Dioxide Level 23 Anion Gap 13 Blood Urea Nitrogen 59 H Creatinine 3.40 H Glucose Level 651 *H Calcium Level 8.3 L Test 12/23/16 05:51 12/23/16 06:02 12/23/16 07:59 12/23/16 11:16 Bedside Glucose 416 *H 310 H Hemoglobin A1c 6.3 H Lab Scanned Report REFERENCE LAB Test 12/23/16 11:21 12/23/16 12:18 12/23/16 17:20 Lab Scanned Report REFERENCE LAB Bedside Glucose 381 H 483 *H Medications Medications Current Medications Ondansetron HCl (Zofran Inj) 4 mg Q6H PRN IV NAUSEA AND/OR VOMITING; Start at 20:30 Acetaminophen (Tylenol Tab) 650 mg Q6H PRN PO PAIN LEVEL 1-3 OR FEVER; Start 12/18/16 at 20:30 Docusate Sodium (Colace) 100 mg Q12H PRN PO CONSTIPATION; Start 12/18/16 at 20 :30 Bisacodyl (Dulcolax) 5 mg DAILY PRN PO CONSTIPATION; Start 12/18/16 at 20:30 Nicotine (Nicoderm 21 Mg/ 24hr) 1 patch DAILY TRANSDERM Last administered on 08:04; Admin Dose 1 PATCH; Start 12/19/16 at 09:00 Morphine Sulfate (morphine) 2 mg Q4H PRN IV PAIN LEVEL 6-10 Last administered on 12/23/16 14:49; Admin Dose 2 MG; Start 12/19/16 at 00:00 Alprazolam (Xanax) 0.5 mg BID PRN PO ANXIETY Last administered on 12/23/16 08 :06; Admin Dose 0.5 MG; Start 12/19/16 at 01:00 Amlodipine Besylate (Norvasc) 10 mg DAILY PO Last administered on 12/23/16 08 :05; Admin Dose 10 MG; Start 12/19/16 at 09:00 Atenolol (Tenormin) 100 mg DAILY PO Last administered on 12/23/16 08:27; Admin Dose 100 MG; Start 12/19/16 at 09:00 Carisoprodol (Soma) 350 mg BID PRN PO MUSCLE SPASMS; Start 12/19/16 at 01:00 Hydroxychloroquine Sulfate (Plaquenil) 200 mg DAILY PO Last administered on 08:05; Admin Dose 200 MG; Start 12/19/16 at 09:00 Timolol Maleate (Timoptic 0.25%) 1 drop BID BOTH EYES Last administered on 08:04; Admin Dose 1 DROP; Start 12/19/16 at 09:00 Tramadol HCl (Ultram) 50 mg BID PRN PO PAIN; Start 12/19/16 at 01:00 Triamcinolone Acetonide (Kenalog 0.1% Cr) 1 applic BID TOP Last administered on 12/23/16 08:05; Admin Dose 1 APPLIC; Start 12/19/16 at 09:00 Brimonidine Tartrate (Alphagan 0.2%) 1 drop BID BOTH EYES Last administered on 12/23/16 08:06; Admin Dose 1 DROP; Start 12/19/16 at 09:00 Latanoprost (Xalatan) 1 drop BID BOTH EYES Last administered on 12/23/16 08: 27; Admin Dose 1 DROP; Start 12/19/16 at 09:00 Bismuth Subsalicylate (Pepto-Bismol) 15 ml Q3H PRN PO GASTROINTESTINAL UPSET; Start 12/20/16 at 11:00 Mupirocin (Bactroban) 1 applic BID TOP Last administered on 12/23/16 08:07; Admin Dose 1 APPLIC; Start 12/20/16 at 21:00 Methylprednisolone Sodium Succinate (Solu-Medrol) 125 mg Q8 IV Last administered on 12/23/16 14:49; Admin Dose 125 MG; Start 12/22/16 at 14:00 Citric Acid/ Sodium Citrate (Bicitra) 30 ml BID PO Last administered on 08:06; Admin Dose 30 ML; Start 12/21/16 at 14:30 Famotidine (Pepcid) 20 mg DAILY PO Last administered on 12/23/16 08:06; Admin Dose 20 MG; Start 12/22/16 at 09:00 Insulin Glargine (Lantus) 18 unit DAILY@08 SC Last administered on 12/23/16 08:01; Admin Dose 18 UNIT; Start 12/23/16 at 08:00 Diagnostic Test (Pha) (Accu-Chek) 1 ea 02 XX Last administered on 12/23/16 02 :08; Admin Dose 1 EA; Start 12/23/16 at 02:00 Miscellaneous Information 1 ea NOTE XX ; Start 12/22/16 at 13:30 Glucose (Glutose) 15 gm Q15M PRN PO DECREASED GLUCOSE; Start 12/22/16 at 13:30 Glucose (Glutose) 22.5 gm Q15M PRN PO DECREASED GLUCOSE; Start 12/22/16 at 13: 30 Dextrose (D50w Syringe) 25 ml Q15M PRN IV DECREASED GLUCOSE; Start 12/22/16 at 13:30 Dextrose (D50w Syringe) 50 ml Q15M PRN IV DECREASED GLUCOSE; Start 12/22/16 at 13:30 Glucagon (Glucagen) 1 mg Q15M PRN IM DECREASED GLUCOSE; Start 12/22/16 at 13: 30 Glucose 15 gm 15 gm Q15M PRN BUCCAL DECREASED GLUCOSE; Start 12/22/16 at 13:30 Sodium Chloride (NS) 1,000 ml @ 150 mls/hr Q6H40M IV Last administered on t 12:22; Admin Dose 150 MLS/HR; Start 12/22/16 at 20:30 Miscellaneous Information (* Miscellaneous Pharmacy Order) ok to use pts own meds/ aspercr... ONCE XX ; Start 12/23/16 at 18:00; Status GERARDO FLOYD MD Dec 23, 2016 18:24
--- NOTE | 2016-12-23 19:41 | PN ---
Date/Time of Note Date/Time of Note DATE: 12/23/16 TIME: 19:39 Assessment/Plan VTE Prophylaxis VTE Prophylaxis Intervention: LMWH Lines/Catheters IV C[facility]ter Type (from [facility]): Peripheral IV Urinary Cath still in place: No Assessment/Plan Chief Complaint/Hosp Course 51 yo male with CKD III and hematuria with workup showing newly diagnosed ANCA vasculitis/glomerulonephritis who was admitted for management of ANCA vasculitis ANCA vasculitis - Solumedrol pulse dose x 3 days, now being downtitrated - rituxan per rheumatology - Plaquenil daily - HCV Ab+ so await cryoglobulins, HCV PCR negative DMII w hyperglycemia: - Significant steroid induced hyperglycemia, started insulin, continue insulin - Remains hyperglycemic but as steroids down tapered sugars should as well so willing to tolerate a bit of hypeglycemia to avoid hypo YAEL on CKD III: - Management per renal, creatinine improving w steroids Hypertension: - Continue amlodipine, atenolol Discharge home when stable Problems: Subjective 24 Hr Interval Summary Free Text/Dictation Steroids being tapered Sugars still very high, insulin uptitrated No compalints, feels well Exam/Review of Systems Vital Signs Vitals Vital Signs Date Time Temp Pulse Resp B/P Pulse Ox O2 Delivery O2 Flow Rate FiO2 12/23/16 14:19 97.9 78 20 149/96 94 12/21/16 08:59 Room Air Intake and Output 12/22/16 12/22/16 12/23/16 15:00 23:00 07:00 Intake Total 1440 ml 2000 ml Output Total 2150 ml Balance 1440 ml -150 ml Exam Constitutional: alert, oriented, well developed Psych: nl mood/affect, no complaints Head: atraumatic, normocephalic Eyes: EOMI, PERRL, nl conjunctiva, nl lids, nl sclera ENMT: nl external ears & nose, nl lips & teeth, nl nasal mucosa & septum Neck: non-tender, supple Respiratory: clear to auscultation, normal air movement Cardiovascular: nl pulses, regular rate and rhythm Gastrointestinal: nl liver, spleen, non-tender, soft Musculoskeletal: nl extremities to inspection, nl gait and stance Extremities: normal pulses Neurological: PSYCHOLOGY CLINICIAN II-XII intact, nl mental status, nl speech, nl strength Skin: nl turgor, No rash or lesions Lymph: nl lymph nodes Results Result Diagram: 12/22/16 0552 12/22/160 Results 24 hrs Laboratory Tests Test 12/22/16 20:07 12/22/16 20:40 12/22/16 22:09 12/23/16 02:02 Bedside Glucose > 595 *H 586 *H 558 *H Sodium Level 135 Potassium Level 4.9 Chloride Level 104 Carbon Dioxide Level 23 Anion Gap 13 Blood Urea Nitrogen 59 H Creatinine 3.40 H Glucose Level 651 *H Calcium Level 8.3 L Test 12/23/16 05:51 12/23/16 06:02 12/23/16 07:59 12/23/16 11:16 Bedside Glucose 416 *H 310 H Hemoglobin A1c 6.3 H Lab Scanned Report REFERENCE LAB Test 12/23/16 11:21 12/23/16 12:18 12/23/16 17:20 Lab Scanned Report REFERENCE LAB Bedside Glucose 381 H 483 *H Medications Medications Current Medications Ondansetron HCl (Zofran Inj) 4 mg Q6H PRN IV NAUSEA AND/OR VOMITING; Start at 20:30 Acetaminophen (Tylenol Tab) 650 mg Q6H PRN PO PAIN LEVEL 1-3 OR FEVER; Start 12/18/16 at 20:30 Docusate Sodium (Colace) 100 mg Q12H PRN PO CONSTIPATION; Start 12/18/16 at 20 :30 Bisacodyl (Dulcolax) 5 mg DAILY PRN PO CONSTIPATION; Start 12/18/16 at 20:30 Nicotine (Nicoderm 21 Mg/ 24hr) 1 patch DAILY TRANSDERM Last administered on 08:04; Admin Dose 1 PATCH; Start 12/19/16 at 09:00 Morphine Sulfate (morphine) 2 mg Q4H PRN IV PAIN LEVEL 6-10 Last administered on 12/23/16 14:49; Admin Dose 2 MG; Start 12/19/16 at 00:00 Alprazolam (Xanax) 0.5 mg BID PRN PO ANXIETY Last administered on 12/23/16 08 :06; Admin Dose 0.5 MG; Start 12/19/16 at 01:00 Amlodipine Besylate (Norvasc) 10 mg DAILY PO Last administered on 12/23/16 08 :05; Admin Dose 10 MG; Start 12/19/16 at 09:00 Atenolol (Tenormin) 100 mg DAILY PO Last administered on 12/23/16 08:27; Admin Dose 100 MG; Start 12/19/16 at 09:00 Carisoprodol (Soma) 350 mg BID PRN PO MUSCLE SPASMS; Start 12/19/16 at 01:00 Hydroxychloroquine Sulfate (Plaquenil) 200 mg DAILY PO Last administered on 08:05; Admin Dose 200 MG; Start 12/19/16 at 09:00 Timolol Maleate (Timoptic 0.25%) 1 drop BID BOTH EYES Last administered on 08:04; Admin Dose 1 DROP; Start 12/19/16 at 09:00 Tramadol HCl (Ultram) 50 mg BID PRN PO PAIN; Start 12/19/16 at 01:00 Triamcinolone Acetonide (Kenalog 0.1% Cr) 1 applic BID TOP Last administered on 12/23/16 08:05; Admin Dose 1 APPLIC; Start 12/19/16 at 09:00 Brimonidine Tartrate (Alphagan 0.2%) 1 drop BID BOTH EYES Last administered on 12/23/16 08:06; Admin Dose 1 DROP; Start 12/19/16 at 09:00 Latanoprost (Xalatan) 1 drop BID BOTH EYES Last administered on 12/23/16 08: 27; Admin Dose 1 DROP; Start 12/19/16 at 09:00 Bismuth Subsalicylate (Pepto-Bismol) 15 ml Q3H PRN PO GASTROINTESTINAL UPSET; Start 12/20/16 at 11:00 Mupirocin (Bactroban) 1 applic BID TOP Last administered on 12/23/16 08:07; Admin Dose 1 APPLIC; Start 12/20/16 at 21:00 Methylprednisolone Sodium Succinate (Solu-Medrol) 125 mg Q8 IV Last administered on 12/23/16 14:49; Admin Dose 125 MG; Start 12/22/16 at 14:00 Citric Acid/ Sodium Citrate (Bicitra) 30 ml BID PO Last administered on 08:06; Admin Dose 30 ML; Start 12/21/16 at 14:30 Famotidine (Pepcid) 20 mg DAILY PO Last administered on 12/23/16 08:06; Admin Dose 20 MG; Start 12/22/16 at 09:00 Insulin Glargine (Lantus) 18 unit DAILY@08 SC Last administered on 12/23/16 08:01; Admin Dose 18 UNIT; Start 12/23/16 at 08:00 Diagnostic Test (Pha) (Accu-Chek) 1 ea 02 XX Last administered on 12/23/16 02 :08; Admin Dose 1 EA; Start 12/23/16 at 02:00 Miscellaneous Information 1 ea NOTE XX ; Start 12/22/16 at 13:30 Glucose (Glutose) 15 gm Q15M PRN PO DECREASED GLUCOSE; Start 12/22/16 at 13:30 Glucose (Glutose) 22.5 gm Q15M PRN PO DECREASED GLUCOSE; Start 12/22/16 at 13: 30 Dextrose (D50w Syringe) 25 ml Q15M PRN IV DECREASED GLUCOSE; Start 12/22/16 at 13:30 Dextrose (D50w Syringe) 50 ml Q15M PRN IV DECREASED GLUCOSE; Start 12/22/16 at 13:30 Glucagon (Glucagen) 1 mg Q15M PRN IM DECREASED GLUCOSE; Start 12/22/16 at 13: 30 Glucose 15 gm 15 gm Q15M PRN BUCCAL DECREASED GLUCOSE; Start 12/22/16 at 13:30 Sodium Chloride (NS) 1,000 ml @ 150 mls/hr Q6H40M IV Last administered on 12:22; Admin Dose 150 MLS/HR; Start 12/22/16 at 20:30 Patient Own Medication 1 ea BID PRN TOP PAIN/JOINT PAIN; Start 12/23/16 at 20: 00 TRINITY DICKENS MD Dec 23, 2016 19:41
[2016-12-23 20:24] VITALS: BP 158/82; RESP 20
[2016-12-23] MEDS ORDERED: LIDOCAINE 1% (MPF) 5 ML VIAL SC ONE (21:00)
[2016-12-23 21:42] LABS: FORTY EIGHT HOUR READING 0 mm (0-9)
[2016-12-24 02:16] VITALS: BP 171/101; RESP 19
[2016-12-24] MEDS: ACCU-CHEK XX SCH (02:40)
[2016-12-24] MEDS: [UNRECOGNIZED DRUG - OTHER] TOP PRN ×3 (02:47→21:29)
[2016-12-24] MEDS ORDERED: INSULIN ASPART [NOVOLOG] 3 ML PEN SC ONE (03:00)
[2016-12-24] MEDS: morphine 2 MG INJ IV PRN (03:04)
[2016-12-24] MEDS: METHYLPREDNISOLONE 125 MG INJ IV SCH ×3 (06:00→21:29)
[2016-12-24] MEDS ORDERED: LORAZEPAM 2 MG INJ IV ONE (06:00)
[2016-12-24] MEDS: SOD CHLORIDE 0.9% 1,000 ML IV SCH ×2 (06:00→15:43)
[2016-12-24 06:10] LABS: BASOPHILS % 0.1 % (0.0-2.0); HEMATOCRIT 36.5 % (42.0-52.0); HEMOGLOBIN 11.8 g/dl (14.0-18.0); LYMPHOCYTES # 1.4 10^3/ul (0.8-2.9); LYMPHOCYTES % 6.7 % (15.0-51.0); MEAN CORPUSCULAR HEMOGLOBIN 29.6 pg (29.0-33.0); MEAN CORPUSCULAR HGB CONC 32.3 g/dl (32.0-37.0); MEAN CORPUSCULAR VOLUME 91.7 fl (82.0-101.0); MEAN PLATELET VOLUME 11.7 fl (7.4-10.4); MONOCYTES % 4.9 % (0.0-11.0); NEUTROPHIL # 17.9 10^3/ul (1.6-7.5); NEUTROPHILS % 85.3 % (39.0-77.0); NUCLEATED RED BLOOD CELLS% 0.1 /100WBC (0.0-0.0); PLATELET COUNT 344 10^3/UL (140-415); RED BLOOD COUNT 3.98 10^6/ul (4.70-6.10); RED CELL DISTRIBUTION WIDTH 13.7 % (11.5-14.5)
[2016-12-24 06:28] LABS: ALBUMIN 3.2 g/dl (3.3-4.9); ALBUMIN/GLOBULIN RATIO 0.74; BILIRUBIN,INDIRECT 0.1 mg/dl (0-1.1); BILIRUBIN,TOTAL 0.1 mg/dl (0.2-1.3); CALCIUM 9.2 mg/dl (8.4-10.2); CREATININE 3.03 mg/dl (0.61-1.24); POTASSIUM 4.8 mmol/L (3.5-5.1); TOTAL PROTEIN 7.5 g/dl (6.1-8.1)
[2016-12-24 08:13] VITALS: BP 120/68; RESP 20
[2016-12-24] MEDS: INSULIN GLARGINE [LANtus] 3 ML PEN SC SCH (08:25)
[2016-12-24] MEDS: AL HYDROX/MG HYDROX/SIMETH 30 ML CUP PO SCH (08:26)
[2016-12-24] MEDS: ALPRAZOLAM 0.5 MG TAB PO PRN (08:26)
[2016-12-24] MEDS: HYDROXYCHLOROQUINE 200 MG TAB PO SCH (08:26)
[2016-12-24] MEDS: INSULIN ASPART [NOVOLOG] 3 ML PEN SC SCH ×4 (08:26→21:26)
[2016-12-24] MEDS: FAMOTIDINE 20 MG TAB PO SCH (08:26)
[2016-12-24] MEDS: ATENOLOL 100 MG TAB PO SCH (08:27)
[2016-12-24] MEDS: AMLODIPINE 10 MG TAB PO SCH (08:27)
[2016-12-24] MEDS: LATANOPROST 0.005% 2.5 ML OPH BOTH EYES SCH ×2 (08:28→21:22)
[2016-12-24] MEDS: TRIAMCINOLONE ACET 0.1% 15 GM CR TOP SCH ×2 (08:28→21:28)
[2016-12-24] MEDS: TIMOLOL 0.25% 5 ML OPH BOTH EYES SCH ×2 (08:28→21:23)
[2016-12-24] MEDS: BRIMONIDINE 0.2% 5 ML BTL BOTH EYES SCH ×2 (08:28→21:22)
[2016-12-24] MEDS: MUPIROCIN 2% 22 GM OINT TOP SCH ×2 (08:28→21:28)
[2016-12-24] MEDS: NICOTINE (21 MG/24 HR) PATCH TRANSDERM SCH (08:29)
[2016-12-24] MEDS: CITRIC ACID/NA CITRATE 30 ML CUP PO SCH ×2 (09:00→23:23)
--- NOTE | 2016-12-24 09:55 | CONS ---
Date/Time of Note Date/Time of Note DATE: 12/24/16 TIME: 09:53 Assessment/Plan Assessment/Plan Chief Complaint/Hosp Course Assessment: Hep C antibody reactive but PCR negative, likely cleared HCV so no active HCV and no need for treatment Glomerulonephritis. ANCA vasculitis Plan: await cryoglobulin but likely also negative as HCV pcr negative and pt cleared HCV rituxan per rheumatology Dr. Potts to resume care of this patient tomorrow. further management per primary and other consultants. Problems: Consultation Date/Type/Reason Admit Date/Time Dec 18, 2016 at 17:10 Initial Consult Date 12/20/16 Type of Consultation: renal 24 HR Interval Summary Free Text/Dictation no abdominal pain, no n/v, wants to get rituxan mouna so he can go home Exam/Review of Systems Vital Signs Vitals Vital Signs Date Time Temp Pulse Resp B/P Pulse Ox O2 Delivery O2 Flow Rate FiO2 12/24/16 08:13 97.6 60 20 120/68 94 12/21/16 08:59 Room Air Intake and Output 12/23/16 12/23/16 12/24/16 15:00 23:00 07:00 Intake Total 950 ml 4470 ml 700 ml Output Total 1550 ml 1480 ml Balance 950 ml 2920 ml -780 ml Exam Constitutional: alert, obese, oriented, well developed Psych: nl mood/affect, no complaints Head: atraumatic, normocephalic Eyes: EOMI, nl conjunctiva, nl lids, nl sclera ENMT: mucosa pink and moist, nl external ears & nose, nl lips & teeth, nl nasal mucosa & septum Neck: non-tender, supple Respiratory: clear to auscultation, normal air movement Cardiovascular: nl pulses, regular rate and rhythm Gastrointestinal: bowel sounds, non-tender, soft Results Result Diagram: 12/24/16 0542 12/24/16 0542 Results 24 hrs Laboratory Tests Test 12/23/16 11:16 12/23/16 11:21 12/23/16 12:18 12/23/16 17:20 Lab Scanned Report REFERENCE LAB REFERENCE LAB Bedside Glucose 381 H 483 *H Test 12/23/16 20:27 12/23/16 23:01 12/24/16 02:29 12/24/16 05:26 Bedside Glucose 565 *H 368 H 231 H 188 Test 12/24/16 05:42 12/24/16 08:23 White Blood Count 21.0 #H Red Blood Count 3.98 L Hemoglobin 11.8 L Hematocrit 36.5 L Mean Corpuscular Volume 91.7 Mean Corpuscular Hemoglobin 29.6 Mean Corpuscular Hemoglobin Concent 32.3 Red Cell Distribution Width 13.7 Platelet Count 344 Mean Platelet Volume 11.7 H Neutrophils % 85.3 H Lymphocytes % 6.7 L Monocytes % 4.9 Eosinophils % 0.0 Basophils % 0.1 Nucleated Red Blood Cells % 0.1 H Neutrophils # 17.9 H Lymphocytes # 1.4 Monocytes # 1.0 H Eosinophils # 0.0 Basophils # 0.0 Nucleated Red Blood Cells # 0.0 Sodium Level 142 Potassium Level 4.8 Chloride Level 109 Carbon Dioxide Level 25 Anion Gap 13 Blood Urea Nitrogen 53 H Creatinine 3.03 H Glucose Level 213 # Calcium Level 9.2 Total Bilirubin 0.1 L Direct Bilirubin 0.00 Indirect Bilirubin 0.1 Aspartate Amino Transf (AST/SGOT) 20 Alanine Aminotransferase (ALT/SGPT) 37 Alkaline Phosphatase 107 Total Protein 7.5 Albumin 3.2 L Globulin 4.30 H Albumin/Globulin Ratio 0.74 Bedside Glucose 173 Medications Medications Current Medications Ondansetron HCl (Zofran Inj) 4 mg Q6H PRN IV NAUSEA AND/OR VOMITING; Start at 20:30 Acetaminophen (Tylenol Tab) 650 mg Q6H PRN PO PAIN LEVEL 1-3 OR FEVER; Start 12/18/16 at 20:30 Docusate Sodium (Colace) 100 mg Q12H PRN PO CONSTIPATION; Start 12/18/16 at 20 :30 Bisacodyl (Dulcolax) 5 mg DAILY PRN PO CONSTIPATION; Start 12/18/16 at 20:30 Nicotine (Nicoderm 21 Mg/ 24hr) 1 patch DAILY TRANSDERM Last administered on 08:29; Admin Dose 1 PATCH; Start 12/19/16 at 09:00 Morphine Sulfate (morphine) 2 mg Q4H PRN IV PAIN LEVEL 6-10 Last administered on 12/24/16 03:04; Admin Dose 2 MG; Start 12/19/16 at 00:00 Alprazolam (Xanax) 0.5 mg BID PRN PO ANXIETY Last administered on 12/24/16 08 :26; Admin Dose 0.5 MG; Start 12/19/16 at 01:00 Amlodipine Besylate (Norvasc) 10 mg DAILY PO Last administered on 12/24/16 08 :27; Admin Dose 10 MG; Start 12/19/16 at 09:00 Atenolol (Tenormin) 100 mg DAILY PO Last administered on 12/24/16 08:27; Admin Dose 100 MG; Start 12/19/16 at 09:00 Carisoprodol (Soma) 350 mg BID PRN PO MUSCLE SPASMS; Start 12/19/16 at 01:00 Hydroxychloroquine Sulfate (Plaquenil) 200 mg DAILY PO Last administered on 08:26; Admin Dose 200 MG; Start 12/19/16 at 09:00 Timolol Maleate (Timoptic 0.25%) 1 drop BID BOTH EYES Last administered on 08:28; Admin Dose 1 DROP; Start 12/19/16 at 09:00 Tramadol HCl (Ultram) 50 mg BID PRN PO PAIN; Start 12/19/16 at 01:00 Triamcinolone Acetonide (Kenalog 0.1% Cr) 1 applic BID TOP Last administered on 12/24/16 08:28; Admin Dose 1 APPLIC; Start 12/19/16 at 09:00 Brimonidine Tartrate (Alphagan 0.2%) 1 drop BID BOTH EYES Last administered on 12/24/16 08:28; Admin Dose 1 DROP; Start 12/19/16 at 09:00 Latanoprost (Xalatan) 1 drop BID BOTH EYES Last administered on 12/24/16 08: 28; Admin Dose 1 DROP; Start 12/19/16 at 09:00 Bismuth Subsalicylate (Pepto-Bismol) 15 ml Q3H PRN PO GASTROINTESTINAL UPSET; Start 12/20/16 at 11:00 Mupirocin (Bactroban) 1 applic BID TOP Last administered on 12/24/16 08:28; Admin Dose 1 APPLIC; Start 12/20/16 at 21:00 Methylprednisolone Sodium Succinate (Solu-Medrol) 125 mg Q8 IV Last administered on 12/24/16 06:00; Admin Dose 125 MG; Start 12/22/16 at 14:00 Citric Acid/ Sodium Citrate (Bicitra) 30 ml BID PO Last administered on 20:30; Admin Dose 30 ML; Start 12/21/16 at 14:30 Famotidine (Pepcid) 20 mg DAILY PO Last administered on 12/24/16 08:26; Admin Dose 20 MG; Start 12/22/16 at 09:00 Insulin Glargine (Lantus) 18 unit DAILY@08 SC Last administered on 12/24/16 08:25; Admin Dose 18 UNIT; Start 12/23/16 at 08:00 Diagnostic Test (Pha) (Accu-Chek) 1 ea 02 XX Last administered on 12/24/16 02 :40; Admin Dose 1 EA; Start 12/23/16 at 02:00 Miscellaneous Information 1 ea NOTE XX ; Start 12/22/16 at 13:30 Glucose (Glutose) 15 gm Q15M PRN PO DECREASED GLUCOSE; Start 12/22/16 at 13:30 Glucose (Glutose) 22.5 gm Q15M PRN PO DECREASED GLUCOSE; Start 12/22/16 at 13: 30 Dextrose (D50w Syringe) 25 ml Q15M PRN IV DECREASED GLUCOSE; Start 12/22/16 at 13:30 Dextrose (D50w Syringe) 50 ml Q15M PRN IV DECREASED GLUCOSE; Start 12/22/16 at 13:30 Glucagon (Glucagen) 1 mg Q15M PRN IM DECREASED GLUCOSE; Start 12/22/16 at 13: 30 Glucose 15 gm 15 gm Q15M PRN BUCCAL DECREASED GLUCOSE; Start 12/22/16 at 13:30 Sodium Chloride (NS) 1,000 ml @ 150 mls/hr Q6H40M IV Last administered on 06:00; Admin Dose 150 MLS/HR; Start 12/22/16 at 20:30 Patient Own Medication 1 ea BID PRN TOP PAIN/JOINT PAIN Last administered on 08:29; Admin Dose 1 EA; Start 12/23/16 at 20:00 PAKO NELSON MD Dec 24, 2016 09:55
--- NOTE | 2016-12-24 11:32 | CONS ---
Date/Time of Note Date/Time of Note DATE: 12/24/16 TIME: 11:30 Assessment/Plan Assessment/Plan Chief Complaint/Hosp Course 1. Acute on chronic renal failure plus the patient has 3+ hematuria and proteinuria. . 2. Hematuria secondary A GN 3. Proteinuria to agn 4. Hypertension. 5. Rheumatoid arthritis? with 6. Possible lupus. unlikely 7. Uncontrolled sugars due to steroids 8. 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 Hep c positvity 10 obesity Problems: Additional Assessment/Plan 1. Better BS control 2. optimization Kidney function Consultation Date/Type/Reason Admit Date/Time Dec 18, 2016 at 17:10 Initial Consult Date 12/20/16 Type of Consultation: renal Reason for Consultation Dr Hagan 24 HR Interval Summary Constitutional: improved Exam/Review of Systems Vital Signs Vitals Vital Signs Date Time Temp Pulse Resp B/P Pulse Ox O2 Delivery O2 Flow Rate FiO2 12/24/16 08:13 97.6 60 20 120/68 94 12/21/16 08:59 Room Air Intake and Output 12/23/16 12/23/16 12/24/16 15:00 23:00 07:00 Intake Total 950 ml 4470 ml 700 ml Output Total 1550 ml 1480 ml Balance 950 ml 2920 ml -780 ml Exam Constitutional: alert, oriented Neck: supple Respiratory: clear to auscultation Cardiovascular: regular rate and rhythm Gastrointestinal: soft Results Result Diagram: 12/24/16 0542 12/24/16 0542 Results 24 hrs Laboratory Tests Test 12/23/16 12:18 12/23/16 17:20 12/23/16 20:27 12/23/16 23:01 Bedside Glucose 381 H 483 *H 565 *H 368 H Test 12/24/16 02:29 12/24/16 05:26 12/24/16 05:42 12/24/16 08:23 Bedside Glucose 231 H 188 173 White Blood Count 21.0 #H Red Blood Count 3.98 L Hemoglobin 11.8 L Hematocrit 36.5 L Mean Corpuscular Volume 91.7 Mean Corpuscular Hemoglobin 29.6 Mean Corpuscular Hemoglobin Concent 32.3 Red Cell Distribution Width 13.7 Platelet Count 344 Mean Platelet Volume 11.7 H Neutrophils % 85.3 H Lymphocytes % 6.7 L Monocytes % 4.9 Eosinophils % 0.0 Basophils % 0.1 Nucleated Red Blood Cells % 0.1 H Neutrophils # 17.9 H Lymphocytes # 1.4 Monocytes # 1.0 H Eosinophils # 0.0 Basophils # 0.0 Nucleated Red Blood Cells # 0.0 Sodium Level 142 Potassium Level 4.8 Chloride Level 109 Carbon Dioxide Level 25 Anion Gap 13 Blood Urea Nitrogen 53 H Creatinine 3.03 H Glucose Level 213 # Calcium Level 9.2 Total Bilirubin 0.1 L Direct Bilirubin 0.00 Indirect Bilirubin 0.1 Aspartate Amino Transf (AST/SGOT) 20 Alanine Aminotransferase (ALT/SGPT) 37 Alkaline Phosphatase 107 Total Protein 7.5 Albumin 3.2 L Globulin 4.30 H Albumin/Globulin Ratio 0.74 Medications Medications Current Medications Ondansetron HCl (Zofran Inj) 4 mg Q6H PRN IV NAUSEA AND/OR VOMITING; Start at 20:30 Acetaminophen (Tylenol Tab) 650 mg Q6H PRN PO PAIN LEVEL 1-3 OR FEVER; Start 12/18/16 at 20:30 Docusate Sodium (Colace) 100 mg Q12H PRN PO CONSTIPATION; Start 12/18/16 at 20 :30 Bisacodyl (Dulcolax) 5 mg DAILY PRN PO CONSTIPATION; Start 12/18/16 at 20:30 Nicotine (Nicoderm 21 Mg/ 24hr) 1 patch DAILY TRANSDERM Last administered on 08:29; Admin Dose 1 PATCH; Start 12/19/16 at 09:00 Morphine Sulfate (morphine) 2 mg Q4H PRN IV PAIN LEVEL 6-10 Last administered on 12/24/16 03:04; Admin Dose 2 MG; Start 12/19/16 at 00:00 Alprazolam (Xanax) 0.5 mg BID PRN PO ANXIETY Last administered on 12/24/16 08 :26; Admin Dose 0.5 MG; Start 12/19/16 at 01:00 Amlodipine Besylate (Norvasc) 10 mg DAILY PO Last administered on 12/24/16 08 :27; Admin Dose 10 MG; Start 12/19/16 at 09:00 Atenolol (Tenormin) 100 mg DAILY PO Last administered on 12/24/16 08:27; Admin Dose 100 MG; Start 12/19/16 at 09:00 Carisoprodol (Soma) 350 mg BID PRN PO MUSCLE SPASMS; Start 12/19/16 at 01:00 Hydroxychloroquine Sulfate (Plaquenil) 200 mg DAILY PO Last administered on 08:26; Admin Dose 200 MG; Start 12/19/16 at 09:00 Timolol Maleate (Timoptic 0.25%) 1 drop BID BOTH EYES Last administered on 08:28; Admin Dose 1 DROP; Start 12/19/16 at 09:00 Tramadol HCl (Ultram) 50 mg BID PRN PO PAIN; Start 12/19/16 at 01:00 Triamcinolone Acetonide (Kenalog 0.1% Cr) 1 applic BID TOP Last administered on 12/24/16 08:28; Admin Dose 1 APPLIC; Start 12/19/16 at 09:00 Brimonidine Tartrate (Alphagan 0.2%) 1 drop BID BOTH EYES Last administered on 12/24/16 08:28; Admin Dose 1 DROP; Start 12/19/16 at 09:00 Latanoprost (Xalatan) 1 drop BID BOTH EYES Last administered on 12/24/16 08: 28; Admin Dose 1 DROP; Start 12/19/16 at 09:00 Bismuth Subsalicylate (Pepto-Bismol) 15 ml Q3H PRN PO GASTROINTESTINAL UPSET; Start 12/20/16 at 11:00 Mupirocin (Bactroban) 1 applic BID TOP Last administered on 12/24/16 08:28; Admin Dose 1 APPLIC; Start 12/20/16 at 21:00 Methylprednisolone Sodium Succinate (Solu-Medrol) 125 mg Q8 IV Last administered on 12/24/16 06:00; Admin Dose 125 MG; Start 12/22/16 at 14:00 Citric Acid/ Sodium Citrate (Bicitra) 30 ml BID PO Last administered on 20:30; Admin Dose 30 ML; Start 12/21/16 at 14:30 Famotidine (Pepcid) 20 mg DAILY PO Last administered on 12/24/16 08:26; Admin Dose 20 MG; Start 12/22/16 at 09:00 Insulin Glargine (Lantus) 18 unit DAILY@08 SC Last administered on 12/24/16 08:25; Admin Dose 18 UNIT; Start 12/23/16 at 08:00 Diagnostic Test (Pha) (Accu-Chek) 1 ea 02 XX Last administered on 12/24/16 02 :40; Admin Dose 1 EA; Start 12/23/16 at 02:00 Miscellaneous Information 1 ea NOTE XX ; Start 12/22/16 at 13:30 Glucose (Glutose) 15 gm Q15M PRN PO DECREASED GLUCOSE; Start 12/22/16 at 13:30 Glucose (Glutose) 22.5 gm Q15M PRN PO DECREASED GLUCOSE; Start 12/22/16 at 13: 30 Dextrose (D50w Syringe) 25 ml Q15M PRN IV DECREASED GLUCOSE; Start 12/22/16 at 13:30 Dextrose (D50w Syringe) 50 ml Q15M PRN IV DECREASED GLUCOSE; Start 12/22/16 at 13:30 Glucagon (Glucagen) 1 mg Q15M PRN IM DECREASED GLUCOSE; Start 12/22/16 at 13: 30 Glucose 15 gm 15 gm Q15M PRN BUCCAL DECREASED GLUCOSE; Start 12/22/16 at 13:30 Sodium Chloride (NS) 1,000 ml @ 150 mls/hr Q6H40M IV Last administered on 06:00; Admin Dose 150 MLS/HR; Start 12/22/16 at 20:30 Patient Own Medication 1 ea BID PRN TOP PAIN/JOINT PAIN Last administered on 08:29; Admin Dose 1 EA; Start 12/23/16 at 20:00 MIMI CHANCE Dec 24, 2016 11:32
--- NOTE | 2016-12-24 14:12 | RADRPT ---
PROCEDURE: XR Chest. CLINICAL INDICATION: PICC line placement TECHNIQUE: Anterior chest x-ray. COMPARISON: 10/25/2016 FINDINGS: Interval placement right-sided PICC line which terminates in superior vena cava 2 cm above the right atrium. There is pulmonary vascular congestion. There is no focal consolidation. No pleural effusion identified. There is no evidence of pneumothorax. The heart size is large. Mediastinal contour is widened. The soft tissues are normal. Osseous structures are unremarkable. IMPRESSION: 1. Right-sided PICC line with satisfactory position. 2. Cardiomegaly. 3. Pulmonary vascular congestion. RPTAT: QQ .Fernando Jernigan MD, MD Date Time Electronically viewed and signed by .Fernando Jernigan MD, on 12/24/2016 14:12 .M/
--- NOTE | 2016-12-24 14:42 | RADRPT ---
PROCEDURE: Ultrasound guidance for placement of needle in right upper extremity vein. CLINICAL INDICATION: Venous access. TECHNIQUE: Limited sonography of the right upper extremity was performed. Ultrasound images were recorded and stored in the patient's medical record. COMPARISON: None. FINDINGS: The ultrasound images demonstrate a patent right upper extremity vein. The PICC line was inserted b y the PICC line nurse. IMPRESSION: 1. Ultrasound guidance for a needle placement in a right upper extremity vein. 2. The visualized right upper extremity vein is patent. RPTAT: QQ .Luis Antonio Mathis MD, MD Date Time Electronically viewed and signed by .Luis Antonio Mathis MD, on 12/24/2016 14:42 .R/
[2016-12-24 15:47] VITALS: BP 159/102; PULSE 68; RESP 19
--- NOTE | 2016-12-24 15:59 | PN ---
Date/Time of Note Date/Time of Note DATE: 12/24/16 TIME: 15:58 Assessment/Plan VTE Prophylaxis VTE Prophylaxis Intervention: LMWH Lines/Catheters IV C[facility]ter Type (from [facility]): Peripheral IV Urinary Cath still in place: No Assessment/Plan Chief Complaint/Hosp Course 51 yo male with CKD III and hematuria with workup showing newly diagnosed ANCA vasculitis/glomerulonephritis who was admitted for management of ANCA vasculitis ANCA vasculitis - Solumedrol pulse dose x 3 days, now being downtitrated per rheum - rituxan per rheumatology, ppd is negative - Plaquenil daily - HCV Ab+ so await cryoglobulins, HCV PCR negative DMII w hyperglycemia: - Significant steroid induced hyperglycemia, started on insulin, not diabetic at baseline - Remains hyperglycemic but as steroids down tapered sugars should as well so willing to tolerate a bit of hypeglycemia to avoid hypo YAEL on CKD III: - Management per renal, creatinine improving w steroids Hypertension: - Continue amlodipine, atenolol Discharge home when stable Problems: Subjective 24 Hr Interval Summary Free Text/Dictation Sugars coming down to normal range PPD is negative PICC to be placed today Patient a bit ornery this AM with staff but redircetable Exam/Review of Systems Vital Signs Vitals Vital Signs Date Time Temp Pulse Resp B/P Pulse Ox O2 Delivery O2 Flow Rate FiO2 12/24/16 15:47 68 19 159/102 94 Room Air 12/24/16 08:13 97.6 Intake and Output 12/23/16 12/23/16 12/24/16 15:00 23:00 07:00 Intake Total 950 ml 4470 ml 700 ml Output Total 1550 ml 1480 ml Balance 950 ml 2920 ml -780 ml Exam Constitutional: alert, oriented, well developed Psych: nl mood/affect, no complaints Head: atraumatic, normocephalic Eyes: EOMI, PERRL, nl conjunctiva, nl lids, nl sclera ENMT: nl external ears & nose, nl lips & teeth, nl nasal mucosa & septum Neck: non-tender, supple Respiratory: clear to auscultation, normal air movement Cardiovascular: nl pulses, regular rate and rhythm Gastrointestinal: nl liver, spleen, non-tender, soft Musculoskeletal: nl extremities to inspection, nl gait and stance Extremities: normal pulses Neurological: PHYSICIAN REPRESENTATIVE II-XII intact, nl mental status, nl speech, nl strength Skin: nl turgor, No rash or lesions Lymph: nl lymph nodes Results Result Diagram: 12/24/16 0542 12/24/16 0542 Results 24 hrs Laboratory Tests Test 12/23/16 17:20 12/23/16 20:27 12/23/16 23:01 12/24/16 02:29 Bedside Glucose 483 *H 565 *H 368 H 231 H Test 12/24/16 05:26 12/24/16 05:42 12/24/16 08:23 12/24/16 11:42 Bedside Glucose 188 173 222 H White Blood Count 21.0 #H Red Blood Count 3.98 L Hemoglobin 11.8 L Hematocrit 36.5 L Mean Corpuscular Volume 91.7 Mean Corpuscular Hemoglobin 29.6 Mean Corpuscular Hemoglobin Concent 32.3 Red Cell Distribution Width 13.7 Platelet Count 344 Mean Platelet Volume 11.7 H Neutrophils % 85.3 H Lymphocytes % 6.7 L Monocytes % 4.9 Eosinophils % 0.0 Basophils % 0.1 Nucleated Red Blood Cells % 0.1 H Neutrophils # 17.9 H Lymphocytes # 1.4 Monocytes # 1.0 H Eosinophils # 0.0 Basophils # 0.0 Nucleated Red Blood Cells # 0.0 Sodium Level 142 Potassium Level 4.8 Chloride Level 109 Carbon Dioxide Level 25 Anion Gap 13 Blood Urea Nitrogen 53 H Creatinine 3.03 H Glucose Level 213 # Calcium Level 9.2 Total Bilirubin 0.1 L Direct Bilirubin 0.00 Indirect Bilirubin 0.1 Aspartate Amino Transf (AST/SGOT) 20 Alanine Aminotransferase (ALT/SGPT) 37 Alkaline Phosphatase 107 Total Protein 7.5 Albumin 3.2 L Globulin 4.30 H Albumin/Globulin Ratio 0.74 Medications Medications Current Medications Ondansetron HCl (Zofran Inj) 4 mg Q6H PRN IV NAUSEA AND/OR VOMITING; Start at 20:30 Acetaminophen (Tylenol Tab) 650 mg Q6H PRN PO PAIN LEVEL 1-3 OR FEVER; Start 12/18/16 at 20:30 Docusate Sodium (Colace) 100 mg Q12H PRN PO CONSTIPATION; Start 12/18/16 at 20 :30 Bisacodyl (Dulcolax) 5 mg DAILY PRN PO CONSTIPATION; Start 12/18/16 at 20:30 Nicotine (Nicoderm 21 Mg/ 24hr) 1 patch DAILY TRANSDERM Last administered on 08:29; Admin Dose 1 PATCH; Start 12/19/16 at 09:00 Morphine Sulfate (morphine) 2 mg Q4H PRN IV PAIN LEVEL 6-10 Last administered on 12/24/16 03:04; Admin Dose 2 MG; Start 12/19/16 at 00:00 Alprazolam (Xanax) 0.5 mg BID PRN PO ANXIETY Last administered on 12/24/16 08 :26; Admin Dose 0.5 MG; Start 12/19/16 at 01:00 Amlodipine Besylate (Norvasc) 10 mg DAILY PO Last administered on 12/24/16 08 :27; Admin Dose 10 MG; Start 12/19/16 at 09:00 Atenolol (Tenormin) 100 mg DAILY PO Last administered on 12/24/16 08:27; Admin Dose 100 MG; Start 12/19/16 at 09:00 Carisoprodol (Soma) 350 mg BID PRN PO MUSCLE SPASMS; Start 12/19/16 at 01:00 Hydroxychloroquine Sulfate (Plaquenil) 200 mg DAILY PO Last administered on 08:26; Admin Dose 200 MG; Start 12/19/16 at 09:00 Timolol Maleate (Timoptic 0.25%) 1 drop BID BOTH EYES Last administered on 08:28; Admin Dose 1 DROP; Start 12/19/16 at 09:00 Tramadol HCl (Ultram) 50 mg BID PRN PO PAIN; Start 12/19/16 at 01:00 Triamcinolone Acetonide (Kenalog 0.1% Cr) 1 applic BID TOP Last administered on 12/24/16 08:28; Admin Dose 1 APPLIC; Start 12/19/16 at 09:00 Brimonidine Tartrate (Alphagan 0.2%) 1 drop BID BOTH EYES Last administered on 12/24/16 08:28; Admin Dose 1 DROP; Start 12/19/16 at 09:00 Latanoprost (Xalatan) 1 drop BID BOTH EYES Last administered on 12/24/16 08: 28; Admin Dose 1 DROP; Start 12/19/16 at 09:00 Bismuth Subsalicylate (Pepto-Bismol) 15 ml Q3H PRN PO GASTROINTESTINAL UPSET; Start 12/20/16 at 11:00 Mupirocin (Bactroban) 1 applic BID TOP Last administered on 12/24/16 08:28; Admin Dose 1 APPLIC; Start 12/20/16 at 21:00 Methylprednisolone Sodium Succinate (Solu-Medrol) 125 mg Q8 IV Last administered on 12/24/16 15:43; Admin Dose 125 MG; Start 12/22/16 at 14:00 Citric Acid/ Sodium Citrate (Bicitra) 30 ml BID PO Last administered on 20:30; Admin Dose 30 ML; Start 12/21/16 at 14:30 Famotidine (Pepcid) 20 mg DAILY PO Last administered on 12/24/16 08:26; Admin Dose 20 MG; Start 12/22/16 at 09:00 Diagnostic Test (Pha) (Accu-Chek) 1 ea 02 XX Last administered on 12/24/16 02 :40; Admin Dose 1 EA; Start 12/23/16 at 02:00 Miscellaneous Information 1 ea NOTE XX ; Start 12/22/16 at 13:30 Glucose (Glutose) 15 gm Q15M PRN PO DECREASED GLUCOSE; Start 12/22/16 at 13:30 Glucose (Glutose) 22.5 gm Q15M PRN PO DECREASED GLUCOSE; Start 12/22/16 at 13: 30 Dextrose (D50w Syringe) 25 ml Q15M PRN IV DECREASED GLUCOSE; Start 12/22/16 at 13:30 Dextrose (D50w Syringe) 50 ml Q15M PRN IV DECREASED GLUCOSE; Start 12/22/16 at 13:30 Glucagon (Glucagen) 1 mg Q15M PRN IM DECREASED GLUCOSE; Start 12/22/16 at 13: 30 Glucose 15 gm 15 gm Q15M PRN BUCCAL DECREASED GLUCOSE; Start 12/22/16 at 13:30 Sodium Chloride (NS) 1,000 ml @ 150 mls/hr Q6H40M IV Last administered on 15:43; Admin Dose 150 MLS/HR; Start 12/22/16 at 20:30 Patient Own Medication 1 ea BID PRN TOP PAIN/JOINT PAIN Last administered on 08:29; Admin Dose 1 EA; Start 12/23/16 at 20:00 Insulin Glargine (Lantus) 10 unit QHS SC ; Start 12/24/16 at 21:00 IV Flush (NS 10 ml) 10 ml ONCE ONCE IV ; Start 12/24/16 at 16:00; Stop at 16:01 Heparin Sodium (Porcine) (Heparin Flush (10 Units/ml)) 50 unit ONCE ONCE IV ; Start 12/24/16 at 16:00; Stop 12/24/16 at 16:01 TRINITY DICKENS MD Dec 24, 2016 15:59
[2016-12-24] MEDS ORDERED: HEPARIN (10 UNITS/ML) 5ML SYG IV ONE (16:00)
[2016-12-24 19:16] LABS: SEVENTY TWO HOUR READING 0 mm (0-9)
[2016-12-24 19:57] VITALS: BP 160/91; PULSE 68; RESP 20
[2016-12-24 20:25] VITALS: BP 170/107; PULSE 72; RESP 20
[2016-12-24] MEDS ORDERED: hydrALAzine 20 MG INJ IV PRN (21:00)
[2016-12-24] MEDS ORDERED: INSULIN GLARGINE [LANtus] 3 ML PEN SC SCH (21:00)
[2016-12-24 23:50] VITALS: BP 174/95; PULSE 72; RESP 21
[2016-12-25] VITALS (16 sets, daily range): BP systolic 132–155; BP diastolic 75–112; PULSE 62–75; RESP 16–20
[2016-12-25] MEDS ORDERED: LORAZEPAM 2 MG INJ IV ONE
[2016-12-25] MEDS: ACCU-CHEK XX SCH (01:48)
[2016-12-25] MEDS: METHYLPREDNISOLONE 125 MG INJ IV SCH ×3 (04:38→21:34)
[2016-12-25 06:03] LABS: BASOPHILS % 0.1 % (0.0-2.0); HEMATOCRIT 34.8 % (42.0-52.0); HEMOGLOBIN 11.2 g/dl (14.0-18.0); LYMPHOCYTES # 0.9 10^3/ul (0.8-2.9); LYMPHOCYTES % 5.4 % (15.0-51.0); MEAN CORPUSCULAR HEMOGLOBIN 29.6 pg (29.0-33.0); MEAN CORPUSCULAR HGB CONC 32.2 g/dl (32.0-37.0); MEAN CORPUSCULAR VOLUME 92.1 fl (82.0-101.0); MEAN PLATELET VOLUME 12.7 fl (7.4-10.4); MONOCYTE # 1.1 10^3/ul (0.3-0.9); MONOCYTES % 6.5 % (0.0-11.0); NEUTROPHIL # 14.7 10^3/ul (1.6-7.5); NEUTROPHILS % 85.2 % (39.0-77.0); NUCLEATED RED BLOOD CELLS% 0.1 /100WBC (0.0-0.0); PLATELET COUNT 301 10^3/UL (140-415); RED BLOOD COUNT 3.78 10^6/ul (4.70-6.10); RED CELL DISTRIBUTION WIDTH 14.3 % (11.5-14.5); WHITE BLOOD COUNT 17.2 10^3/ul (4.8-10.8)
[2016-12-25 06:44] LABS: ALBUMIN 2.9 g/dl (3.3-4.9); ALBUMIN/GLOBULIN RATIO 0.76; CALCIUM 8.6 mg/dl (8.4-10.2); CREATININE 3.06 mg/dl (0.61-1.24); POTASSIUM 4.3 mmol/L (3.5-5.1); TOTAL PROTEIN 6.7 g/dl (6.1-8.1)
[2016-12-25] MEDS: INSULIN ASPART [NOVOLOG] 3 ML PEN SC SCH ×4 (09:32→20:43)
[2016-12-25] MEDS: AL HYDROX/MG HYDROX/SIMETH 30 ML CUP PO SCH (09:32)
[2016-12-25] MEDS: TIMOLOL 0.25% 5 ML OPH BOTH EYES SCH ×2 (09:33→20:33)
[2016-12-25] MEDS: BRIMONIDINE 0.2% 5 ML BTL BOTH EYES SCH ×2 (09:33→20:32)
[2016-12-25] MEDS: LATANOPROST 0.005% 2.5 ML OPH BOTH EYES SCH ×2 (09:33→20:33)
[2016-12-25] MEDS: CITRIC ACID/NA CITRATE 30 ML CUP PO SCH (09:33)
[2016-12-25] MEDS: FAMOTIDINE 20 MG TAB PO SCH (09:34)
[2016-12-25] MEDS: HYDROXYCHLOROQUINE 200 MG TAB PO SCH (09:34)
[2016-12-25] MEDS: ATENOLOL 100 MG TAB PO SCH (09:34)
[2016-12-25] MEDS: AMLODIPINE 10 MG TAB PO SCH (09:34)
[2016-12-25] MEDS: MUPIROCIN 2% 22 GM OINT TOP SCH ×2 (09:35→20:32)
[2016-12-25] MEDS: NICOTINE (21 MG/24 HR) PATCH TRANSDERM SCH (09:35)
[2016-12-25] MEDS: TRIAMCINOLONE ACET 0.1% 15 GM CR TOP SCH ×2 (09:35→20:45)
--- NOTE | 2016-12-25 10:05 | PN ---
Date/Time of Note Date/Time of Note DATE: 12/25/16 TIME: 09:58 Assessment/Plan VTE Prophylaxis VTE Prophylaxis Intervention: SCD's Lines/Catheters [facility] ([facility]): PICC Line Central line still needed: Yes (medication) Urinary Cath still in place: No Assessment/Plan Chief Complaint/Hosp Course Assessment: Hep C antibody reactive Mild anemia/stable Consistent with chronic disease Glomerulonephritis. Plan: HCV viral- not detected Continue current treatment plan Patient seen in collaboration with Dr. Potts Subjective: Course reviewed with nursing staff Patient interviewed and examined All labs, imaging and other results reviewed The aggravated at this time, having a difficult time staying in the room wants to go down stairs and smoke Discussed results of HCV RNA results. Patient does not appear to have active Hepatitis C- but does have Antibodies. Thank you for this consults, patient should follow up with GI for out-patient colonoscopy : Problems: Exam/Review of Systems Vital Signs Vitals Vital Signs Date Time Temp Pulse Resp B/P Pulse Ox O2 Delivery O2 Flow Rate FiO2 12/25/16 01:45 97.4 75 19 134/75 95 Room Air Intake and Output 12/24/16 12/24/16 12/25/16 15:00 23:00 07:00 Intake Total 900 ml 720 ml 1100 ml Output Total 2100 ml Balance 900 ml -1380 ml 1100 ml Results Result Diagram: 12/25/162 12/25/16 0442 Results 24 hrs Laboratory Tests Test 12/24/16 11:42 12/24/16 16:02 12/24/16 17:39 12/24/16 21:21 Bedside Glucose 222 H 210 201 246 H Test 12/25/16 01:39 12/25/16 04:42 12/25/16 09:19 Bedside Glucose 266 H 424 *H White Blood Count 17.2 H Red Blood Count 3.78 L Hemoglobin 11.2 L Hematocrit 34.8 L Mean Corpuscular Volume 92.1 Mean Corpuscular Hemoglobin 29.6 Mean Corpuscular Hemoglobin Concent 32.2 Red Cell Distribution Width 14.3 Platelet Count 301 Mean Platelet Volume 12.7 H Neutrophils % 85.2 H Lymphocytes % 5.4 L Monocytes % 6.5 Eosinophils % 0.0 Basophils % 0.1 Nucleated Red Blood Cells % 0.1 H Neutrophils # 14.7 H Lymphocytes # 0.9 Monocytes # 1.1 H Eosinophils # 0.0 Basophils # 0.0 Nucleated Red Blood Cells # 0.0 Sodium Level 140 Potassium Level 4.3 Chloride Level 107 Carbon Dioxide Level 23 Anion Gap 14 Blood Urea Nitrogen 67 H Creatinine 3.06 H Glucose Level 387 #H Calcium Level 8.6 Total Bilirubin 0.0 L Direct Bilirubin 0.00 Indirect Bilirubin 0.0 Aspartate Amino Transf (AST/SGOT) 26 Alanine Aminotransferase (ALT/SGPT) 36 Alkaline Phosphatase 129 H Total Protein 6.7 Albumin 2.9 L Globulin 3.80 H Albumin/Globulin Ratio 0.76 Medications Medications Current Medications Ondansetron HCl (Zofran Inj) 4 mg Q6H PRN IV NAUSEA AND/OR VOMITING; Start at 20:30 Acetaminophen (Tylenol Tab) 650 mg Q6H PRN PO PAIN LEVEL 1-3 OR FEVER; Start 12/18/16 at 20:30 Docusate Sodium (Colace) 100 mg Q12H PRN PO CONSTIPATION; Start 12/18/16 at 20 :30 Bisacodyl (Dulcolax) 5 mg DAILY PRN PO CONSTIPATION; Start 12/18/16 at 20:30 Nicotine (Nicoderm 21 Mg/ 24hr) 1 patch DAILY TRANSDERM Last administered on 09:35; Admin Dose 1 PATCH; Start 12/19/16 at 09:00 Morphine Sulfate (morphine) 2 mg Q4H PRN IV PAIN LEVEL 6-10 Last administered on 12/24/16 03:04; Admin Dose 2 MG; Start 12/19/16 at 00:00 Alprazolam (Xanax) 0.5 mg BID PRN PO ANXIETY Last administered on 12/24/16 08 :26; Admin Dose 0.5 MG; Start 12/19/16 at 01:00 Amlodipine Besylate (Norvasc) 10 mg DAILY PO Last administered on 12/25/16 09 :34; Admin Dose 10 MG; Start 12/19/16 at 09:00 Atenolol (Tenormin) 100 mg DAILY PO Last administered on 12/25/16 09:34; Admin Dose 100 MG; Start 12/19/16 at 09:00 Carisoprodol (Soma) 350 mg BID PRN PO MUSCLE SPASMS; Start 12/19/16 at 01:00 Hydroxychloroquine Sulfate (Plaquenil) 200 mg DAILY PO Last administered on 09:34; Admin Dose 200 MG; Start 12/19/16 at 09:00 Timolol Maleate (Timoptic 0.25%) 1 drop BID BOTH EYES Last administered on 09:33; Admin Dose 1 DROP; Start 12/19/16 at 09:00 Tramadol HCl (Ultram) 50 mg BID PRN PO PAIN; Start 12/19/16 at 01:00 Triamcinolone Acetonide (Kenalog 0.1% Cr) 1 applic BID TOP Last administered on 12/25/16 09:35; Admin Dose 1 APPLIC; Start 12/19/16 at 09:00 Brimonidine Tartrate (Alphagan 0.2%) 1 drop BID BOTH EYES Last administered on 12/25/16 09:33; Admin Dose 1 DROP; Start 12/19/16 at 09:00 Latanoprost (Xalatan) 1 drop BID BOTH EYES Last administered on 12/25/16 09: 33; Admin Dose 1 DROP; Start 12/19/16 at 09:00 Bismuth Subsalicylate (Pepto-Bismol) 15 ml Q3H PRN PO GASTROINTESTINAL UPSET; Start 12/20/16 at 11:00 Mupirocin (Bactroban) 1 applic BID TOP Last administered on 12/25/16 09:35; Admin Dose 1 APPLIC; Start 12/20/16 at 21:00 Methylprednisolone Sodium Succinate (Solu-Medrol) 125 mg Q8 IV Last administered on 12/25/16 04:38; Admin Dose 125 MG; Start 12/22/16 at 14:00 Citric Acid/ Sodium Citrate (Bicitra) 30 ml BID PO Last administered on 09:33; Admin Dose 30 ML; Start 12/21/16 at 14:30 Famotidine (Pepcid) 20 mg DAILY PO Last administered on 12/25/16 09:34; Admin Dose 20 MG; Start 12/22/16 at 09:00 Diagnostic Test (Pha) (Accu-Chek) 1 ea 02 XX Last administered on 12/24/16 02 :40; Admin Dose 1 EA; Start 12/23/16 at 02:00 Miscellaneous Information 1 ea NOTE XX ; Start 12/22/16 at 13:30 Glucose (Glutose) 15 gm Q15M PRN PO DECREASED GLUCOSE; Start 12/22/16 at 13:30 Glucose (Glutose) 22.5 gm Q15M PRN PO DECREASED GLUCOSE; Start 12/22/16 at 13: 30 Dextrose (D50w Syringe) 25 ml Q15M PRN IV DECREASED GLUCOSE; Start 12/22/16 at 13:30 Dextrose (D50w Syringe) 50 ml Q15M PRN IV DECREASED GLUCOSE; Start 12/22/16 at 13:30 Glucagon (Glucagen) 1 mg Q15M PRN IM DECREASED GLUCOSE; Start 12/22/16 at 13: 30 Glucose (Glutose) 15 gm Q15M PRN BUCCAL DECREASED GLUCOSE; Start 12/22/16 at 13:30 Patient Own Medication 1 ea BID PRN TOP PAIN/JOINT PAIN Last administered on t 21:29; Admin Dose 1 EA; Start 12/23/16 at 20:00 Hydralazine HCl (Apresoline) 10 mg Q4H PRN IV ELEVATEDB/P Last administered on 12/24/16 21:29; Admin Dose 10 MG; Start 12/24/16 at 21:00 Insulin Glargine (Lantus) 18 unit QHS SC ; Start 12/25/16 at 21:00 TOM SORTO Dec 25, 2016 10:04
--- NOTE | 2016-12-25 11:00 | CONS ---
Date/Time of Note Date/Time of Note DATE: 12/25/16 TIME: 10:52 Assessment/Plan Assessment/Plan Chief Complaint/Hosp Course 1. Acute on chronic renal failure plus the patient has 3+ hematuria and proteinuria. His baseline creatinine is 1.5 to 1.85 range. At last hospitalization, creatinine was 3.61 and upon discharge was 2.69, however, currently is 5.09. Patient is positive for C-ANCA. CRP was 61. 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 Cr improved to 4.64 > 3.77>3.46 today s/p solumedrol dose #1 on 12/19/09, and 2 doses on 12/21 . Now on labs P ANCA + Now on solumedrol 125 q 8 2. Hematuria secondary to #1. 3. Proteinuria secondary to #1. 4. Hypertension. 5. Rheumatoid arthritis? with Hep c positvity 6. Possible lupus. unlikely 7. Uncontrolled sugars due to steroids/ Non compliance 8. 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 9. Possible lupus. however unlikely per Rheumtology and no evidence of lupus nephritis on renal biopsy 10 Fluid retention likely due to excessive fluid intake/ steroids Recs - HCV viral load negative, Cryogloblins pending - Quantiferon gold TB tests interdeterminate, PPD negative - Rituxan per Rheum today(pamphelt given for education) - Fluid restriction to 1.5 L and iv lasix for edema - Pt instructed to avoid sweets (candies ) and 1800 ada diet - Consider endocrine consult for uncontrolled sugars - Will talk to rheum for PCP prophylaxis post chemo - Steroids per Rheumatology - Hold Amlodipine due to worsening pedal edema - C/W Atenolol Problems: Consultation Date/Type/Reason Admit Date/Time Dec 18, 2016 at 17:10 Initial Consult Date 12/20/16 Type of Consultation: renal 24 HR Interval Summary Free Text/Dictation Pt feels swollen Legs are edematous Pt was on NS 250 cc/hr? stopped yesterday Intake was 4 L, 6 L Pt was agitated this am but explained side effects of rituxan, pamphlet given for rituximab Pt eating candy bars , jar at bedside Exam/Review of Systems Vital Signs Vitals Vital Signs Date Time Temp Pulse Resp B/P Pulse Ox O2 Delivery O2 Flow Rate FiO2 12/25/16 01:45 97.4 75 19 134/75 95 Room Air Intake and Output 12/24/16 12/24/16 12/25/16 14:59 22:59 06:59 Intake Total 1620 ml 1100 ml Output Total 2100 ml Balance -480 ml 1100 ml Exam GENERAL: Patient is awake, alert, middle-aged [place] male, no acute distress. HEENT: Normocephalic, atraumatic. No pallor. No scleral icterus. NECK: Supple, no JVD. HEART: Regular rate and rhythm. LUNGS: Clear to auscultate bilaterally. ABDOMEN: Soft, nontender, nondistended, positive normoactive bowel sounds. EXTREMITIES: 2+edema SKIN: The patient has some changes on the cheek. NEUROLOGIC: Awake, alert, oriented x3. The patient has decreased sensation on bilateral lower extremities. Results Result Diagram: 12/25/16 0442 12/25/16 0442 Results 24 hrs Laboratory Tests Test 12/24/16 11:42 12/24/16 16:02 12/24/16 17:39 12/24/16 21:21 Bedside Glucose 222 H 210 201 246 H Test 12/25/16 01:39 12/25/16 04:42 12/25/16 09:19 Bedside Glucose 266 H 424 *H White Blood Count 17.2 H Red Blood Count 3.78 L Hemoglobin 11.2 L Hematocrit 34.8 L Mean Corpuscular Volume 92.1 Mean Corpuscular Hemoglobin 29.6 Mean Corpuscular Hemoglobin Concent 32.2 Red Cell Distribution Width 14.3 Platelet Count 301 Mean Platelet Volume 12.7 H Neutrophils % 85.2 H Lymphocytes % 5.4 L Monocytes % 6.5 Eosinophils % 0.0 Basophils % 0.1 Nucleated Red Blood Cells % 0.1 H Neutrophils # 14.7 H Lymphocytes # 0.9 Monocytes # 1.1 H Eosinophils # 0.0 Basophils # 0.0 Nucleated Red Blood Cells # 0.0 Sodium Level 140 Potassium Level 4.3 Chloride Level 107 Carbon Dioxide Level 23 Anion Gap 14 Blood Urea Nitrogen 67 H Creatinine 3.06 H Glucose Level 387 #H Calcium Level 8.6 Total Bilirubin 0.0 L Direct Bilirubin 0.00 Indirect Bilirubin 0.0 Aspartate Amino Transf (AST/SGOT) 26 Alanine Aminotransferase (ALT/SGPT) 36 Alkaline Phosphatase 129 H Total Protein 6.7 Albumin 2.9 L Globulin 3.80 H Albumin/Globulin Ratio 0.76 Medications Medications Current Medications Ondansetron HCl (Zofran Inj) 4 mg Q6H PRN IV NAUSEA AND/OR VOMITING; Start at 20:30 Acetaminophen (Tylenol Tab) 650 mg Q6H PRN PO PAIN LEVEL 1-3 OR FEVER; Start 12/18/16 at 20:30 Docusate Sodium (Colace) 100 mg Q12H PRN PO CONSTIPATION; Start 12/18/16 at 20 :30 Bisacodyl (Dulcolax) 5 mg DAILY PRN PO CONSTIPATION; Start 12/18/16 at 20:30 Nicotine (Nicoderm 21 Mg/ 24hr) 1 patch DAILY TRANSDERM Last administered on 09:35; Admin Dose 1 PATCH; Start 12/19/16 at 09:00 Morphine Sulfate (morphine) 2 mg Q4H PRN IV PAIN LEVEL 6-10 Last administered on 12/24/16 03:04; Admin Dose 2 MG; Start 12/19/16 at 00:00 Alprazolam (Xanax) 0.5 mg BID PRN PO ANXIETY Last administered on 12/24/16 08 :26; Admin Dose 0.5 MG; Start 12/19/16 at 01:00 Amlodipine Besylate (Norvasc) 10 mg DAILY PO Last administered on 12/25/16 09 :34; Admin Dose 10 MG; Start 12/19/16 at 09:00 Atenolol (Tenormin) 100 mg DAILY PO Last administered on 12/25/16 09:34; Admin Dose 100 MG; Start 12/19/16 at 09:00 Carisoprodol (Soma) 350 mg BID PRN PO MUSCLE SPASMS; Start 12/19/16 at 01:00 Hydroxychloroquine Sulfate (Plaquenil) 200 mg DAILY PO Last administered on 09:34; Admin Dose 200 MG; Start 12/19/16 at 09:00 Timolol Maleate (Timoptic 0.25%) 1 drop BID BOTH EYES Last administered on 09:33; Admin Dose 1 DROP; Start 12/19/16 at 09:00 Tramadol HCl (Ultram) 50 mg BID PRN PO PAIN; Start 12/19/16 at 01:00 Triamcinolone Acetonide (Kenalog 0.1% Cr) 1 applic BID TOP Last administered on 12/25/16 09:35; Admin Dose 1 APPLIC; Start 12/19/16 at 09:00 Brimonidine Tartrate (Alphagan 0.2%) 1 drop BID BOTH EYES Last administered on 12/25/16 09:33; Admin Dose 1 DROP; Start 12/19/16 at 09:00 Latanoprost (Xalatan) 1 drop BID BOTH EYES Last administered on 12/25/16 09: 33; Admin Dose 1 DROP; Start 12/19/16 at 09:00 Bismuth Subsalicylate (Pepto-Bismol) 15 ml Q3H PRN PO GASTROINTESTINAL UPSET; Start 12/20/16 at 11:00 Mupirocin (Bactroban) 1 applic BID TOP Last administered on 12/25/16 09:35; Admin Dose 1 APPLIC; Start 12/20/16 at 21:00 Methylprednisolone Sodium Succinate (Solu-Medrol) 125 mg Q8 IV Last administered on 12/25/16 04:38; Admin Dose 125 MG; Start 12/22/16 at 14:00 Citric Acid/ Sodium Citrate (Bicitra) 30 ml BID PO Last administered on 09:33; Admin Dose 30 ML; Start 12/21/16 at 14:30 Famotidine (Pepcid) 20 mg DAILY PO Last administered on 12/25/16 09:34; Admin Dose 20 MG; Start 12/22/16 at 09:00 Diagnostic Test (Pha) (Accu-Chek) 1 ea 02 XX Last administered on 12/24/16 02 :40; Admin Dose 1 EA; Start 12/23/16 at 02:00 Miscellaneous Information 1 ea NOTE XX ; Start 12/22/16 at 13:30 Glucose (Glutose) 15 gm Q15M PRN PO DECREASED GLUCOSE; Start 12/22/16 at 13:30 Glucose (Glutose) 22.5 gm Q15M PRN PO DECREASED GLUCOSE; Start 12/22/16 at 13: 30 Dextrose (D50w Syringe) 25 ml Q15M PRN IV DECREASED GLUCOSE; Start 12/22/16 at 13:30 Dextrose (D50w Syringe) 50 ml Q15M PRN IV DECREASED GLUCOSE; Start 12/22/16 at 13:30 Glucagon (Glucagen) 1 mg Q15M PRN IM DECREASED GLUCOSE; Start 12/22/16 at 13: 30 Glucose (Glutose) 15 gm Q15M PRN BUCCAL DECREASED GLUCOSE; Start 12/22/16 at 13:30 Patient Own Medication 1 ea BID PRN TOP PAIN/JOINT PAIN Last administered on 21:29; Admin Dose 1 EA; Start 12/23/16 at 20:00 Hydralazine HCl (Apresoline) 10 mg Q4H PRN IV ELEVATEDB/P Last administered on 12/24/16 21:29; Admin Dose 10 MG; Start 12/24/16 at 21:00 Insulin Glargine (Lantus) 18 unit QHS SC ; Start 12/25/16 at 21:00 LILLY MACDONALD MD Dec 25, 2016 10:59
[2016-12-25] MEDS: FUROSEMIDE 20 MG INJ IV SCH (12:56)
[2016-12-25] MEDS ORDERED: DIPHENHYDRAMINE 50 MG INJ IV PRN (13:00)
[2016-12-25] MEDS ORDERED: INSULIN GLARGINE [LANtus] 3 ML PEN SC ONE (13:30)
--- NOTE | 2016-12-25 13:33 | CONS ---
Date/Time of Note Date/Time of Note DATE: 12/25/16 TIME: 13:21 Consult Date/Type/Reason Admit Date/Time Dec 18, 2016 at 17:10 Type of Consultation: Rheum Subjective Some low back ache but no new complaints. To get 1st Rituxan infusion today. Objective Vital Signs Date Time Temp Pulse Resp B/P Pulse Ox O2 Delivery O2 Flow Rate FiO2 12/25/16 12:44 98.2 72 20 142/96 94 12/25/16 01:45 Room Air Intake and Output 12/24/16 12/24/16 12/25/16 15:00 23:00 07:00 Intake Total 900 ml 720 ml 1100 ml Output Total 2100 ml Balance 900 ml -1380 ml 1100 ml Exam GENERAL: No acute distress, alert, oriented x3. SKIN: With mild hypopigmented area in the chin. No acute rashes. HEENT: No evidence of sclerodactyly or telangiectasias. NECK: Supple. No thyromegaly noted or lymphadenopathy. CHEST: Clear to auscultation. HEART: Regular rate and rhythm without gallops or murmurs noted. ABDOMEN: Soft without masses or tenderness. EXTREMITIES: No edema or cyanosis. MUSCULOSKELETAL: No joint tenderness. No synovitis. Results/Medications Result Diagram: 12/25/16 0442 12/25/16 0442 Results 24 hrs Laboratory Tests Test 12/24/16 16:02 12/24/16 17:39 12/24/16 21:21 12/25/16 01:39 Bedside Glucose 210 201 246 H 266 H Test 12/25/16 04:42 12/25/16 09:19 12/25/16 12:55 White Blood Count 17.2 H Red Blood Count 3.78 L Hemoglobin 11.2 L Hematocrit 34.8 L Mean Corpuscular Volume 92.1 Mean Corpuscular Hemoglobin 29.6 Mean Corpuscular Hemoglobin Concent 32.2 Red Cell Distribution Width 14.3 Platelet Count 301 Mean Platelet Volume 12.7 H Neutrophils % 85.2 H Lymphocytes % 5.4 L Monocytes % 6.5 Eosinophils % 0.0 Basophils % 0.1 Nucleated Red Blood Cells % 0.1 H Neutrophils # 14.7 H Lymphocytes # 0.9 Monocytes # 1.1 H Eosinophils # 0.0 Basophils # 0.0 Nucleated Red Blood Cells # 0.0 Sodium Level 140 Potassium Level 4.3 Chloride Level 107 Carbon Dioxide Level 23 Anion Gap 14 Blood Urea Nitrogen 67 H Creatinine 3.06 H Glucose Level 387 #H Calcium Level 8.6 Total Bilirubin 0.0 L Direct Bilirubin 0.00 Indirect Bilirubin 0.0 Aspartate Amino Transf (AST/SGOT) 26 Alanine Aminotransferase (ALT/SGPT) 36 Alkaline Phosphatase 129 H Total Protein 6.7 Albumin 2.9 L Globulin 3.80 H Albumin/Globulin Ratio 0.76 Bedside Glucose 424 *H 485 *H Medications Current Medications Ondansetron HCl (Zofran Inj) 4 mg Q6H PRN IV NAUSEA AND/OR VOMITING; Start at 20:30 Acetaminophen (Tylenol Tab) 650 mg Q6H PRN PO PAIN LEVEL 1-3 OR FEVER; Start 12/18/16 at 20:30 Docusate Sodium (Colace) 100 mg Q12H PRN PO CONSTIPATION; Start 12/18/16 at 20 :30 Bisacodyl (Dulcolax) 5 mg DAILY PRN PO CONSTIPATION; Start 12/18/16 at 20:30 Nicotine (Nicoderm 21 Mg/ 24hr) 1 patch DAILY TRANSDERM Last administered on 09:35; Admin Dose 1 PATCH; Start 12/19/16 at 09:00 Morphine Sulfate (morphine) 2 mg Q4H PRN IV PAIN LEVEL 6-10 Last administered on 12/24/16 03:04; Admin Dose 2 MG; Start 12/19/16 at 00:00 Alprazolam (Xanax) 0.5 mg BID PRN PO ANXIETY Last administered on 12/24/16 08 :26; Admin Dose 0.5 MG; Start 12/19/16 at 01:00 Atenolol (Tenormin) 100 mg DAILY PO Last administered on 12/25/16 09:34; Admin Dose 100 MG; Start 12/19/16 at 09:00 Carisoprodol (Soma) 350 mg BID PRN PO MUSCLE SPASMS; Start 12/19/16 at 01:00 Hydroxychloroquine Sulfate (Plaquenil) 200 mg DAILY PO Last administered on 09:34; Admin Dose 200 MG; Start 12/19/16 at 09:00 Timolol Maleate (Timoptic 0.25%) 1 drop BID BOTH EYES Last administered on 09:33; Admin Dose 1 DROP; Start 12/19/16 at 09:00 Tramadol HCl (Ultram) 50 mg BID PRN PO PAIN; Start 12/19/16 at 01:00 Triamcinolone Acetonide (Kenalog 0.1% Cr) 1 applic BID TOP Last administered on 12/25/16 09:35; Admin Dose 1 APPLIC; Start 12/19/16 at 09:00 Brimonidine Tartrate (Alphagan 0.2%) 1 drop BID BOTH EYES Last administered on 12/25/16 09:33; Admin Dose 1 DROP; Start 12/19/16 at 09:00 Latanoprost (Xalatan) 1 drop BID BOTH EYES Last administered on 12/25/16 09: 33; Admin Dose 1 DROP; Start 12/19/16 at 09:00 Bismuth Subsalicylate (Pepto-Bismol) 15 ml Q3H PRN PO GASTROINTESTINAL UPSET; Start 12/20/16 at 11:00 Mupirocin (Bactroban) 1 applic BID TOP Last administered on 12/25/16 09:35; Admin Dose 1 APPLIC; Start 12/20/16 at 21:00 Methylprednisolone Sodium Succinate (Solu-Medrol) 125 mg Q8 IV Last administered on 12/25/16 04:38; Admin Dose 125 MG; Start 12/22/16 at 14:00 Famotidine (Pepcid) 20 mg DAILY PO Last administered on 12/25/16 09:34; Admin Dose 20 MG; Start 12/22/16 at 09:00 Diagnostic Test (Pha) (Accu-Chek) 1 ea 02 XX Last administered on 12/24/16 02 :40; Admin Dose 1 EA; Start 12/23/16 at 02:00 Miscellaneous Information 1 ea NOTE XX ; Start 12/22/16 at 13:30 Glucose (Glutose) 15 gm Q15M PRN PO DECREASED GLUCOSE; Start 12/22/16 at 13:30 Glucose (Glutose) 22.5 gm Q15M PRN PO DECREASED GLUCOSE; Start 12/22/16 at 13: 30 Dextrose (D50w Syringe) 25 ml Q15M PRN IV DECREASED GLUCOSE; Start 12/22/16 at 13:30 Dextrose (D50w Syringe) 50 ml Q15M PRN IV DECREASED GLUCOSE; Start 12/22/16 at 13:30 Glucagon (Glucagen) 1 mg Q15M PRN IM DECREASED GLUCOSE; Start 12/22/16 at 13: 30 Glucose (Glutose) 15 gm Q15M PRN BUCCAL DECREASED GLUCOSE; Start 12/22/16 at 13:30 Patient Own Medication 1 ea BID PRN TOP PAIN/JOINT PAIN Last administered on 21:29; Admin Dose 1 EA; Start 12/23/16 at 20:00 Hydralazine HCl (Apresoline) 10 mg Q4H PRN IV ELEVATEDB/P Last administered on 12/24/16 21:29; Admin Dose 10 MG; Start 12/24/16 at 21:00 Insulin Glargine (Lantus) 18 unit QHS SC ; Start 12/25/16 at 21:00 Furosemide (Lasix) 20 mg DAILY IV Last administered on 12/25/16 12:56; Admin Dose 20 MG; Start 12/25/16 at 11:00 Diphenhydramine HCl (Benadryl) 50 mg PRN PRN IV ALLERGIC REACTION; Start 12/25 at 13:00; Stop 12/25/16 at 23:45 Diphenhydramine HCl (Benadryl) 50 mg 14 IV ; Start 12/25/16 at 14:00; Stop at 14:01 Acetaminophen 1000 mg 1,000 mg 14 PO ; Start 12/25/16 at 14:00; Stop 12/25/16 at 14:01 Rituximab/N/A/ Sodium Chloride (Rituxan/Evac Container/NS) 500 ml @ 0 mls/hr 1430 IV ; Start 12/25/16 at 14:30; Stop 12/25/16 at 23:45 Insulin Glargine (Lantus) 12 unit ONCE ONCE SC ; Start 12/25/16 at 13:30; Stop 12/25/16 at 13:31; Status UNV Assessment/Plan Chief Complaint/Hosp Course ASSESSMENT: 1. Renal insufficiency, creatinine improving on steroids. Kidney biopsy noted. 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 Per biopsy, there is no clear evidence of lupus nephritis and C3 and C4 have been normal and double stranded DNA is likely artifact as MYRNA has been, and is, negative. 2. Hepatitis C. Negative PCR. 3. Rheumatoid arthritis, possibly. Rheumatoid factor positivity may be due to Hepatitis C 4. Glaucoma. 5, Hypertension. 6. Leukocytosis due to steroids 7. Hyperglycemia due to steroids 8. MRSA Nares PLAN: 1. Patient has received a total of three 1 gram Solumedrol IV boluses. Now on 125 mg q 8 hour. 2. Rituximab to be administered at 375 mg/m2 (940 mg according to my calculation) once, to be subsequently infused three additional times once a week. Quantiferon Gold is Indeterminate but PPD is negative. 3. I discussed in detail with patient steroids and Rituxan, and emphasized not stopping steroids ( prednisone) suddenly. 4. Change steroids from Solumedrol tomorrow to prednisone at 40 mg bid PC. Problems: MAREK DENNEY MD Dec 25, 2016 13:31
[2016-12-25] MEDS ORDERED: ACETAMINOPHEN 500 MG TAB PO SCH (14:00)
[2016-12-25] MEDS ORDERED: DIPHENHYDRAMINE 50 MG INJ IV SCH (14:00)
[2016-12-25] MEDS ORDERED: SOD CHLORIDE IV SCH (14:30)
[2016-12-25] MEDS ORDERED: EVAC CONTAINER IV SCH (14:30)
[2016-12-25] MEDS ORDERED: RITUXIMAB IV SCH (14:30)
--- NOTE | 2016-12-25 17:22 | PN ---
Date/Time of Note Date/Time of Note DATE: 12/25/16 TIME: 16:58 Assessment/Plan VTE Prophylaxis VTE Prophylaxis Intervention: ambulation Lines/Catheters Urinary Cath still in place: No Assessment/Plan Chief Complaint/Hosp Course 1. 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 tomorrow Patient to receive 1 dose of Rituxan per rheumatology and is to continue q. weekly 3 doses Plaquenil daily HCV Ab+ so await cryoglobulins, HCV PCR negative 2. Hyperglycemia secondary to steroids Continue Lantus, but given additional Lantus dose today and anticipate sugars to improve as high-dose Solu-Medrol will be discontinued as of tomorrow 3. Hypertension Continue amlodipine, atenolol Prophylaxis: Ambulation Problems: Subjective 24 Hr Interval Summary Constitutional: no complaints Exam/Review of Systems Vital Signs Vitals Vital Signs Date Time Temp Pulse Resp B/P Pulse Ox O2 Delivery O2 Flow Rate FiO2 12/25/16 16:55 98.2 65 20 143/89 97 Room Air Intake and Output 12/24/16 12/24/16 12/25/16 15:00 23:00 07:00 Intake Total 900 ml 720 ml 1100 ml Output Total 2100 ml Balance 900 ml -1380 ml 1100 ml Exam Constitutional: alert, oriented Respiratory: clear to auscultation Cardiovascular: regular rate and rhythm Gastrointestinal: soft, No distended Musculoskeletal: nl extremities to inspection Results Result Diagram: 12/25/16 0442 12/25/16 0442 Results 24 hrs Laboratory Tests Test 12/24/16 17:39 12/24/16 21:21 12/25/16 01:39 12/25/16 04:42 Bedside Glucose 201 246 H 266 H White Blood Count 17.2 H Red Blood Count 3.78 L Hemoglobin 11.2 L Hematocrit 34.8 L Mean Corpuscular Volume 92.1 Mean Corpuscular Hemoglobin 29.6 Mean Corpuscular Hemoglobin Concent 32.2 Red Cell Distribution Width 14.3 Platelet Count 301 Mean Platelet Volume 12.7 H Neutrophils % 85.2 H Lymphocytes % 5.4 L Monocytes % 6.5 Eosinophils % 0.0 Basophils % 0.1 Nucleated Red Blood Cells % 0.1 H Neutrophils # 14.7 H Lymphocytes # 0.9 Monocytes # 1.1 H Eosinophils # 0.0 Basophils # 0.0 Nucleated Red Blood Cells # 0.0 Sodium Level 140 Potassium Level 4.3 Chloride Level 107 Carbon Dioxide Level 23 Anion Gap 14 Blood Urea Nitrogen 67 H Creatinine 3.06 H Glucose Level 387 #H Calcium Level 8.6 Total Bilirubin 0.0 L Direct Bilirubin 0.00 Indirect Bilirubin 0.0 Aspartate Amino Transf (AST/SGOT) 26 Alanine Aminotransferase (ALT/SGPT) 36 Alkaline Phosphatase 129 H Total Protein 6.7 Albumin 2.9 L Globulin 3.80 H Albumin/Globulin Ratio 0.76 Test 12/25/16 09:19 12/25/16 12:55 Bedside Glucose 424 *H 485 *H Medications Medications Current Medications Ondansetron HCl (Zofran Inj) 4 mg Q6H PRN IV NAUSEA AND/OR VOMITING; Start at 20:30 Acetaminophen (Tylenol Tab) 650 mg Q6H PRN PO PAIN LEVEL 1-3 OR FEVER; Start 12/18/16 at 20:30 Docusate Sodium (Colace) 100 mg Q12H PRN PO CONSTIPATION; Start 12/18/16 at 20 :30 Bisacodyl (Dulcolax) 5 mg DAILY PRN PO CONSTIPATION; Start 12/18/16 at 20:30 Nicotine (Nicoderm 21 Mg/ 24hr) 1 patch DAILY TRANSDERM Last administered on 09:35; Admin Dose 1 PATCH; Start 12/19/16 at 09:00 Morphine Sulfate (morphine) 2 mg Q4H PRN IV PAIN LEVEL 6-10 Last administered on 12/24/16 03:04; Admin Dose 2 MG; Start 12/19/16 at 00:00 Alprazolam (Xanax) 0.5 mg BID PRN PO ANXIETY Last administered on 12/24/16 08 :26; Admin Dose 0.5 MG; Start 12/19/16 at 01:00 Atenolol (Tenormin) 100 mg DAILY PO Last administered on 12/25/16 09:34; Admin Dose 100 MG; Start 12/19/16 at 09:00 Carisoprodol (Soma) 350 mg BID PRN PO MUSCLE SPASMS; Start 12/19/16 at 01:00 Hydroxychloroquine Sulfate (Plaquenil) 200 mg DAILY PO Last administered on 09:34; Admin Dose 200 MG; Start 12/19/16 at 09:00 Timolol Maleate (Timoptic 0.25%) 1 drop BID BOTH EYES Last administered on 09:33; Admin Dose 1 DROP; Start 12/19/16 at 09:00 Tramadol HCl (Ultram) 50 mg BID PRN PO PAIN; Start 12/19/16 at 01:00 Triamcinolone Acetonide (Kenalog 0.1% Cr) 1 applic BID TOP Last administered on 12/25/16 09:35; Admin Dose 1 APPLIC; Start 12/19/16 at 09:00 Brimonidine Tartrate (Alphagan 0.2%) 1 drop BID BOTH EYES Last administered on 12/25/16 09:33; Admin Dose 1 DROP; Start 12/19/16 at 09:00 Latanoprost (Xalatan) 1 drop BID BOTH EYES Last administered on 12/25/16 09: 33; Admin Dose 1 DROP; Start 12/19/16 at 09:00 Bismuth Subsalicylate (Pepto-Bismol) 15 ml Q3H PRN PO GASTROINTESTINAL UPSET; Start 12/20/16 at 11:00 Mupirocin (Bactroban) 1 applic BID TOP Last administered on 12/25/16 09:35; Admin Dose 1 APPLIC; Start 12/20/16 at 21:00 Methylprednisolone Sodium Succinate (Solu-Medrol) 125 mg Q8 IV Last administered on 12/25/16 14:54; Admin Dose 125 MG; Start 12/22/16 at 14:00; Stop 12/25/16 at 23:30 Famotidine (Pepcid) 20 mg DAILY PO Last administered on 12/25/16 09:34; Admin Dose 20 MG; Start 12/22/16 at 09:00 Diagnostic Test (Pha) (Accu-Chek) 1 ea 02 XX Last administered on 12/24/16 02 :40; Admin Dose 1 EA; Start 12/23/16 at 02:00 Miscellaneous Information 1 ea NOTE XX ; Start 12/22/16 at 13:30 Glucose (Glutose) 15 gm Q15M PRN PO DECREASED GLUCOSE; Start 12/22/16 at 13:30 Glucose (Glutose) 22.5 gm Q15M PRN PO DECREASED GLUCOSE; Start 12/22/16 at 13: 30 Dextrose (D50w Syringe) 25 ml Q15M PRN IV DECREASED GLUCOSE; Start 12/22/16 at 13:30 Dextrose (D50w Syringe) 50 ml Q15M PRN IV DECREASED GLUCOSE; Start 12/22/16 at 13:30 Glucagon (Glucagen) 1 mg Q15M PRN IM DECREASED GLUCOSE; Start 12/22/16 at 13: 30 Glucose (Glutose) 15 gm Q15M PRN BUCCAL DECREASED GLUCOSE; Start 12/22/16 at 13:30 Patient Own Medication 1 ea BID PRN TOP PAIN/JOINT PAIN Last administered on 21:29; Admin Dose 1 EA; Start 12/23/16 at 20:00 Hydralazine HCl (Apresoline) 10 mg Q4H PRN IV ELEVATEDB/P Last administered on 12/24/16 21:29; Admin Dose 10 MG; Start 12/24/16 at 21:00 Insulin Glargine (Lantus) 18 unit QHS SC ; Start 12/25/16 at 21:00 Furosemide (Lasix) 20 mg DAILY IV Last administered on 12/25/16 12:56; Admin Dose 20 MG; Start 12/25/16 at 11:00 Diphenhydramine HCl 50 mg 50 mg PRN PRN IV ALLERGIC REACTION; Start 12/25/16 at 13:00; Stop 12/25/16 at 23:45 Rituximab/N/A/ Sodium Chloride (Rituxan/Evac Container/NS) 500 ml @ 0 mls/hr 1430 IV Last administered on 12/25/16 14:55; Admin Dose 0 MLS/HR; Start at 14:30; Stop 12/25/16 at 23:45 RAO MORALES Dec 25, 2016 17:21
[2016-12-25] MEDS ORDERED: INSULIN GLARGINE [LANtus] 3 ML PEN SC SCH (21:00)
[2016-12-26] MEDS: ACCU-CHEK XX SCH (02:13)
[2016-12-26 02:24] VITALS: BP 154/79; RESP 20
[2016-12-26] MEDS ORDERED: INSULIN ASPART [NOVOLOG] 3 ML PEN SC ONE ×2 (02:30→05:10)
[2016-12-26] MEDS ORDERED: SOD CHLORIDE 0.9% 250 ML IV ONE (03:00)
[2016-12-26 03:06] LABS: ABNORMAL IP MESSAGE 1; BASOPHILS % 0.1 % (0.0-2.0); HEMATOCRIT 34.5 % (42.0-52.0); HEMOGLOBIN 11.4 g/dl (14.0-18.0); LYMPHOCYTES # 0.2 10^3/ul (0.8-2.9); LYMPHOCYTES % 1.3 % (15.0-51.0); MEAN CORPUSCULAR HEMOGLOBIN 30.7 pg (29.0-33.0); MEAN PLATELET VOLUME 12.1 fl (7.4-10.4); MONOCYTES % 5.2 % (0.0-11.0); NEUTROPHIL # 16.5 10^3/ul (1.6-7.5); NEUTROPHILS % 90.8 % (39.0-77.0); NUCLEATED RED BLOOD CELLS% 0.2 /100WBC (0.0-0.0); PLATELET COUNT 285 10^3/UL (140-415); POSITIVE DIFF @See below; RED BLOOD COUNT 3.71 10^6/ul (4.70-6.10); WHITE BLOOD COUNT 18.2 10^3/ul (4.8-10.8)
[2016-12-26 03:25] LABS: MAGNESIUM 1.8 mg/dl (1.7-2.5); PHOSPHORUS 4.3 mg/dl (2.5-4.9)
[2016-12-26 03:26] LABS: ALBUMIN 2.9 g/dl (3.3-4.9); ALBUMIN/GLOBULIN RATIO 0.85; CALCIUM 8.1 mg/dl (8.4-10.2); CREATININE 3.07 mg/dl (0.61-1.24); POTASSIUM 3.9 mmol/L (3.5-5.1); TOTAL PROTEIN 6.3 g/dl (6.1-8.1)
[2016-12-26] MEDS ORDERED: ONDANSETRON 4 MG INJ IV PRN (03:30)
[2016-12-26] MEDS ORDERED: morphine 2 MG INJ IV PRN (03:30)
[2016-12-26] MEDS ORDERED: DEXTROSE 5%-0.45% NACL 1,000 ML IV SCH (03:30)
[2016-12-26] MEDS ORDERED: predniSONE 20 MG TAB PO SCH (08:00)
[2016-12-26 08:37] VITALS: BP 132/70; RESP 20
[2016-12-26] MEDS: FAMOTIDINE 20 MG TAB PO SCH (08:44)
[2016-12-26] MEDS: BRIMONIDINE 0.2% 5 ML BTL BOTH EYES SCH (08:44)
[2016-12-26] MEDS: AL HYDROX/MG HYDROX/SIMETH 30 ML CUP PO SCH (08:44)
[2016-12-26] MEDS: TIMOLOL 0.25% 5 ML OPH BOTH EYES SCH (08:45)
[2016-12-26] MEDS: FUROSEMIDE 20 MG INJ IV SCH (08:46)
[2016-12-26] MEDS: NICOTINE (21 MG/24 HR) PATCH TRANSDERM SCH (08:47)
[2016-12-26] MEDS: TRIAMCINOLONE ACET 0.1% 15 GM CR TOP SCH (08:48)
[2016-12-26] MEDS: MUPIROCIN 2% 22 GM OINT TOP SCH (08:48)
[2016-12-26] MEDS ORDERED: INSULIN GLARGINE [LANtus] 3 ML PEN SC SCH ×2 (09:00→21:00)
[2016-12-26] MEDS ORDERED: FUROSEMIDE 20 MG TAB NGT SCH (09:00)
[2016-12-26] MEDS: INSULIN ASPART [NOVOLOG] 3 ML PEN SC SCH ×2 (09:28→13:28)
[2016-12-26] MEDS: HYDROXYCHLOROQUINE 200 MG TAB PO SCH (10:32)
[2016-12-26] MEDS: ATENOLOL 100 MG TAB PO SCH (10:32)
[2016-12-26] MEDS: LATANOPROST 0.005% 2.5 ML OPH BOTH EYES SCH (10:37)
[2016-12-26] MEDS ORDERED: PRED20TA PO ×2 (12:00→13:28)
--- NOTE | 2016-12-26 12:04 | PDOCDIS ---
Discharge Instructions CONDITION Patient Condition: Good HOME CARE INSTRUCTIONS: Diet Instructions: Reduced Calorie ACTIVITY: Activity Restrictions: No Restrictions FOLLOW UP/APPOINTMENTS Follow-up Plan F/U WITH YOUR PCP IN 1-2 WEEKS, F/U WITH YOUR AUTO SUSP[employer] AND STEERING MECHANIC BY SUNDAY OF NEXT WEEK, YOU WILL NEED RITUXIMAB 940 MG IV STARTING THIS COMING SUNDAY AND THEN WEEKLY FOR 2 MORE WEEKS, DISCUSS NEED FOR FURTHER PREDNISONE WITH YOUR AUT[employer]USP[employer] AND [employer]ING MECHANIC RAO MORALES Dec 26, 2016 12:04
[2016-12-26] MEDS ORDERED: OXYC-279 PO (12:07)
--- NOTE | 2016-12-26 12:51 | CONS ---
Date/Time of Note Date/Time of Note DATE: 12/26/16 TIME: 12:51 Assessment/Plan Assessment/Plan Chief Complaint/Hosp Course 1. Acute on chronic renal failure plus the patient has 3+ hematuria and proteinuria. His baseline creatinine is 1.5 to 1.85 range. At last hospitalization, creatinine was 3.61 and upon discharge was 2.69, however, currently is 5.09. Patient is positive for C-ANCA. CRP was 61. 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 Cr improved to 4.64 > 3.77>3.46 today s/p solumedrol dose #1 on 12/19/09, and 2 doses on 12/21 . Now on labs P ANCA + Now on solumedrol 125 q 8>prednisone 2. Hematuria secondary to #1. 3. Proteinuria secondary to #1. 4. Hypertension. 5. Rheumatoid arthritis? with Hep c positvity 6. Possible lupus. unlikely 7. Uncontrolled sugars due to steroids/ Non compliance 8. 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 9. Possible lupus. however unlikely per Rheumtology and no evidence of lupus nephritis on renal biopsy 10 Fluid retention likely due to excessive fluid intake/ steroids Recs - Spoke to Dr Elie mercedes who is ok with him going home if sugars are controlled - Per his recs, would decrease prednisone to 60 mg instead of [address] Esteban he is ok with it - D./C on Bactrim SS 1 1 TAB MWF for PCP prophylaxsis - Pt will need some kind of Insuliin/ Sliding scale when goes home for elevated sugars>spoke to Dr Wood , probably arrangement with home health nurse - f/u Dr Elie mercedes on at 12.15 for follow up - HCV viral load negative, Cryogloblins pending - C/W Atenolol and plaquneil - Pt to get Rituxan once weekly per Rheumatology, f/u cat dog or other pet groomer as outpatient in 1 week Problems: Consultation Date/Type/Reason Admit Date/Time Dec 18, 2016 at 17:10 Initial Consult Date 12/20/16 Type of Consultation: Renal 24 HR Interval Summary Free Text/Dictation Overall improved but sugars still high>400 Pt wants to leave s/p Rituxan dose yesterday Exam/Review of Systems Vital Signs Vitals Vital Signs Date Time Temp Pulse Resp B/P Pulse Ox O2 Delivery O2 Flow Rate FiO2 12/26/16 08:37 98.0 50 20 132/70 97 12/25/16 22:28 Room Air Intake and Output 12/25/16 12/25/16 12/26/16 15:00 23:00 07:00 Intake Total 1550 ml 1350 ml Output Total 2000 ml 1500 ml Balance -450 ml -150 ml Exam GENERAL: Patient is awake, alert, middle-aged [place] male, no acute distress. HEENT: Normocephalic, atraumatic. No pallor. No scleral icterus. NECK: Supple, no JVD. HEART: Regular rate and rhythm. LUNGS: Clear to auscultate bilaterally. ABDOMEN: Soft, nontender, nondistended, positive normoactive bowel sounds. EXTREMITIES: 2+edema SKIN: The patient has some changes on the cheek. NEUROLOGIC: Awake, alert, oriented x3. The patient has decreased sensation on bilateral lower extremities. Results Result Diagram: 12/26/16 0239 12/26/16 0238 Results 24 hrs Laboratory Tests Test 12/25/16 12:55 12/25/16 17:37 12/25/16 20:36 12/26/16 02:04 Bedside Glucose 485 *H 245 H 313 H 593 *H Test 12/26/16 02:38 12/26/16 02:39 12/26/16 04:43 12/26/16 08:42 Sodium Level 140 Potassium Level 3.9 Chloride Level 105 Carbon Dioxide Level 24 Anion Gap 15 Blood Urea Nitrogen 67 H Creatinine 3.07 H Glucose Level 398 H Calcium Level 8.1 L Phosphorus Level 4.3 Magnesium Level 1.8 Total Bilirubin 0.0 L Direct Bilirubin 0.00 Indirect Bilirubin 0.0 Aspartate Amino Transf (AST/SGOT) 22 Alanine Aminotransferase (ALT/SGPT) 33 Alkaline Phosphatase 194 #H Total Protein 6.3 Albumin 2.9 L Globulin 3.40 H Albumin/Globulin Ratio 0.85 White Blood Count 18.2 H Red Blood Count 3.71 L Hemoglobin 11.4 L Hematocrit 34.5 L Mean Corpuscular Volume 93.0 Mean Corpuscular Hemoglobin 30.7 Mean Corpuscular Hemoglobin Concent 33.0 Red Cell Distribution Width 14.0 Platelet Count 285 Mean Platelet Volume 12.1 H Neutrophils % 90.8 H Lymphocytes % 1.3 L Monocytes % 5.2 Eosinophils % 0.0 Basophils % 0.1 Nucleated Red Blood Cells % 0.2 H Neutrophils # 16.5 H Lymphocytes # 0.2 L Monocytes # 1.0 H Eosinophils # 0.0 Basophils # 0.0 Nucleated Red Blood Cells # 0.0 Bedside Glucose 457 *H 214 Test 12/26/16 12:26 Bedside Glucose 182 Medications Medications Current Medications Ondansetron HCl (Zofran Inj) 4 mg Q6H PRN IV NAUSEA AND/OR VOMITING; Start at 20:30 Acetaminophen (Tylenol Tab) 650 mg Q6H PRN PO PAIN LEVEL 1-3 OR FEVER; Start 12/18/16 at 20:30 Docusate Sodium (Colace) 100 mg Q12H PRN PO CONSTIPATION; Start 12/18/16 at 20 :30 Bisacodyl (Dulcolax) 5 mg DAILY PRN PO CONSTIPATION; Start 12/18/16 at 20:30 Nicotine (Nicoderm 21 Mg/ 24hr) 1 patch DAILY TRANSDERM Last administered on 08:47; Admin Dose 1 PATCH; Start 12/19/16 at 09:00 Morphine Sulfate (morphine) 2 mg Q4H PRN IV PAIN LEVEL 6-10 Last administered on 12/24/16 03:04; Admin Dose 2 MG; Start 12/19/16 at 00:00 Alprazolam (Xanax) 0.5 mg BID PRN PO ANXIETY Last administered on 12/24/16 08 :26; Admin Dose 0.5 MG; Start 12/19/16 at 01:00 Atenolol (Tenormin) 100 mg DAILY PO Last administered on 12/26/16 10:32; Admin Dose 100 MG; Start 12/19/16 at 09:00 Carisoprodol (Soma) 350 mg BID PRN PO MUSCLE SPASMS; Start 12/19/16 at 01:00 Hydroxychloroquine Sulfate (Plaquenil) 200 mg DAILY PO Last administered on 10:32; Admin Dose 200 MG; Start 12/19/16 at 09:00 Timolol Maleate (Timoptic 0.25%) 1 drop BID BOTH EYES Last administered on 08:45; Admin Dose 1 DROP; Start 12/19/16 at 09:00 Tramadol HCl (Ultram) 50 mg BID PRN PO PAIN; Start 12/19/16 at 01:00 Triamcinolone Acetonide (Kenalog 0.1% Cr) 1 applic BID TOP Last administered on 12/26/16 08:48; Admin Dose 1 APPLIC; Start 12/19/16 at 09:00 Brimonidine Tartrate (Alphagan 0.2%) 1 drop BID BOTH EYES Last administered on 12/26/16 08:44; Admin Dose 1 DROP; Start 12/19/16 at 09:00 Latanoprost (Xalatan) 1 drop BID BOTH EYES Last administered on 12/26/16 10: 37; Admin Dose 1 DROP; Start 12/19/16 at 09:00 Bismuth Subsalicylate (Pepto-Bismol) 15 ml Q3H PRN PO GASTROINTESTINAL UPSET; Start 12/20/16 at 11:00 Mupirocin (Bactroban) 1 applic BID TOP Last administered on 12/26/16 08:48; Admin Dose 1 APPLIC; Start 12/20/16 at 21:00 Famotidine (Pepcid) 20 mg DAILY PO Last administered on 12/26/16 08:44; Admin Dose 20 MG; Start 12/22/16 at 09:00 Diagnostic Test (Pha) (Accu-Chek) 1 ea 02 XX Last administered on 12/26/16 02 :13; Admin Dose 1 EA; Start 12/23/16 at 02:00 Miscellaneous Information 1 ea NOTE XX ; Start 12/22/16 at 13:30 Glucose (Glutose) 15 gm Q15M PRN PO DECREASED GLUCOSE; Start 12/22/16 at 13:30 Glucose (Glutose) 22.5 gm Q15M PRN PO DECREASED GLUCOSE; Start 12/22/16 at 13: 30 Dextrose (D50w Syringe) 25 ml Q15M PRN IV DECREASED GLUCOSE; Start 12/22/16 at 13:30 Dextrose (D50w Syringe) 50 ml Q15M PRN IV DECREASED GLUCOSE; Start 12/22/16 at 13:30 Glucagon (Glucagen) 1 mg Q15M PRN IM DECREASED GLUCOSE; Start 12/22/16 at 13: 30 Glucose (Glutose) 15 gm Q15M PRN BUCCAL DECREASED GLUCOSE; Start 12/22/16 at 13:30 Patient Own Medication 1 ea BID PRN TOP PAIN/JOINT PAIN Last administered on 21:29; Admin Dose 1 EA; Start 12/23/16 at 20:00 Hydralazine HCl (Apresoline) 10 mg Q4H PRN IV ELEVATEDB/P Last administered on 12/24/16 21:29; Admin Dose 10 MG; Start 12/24/16 at 21:00 Furosemide (Lasix) 20 mg DAILY IV Last administered on 12/26/16 08:46; Admin Dose 20 MG; Start 12/25/16 at 11:00 Insulin Glargine (Lantus) 25 unit QHS SC ; Start 12/26/16 at 21:00 LILLY MACDONALD MD Dec 26, 2016 12:51
[2016-12-26] MEDS ORDERED: LANT3I SC (13:28)
[2016-12-26] MEDS ORDERED: BACTRIM PO (13:28)
--- NOTE | 2016-12-26 13:37 | PN ---
Date/Time of Note Date/Time of Note DATE: 12/26/16 TIME: 13:35 Assessment/Plan VTE Prophylaxis VTE Prophylaxis Intervention: ambulation Lines/Catheters IV Catheter Type (from Nrs): PICC Line Central line still needed: No Urinary Cath still in place: No Assessment/Plan Chief Complaint/Hosp Course Assessment: Hep C antibody reactive- viral load not detected Mild anemia/stable Consistent with chronic disease Glomerulonephritis. Plan: Cleared from GI point of view Pt to f/u with GI for out-patient colonoscopy Patient seen in collaboration with Dr. Potts Subjective: Course reviewed with nursing staff Patient interviewed and examined All labs, imaging and other results reviewed Pt doing well, planning to be d/c's today : Problems: Exam/Review of Systems Vital Signs Vitals Vital Signs Date Time Temp Pulse Resp B/P Pulse Ox O2 Delivery O2 Flow Rate FiO2 12/26/16 08:37 98.0 50 20 132/70 97 12/25/16 22:28 Room Air Intake and Output 12/25/16 12/25/16 12/26/16 15:00 23:00 07:00 Intake Total 1550 ml 1350 ml Output Total 2000 ml 1500 ml Balance -450 ml -150 ml Exam Constitutional: alert, oriented Psych: nl mood/affect, no complaints Head: atraumatic, normocephalic Eyes: nl conjunctiva ENMT: nl external ears & nose, nl lips & teeth Neck: non-tender, supple Respiratory: clear to auscultation, normal air movement Cardiovascular: regular rate and rhythm Gastrointestinal: nl liver, spleen, non-tender, soft Results Result Diagram: 12/26/16 0239 12/26/16 0238 Results 24 hrs Laboratory Tests Test 12/25/16 17:37 12/25/16 20:36 12/26/16 02:04 12/26/16 02:38 Bedside Glucose 245 H 313 H 593 *H Sodium Level 140 Potassium Level 3.9 Chloride Level 105 Carbon Dioxide Level 24 Anion Gap 15 Blood Urea Nitrogen 67 H Creatinine 3.07 H Glucose Level 398 H Calcium Level 8.1 L Phosphorus Level 4.3 Magnesium Level 1.8 Total Bilirubin 0.0 L Direct Bilirubin 0.00 Indirect Bilirubin 0.0 Aspartate Amino Transf (AST/SGOT) 22 Alanine Aminotransferase (ALT/SGPT) 33 Alkaline Phosphatase 194 #H Total Protein 6.3 Albumin 2.9 L Globulin 3.40 H Albumin/Globulin Ratio 0.85 Test 12/26/16 02:39 12/26/16 04:43 12/26/16 08:42 12/26/16 12:26 White Blood Count 18.2 H Red Blood Count 3.71 L Hemoglobin 11.4 L Hematocrit 34.5 L Mean Corpuscular Volume 93.0 Mean Corpuscular Hemoglobin 30.7 Mean Corpuscular Hemoglobin Concent 33.0 Red Cell Distribution Width 14.0 Platelet Count 285 Mean Platelet Volume 12.1 H Neutrophils % 90.8 H Lymphocytes % 1.3 L Monocytes % 5.2 Eosinophils % 0.0 Basophils % 0.1 Nucleated Red Blood Cells % 0.2 H Neutrophils # 16.5 H Lymphocytes # 0.2 L Monocytes # 1.0 H Eosinophils # 0.0 Basophils # 0.0 Nucleated Red Blood Cells # 0.0 Bedside Glucose 457 *H 214 182 Medications Medications Current Medications Ondansetron HCl (Zofran Inj) 4 mg Q6H PRN IV NAUSEA AND/OR VOMITING; Start at 20:30 Acetaminophen (Tylenol Tab) 650 mg Q6H PRN PO PAIN LEVEL 1-3 OR FEVER; Start 12/18/16 at 20:30 Docusate Sodium (Colace) 100 mg Q12H PRN PO CONSTIPATION; Start 12/18/16 at 20 :30 Bisacodyl (Dulcolax) 5 mg DAILY PRN PO CONSTIPATION; Start 12/18/16 at 20:30 Nicotine (Nicoderm 21 Mg/ 24hr) 1 patch DAILY TRANSDERM Last administered on 08:47; Admin Dose 1 PATCH; Start 12/19/16 at 09:00 Morphine Sulfate (morphine) 2 mg Q4H PRN IV PAIN LEVEL 6-10 Last administered on 12/24/16 03:04; Admin Dose 2 MG; Start 12/19/16 at 00:00 Alprazolam (Xanax) 0.5 mg BID PRN PO ANXIETY Last administered on 12/24/16 08 :26; Admin Dose 0.5 MG; Start 12/19/16 at 01:00 Atenolol (Tenormin) 100 mg DAILY PO Last administered on 12/26/16 10:32; Admin Dose 100 MG; Start 12/19/16 at 09:00 Carisoprodol (Soma) 350 mg BID PRN PO MUSCLE SPASMS; Start 12/19/16 at 01:00 Hydroxychloroquine Sulfate (Plaquenil) 200 mg DAILY PO Last administered on 10:32; Admin Dose 200 MG; Start 12/19/16 at 09:00 Timolol Maleate (Timoptic 0.25%) 1 drop BID BOTH EYES Last administered on 08:45; Admin Dose 1 DROP; Start 12/19/16 at 09:00 Tramadol HCl (Ultram) 50 mg BID PRN PO PAIN; Start 12/19/16 at 01:00 Triamcinolone Acetonide (Kenalog 0.1% Cr) 1 applic BID TOP Last administered on 12/26/16 08:48; Admin Dose 1 APPLIC; Start 12/19/16 at 09:00 Brimonidine Tartrate (Alphagan 0.2%) 1 drop BID BOTH EYES Last administered on 12/26/16 08:44; Admin Dose 1 DROP; Start 12/19/16 at 09:00 Latanoprost (Xalatan) 1 drop BID BOTH EYES Last administered on 12/26/16 10: 37; Admin Dose 1 DROP; Start 12/19/16 at 09:00 Bismuth Subsalicylate (Pepto-Bismol) 15 ml Q3H PRN PO GASTROINTESTINAL UPSET; Start 12/20/16 at 11:00 Mupirocin (Bactroban) 1 applic BID TOP Last administered on 12/26/16 08:48; Admin Dose 1 APPLIC; Start 12/20/16 at 21:00 Famotidine (Pepcid) 20 mg DAILY PO Last administered on 12/26/16 08:44; Admin Dose 20 MG; Start 12/22/16 at 09:00 Diagnostic Test (Pha) (Accu-Chek) 1 ea 02 XX Last administered on 12/26/16 02 :13; Admin Dose 1 EA; Start 12/23/16 at 02:00 Miscellaneous Information 1 ea NOTE XX ; Start 12/22/16 at 13:30 Glucose (Glutose) 15 gm Q15M PRN PO DECREASED GLUCOSE; Start 12/22/16 at 13:30 Glucose (Glutose) 22.5 gm Q15M PRN PO DECREASED GLUCOSE; Start 12/22/16 at 13: 30 Dextrose (D50w Syringe) 25 ml Q15M PRN IV DECREASED GLUCOSE; Start 12/22/16 at 13:30 Dextrose (D50w Syringe) 50 ml Q15M PRN IV DECREASED GLUCOSE; Start 12/22/16 at 13:30 Glucagon (Glucagen) 1 mg Q15M PRN IM DECREASED GLUCOSE; Start 12/22/16 at 13: 30 Glucose (Glutose) 15 gm Q15M PRN BUCCAL DECREASED GLUCOSE; Start 12/22/16 at 13:30 Patient Own Medication 1 ea BID PRN TOP PAIN/JOINT PAIN Last administered on 21:29; Admin Dose 1 EA; Start 12/23/16 at 20:00 Hydralazine HCl (Apresoline) 10 mg Q4H PRN IV ELEVATEDB/P Last administered on 12/24/16 21:29; Admin Dose 10 MG; Start 12/24/16 at 21:00 Furosemide (Lasix) 20 mg DAILY IV Last administered on 12/26/16 08:46; Admin Dose 20 MG; Start 12/25/16 at 11:00 Insulin Glargine (Lantus) 25 unit QHS SC ; Start 12/26/16 at 21:00 TOM SORTO Dec 26, 2016 13:37
--- NOTE | 2016-12-26 13:44 | CONS ---
Date/Time of Note Date/Time of Note DATE: 12/26/16 TIME: 13:35 Consult Date/Type/Reason Admit Date/Time Dec 18, 2016 at 17:10 Type of Consultation: Rheum Subjective No new complaints. Objective Vital Signs Date Time Temp Pulse Resp B/P Pulse Ox O2 Delivery O2 Flow Rate FiO2 12/26/16 08:37 98.0 50 20 132/70 97 12/25/16 22:28 Room Air Intake and Output 12/25/16 12/25/16 12/26/16 15:00 23:00 07:00 Intake Total 1550 ml 1350 ml Output Total 2000 ml 1500 ml Balance -450 ml -150 ml Exam GENERAL: No acute distress, alert, oriented x3. SKIN: With mild hypopigmented area in the chin. No acute rashes. HEENT: No evidence of sclerodactyly or telangiectasias. NECK: Supple. No thyromegaly noted or lymphadenopathy. CHEST: Clear to auscultation. HEART: Regular rate and rhythm without gallops or murmurs noted. ABDOMEN: Soft without masses or tenderness. EXTREMITIES: No edema or cyanosis. MUSCULOSKELETAL: No joint tenderness. No synovitis. Results/Medications Result Diagram: 12/26/16 0239 12/26/16 0238 Results 24 hrs Laboratory Tests Test 12/25/16 17:37 12/25/16 20:36 12/26/16 02:04 12/26/16 02:38 Bedside Glucose 245 H 313 H 593 *H Sodium Level 140 Potassium Level 3.9 Chloride Level 105 Carbon Dioxide Level 24 Anion Gap 15 Blood Urea Nitrogen 67 H Creatinine 3.07 H Glucose Level 398 H Calcium Level 8.1 L Phosphorus Level 4.3 Magnesium Level 1.8 Total Bilirubin 0.0 L Direct Bilirubin 0.00 Indirect Bilirubin 0.0 Aspartate Amino Transf (AST/SGOT) 22 Alanine Aminotransferase (ALT/SGPT) 33 Alkaline Phosphatase 194 #H Total Protein 6.3 Albumin 2.9 L Globulin 3.40 H Albumin/Globulin Ratio 0.85 Test 12/26/16 02:39 12/26/16 04:43 12/26/16 08:42 12/26/16 12:26 White Blood Count 18.2 H Red Blood Count 3.71 L Hemoglobin 11.4 L Hematocrit 34.5 L Mean Corpuscular Volume 93.0 Mean Corpuscular Hemoglobin 30.7 Mean Corpuscular Hemoglobin Concent 33.0 Red Cell Distribution Width 14.0 Platelet Count 285 Mean Platelet Volume 12.1 H Neutrophils % 90.8 H Lymphocytes % 1.3 L Monocytes % 5.2 Eosinophils % 0.0 Basophils % 0.1 Nucleated Red Blood Cells % 0.2 H Neutrophils # 16.5 H Lymphocytes # 0.2 L Monocytes # 1.0 H Eosinophils # 0.0 Basophils # 0.0 Nucleated Red Blood Cells # 0.0 Bedside Glucose 457 *H 214 182 Medications Current Medications Ondansetron HCl (Zofran Inj) 4 mg Q6H PRN IV NAUSEA AND/OR VOMITING; Start at 20:30 Acetaminophen (Tylenol Tab) 650 mg Q6H PRN PO PAIN LEVEL 1-3 OR FEVER; Start 12/18/16 at 20:30 Docusate Sodium (Colace) 100 mg Q12H PRN PO CONSTIPATION; Start 12/18/16 at 20 :30 Bisacodyl (Dulcolax) 5 mg DAILY PRN PO CONSTIPATION; Start 12/18/16 at 20:30 Nicotine (Nicoderm 21 Mg/ 24hr) 1 patch DAILY TRANSDERM Last administered on 08:47; Admin Dose 1 PATCH; Start 12/19/16 at 09:00 Morphine Sulfate (morphine) 2 mg Q4H PRN IV PAIN LEVEL 6-10 Last administered on 12/24/16 03:04; Admin Dose 2 MG; Start 12/19/16 at 00:00 Alprazolam (Xanax) 0.5 mg BID PRN PO ANXIETY Last administered on 12/24/16 08 :26; Admin Dose 0.5 MG; Start 12/19/16 at 01:00 Atenolol (Tenormin) 100 mg DAILY PO Last administered on 12/26/16 10:32; Admin Dose 100 MG; Start 12/19/16 at 09:00 Carisoprodol (Soma) 350 mg BID PRN PO MUSCLE SPASMS; Start 12/19/16 at 01:00 Hydroxychloroquine Sulfate (Plaquenil) 200 mg DAILY PO Last administered on 10:32; Admin Dose 200 MG; Start 12/19/16 at 09:00 Timolol Maleate (Timoptic 0.25%) 1 drop BID BOTH EYES Last administered on 08:45; Admin Dose 1 DROP; Start 12/19/16 at 09:00 Tramadol HCl (Ultram) 50 mg BID PRN PO PAIN; Start 12/19/16 at 01:00 Triamcinolone Acetonide (Kenalog 0.1% Cr) 1 applic BID TOP Last administered on 12/26/16 08:48; Admin Dose 1 APPLIC; Start 12/19/16 at 09:00 Brimonidine Tartrate (Alphagan 0.2%) 1 drop BID BOTH EYES Last administered on 12/26/16 08:44; Admin Dose 1 DROP; Start 12/19/16 at 09:00 Latanoprost (Xalatan) 1 drop BID BOTH EYES Last administered on 12/26/16 10: 37; Admin Dose 1 DROP; Start 12/19/16 at 09:00 Bismuth Subsalicylate (Pepto-Bismol) 15 ml Q3H PRN PO GASTROINTESTINAL UPSET; Start 12/20/16 at 11:00 Mupirocin (Bactroban) 1 applic BID TOP Last administered on 12/26/16 08:48; Admin Dose 1 APPLIC; Start 12/20/16 at 21:00 Famotidine (Pepcid) 20 mg DAILY PO Last administered on 12/26/16 08:44; Admin Dose 20 MG; Start 12/22/16 at 09:00 Diagnostic Test (Pha) (Accu-Chek) 1 ea 02 XX Last administered on 12/26/16 02 :13; Admin Dose 1 EA; Start 12/23/16 at 02:00 Miscellaneous Information 1 ea NOTE XX ; Start 12/22/16 at 13:30 Glucose (Glutose) 15 gm Q15M PRN PO DECREASED GLUCOSE; Start 12/22/16 at 13:30 Glucose (Glutose) 22.5 gm Q15M PRN PO DECREASED GLUCOSE; Start 12/22/16 at 13: 30 Dextrose (D50w Syringe) 25 ml Q15M PRN IV DECREASED GLUCOSE; Start 12/22/16 at 13:30 Dextrose (D50w Syringe) 50 ml Q15M PRN IV DECREASED GLUCOSE; Start 12/22/16 at 13:30 Glucagon (Glucagen) 1 mg Q15M PRN IM DECREASED GLUCOSE; Start 12/22/16 at 13: 30 Glucose (Glutose) 15 gm Q15M PRN BUCCAL DECREASED GLUCOSE; Start 12/22/16 at 13:30 Patient Own Medication 1 ea BID PRN TOP PAIN/JOINT PAIN Last administered on 21:29; Admin Dose 1 EA; Start 12/23/16 at 20:00 Hydralazine HCl (Apresoline) 10 mg Q4H PRN IV ELEVATEDB/P Last administered on 12/24/16 21:29; Admin Dose 10 MG; Start 12/24/16 at 21:00 Furosemide (Lasix) 20 mg DAILY IV Last administered on 12/26/16 08:46; Admin Dose 20 MG; Start 12/25/16 at 11:00 Insulin Glargine (Lantus) 25 unit QHS SC ; Start 12/26/16 at 21:00 Assessment/Plan Chief Complaint/Hosp Course ASSESSMENT: 1. Renal insufficiency, creatinine improving on steroids. Kidney biopsy noted. 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 Per biopsy, there is no clear evidence of lupus nephritis and C3 and C4 have been normal and double stranded DNA is likely artifact as MYRNA has been, and is, negative. 2. Hepatitis C. Negative PCR. 3. Rheumatoid arthritis, possibly. Rheumatoid factor positivity may be due to Hepatitis C 4. Glaucoma. 5, Hypertension. 6. Leukocytosis due to steroids 7. Hyperglycemia due to steroids 8. MRSA Nares PLAN: 1. Patient has received a total of three 1 gram Solumedrol IV boluses, followed by 125 mg q 8 hour until yesterday. Today started prednisone. 2. Rituximab administered yesteday at 375 mg/m2 (940 mg according to my calculation) once, to be subsequently infused three additional times once a week. Quantiferon Gold is Indeterminate but PPD is negative. 3. I again discussed in detail with patient steroids and Rituxan, and emphasized not stopping steroids ( prednisone) suddenly. 4. Change steroids from Solumedrol to prednisone at 60 mg daily in two divided doses PC. 5. Patient being discharged today and will follow up with Form Setter [employer]per in two days. Problems: MAREK DENNEY MD Dec 26, 2016 13:44
--- NOTE | 2016-12-26 16:04 | DS ---
Date/Time of Note Date/Time of Note DATE: 12/26/16 TIME: 15:59 Discharge Summary Admission/Discharge Info Admit Date/Time Dec 18, 2016 at 17:10 Discharge Date/Time Dec 26, 2016 at 14:10 Discharge Diagnosis 1. 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 weekly for 3 more weeks Status post 1 dose of Rituxan in house Plaquenil daily HCV Ab+, HCV PCR negative Patient scheduled to follow-up with his academic director this week 2. Hyperglycemia secondary to steroids-improved DC with Lantus 3. Hypertension Continue amlodipine, atenolol Patient Condition: Good Hospital Course Patient is a 51-year-old male presenting to the ER because of an abnormal renal biopsy, patient was sent to the ER by his academic director Dr. Jules because the left renal biopsy showed glomerulonephritis. Patient was seen by nephrology in house, patient had a diagnosis of Anka vasculitis was started on high-dose a Medrol. Patient was seen by rheumatology as well as nephrology and ultimately did receive rituximab IV in house. Patient's blood sugars did increase secondary to steroids, patient's renal function did stabilize, the patient was felt to be stable for discharge per nephrology and rheumatology plans follow-up with his academic director later this week. Patient understood the importance of compliance with prednisone and with his follow-up appointments, patient was taught how to self administer Lantus. The day of discharge patient's vitals, labs and physical exam stable he had no further acute complaints and questions are answered. Home Meds Active Scripts Trimethoprim-Sulfamethoxazole* (Bactrim*) 400-80 Mg Tab, 1 TAB PO MOWEFR@09, #6 TAB Prov:RAO MORALES 12/26/16 Insulin Glargine* (Lantus*) 100 Unit/Ml Soln, 15 UNIT SC QHS, #1 VIAL Prov:RAO MORALES 12/26/16 Prednisone* (Prednisone*) 20 Mg Tab, 60 MG PO DAILY for 14 Days, #42 TAB Prov:RAO MORALES 12/26/16 Oxycodone HCl/Acetaminophen (Percocet 5-325 mg Tablet) 1 Each Tablet, 1 EACH PO Q4 for PAIN, #30 TAB Prov:RAO MORALES 12/26/16 Reported Medications Nicotine* (Nicotine* Patch) 21 mg/day Patch, 1 EACH TD DAILY, PATCH 12/18/16 Tramadol Hcl* (Ultram*) 50 Mg Tablet, 50 MG PO BID Y for PAIN, TAB 12/18/16 Carisoprodol* (Carisoprodol*) 350 Mg Tablet, 350 MG PO BID Y for MUSCLE SPASMS, TAB 12/18/16 Alprazolam* (Alprazolam*) 0.5 Mg Tablet, 0.5 MG PO BID Y for ANXIETY, TAB 12/18/16 Triamcinolone Acetonide* (Kenalog*) 0.1%-15GM Cr, 1 APPLIC TOP BID, #1 TUB 12/18/16 Amlodipine Besylate* (Amlodipine Besylate*) 10 Mg Tablet, 10 MG PO DAILY, #30 TAB 12/13/16 Hydroxychloroquine Sulfate* (Hydroxychloroquine Sulfate*) 200 Mg Tablet, 200 MG PO DAILY, TAB 12/13/16 Omeprazole* (Omeprazole*) 40 Mg Capsule.dr, 40 MG PO BID WITH MEALS, #30 CAP 11/04/16 Brimonidine Tartrate* (Brimonidine Tartrate*) 0.2%-15ML Drop Opht, 1 DROP BOTH EYES Q8, #1 EA 09/15/16 Latanoprost (Latanoprost) 2.5 Ml Drops, 1 DROP BOTH EYES QHS, #1 BOTTLE 09/15/16 Timolol Maleate* (Timolol Maleate* Ophth) 0.25%-15ml Opht, 1 DROP BOTH EYES BID , #1 EA 09/15/16 Atenolol* (Atenolol*) 100 Mg Tablet, 100 MG PO DAILY, #30 TAB 09/15/16 Follow-up Plan F/U WITH YOUR PCP IN 1-2 WEEKS, F/U WITH YOUR COMBINER BY SUNDAY OF NEXT WEEK, YOU WILL NEED RITUXIMAB 940 MG IV STARTING THIS COMING SUNDAY AND THEN WEEKLY FOR 2 MORE WEEKS, DISCUSS NEED FOR FURTHER PREDNISONE WITH YOUR COMBINER Primary Care Provider Robert Diamond Time spent on discharge: > 30 minutes RAO MORALES Dec 26, 2016 16:04
== END 2016-12-26 14:10 | disposition home or self-care (01) | DRG 684 ==
LOC: E/R 13:28 → PP2 17:10 → MS1 12-24 19:57
PROVIDERS: ADMIT Internal Medicine; ATTEND Internal Medicine
PROC: 02HV33Z Insertion of Infusion Device into Superior Vena Cava, Percutaneous Approach (ICD-10-PCS; principal; 2016-12-24)
DX: N17.0 Acute kidney failure with tubular necrosis (principal); G62.89 Other specified polyneuropathies; I12.9 Hypertensive chronic kidney disease with stage 1 through stage 4 chronic kidney disease, or unspecified chronic kidney disease; N00.8 Acute nephritic syndrome with other morphologic changes; N18.3 Chronic kidney disease, stage 3 (moderate); N03.8 Chronic nephritic syndrome with other morphologic changes; M06.9 Rheumatoid arthritis, unspecified; H40.9 Unspecified glaucoma; R31.9 Hematuria, unspecified; R73.9 Hyperglycemia, unspecified; I77.6 Arteritis, unspecified; T38.0X5A Adverse effect of glucocorticoids and synthetic analogues, initial encounter; Y92.238 Other place in hospital as the place of occurrence of the external cause; Z22.322 Carrier or suspected carrier of Methicillin resistant Staphylococcus aureus
CPT/HCPCS: 36415; 36569; 71010; 76937; 80048; 80053; 80061; 81001; 82595; 82947; 82962; 83036; 83605; 83735; 84100; 84443; 84484; 85025; 85610; 85651; 85730; 86021; 86038; 86140; 86160; 86226; 86235; 86480; 86580; 86703; 86704; 86709; 86803; 87040; 87045; 87081; 87086; 87340; 87522; 90686; 93005; J1940; J0360; J1200; J1815; J2060; J2270; J2930; J7030; J7040; J7512; J9310